=== PATIENT | male | born 1965 | race Caucasian/White ===

== ENCOUNTER 2017-02-21 17:15 | Observation (INO) | payer MEDICARE ==
[~2017-02-21] VITALS: Ht 170.2 cm; Wt 102.2 kg
--- NOTE | ~2017-02-21 | HEMODYNAMI ---
PATIENT:ANDREY OSMAN JR MEDICAL RECORD: [id number] : 67 LOCATION:[address] [facility]# [id number] ADMISSION DATE: 02/21/17 Generatedon:02/22/201713:12 Patient name: ANDREY OSMAN Patient #: [id number] SSN: [id number] : 1965 Date of study: 02/22/2017 Page: Of Hemodynamic Procedure Report Patient Data Patient Demographics Procedure consent was obtained First Name: ANDREY Gender: Male Last Name: DAWSON Suffix: Jr Adhikari Initial: Alpesh : 1965 Patient #: [id number] Age: 51 year(s) Race: SSN: [id number] Additional ID: [id number] Contact details [address]: [address] [place] [address] State: [place] City: [place] Zip code: [address] Past Medical History History of disease Date Diagnosis Comments CAD Allergies Allergen Reaction Date Comments Reported Other allergy 12/30/2015 Plavix (pt gets hives) Other allergy 07/30/2016 plavix Other allergy 08/01/2016 Plavix Admission Admission Data Admission Date: 02/21/2017 Admission Time: 21:59 Room #: 2127 Procedure Procedure Types Cath Procedure Diagnostic Procedure [facility] w/Coronaries PCI Procedure Coronary Stent Initial Miscellaneous Procedures Moderate Sedation up to 15 minutes Procedure Description Procedure Date Procedure Date: 02/22/2017 Procedure Start Time: 12:57 Procedure End Time: 13:12 Procedure Staff Name Function Leobardo Stratton MD Performing Physician Lucas Robles RT Scrub Vi Ellsworth RN Nurse Willian Jones RT Monitor Procedure Data Cath Procedure Fluoroscopy Diagnostic fluoroscopy Total fluoroscopy Time: 2.3 time: 2.3 min min Diagnostic fluoroscopy Total fluoroscopy dose: 418 dose: 418 mGy mGy Contrast Material Contrast Material Type Amount (ml) Isovue 300 98 Entry Location Entry Primary Successful Side Size Upsize Upsize Entry Closure Succes sful Closure Location (Fr) 1 (Fr) 2 (Fr) Remarks Device Remarks Femoral Right 5 Fr 6 Fr Exoseal artery Short Estimated blood loss: 10 ml Diagnostic catheters Device Type Used For End Catheter Placement Cordis 5Fr Pigtail Procedure Catheter (MP) Cordis 5Fr JL 4.0 Procedure Catheter (MP) Cordis 5Fr 3DRC Catheter Procedure (MP) Procedure Complications No complications Procedure Medications Medication Administration Route Dosage Oxygen NC 2 l/min Heparin Flush Bag added to field 2 bags (1000units/500ml NS) Lidocaine 2% added to field 20 Versed I.V. 1 mg Fentanyl I.V. 50 mcg Versed I.V. 1 mg Fentanyl I.V. 50 mcg Heparin Bolus I.V. 4000 units Nitroglycerin IC/IA I.C. 200 mcg Versed I.V. 0.5 mg Fentanyl I.V. 50 mcg Hemodynamics Rest Heart Rate: 62 (bpm) Snapshots Pre Cath Intra NCS Post Cath Vital Signs Time Heart Resp SPO2 etCO2 [id number] NIBP (mmHg) Rhythm Pain Sedatio n Rate (ipm) (%) (mmHg) (mmHg) Status Level (bpm) 12:48:59 62 15 98 0 0 Measuring NSR 0 (11) 10(A) , No pain 12:49:29 62 15 99 0 0 164/96(124) NSR 0 (11) 10(A) , No pain 12:53:46 62 15 98 0 0 142/89(119) NSR 0 (11) 10(A) , No pain 12:57:55 62 18 97 0 0 128/85(104) NSR 0 (11) 10(A) , No pain 13:02:54 74 16 98 0 0 116/90(112) NSR 0 (11) 9(A) , No pain 13:06:56 77 16 95 0 0 121/107(118) NSR 0 (11) 9(A) , No pain 13:10:00 77 16 95 0 0 109/74(104) NSR 0 (11) 9(A) , No pain Medications Time Medication Route Dose Verified Delivered Reason Notes Effectiveness by by 12:48:37 Oxygen NC 2 Leobardo Vi Per physician l/min Viral Ellsworth RN 12:48:50 Heparin Flush added 2 Leobardo Booth used for Bag to bags Viral Stratton MD procedure (1000units/500ml field NS) 12:49:00 Lidocaine 2% added 20ml Leobardo Booth used for to vial Viral Stratton MD procedure field 12:55:32 Versed I.V. 1 mg Leobardo Vi for sedation Viral Ellsworth RN 12:55:39 Fentanyl I.V. 50 Leobardo Vi for sedation mcg Viral Ellsworth RN 12:57:36 Versed I.V. 1 mg Leobardo Vi for sedation Viral Ellsworth RN 12:57:42 Fentanyl I.V. 50 Leobardo Vi for sedation mcg Viral Ellsworth RN 12:59:33 Versed I.V. 0.5 Leobardo Vi for sedation mg Viral Ellsworth RN 12:59:45 Fentanyl I.V. 50 Leobardo Vi for sedation mcg Viral Ellsworth RN 13:02:16 Heparin Bolus I.V. 4000 Leobardo Vi for dose units Viral Ellsworth RN anticoagulation verified wtih dr stratton 13:04:44 Nitroglycerin I.C. 200 Leobardo Booth for IC/IA mcg Viral Stratton MD vasodilation Procedure Log Time Note 12:20:23 Willian Jones RT(R) sent for patient. Start room use. 12:27:19 ACC Patient presents with Unstable Angina CCS Anginal Class 3--Marked limitation of physical activity, angina occurs with ordinary activity.. 12:27:21 Diagnostic Cath status Urgent 12:27:25 Time tracking: Regular hours 12:27:29 Plan of Care:Hemodynamics will remain stable., Cardiac rhythm will remain stable., Comfort level will be maintained., Respiratory function will remain adequate., Patient/ family verbilizes understanding of procedure., Procedure tolerated without complication., Recovers from procedure without complications.. 12:40:58 Patient received from PCU to CCL 1 Alert and oriented. Tansferred to table in Supine position. 12:41:01 Warm blankets applied, and pilo hugger turned on for patient comfort. 12:41:02 Correct patient and procedure confirmed by team. 12:41:05 Signed procedure consent form obtained from patient. 12:41:06 ECG and BP/O2 sat monitors applied to patient. 12:47:10 Vital chart was started 12:48:37 Oxygen 2 l/min NC was administered by Vi Ellsworth RN; Per physician; 12:48:50 Heparin Flush Bag (1000units/500ml NS) 2 bags added to field was administered by Leobardo Stratton MD; used for procedure; 12:49:00 Lidocaine 2% 20ml vial added to field was administered by Leobardo Stratton MD; used for procedure; 12:49:32 Baseline sample Acquired. 12:49:36 Rhythm: sinus rhythm 12:49:38 Full Disclosure recording started 12:49:43 H&P Date Dictated: 02/22/2017 Within 30 days and on chart.. 12:49:43 Pre-procedure instructions explained to patient. 12:49:44 Pre-op teaching completed and patient verbalized understanding. 12:49:46 Family unavailable. 12:49:48 Patient NPO since Midnight. 12:49:49 Is the patient allergic to Iodine/contrast media? No. 12:49:51 Is patient on blood thinner?Yes 12:49:57 ACC The patient was administered the following blood thiners within the last 24 hours: ACCBrilinta 12:49:58 Patient diabetic? No. 12:50:01 Previous problem with sedation/anesthesia? No ? 12:50:02 Snore? Yes 12:50:03 Sleep apnea? Yes 12:50:04 Deviated septum? No 12:50:05 Opens mouth fully? Yes 12:50:06 Sticks out tongue? Yes 12:50:14 Airway obstruction? Yes COPD, Asthma 12:50:18 Dentures? Yes OUT 12:50:22 Pre procedure: right dorsailis pedis pulse 1+ Palpable, but thready & weak; easily obliterated 12:50:24 Patient pain scale 0/10 ?. 12:50:28 IV patent on arrival in right forearm with 0.9% NaCl at KVO. 12:50:29 Lab results completed and on chart. 12:50:32 Right groin area was prepped with chlora-prep and draped in sterile fashion 12:50:34 Alarms reviewed by R. N. 12:50:40 Sharps counted by scrub and verified by R.N. 12:50:47 Use device set Femoral Dx 12:50:48 Tegaderm 4 x 4 opened to sterile field. 12:50:49 Acist Hand Control opened to sterile field. 12:50:50 Acist Manifold opened to sterile field. 12:50:51 Acist Syringe opened to sterile field. 12:50:52 Bag Decanter opened to sterile field. 12:50:52 Medline Cath Pack opened to sterile field. 12:50:53 Terumo 5Fr [place] Sheath opened to sterile field. 12:50:53 St Asif 260cm J .035 wire opened to sterile field. 12:50:54 Diagnostic Infinity 5Fr Multipack catheter opened to sterile field. 12:50:56 Physician paged 12:55:16 --------ALL STOP TIME OUT------ 12:55:16 Final Timeout: patient, procedure, and site verified with staff and physician. All members of the team are in agreement. 12:55:18 Right groin site verified by team. 12:55:21 Physical assessment completed. ASA score P 2 - A patient with mild systemic disease as per Leobardo Stratton MD. 12:55:24 Sedation plan: IV Moderate Sedation Versed, Fentanyl 12:55:32 Versed 1 mg I.V. was administered by Vi Ellsworth RN; for sedation; 12:55:39 Fentanyl 50 mcg I.V. was administered by Vi Ellsworth RN; for sedation; 12:56:50 Procedure started. 12:57:06 Local anesthetic to right femoral artery with Lidocaine 2% by Leobardo Stratton MD.INITIAL ACCESS ONLY 12:57:35 Zero performed for pressure channel P1 12:57:36 Versed 1 mg I.V. was administered by Vi Ellsworth RN; for sedation; 12:57:42 Fentanyl 50 mcg I.V. was administered by Vi Ellsworth RN; for sedation; 12:57:53 A 5 Fr sheath was inserted into the Right Femoral artery 12:57:58 A Cordis 5Fr Pigtail Catheter (MP) was advanced over the wire and used for Procedure. 12:58:49 LV angiography performed. 12:58:50 LV gram done using ALANIS 12:58:56 EF : 55 % 12:58:59 Injector settings: Ml/sec: 10, Volume: 20, 12:59:01 Catheter removed. 12:59:05 A Cordis 5Fr JL 4.0 Catheter (MP) was advanced over the wire and used for Procedure. 12:59:33 Versed 0.5 mg I.V. was administered by Vi Ellsworth RN; for sedation; 12:59:44 LCA angiography performed. 12:59:45 Fentanyl 50 mcg I.V. was administered by Vi Ellsworth RN; for sedation; 12:59:59 Catheter removed. 13:00:07 A CordInSound Medical 5Fr 3DRC Catheter (MP) was advanced over the wire and used for Procedure. 13:00:21 Terumo 6Fr [place] Sheath opened to sterile field. 13:00:21 Berkowitz SemEquipisper J 300cm 0.014 guide wire opened to sterile field. 13:00:21 [email or web address] BasixCompak Inflation Kit opened to sterile field. 13:00:53 RCA angiography performed. 13:00:55 Catheter removed. 13:01:39 Medtronic Launcher 6Fr 3DRC guide catheter opened to sterile field. 13:01:54 ACC PCI Site: mRCA has 80% stenosis. 13:01:56 ACC Pre-intervention CATARINA Flow is 3. 13:02:04 Sheath upsized to a 6 Fr Short. 13:02:10 6 Fr 3DRC guide catheter was inserted over the wire 13:02:16 Heparin Bolus 4000 units I.V. was administered by Vi Ellsworth RN; for anticoagulation; dose verified wt dr stratton 13:02:40 Whisper wire advanced. 13:03:28 Wire advanced across lesion. 13:04:14 Inflation Number: 1 A Medtronic Resolute 3.5 X 12 stent was prepped and advanced across the Mid RCA. The stent was deployed at 17 PAUL for 0:10 (min:sec). 13:04:44 Nitroglycerin IC/IA 200 mcg I.C. was administered by Leobardo Stratton MD; for vasodilation; 13:05:32 ACC Post-intervention CATARINA Flow is 3. 13:05:34 Stent catheter was removed intact over wire. 13:05:34 Wire removed. 13:05:35 Guide catheter removed. 13:06:49 Sheath removed intact; hemostasis achieved with Exoseal to the Right Femoral artery. 13:06:52 Procedure ended.(Physican Out) 13:07:16 Fluoroscopy time 02.30 minutes. 13:07:20 Fluoroscopy dose: 418 mGy 13:07:20 Flurop Dose total: 418 13:08:48 Contrast amount:Isovue 300 98ml. 13:08:50 Sharps counted by scrub and verified by R.N. 13:08:56 Insertion/operative site no bleeding no hematoma. 13:08:59 Post-op/insertion site Right Femoral artery dressed using a 4 x 4 and Tegaderm. 13:09:01 Post Procedure Pulses reassessed and unchanged 13:09:03 Post-procedure physical assessment completed. ASA score P 2 - A patient with mild systemic disease as per Leobardo Stratton MD. 13:09:05 Post procedure rhythm: unchanged. 13:09:09 Estimated blood loss: 10 ml 13:09:11 Post procedure instruction explained to patient.Patient verbalizes understanding. 13:09:11 Patient needs reinforcement of post procedure teaching. 13:09:21 Procedure type changed to Cath procedure, Diagnostic procedure, LHC, LHC w/Coronaries, PCI procedure, Coronary Stent Initial, Miscellaneous Procedures, Moderate Sedation up to 15 minutes 13:09:26 Procedure Complication : No complications 13:09:46 Cordis 6Fr Exoseal opened to sterile field. 13:10:29 Procedure and supply charges have been captured, reviewed, submitted and are correct. 13:11:44 Vital chart was stopped 13:11:45 See physician's report for complete and final results. 13:12:04 Report given to PCU. 13:12:07 Patient transfered to PCU with Bed. 13:12:10 Procedure ended. 13:12:10 Full Disclosure recording stopped 13:12:12 End room use (Document Last) Intervention Summary Intervention Notes Time ActionType Lesion and Equipment Action# Pressure Duration Attributes Used 13:04:14 Place stent Mid RCA Medtronic 1 17 00:10 Resolute 3.5 X 12 stent Device Usage Item Name Manufacture Quantity Catalog Hospital Part Current Minimal Lot# / Number Charge Number Stock Stock Serial# Code Tegaderm 4 3M 1 [id number] [id number] 769289 5 x 4 Acist Hand Acist 1 45729 102173 264762 813726 5 Control Medical Systems Inc Acist Acist 1 54088 341116 800152 108208 5 Manifold Medical Systems Inc Acist Acist 1 34389 388378 559732 374302 20 Syringe Medical Systems Inc Bag Microtek 1 [facility] 160054 87633 133488 5 DecgetFound[employer]ie [employer] Inc. Medline Cardinal 1 [id number] 927481 29789 749858 5 Cath Pack Health Terumo 5Fr Terumo 1 [id number] 979838 981670 341018 [address] [place] [address] Asif 1 [id number] 595635 470493 728025 30 260cm J .035 wire Diagnostic Cardinal 1 [id number] 932353 12894 658455 30 Infinity Health 5Fr Multipack catheter Cordis 5Fr Cardinal 1 886017 5 Pigtail Health Catheter (MP) Cordis 5Fr Cardinal 1 750480 5 JL 4.0 Health Catheter (MP) Cordis 5Fr Cardinal 1 496044 5 3DRC Health Catheter (MP) Terumo 6Fr Terumo 1 [id number] 677889 312642 913318 40 [place] Sheath Berkowitz Berkowitz 1 [id number] 450123 586153 169468 5 Whisper J Vascular 300cm 0.014 guide wire Merit Merit 1 [id number] 157408 045592 588395 15 [facility] Medical Inflation Kit Medtronic Medtronic 1 [id number] 990111 131843 700418 1 Launcher 6Fr 3DRC guide catheter Medtronic Medtronic 1 [id number] 478315 716237 1 [id number] Resolute 3.5 X 12 stent Cordis 6Fr Cardinal 1 [id number] 451217 753889 764485 10 [facility] Novalux Signature Audit [place] Stage Time Signature Unsigned Intra-Procedure 02/22/2017 Willian Jones 1:12:25 PM RT(R) Signatures Monitor : Willian Jones RT Signature : Date : Time : 1910 [address] JAMISON, NANI [id number]
--- NOTE | ~2017-02-21 | HEMODYNAMI ---
PATIENT:ANDREY OSMAN JR MEDICAL RECORD: [id number] : 67 [address] [facility] [id number] ADMISSION DATE: 02/21/17 Generatedon:02/23/20178:28 Patient name: ANDREY OSMAN Patient #: [id number] SSN: [id number] : 1965 Date of study: 02/23/2017 Page: Of Hemodynamic Procedure Report Patient Data Patient Demographics Procedure consent was obtained First Name: ANDREY Gender: Male Last Name: DAWSON Suffix: Jr Adhikari Initial: Alpesh : 1965 Patient #: [id number] Age: 51 year(s) Race: SSN: [id number] Additional ID: [id number] Contact details [address]: [address] [place] [address] State: [place] City: [place] Zip code: [address] Past Medical History History of disease Date Diagnosis Comments CAD Allergies Allergen Reaction Date Comments Reported Other allergy 12/30/2015 Plavix (pt gets hives) Other allergy 07/30/2016 plavix Other allergy 08/01/2016 Plavix Admission Admission Data Admission Date: 02/21/2017 Admission Time: 21:59 Room #: 2127 Procedure Procedure Types Cath Procedure PCI Procedure PTCA Initial Miscellaneous Procedures Moderate Sedation up to 15 minutes Procedure Description Procedure Date Procedure Date: 02/23/2017 Procedure Start Time: 8:15 Procedure End Time: 8:27 Procedure Staff Name Function Leobardo Stratton MD Performing Physician Vi Ellsworth RN Nurse Willian Jones RT Monitor Ashia Pak RT Scrub Procedure Data Cath Procedure Fluoroscopy Diagnostic fluoroscopy Total fluoroscopy Time: 2.8 time: 2.8 min min Diagnostic fluoroscopy Total fluoroscopy dose: 416 dose: 416 mGy mGy Contrast Material Contrast Material Type Amount (ml) Isovue 300 51 Entry Location Entry Primary Successful Side Size Upsize Upsize Entry Closure Succes sful Closure Location (Fr) 1 (Fr) 2 (Fr) Remarks Device Remarks Femoral Left 6 Fr Exoseal artery Short Estimated blood loss: 10 ml Procedure Complications No complications Procedure Medications Medication Administration Route Dosage Oxygen NC 2 l/min Heparin Flush Bag added to field 2 bags (1000units/500ml NS) Lidocaine 2% added to field 20 Brilinta P.O. 90 mg Versed I.V. 1 mg Fentanyl I.V. 50 mcg Versed I.V. 1 mg Fentanyl I.V. 50 mcg Heparin Bolus I.V. 4000 units Versed I.V. 1 mg Fentanyl I.V. 50 mcg Hemodynamics Rest Heart Rate: 74 (bpm) Snapshots Pre Cath Intra NCS Post Cath Vital Signs Time Heart Resp SPO2 etCO2 YG3ovsf NIBP (mmHg) Rhythm Pain Sedation Rate (ipm) (%) (mmHg) (mmHg) Status Level (bpm) 7:55:36 68 21 98 0 0 Measuring NSR 0 (11) 10(A) , No pain 8:00:55 68 16 100 0 0 Time NSR 0 (11) 10(A) Exceeded , No pain 8:03:04 68 16 100 0 0 103/70(81) NSR 0 (11) 10(A) , No pain 8:07:12 73 16 98 0 0 111/58(81) NSR 0 (11) 10(A) , No pain 8:11:22 73 19 97 0 0 109/63(82) NSR 0 (11) 10(A) , No pain 8:15:26 75 17 97 0 0 111/78(108) NSR 0 (11) 9(A) , No pain 8:19:32 76 17 97 0 0 109/73(102) NSR 0 (11) 9(A) , No pain 8:23:35 71 19 98 0 0 119/77(101) NSR 0 (11) 9(A) , No pain 8:25:46 69 18 98 0 0 128/80(104) NSR 0 (11) 9(A) , No pain Medications Time Medication Route Dose Verified Delivered Reason Notes Effectiveness by by 7:51:00 Brilinta P.O. 90 mg Leobardo [place] for Viral Ellsworth RN antiplatelet therapy 7:58:12 Oxygen NC 2 Leobardo [place]onca Per physician l/min Viral Ellsworth RN 7:58:19 Heparin Flush added 2 Leobardo Booth used for Bag to bags Viral Stratton MD procedure (1000units/500ml field NS) 7:58:26 Lidocaine 2% added 20ml Leobardo Booth used for to vial Viral Stratton MD procedure field 8:09:02 Versed I.V. 1 mg Leobardo Vi for sedation Viral Ellsworth RN 8:09:09 Fentanyl I.V. 50 Leobardo Vi for sedation mcg Viral Ellsworth RN 8:11:05 Versed I.V. 1 mg Leobardo Vi for sedation Viral Ellsworth RN 8:11:13 Fentanyl I.V. 50 Leobardo Vi for sedation mcg Viral Ellsworth RN 8:13:07 Versed I.V. 1 mg Leobardo Vi for sedation Viral Ellsworth RN 8:13:18 Fentanyl I.V. 50 Leobardo Vi for sedation mcg Viral Ellsworth RN 8:17:38 Heparin Bolus I.V. 4000 Leobardo Vi for dose units Viral Ellsworth RN anticoagulation verified with dr stratton Procedure Log Time Note 7:30:41 Willian Jones RT(R) sent for patient. Start room use. 7:37:42 Time tracking: Regular hours 7:37:47 Plan of Care:Hemodynamics will remain stable., Cardiac rhythm will remain stable., Comfort level will be maintained., Respiratory function will remain adequate., Patient/ family verbilizes understanding of procedure., Procedure tolerated without complication., Recovers from procedure without complications.. 7:50:59 Patient received from PCU to CCL 1 Alert and oriented. Tansferred to table in Supine position. 7:51:00 Brilinta 90 mg P.O. was administered by Vi Ellsworth RN; for antiplatelet therapy; 7:51:01 Warm blankets applied, and pilo hugger turned on for patient comfort. 7:51:01 Correct patient and procedure confirmed by team. 7:51:03 Signed procedure consent form obtained from patient. 7:51:03 ECG and BP/O2 sat monitors applied to patient. 7:53:46 Vital chart was started 7:58:12 Oxygen 2 l/min NC was administered by Vi Ellsworth RN; Per physician; 7:58:19 Heparin Flush Bag (1000units/500ml NS) 2 bags added to field was administered by Leobardo Stratton MD; used for procedure; 7:58:26 Lidocaine 2% 20ml vial added to field was administered by Leobardo Stratton MD; used for procedure; 8:07:25 Baseline sample Acquired. 8:07:29 Rhythm: sinus rhythm 8:07:31 Full Disclosure recording started 8:07:38 H&P Date Dictated: 02/22/2017 Within 30 days and on chart.. 8:07:39 Pre-procedure instructions explained to patient. 8:07:39 Pre-op teaching completed and patient verbalized understanding. 8:07:41 Family unavailable. 8:07:42 Patient NPO since Midnight. 8:07:49 Is the patient allergic to Iodine/contrast media? No. 8:07:51 Is patient on blood thinner?Yes 8:07:54 ACC The patient was administered the following blood thiners within the last 24 hours: ACCBrilinta 8:07:56 Patient diabetic? No. 8:07:58 Previous problem with sedation/anesthesia? No ? 8:07:59 Snore? Yes 8:08:00 Sleep apnea? Yes 8:08:01 Deviated septum? No 8:08:01 Opens mouth fully? Yes 8:08:02 Sticks out tongue? Yes 8:08:08 Airway obstruction? Yes COPD, Asthma 8:08:13 Dentures? Yes OUT 8:08:29 Pre procedure: left dorsailis pedis pulse 1+ Palpable, but thready & weak; easily obliterated 8:08:31 Patient pain scale 0/10 ?. 8:08:44 IV patent on arrival in right forearm with 0.9% NaCl at KVO. 8:08:55 Lab results completed and on chart. 8:08:56 Left groin area was prepped with chlora-prep and draped in sterile fashion 8:08:57 Alarms reviewed by R. N. 8:08:58 Sharps counted by scrub and verified by R.N. 8:08:59 --------ALL STOP TIME OUT------ 8:09:01 Final Timeout: patient, procedure, and site verified with staff and physician. All members of the team are in agreement. 8:09:02 Versed 1 mg I.V. was administered by Vi Ellsworth RN; for sedation; 8:09:03 Left groin site verified by team. 8:: Physical assessment completed. ASA score P 2 - A patient with mild systemic disease as per Leobardo Stratton MD. 8:: Fentanyl 50 mcg I.V. was administered by Vi Ellsworth RN; for sedation; 8:: Sedation plan: IV Moderate Sedation Versed, Fentanyl 8:09:46 Use device set Femoral PCI 8::48 Tegaderm 4 x 4 opened to sterile field. 8::48 Acist Manifold opened to sterile field. 8::50 Acist Syringe opened to sterile field. 8::50 Acist Hand Control opened to sterile field. 8::51 Bag Decanter opened to sterile field. 8::51 Medline Cath Pack opened to sterile field. 8::52 Terumo 6Fr Judsonia Sheath opened to sterile field. 8::52 St Asif 260cm J .035 wire opened to sterile field. 8::52 Merit BasixCompak Inflation Kit opened to sterile field. 8:10:05 Berkowitz Whisper J 300cm 0.014 guide wire opened to sterile field. 8:11:05 Versed 1 mg I.V. was administered by Vi Ellsworth RN; for sedation; 8:11:13 Fentanyl 50 mcg I.V. was administered by Vi Ellsworth RN; for sedation; 8:13:07 Versed 1 mg I.V. was administered by Vi Ellsworth RN; for sedation; 8:13:08 Cordis 6FR XBLAD 3.5 guide catheter opened to sterile field. 8:13:18 Fentanyl 50 mcg I.V. was administered by Vi Ellsworth RN; for sedation; 8:13:18 ACC PCI Site: dLAD has 80% stenosis. 8:13:20 ACC Pre-intervention CATARINA Flow is 3. 8:15:46 Procedure started. 8:15:51 Local anesthetic to left femerol artery with Lidocaine 2% by Leobardo Stratton MD.INITIAL ACCESS ONLY 8:16:37 Zero performed for pressure channel P1 8:17:13 A 6 Fr Short sheath was inserted into the Left Femoral artery 8:17:38 Heparin Bolus 4000 units I.V. was administered by Vi Ellsworth RN; for anticoagulation; dose verified with dr stratton 8:17:41 6 Fr XBLAD 3.5 guide catheter was inserted over the wire 8:19:03 Whisper wire advanced. 8:19:40 Wire advanced across lesion. 8:20:58 Inflation number: 1 A Mozec Rx 3.0 x 20 balloon was prepped and advanced across the Dist LAD, then inflated to 17 PAUL for 0:10 (min:sec). 8:21:06 Cordis 6Fr Exoseal opened to sterile field. 8:21:41 Inflation number: 2 The Mozec Rx 3.0 x 20 balloon was reinflated across the Dist LAD, to 7 PAUL for 0:10 (min:sec). 8:22:19 Multiple inflations made at 9 Atms. 8:23:33 ACC Post-intervention CATARINA Flow is 3. 8:23:41 Balloon removed over the wire. 8:23:48 Wire removed. 8:23:53 Guide catheter removed. 8:24:05 Sheath removed intact; hemostasis achieved with Exoseal to the Left Femoral artery. 8:24:13 Procedure ended.(Physican Out) 8:25:10 Fluoroscopy time 02.80 minutes. 8:25:15 Flurop Dose total: 416 8:25:15 Fluoroscopy dose: 416 mGy 8:25:22 Contrast amount:Isovue 300 51ml. 8:25:24 Sharps counted by scrub and verified by R.N. 8:25:26 Insertion/operative site no bleeding no hematoma. 8:25:29 Post-op/insertion site Right Femoral artery dressed using a 4 x 4 and Tegaderm. 8:25:31 Post Procedure Pulses reassessed and unchanged 8:25:37 Post-procedure physical assessment completed. ASA score P 2 - A patient with mild systemic disease as per Leobardo Stratton MD. 8:25:48 Post procedure rhythm: unchanged. 8:25:51 Estimated blood loss: 10 ml 8:25:56 Post procedure instruction explained to patient.Patient verbalizes understanding. 8:25:56 Patient needs reinforcement of post procedure teaching. 8:26:03 Procedure type changed to Cath procedure, PCI procedure, PTCA Initial, Miscellaneous Procedures, Moderate Sedation up to 15 minutes 8:26:07 Procedure Complication : No complications 8:26:42 Procedure and supply charges have been captured, reviewed, submitted and are correct. 8:27:35 Vital chart was stopped 8:27:35 See physician's report for complete and final results. 8:27:40 Report given to PCU. 8:27:44 Patient transfered to PCU with Bed. 8:27:46 Procedure ended. 8:27:46 Full Disclosure recording stopped 8:27:48 End room use (Document Last) Intervention Summary Intervention Notes Time ActionType Lesion and Equipment Action# Pressure Duration Attributes Used 8:20:58 Inflate Dist LAD Mozec Rx 1 17 00:10 balloon 3.0 x 20 balloon 8:21:41 Reinflate Dist LAD Mozec Rx 2 7 00:10 balloon 3.0 x 20 balloon Device Usage Item Name Manufacture Quantity Catalog Hospital Part Current Minimal L ot# / Number Charge Number Stock Stock Serial# Code Tegaderm 4 3M 1 [id number] [id number] 5 x 4 Acist Acist 1 79349 055747 728878 221912 5 Manifold Medical Systems Inc Acist Acist 1 63473 882689 328822 624696 20 Syringe Medical Systems Inc Acist Hand Acist 1 79783 985119 241653 266624 5 Control Medical Systems Inc Bag Microtek 1 2002S 610598 44652 273914 5 DecFD9 [employer]. Medline Cardinal 1 [id number] 096138 42030 251059 5 Cath Pack Mission [employer] Terumo 6Fr Terumo 1 [id number] 987191 465140 721320 [address] As[address] St Asif 1 996114 505620 260425 669765 30 260cm J .035 wire Merit Merit 1 TM5880 386845 290470 527804 15 BasixCompak Medical Inflation Kit Berkowitz Berkowitz 1 [id number] 220518 318765 871243 5 Whisper J Vascular 300cm 0.014 guide wire Cordis 6FR Cardinal 1 [id number] 202169 091253 599913 10 XBLAD 3.5 Health guide catheter Mozec Rx Cardinal 1 [id number] 695554 16629 756048 5 U MOA73 3.0 x 20 Health balloon Cordis 6Fr Cardinal 1 EX600 881700 834123 486178 10 [facility] Signature Audit [place] Stage Time Signature Unsigned Intra-Procedure 02/23/2017 Willian Jones 8:28:07 AM RT(R) Signatures Monitor : Willian Jones RT Signature : Date : Time : [address] [place] [address]
--- NOTE | ~2017-02-21 | OP ---
PATIENT NAME: ANDREY OSMAN JR MEDICAL RECORD: [id number] :67 LOCATION:D.M2 D.2127 ADMISSION DATE:02/21/17 SURGEON: BRIANA HOYOS MD OPERATION DATE: 02/22/17 PROCEDURES: 1. Percutaneous transluminal coronary angioplasty stent right coronary artery. 2. Left heart catheterization. 3. Selective coronary angiography. 4. Left ventriculogram. INDICATION: 1. Angina. 2. Coronary artery disease. PROCEDURE IN DETAIL: After informed consent was obtained and after detailed explanation of risks, benefits, as well as alternative therapies, the patient elected to proceed with angiogram and angioplasty. The right femoral area was prepped and draped in a normal sterile fashion. The right femoral artery was cannulated via modified Seldinger technique with placement of 6-Kazakh sheath. All catheters exchanged through this sheath. FINDINGS: Left ventricular chamber size is within normal limits. Left ventricular systolic function is normal. Overall ejection fraction estimated at 60%. SELECTIVE CORONARY ANGIOGRAPHY: 1. Left main is with no significant angiographic disease. 2. Left anterior descending has previously placed stents. There is 80+% in-stent restenosis in the distal stent. 3. Left circumflex has mild to moderate irregularities but no flow-limiting stenosis. 4. The right coronary artery has previously placed stents that are widely patent, however, there is a new 80% stenosis in the mid vessel. PTCA STENT OF THE RIGHT CORONARY ARTERY: The stent used was a 3.5 X 12 millimeter Resolute stent. The result was 0% residual stenosis. OVERALL IMPRESSION: Successful percutaneous transluminal coronary angioplasty stent of the right coronary artery going from 80% initial stenosis to 0% residual stenosis. PLAN: Will plan for percutaneous transluminal coronary angioplasty stent of the left anterior descending in the near future. BRIANA HOYOS MD CC: [id number] DICTATION DATE: 02/22/17 1500 CHIEF ORDER DISPATCHER: GISELA 02/23/17 1411 ADM IN [facility] [address] [place] [address]
--- NOTE | ~2017-02-21 | DS ---
PATIENT:ANDREY AVERY JR :67 MEDICAL RECORD: [id number] DISCHARGE SUMMARY ADMISSION DATE: 02/21/17 DISCHARGE DATE: 02/23/17 PROBLEM LIST: 1. Angina. 2. Coronary artery disease. 3. Percutaneous transluminal coronary angioplasty stent right coronary artery and percutaneous transluminal coronary angioplasty left anterior descending this admission. 4. Hypertension. 5. Hyperlipidemia. HOSPITAL COURSE: Mr. Avery presents with unstable angina. He was found to have disease of the right coronary artery and left anterior descending. He underwent percutaneous transluminal coronary angioplasty of the left anterior descending as this was in-stent restenosis. He underwent percutaneous transluminal coronary angioplasty stent of the right coronary artery. PLAN: He was discharged home to continue his Brilinta and aspirin. He will follow up with [facility] in one month. BRIANA HOYOS MD CC: [id number] DICTATION DATE: 02/23/172302 RCP: RANDALL 02/23/172302 DIS IN 02/23/17 [id number] [place] [address]
--- NOTE | ~2017-02-21 | PRO ---
PATIENT:ANDREY OSMAN JR MEDICAL RECORD: [id number] : 67 LOCATION:D.M2 D.2127 ADMISSION DATE: 02/21/17 PROCEDURE PERFORMED BY: BRIANA HOYOS MD PROCEDURE DATE: 02/23/17 PROCEDURES: 1. Percutaneous transluminal coronary angioplasty left anterior descending. 2. Selective coronary angiography. INDICATION: 1. Angina. PROCEDURE IN DETAIL: After informed consent was obtained and after detailed explanation of risks, benefits, as well as alternative therapies, the patient elected to proceed with angiogram and angioplasty. The right femoral area was prepped and draped in a normal sterile fashion. The right femoral artery was cannulated via modified Seldinger technique with placement of 6-Citizen [place] sheath. All catheters exchanged through this sheath. FINDINGS: PTCA OF THE LEFT ANTERIOR DESCENDING: The left anterior descending has multiple previously placed stents. There is up to 80% in-stent restenosis. This was addressed with a 3.0 balloon taken to 17 atmospheres. The result was 0% residual stenosis. OVERALL IMPRESSION: Successful high pressure percutaneous transluminal coronary angioplasty for in-stent restenosis of the left anterior descending going from 80% initial stenosis to 0% residual stenosis. BRIANA HOYOS MD CC: [id number] DICTATION DATE: 02/23/172301 [employer] BPM ARCHITECT: RANDALL 02/23/172300 DIS IN 02/23/17 [facility] [address] [place] [address]
[~2017-02-21 17:15] MED LIST: BAYER CHEWABLE81 MG PO; BRILINTA90 MG PO; CELEXA20 MG PO; CELEXA40 MG PO; HYDROCODON-ACE1 EAC7 PO; HYDROCODONE-APA1 TAB PO; KLONOPIN0.5 MG PO; LIPITOR80 MG PO; LOPRESSOR25 MG PO; NITROSTAT0.4 MG SL; NORVASC5 MG PO; PLETAL100 MG PO; PRAVACHOL40 MG PO; PRILOSEC20 MG PO; PROAIR HFA8.5 GM INH; RANEXA1000 MG PO; RANEXA500 MG PO; SPIRIVA18 MCG INH; SPIRIVA18 MCG PO; SYMBICORT 16010.2 GM INH; VENTOLIN HFA18 GM INH; ZANTAC150 MG PO; ZETIA10 MG PO
[2017-02-21 18:03] LABS: BASOPHILS 0.1 % (0-2); EOSINOPHILS 1.5 % (0-7); HEMATOCRIT 45.4 % (42.0-54.0); HEMOGLOBIN 16.1 g/dL (13.5-17.5); IMMATURE GRANULOCYTES 0.4 % (0-5); LYMPHOCYTES 32.9 % (15-50); MCH 31.5 pg (26.0-34.0); MCHC 35.5 g/dL (31.0-37.0); MCV 88.8 fL (80.0-100.0); MEAN PLATELET VOLUME 8.7 fL (7.4-10.4); MONOCYTES 13.6 % (2-11); NEUTROPHILS 51.5 % (40-80); PLATELET COUNT 284 10x3/uL (130-400); RBC 5.11 10x6/uL (4.20-6.10); RDW 13.1 % (11.5-14.5); WBC 6.8 10x3/uL (4.8-10.8)
[2017-02-21 18:18] LABS: ALBUMIN 3.5 g/dL (3.4-5.0); ALKALINE PHOSPHATASE 113 U/L (46-116); ALT (SGPT) 26 U/L (10-68); BILIRUBIN - TOTAL 0.49 mg/dL (0.2-1.3); CALC OSMOLALITY 272 mosm/kg (275-300); CALCIUM 8.8 mg/dL (8.5-10.1); CARBON DIOXIDE 25.5 mmol/L (21.0-32.0); CHLORIDE - SERUM 100 mmol/L (98-107); GLUCOSE 102 mg/dL (74-106); POTASSIUM - SERUM 3.6 mmol/L (3.5-5.1); PROTEIN - SERUM 7.5 g/dL (6.4-8.2); SODIUM 137 mmol/L (136-145); UREA NITROGEN 11 mg/dL (7-18); eGFR NON AFRICAN AMERICAN 84 mL/min (90-120)
[2017-02-21 18:20] LABS: INR 0.96 (0.85-1.17); PROTIME 12.6 SECONDS (11.6-15.0)
[2017-02-21 18:44] LABS: CHOL - HDL RATIO 5.2 ratio (2.3-4.9); CHOLESTEROL, TOTAL 235 mg/dL (0-200); CKMB 0.2 U/L (0.0-3.6); CREATINE KINASE 41 UL (21-232); HDL CHOLESTEROL 45 mg/dL (32-96); LDL CHOLESTEROL 144 mg/dL (0-100); LDL-HDL RATIO 3.2 ratio (1.5-3.5); MAGNESIUM - SERUM 2.2 mg/dL (1.8-2.4); PRO BNP 15 pg/mL (0-125); TRIGLYCERIDE 231 mg/dL (30-200); TROPONIN-I < 0.017 ng/mL (0.000-0.060)
[2017-02-21] MEDS ORDERED: ZOFRAN ODT4 MG/UDTAB PO (23:31)
[2017-02-21] MEDS ORDERED: PERCOCET 10/3251 TA1 PO (23:31)
--- NOTE | 2017-02-21 23:50 | NUR ---
PT RECEIVED AWAKE, ALERT, ORIENTED, DENIES ANY ACTIVE CP AT THIS TIME. PT STATES THE PRN NITRO AND MORPHINE HAS PROVIDED SOME RELIEF. PT DENIES ANY NEEDS AT THIS TIME. TELEMETRY PLACED, NS WITH MT OF 60. CONTINUE TO MONITOR CLOSELY.
[2017-02-22] VITALS (7 sets, daily range): BP systolic 99–130; BP diastolic 56–82; Ht 170.2 cm; Wt 102.2 kg
[2017-02-22 00:29] LABS: CKMB 0.1 U/L (0.0-3.6); CREATINE KINASE 39 UL (21-232); TROPONIN-I < 0.017 ng/mL (0.000-0.060)
--- NOTE | 2017-02-22 00:42 | NUR ---
HOLDING PT NPO IN CASE PT DOES GO TO DIRECTOR OF ALUMNI RELATIONS IN THE MORNING. PT IS AGREEABLE.
[2017-02-22 07:22] LABS: CKMB 0.1 U/L (0.0-3.6); CREATINE KINASE 36 UL (21-232); TROPONIN-I < 0.017 ng/mL (0.000-0.060)
[2017-02-22 09:28] LABS: BASOPHILS 0.1 % (0-2); EOSINOPHILS 1.5 % (0-7); HEMATOCRIT 47.4 % (42.0-54.0); HEMOGLOBIN 16.5 g/dL (13.5-17.5); IMMATURE GRANULOCYTES 0.5 % (0-5); LYMPHOCYTES 25.9 % (15-50); MCH 31.4 pg (26.0-34.0); MCHC 34.8 g/dL (31.0-37.0); MCV 90.1 fL (80.0-100.0); MONOCYTES 10.9 % (2-11); NEUTROPHILS 61.1 % (40-80); PLATELET COUNT 258 10x3/uL (130-400); RBC 5.26 10x6/uL (4.20-6.10); RDW 13.2 % (11.5-14.5); WBC 8.4 10x3/uL (4.8-10.8)
[2017-02-22 10:13] LABS: CALC OSMOLALITY 275 mosm/kg (275-300); CARBON DIOXIDE 28.7 mmol/L (21.0-32.0); CHLORIDE - SERUM 100 mmol/L (98-107); CKMB 0.1 U/L (0.0-3.6); CREATINE KINASE 38 UL (21-232); GLUCOSE 104 mg/dL (74-106); SODIUM 138 mmol/L (136-145); TROPONIN-I < 0.017 ng/mL (0.000-0.060); UREA NITROGEN 12 mg/dL (7-18)
[2017-02-22 10:14] LABS: CREATININE - SERUM 1.3 mg/dL (0.6-1.3); POTASSIUM - SERUM 4.2 mmol/L (3.5-5.1); eGFR NON AFRICAN AMERICAN 62 mL/min (90-120)
--- NOTE | 2017-02-22 12:51 | NUR ---
PRE-OP MEDICATIONS GIVEN ORDERED WITH SIP OF WATER. IV FLUIDS HUNG AND TUBING PRIMED. CONSENTS FOR PROCEDURE ARE SIGNED AND IN CHART.
--- NOTE | 2017-02-22 13:21 | NUR ---
RECEIVED REPORT FROM IVAN IN RECYCLE DRIVER. PT IS TO REMAIN LYING FLAT UNTIL 1714 PER IVAN. AWAITING PT ARRIVAL NOW.
--- NOTE | 2017-02-22 13:32 | NUR ---
RECEIVED PT VIA BED FROM AUTOMOBILE BODY REPAIR SUPERVISOR. PT IS ALERT AND AWAKE, SLIGHTLY LETHARGIC. ON 02 AT 2L VIA NC. PT IS LAYING FLAT AND INSTRUCTED TO LIE FLAT FOR 4 HOURS UNTIL 1714 REPORTED BY IVAN IN AUTOMOBILE BODY REPAIR SUPERVISOR. CLEAN, DRY, AND INTACT DRESSING SEEN TO RIGHT GROIN AREA. PT INSTRUCTED TO ALERT STAFF MEMBER IF HAVING ANY SIGNS OF BLEEDING. FREQUENT VITAL SIGNS STARTED PER PROTOCOL. WILL CONTINUE TO MONITOR.
--- NOTE | 2017-02-22 14:57 | NUR ---
PT IS CURRENTLY LAYING FLAT FINISHING A SANDWHICH. FREQUENT VITAL SIGNS ARE BEING TAKEN WITH VITAL SIGNS STABLE. NO BLEEDING SEEN TO RIGHT GROIN AREA WHERE DRESSING IS CLEAN, DRY, AND INTACT FROM PROCEDURE. WILL CONTINUE TO MONITOR.
--- NOTE | 2017-02-22 15:14 | NUR ---
0715- AM ROUNDING- RECEIVED REPORT FROM ASSOCIATE CURATOR NURSE STEFANIE. PT IS CURRENTLY LAYING IN BED ON BACK WITH EYES OPEN RESTING. PT IS REQUESTING MORPHINE THAT PER PT STATES ASKED FOR "A FEW HOURS AGO". INFORMED PT THAT I WOULD SEE WHAT PT HAS AND GIVE HIM MORPHINE ORDERED. ON 02 AT 2L VIA NC. ON MONITOR SHOWING SB, HR 58. IV SEEN TO RIGHT FOREARM THAT IS CURRENTLY SALINE LOCKED. WILL CONTINUE TO MONITOR AND CONTINUE WITH PLAN OF CARE.
--- NOTE | 2017-02-22 18:25 | NUR ---
PT IS CURRENTLY LAYING IN BED ON BACK WITH EYES OPEN RESTING. PT DENIES ANY NEED AT CURRENT TIME. WILL CONTINUE TO MONITOR.
--- NOTE | 2017-02-22 20:00 | NUR ---
PATIENT SHIFT ASSESSMENT COMPLETE. PATIENT DENIES ANY NEEDS AT THIS TIME. PEDAL PULSES PRESENT AND STRONG. CALL LIGHT WITHIN REACH, AND BED IN LOW POSITION. IV INTACT AND PATENT.
--- NOTE | 2017-02-22 22:30 | NUR ---
PATIENT IS SLEEPING WITH SNORING RESPIRATIONS, NO CHANGES IN PATIENT CONDITION. CALL LIGHT WITHIN REACH, BED IN LOW POSITION.
--- NOTE | 2017-02-23 00:15 | NUR ---
PATIENT SLEEPING AROUSES TO VERBAL STIMULI EASILY. CALL LIGHT WITHIN REACH, AND BED IN LOW POSITION. PATIENT DENIES ANY NEEDS AT THIS TIME.
[2017-02-23 00:38] VITALS: BP 99/56
--- NOTE | 2017-02-23 03:59 | NUR ---
PATIENT SLEEPING, NO CHANGES IN PATIENT CONDITION. CALL LIGHT WITHIN REACH, AND BED IN LOW POSITION. CM SINUS RHYTHM AT 68.
[2017-02-23 06:24] VITALS: BP 120/57
--- NOTE | 2017-02-23 06:28 | NUR ---
PATIENT AROUSES EASILY TO VERBAL STIMULI. CALL LIGHT WITHIN REACH, AND BED IN LOW POSITION. PATIENT DENIES ANY NEEDS OTHER THAN STEAK AND EGGS.
--- NOTE | 2017-02-23 07:18 | NUR ---
PRE-OP MEDS GIVEN PER ORDERS. OR CALLED AND SAID THEY WOULD BE TO GET HIM SHORTLY.
--- NOTE | 2017-02-23 07:40 | NUR ---
AM ROUNDING- RECEIVED REPORT FROM JANITORIAL TECH NURSE ROSAMARIA. UPON SHIFT CHANGE AT 0700 SPEECH INSTRUCTOR CALLED TO PRE-OP PT, ROSAMARIA JANITORIAL TECH NURSE GAVE PT PRE-OP MEDICATIONS WITH SIP OF WATER. NITRO-PASTE APPLIED TO RIGHT RADIAL WRIST AREA. BAG OF NS RUNNING AT KVO (15CC) TO RIGHT FOREARM. ON 02 AT 2L VIA NC. ON MONITOR SHOWING SR, HR 72. WILL AWAIT SPEECH INSTRUCTOR TO COME GET PT FOR PROCEDURE. CONSENTS ARE SIGNED AND IN CHART. PT HAS REMAINED NPO ORDERED PER ROSAMARIA. WILL CONTINUE TO MONITOR.
--- NOTE | 2017-02-23 07:59 | NUR ---
PT TO EMR ANALYST VIA BED.
[2017-02-23 08:00] VITALS: BP 100/63
--- NOTE | 2017-02-23 09:54 | NUR ---
0850- RECEIVED REPORT FROM IVAN IN MANAGER TERMINAL. RECEIVED PT VIA BED. ON 02 AT 2L VIA NC. PT IS LAYING FLAT WITH HOB AT 0 DEGREES. DRESSING TO LEFT GROIN CLEAN, DRY, AND INTACT WITH NO BLEEDING SEEN. FREQUENT VITAL SIGNS STARTED PER POLICY. PT AWARE TO LIE FLAT FOR 4 HOURS ORDERED. WILL CONTINUE TO MONITOR.
--- NOTE | 2017-02-23 09:56 | NUR ---
CHECKED ON PT. PT IS LAYING FLAT IN BED WITH EYES CLOSED RESTING. DRESSING TO LEFT GROIN (WHERE PT WENT FOR CARDIAC CATH) IS CLEAN, DRY, AND INTACT WITH NO BLEEDING SEEN. FREQUENT VITALS BEING TAKEN PER POLICY. WILL CONTINUE TO MONITOR.
--- NOTE | 2017-02-23 14:22 | NUR ---
D/C INSTRUCTIONS EXPLAINED TO PT. D/C PAPERWORK SIGNED BY PT AND PLACED IN CHART. IV TO RIGHT FOREARM REMOVED WITH CATH TIP INTACT. TOLERATED WELL. COVERED SITE WITH 2X2 GAUZE PADS AND SECURED WITH TAPE. AWAITING PT TO GET BELONGINGS TOGETHER TO D/C HOME.
--- NOTE | 2017-02-23 15:05 | NUR ---
PT D/C VIA WHEELCHAIR.
== END 2017-02-23 15:06 | disposition home or self-care (01) ==
LOC: D.ER 17:15 → OBSVTIME 21:59 → D.M2 21:59 → D.SDCHOLD 02-22 16:18 → D.M2 02-22 16:20
PROVIDERS: Emergency Medicine; Family Medicine; Nurse Practitioner Family; ADMIT Internal Medicine Interventional Cardiology
DX: I25.119 Atherosclerotic heart disease of native coronary artery with unspecified angina pectoris (principal); Z87.891 Personal history of nicotine dependence; T82.855A Stenosis of coronary artery stent, initial encounter; Y84.0 Cardiac catheterization as the cause of abnormal reaction of the patient, or of later complication, without mention of misadventure at the time of the procedure; I10 Essential (primary) hypertension; E78.5 Hyperlipidemia, unspecified; J44.9 Chronic obstructive pulmonary disease, unspecified; K21.9 Gastro-esophageal reflux disease without esophagitis; F32.9 Major depressive disorder, single episode, unspecified; F41.9 Anxiety disorder, unspecified
CPT/HCPCS: 93458; 92920; C9600

== ENCOUNTER 2017-04-29 17:42 | Observation (INO) | payer MEDICARE ==
[~2017-04-29] VITALS: Ht 170.2 cm; Wt 79.5 kg
--- NOTE | ~2017-04-29 | HP ---
PATIENT: ANDREY OSMAN JR MEDICAL RECORD: [id number] ACCOUNT: [id number] LOCATION:[address] : [birth year] ADMISSION DATE: 04/29/17 HISTORY AND PHYSICAL EXAMINATION HISTORY OF PRESENT ILLNESS: A 51-year-old gentleman with multiple interventions in the past, most recent stent to LAD, has a history of aggressive restenosis in the right and LAD. We are asked to see him concerning his cardiovascular status. Admitted with chest pain typical for this angina. We are asked to see him concerning his cardiovascular status. PAST MEDICAL HISTORY: Includes: 1. History of hypertension. 2. Hyperlipidemia. 3. Chronic angina. 4. Gastroesophageal reflux disease. ALLERGIES: PLAVIX. MEDICATIONS: Typically include Prilosec 20 every day, clonazepam 1 mg p.o. p.r.n., aspirin 81 every day, Ranexa 1 gram b.i.d., Pravastatin 40 every day, Brilinta 90 b.i.d., and albuterol 1 puff q.6 hours p.r.n. SOCIAL HISTORY: He lives here in [place]. He is a former smoker, nondrinker. Occasional marijuana use. REVIEW OF SYSTEMS: The patient reports easy bruising but reports no swollen glands. The patient reports no fever, no night sweats, no significant weight gain, no significant weight loss. No significant exercise tolerance. The patient reports no dry eyes, no irritation, no vision change. Patient reports no difficulty hearing and no ear pain. Patient reports no frequent nose bleeds or nose and sinus problems. Patient reports on arm pain on exertion. No shortness of breath while lying down. No history of heart murmur. Patient reports no cough, no wheezing or coughing up blood. Patient reports no abdominal pain, no vomiting. Normal appetite. No diarrhea and not vomiting blood. No nausea and no constipation. Patient reports no incontinence. No difficulty urinating. No hematuria. No increased frequency. Patient reports no muscle aches. No weakness, no arthralgias, no back pain. No swelling of the extremities. Patient reports no abnormal mole, no jaundice, no rashes. Reports no loss of consciousness. No weakness and no numbness. No seizures, dizziness, or headaches. The patient reports no depression, no sleep disturbance, feeling safe in a relationship and no alcohol abuse. Patient reports on fatigue. Reports no runny nose or sinus pressure. No itching, no hives, and no frequent sneezing. PHYSICAL EXAMINATION: GENERAL: Pleasant gentleman in no acute distress. VITAL SIGNS: 102/64, pulse 59 and regular. HEENT: Normocephalic, atraumatic. NECK: No bruits. HEART: Regular, II/ systolic ejection murmur. LUNGS: Clear. ABDOMEN: Soft, nontender. EXTREMITIES: Pulse 2+ with no edema. NEUROLOGIC: Grossly intact. HISTORY AND PHYSICAL [id number] DAWSON MARTINEZ,ANDREY Betts DIAGNOSTIC DATA: ECG without acute change. IMPRESSION: Recurrent angina, well-within window of restenosis. PLAN: For angiography, intervention based on above. TRANSINT:[id number] Voice Confirmation ID: [id number] DOCUMENT ID: [id number] ANGÉLICA ROBLEDO MD CC: [id number] DICTATION DATE: 04/30/1748 MOTION STUDY ANALYST: 04/30/17939 DIS IN 04/30/17 [id number] [place] [address]
--- NOTE | ~2017-04-29 | HEMODYNAMI ---
PATIENT:ANDREY OSMAN JR MEDICAL RECORD: [id number] : 67 LOCATION[facility] [id number] ADMISSION DATE: 04/29/17 Generatedon:04/30/20179:28 Patient name: ANDREY OSMAN Patient #: [id number] SSN: [id number] : 1965 Date of study: 04/30/2017 Page: Of Hemodynamic Procedure Report Patient Data Patient Demographics Procedure consent was obtained First Name: ANDREY Gender: Male Last Name: DAWSON Suffix: Jr Adhikari Initial: Alpesh : 1965 Patient #: [id number] Age: 51 year(s) Race: SSN: [id number] Additional ID: [id number] Contact details [address]: [address] [place] [address] State: [place] City: [place] Zip code: [address] Past Medical History History of disease Date Diagnosis Comments CAD Allergies Allergen Reaction Date Comments Reported Other allergy 12/30/2015 Plavix (pt gets hives) Other allergy 07/30/2016 plavix Other allergy 08/01/2016 Plavix Other allergy 04/30/2017 plavix Admission Admission Data Admission Date: 04/29/2017 Admission Time: 19:31 Room #: D.2122 Lab Results Lab Result Date: 04/30/2017 Lab Result Time: 0:00 Biochemistry Name Units Result Min Max BUN mg/dl 18 --(---*)-- 7 18 Creatinine mg/dl 1 --(--*-)-- 0.6 1.3 CBC Name Units Result Min Max Hemoglobin g/dl 14.7 --(-*--)-- 13.5 17.5 Procedure Procedure Types Cath Procedure Diagnostic Procedure [facility] w/Coronaries PCI Procedure PTCA Initial Procedure Description Procedure Date Procedure Date: 04/30/2017 Procedure Start Time: 9:10 Procedure End Time: 9:27 Procedure Staff Name Function Devante Antonio MD Performing Physician Shanae Herrera RN Nurse Viviane Varela RT Scrub Ashia Pak RT Monitor Procedure Data Cath Procedure Fluoroscopy Diagnostic fluoroscopy Total fluoroscopy Time: 3.5 time: 3.5 min min Diagnostic fluoroscopy Total fluoroscopy dose: 506 dose: 506 mGy mGy Contrast Material Contrast Material Type Amount (ml) Isovue 300 84 Entry Location Entry Primary Successful Side Size Upsize Upsize Entry Closure Succes sful Closure Location (Fr) 1 (Fr) 2 (Fr) Remarks Device Remarks Femoral Right 5 Fr 6 Fr Exoseal artery Short Estimated blood loss: 10 ml Diagnostic catheters Device Type Used For End Catheter Placement Cordis 5Fr JL 4.0 Procedure Catheter (MP) Cordis 5Fr 3DRC Catheter Procedure (MP) Cordis 5Fr Pigtail Ventriculography Catheter (MP) Procedure Complications No complications Procedure Medications Medication Administration Route Dosage Oxygen NC 2 l/min Lidocaine 2% added to field 20 Heparin Flush Bag added to field 2 bags (1000units/500ml NS) 0.9% NaCl I.V. 100 ml/hr Versed I.V. 1 mg Fentanyl I.V. 50 mcg Heparin Bolus I.V. 4000 units Versed I.V. 1 mg Fentanyl I.V. 50 mcg Solumedrol I.V. 125 mg Hemodynamics Rest HGB: 14.7 (g/dl) Heart Rate: 63 (bpm) Pressure Samples Time Site Value (mmHg) Purpose Heart Use Rate(bpm) 9:15 LV 116/10,25 Snapshot 66 Gradients Valve Time Site Site Mean SEP/DFP Peak To Heart Use 1 2 (mmHg) (sec/min) Peak Rate (mmHg) (bpm) Aortic 9:16 LV AO 64 Snapshots Pre Cath Intra NCS Post Cath Vital Signs Time Heart Resp SPO2 etCO2 GF1eudb NIBP Rhythm Pain Sedation Rate (ipm) (%) (mmHg) (mmHg) (mmHg) Status Level (bpm) 8:58:55 62 16 99 0 0 108/73(86) NSR 0 (11) 10(A) , No pain 9:03:30 62 15 98 0 0 112/69(82) NSR 0 (11) 10(A) , No pain 9:08:04 66 18 98 0 0 105/68(88) NSR 0 (11) 10(A) , No pain 9:12:38 63 14 97 0 0 105/64(85) NSR 0 (11) 9(A) , No pain 9:17:15 63 16 98 0 0 101/55(86) NSR 0 (11) 9(A) , No pain 9:21:51 66 18 98 0 0 113/56(86) NSR 0 (11) 9(A) , No pain 9:26:30 64 17 97 0 0 100/58(82) NSR 0 (11) 10(A) , No pain Medications Time Medication Route Dose Verified Delivered Reason Notes Effectiveness by by 8:56:20 Oxygen NC 2 Devante Buffie used for l/min St. Sammy Herrera RN procedure 8:56:28 Lidocaine 2% added 20ml Devante Devante for local to vial St. Sammy Antonio anesthetic field MD TAVERAS 8:56:36 Heparin Flush added 2 Devante Buffie used for Bag to bags St. Sammy Herrera RN procedure (1000units/500ml field TAVERAS NS) 8:56:45 0.9% NaCl I.V. 100 Devante Toroie Per physician ml/hr St. Sammy Herrera RN, MD 9:04:58 Versed I.V. 1 mg Devante Toroie for sedation St. Sammy Herrera RN, MD 9:05:06 Fentanyl I.V. 50 Devante Toroie for sedation mcg St. Sammy Herrera RN, MD 9:10:28 Versed I.V. 1 mg Devante Toroie for sedation St. Sammy Herrera RN, MD 9:10:31 Fentanyl I.V. 50 Devante Jolly for sedation mcg St. Sammy Herrera RN, MD 9:16:31 Heparin Bolus I.V. 4000 Devante Toroie for verifie d units St. Sammy Herrera RN anticoagulation with dr MD sheppard 9:27:29 Solumedrol I.V. 125 Devante Toroie for chest pain for mg St. Sammy Herrera RN pleuritic chest pain Procedure Log Time Note 8:33:51 Time tracking: Call back 8:33:56 Plan of Care:Hemodynamics will remain stable., Cardiac rhythm will remain stable., Comfort level will be maintained., Respiratory function will remain adequate., Patient/ family verbilizes understanding of procedure., Procedure tolerated without complication., Recovers from procedure without complications.. 8:35:21 Shanae Herrera RN sent for patient. Start room use. 8:50:49 Patient received from PCU to CCL 1 Alert and oriented. Tansferred to table in Supine position. 8:50:50 Warm blankets applied, and pilo hugger turned on for patient comfort. 8:50:51 Correct patient and procedure confirmed by team. 8:50:52 Signed procedure consent form obtained from patient. 8:50:52 ECG and BP/O2 sat monitors applied to patient. 8:50:53 Full Disclosure recording started 8:56:20 Oxygen 2 l/min NC was administered by Shanae Herrera RN; used for procedure; 8:56:28 Lidocaine 2% 20ml vial added to field was administered by Devante Antonio MD; for local anesthetic; 8:56:36 Heparin Flush Bag (1000units/500ml NS) 2 bags added to field was administered by Shanae Herrera RN; used for procedure; 8:56:45 0.9% NaCl 100 ml/hr I.V. was administered by Shanae Herrera RN; Per physician; 8:58:08 Vital chart was started 8:58:14 Baseline sample Acquired. 8:58:19 Rhythm: sinus rhythm 8:58:29 H&P Date Dictated: 04/29/2017 Within 30 days and on chart., H&P Addendum completed by physician on day of procedure. (MUST COMPLETE FOR ALL OUTPATIENTS). 8:58:38 Family unavailable. 8:58:41 Patient NPO since Midnight. 8:58:55 Patient allergic to Other allergyplavix 9:00:39 Is patient on blood thinner?Yes 9:00:44 ACC The patient was administered the following blood thiners within the last 24 hours: ACCBrilinta 9:00:47 Patient diabetic? No. 9:00:53 Snore? Yes 9:00:55 Sleep apnea? No 9:01:01 Airway obstruction? Yes COPD 9:01:05 Dentures? No ? 9:01:12 Patient pain scale 0/10 ?. 9:01:18 IV patent on arrival in left forearm with 0.9% NaCl at [facility]. 9:02:09 Lab Result : BUN 18 mg/dl 9:02:09 Lab Result : Creatinine 1 mg/dl 9:02:09 Lab Result : Hemoglobin 14.7 g/dl 9:02:13 Lab results completed and on chart. 9:02:17 Right groin area was prepped with chlora-prep and draped in sterile fashion 9:02:18 Alarms reviewed by Yolanda Trinidad 9:02:20 Physician paged 9:04:10 Physician arrived 9:04:16 --------ALL STOP TIME OUT------ 9:04:17 Final Timeout: patient, procedure, and site verified with staff and physician. All members of the team are in agreement. 9:04:20 Right groin site verified by team. 9:04:25 Sedation plan: IV Moderate Sedation Versed, Fentanyl 9:04:58 Versed 1 mg I.V. was administered by Shanae Herrera RN; for sedation; 9:05:06 Fentanyl 50 mcg I.V. was administered by Shanae Herrera RN; for sedation; 9:09:50 Use device set Femoral Dx 9:09:52 Acist Syringe opened to sterile field. 9:09:52 Bag Decanter opened to sterile field. 9:09:53 Medline Cath Pack opened to sterile field. 9:09:53 Terumo 5Fr [place] Sheath opened to sterile field. 9:09:54 St Asif 260cm J .035 wire opened to sterile field. 9:09:55 Acist Hand Control opened to sterile field. 9:09:55 Acist Manifold opened to sterile field. 9:09:55 Diagnostic Infinity 5Fr Multipack catheter opened to sterile field. 9:09:56 Tegaderm 4 x 4 opened to sterile field. 9:10:02 Procedure started. 9:10:21 Local anesthetic to right femoral artery with Lidocaine 2% by Devante Antonio MD.INITIAL ACCESS ONLY 9:10:28 Versed 1 mg I.V. was administered by Shanae Herrera RN; for sedation; 9:10:29 Cook 18G 7cm Percutaneous Entry needle opened to sterile field. 9:10:31 Fentanyl 50 mcg I.V. was administered by Shanae Herrera RN; for sedation; 9:11:44 A 5 Fr sheath was inserted into the Right Femoral artery 9:12:12 A Cordis 5Fr JL 4.0 Catheter (MP) was advanced over the wire and used for Procedure. 9:12:14 LCA angiography performed. 9:13:35 Catheter removed. 9:13:43 A Cordis 5Fr 3DRC Catheter (MP) was advanced over the wire and used for Procedure. 9:15:36 Catheter removed. 9:15:44 A Cordis 5Fr Pigtail Catheter (MP) was advanced over the wire and used for Ventriculography. 9:16:31 Heparin Bolus 4000 units I.V. was administered by Shanae Herrera RN; for anticoagulation; verified with dr sheppard 9:16:41 EF : 50 % 9:16:42 Catheter removed. 9:16:45 Proceeding to intervention. 9:17:34 Terumo 6Fr [place] Sheath opened to sterile field. 9:17:35 Chalkable BasixCompak Inflation Kit opened to sterile field. 9:17:35 Berkowitz BMW [place] 2 J-tip 300cm 0.014 guide wir opened to sterile field. 9:17:46 Sheath upsized to a 6 Fr Short. 9:18:18 Mobile Media Partnerstronic Launcher 6Fr JL 4.0 guide catheter opened to sterile field. 9:18:26 6 Fr JL 4 guide catheter was inserted over the wire 9:18:33 BMW wire advanced. 9:19:18 Wire advanced across lesion. 9:21:30 Inflation number: 1 A Mershon Sci Weakley 3.5 X 15 balloon was prepped and advanced across the Mid LAD, then inflated to 10 PAUL for 0:27 (min:sec). 9:22:08 Inflation number: 2 The Mershon Sci Weakley 3.5 X 15 balloon was reinflated across the Mid LAD, to 10 PAUL for 0:27 (min:sec). 9:22:27 Wire advanced across lesion. 9:22:36 Balloon removed over the wire. 9:22:36 Wire removed. 9:22:37 Guide catheter removed. 9:22:46 Cordis 6Fr Exoseal opened to sterile field. 9:23:05 Sheath removed intact; hemostasis achieved with Exoseal to the Right Femoral artery. 9:23:12 Procedure ended.(Physican Out) 9:25:15 Fluoroscopy time 03.50 minutes. 9:25:29 Fluoroscopy dose: 506 mGy 9:25:29 Flurop Dose total: 506 9:25:42 Contrast amount:Isovue 300 84ml. 9:25:53 Sharps counted by scrub and verified by R.N. 9:25:56 Insertion/operative site no bleeding no hematoma. 9:26:02 Post right femoral artery:stable 9:26:10 Post Procedure Pulses reassessed and unchanged 9::18 Post procedure rhythm: unchanged. 9::22 Estimated blood loss: 10 ml 9::25 Post procedure instruction explained to patient.Patient verbalizes understanding. 9:26:58 Procedure type changed to Cath procedure, Diagnostic procedure, LHC, LHC w/Coronaries, PCI procedure, PTCA Initial 9:27:00 Procedure and supply charges have been captured, reviewed, submitted and are correct. 9:27:08 Procedure Complication : No complications 9:27:15 Vital chart was stopped 9::18 See physician's report for complete and final results. 9:27:23 Patient transfered to [facility] with Stretcher. 9::26 Procedure ended. 9:: Full Disclosure recording stopped 9::29 Solumedrol 125 mg I.V. was administered by Shanae Herrera RN; for chest pain; for pleuritic chest pain 9:27:29 End room use (Document Last) Intervention Summary Intervention Notes Time ActionType Lesion and Equipment Action# Pressure Duration Attributes Used 9:21:30 Inflate Mid LAD Mershon 1 10 00:27 balloon Sci Weakley 3.5 X 15 balloon 9:22:08 Reinflate Mid LAD Mershon 2 10 00:27 balloon Sci Weakley 3.5 X 15 balloon Device Usage Item Name Manufacture Quantity Catalog Number Hospital Part Current Min imal Lot# / Charge Number Stock Stock Serial# Code Acist Acist 1 32602 [id number] 593750 254901 20 Syringe Medical Systems Inc Bag Decanter Microtek 1 2002S 960673 33488 268137 5 Medical Inc. Medline Cath Cardinal 1 [id number] 798508 98989 874289 5 Pack Health Terumo 5Fr Terumo 1 [id number] 123375 161218 501212 [address]if [address] Asif 1 116218 084557 609430 613981 30 260cm J .035 wire Acist Hand Acist 1 81319 940648 418840 844598 5 Control Medical Systems Inc Acist Acist 1 70858 563475 954650 088140 5 Manifold Medical Systems Inc Diagnostic Cardinal 1 [id number] 695597 80248 771464 30 Infinity 5Fr Health Multipack catheter Tegaderm 4 x 3M 1 1626W 078527 227473 370804 5 4 Cook 18G 7cm Cook [facility] 1 K53805 920495 49725 189895 5 Percutaneous Entry needle Cordis 5Fr Cardinal 1 646227 5 JL 4.0 Health Catheter (MP) Cordis 5Fr Cardinal 1 729207 5 3DRC Health Catheter (MP) Cordis 5Fr Cardinal 1 019033 5 Pigtail Health Catheter (MP) Terumo 6Fr Terumo 1 JIF009 288691 364342 532444 40 [place] Sheath Merit Merit 1 TE1519 473028 061072 519359 15 BasixCompak Medical Inflation Kit Berkowitz BMW Berkowitz 1 [id number] 396826 843558 049327 5 [place] 2 Vascular J-tip 300cm 0.014 guide wir Medtronic Medtronic 1 [id number] 523068 37097 151493 1 Launcher 6Fr JL 4.0 guide catheter Mershon Sci Mershon 1 [id number] 965718 898536 002550 1 [id number] Weakley 3.5 Scientific X 15 balloon Cordis 6Fr Cardinal 1 EX600 809505 188021 356554 10 [facility] Signature Audit [place] Stage Time Signature Unsigned Intra-Procedure 04/30/2017 Ashia Pak 9:28:14 AM RT(R) Signatures Monitor : Ashia Pak Signature : RT Date : Time : [id number] [place] [address]
--- NOTE | ~2017-04-29 | OP ---
PATIENT NAME: ANDREY OSMAN JR MEDICAL RECORD: [id number] :67 LOCATION:D.M2 [address].2122 ADMISSION DATE:04/29/17 SURGEON: ANGÉLICA ROBLEDO MD DATE OF OPERATION: 04/29/2017 PROCEDURE: Left heart catheterization, selective coronary angiography, right femoral approach. CATHETERS: A 5-Portuguese sheath, 5/4 left and right Cathie, 5/4 pig. The procedure was well tolerated and the patient was returned to akhtar. Sheath removed. ExoSeal device was placed. FINDINGS: Left ventriculography in 30-degree ALANIS view shows mild anterior hypokinesis. Overall, LV function preserved, however, estimated EF 50%. CORONARY ANATOMY: LEFT MAIN: Left main is free of disease. LAD: LAD in its mid portion shows a very discrete area of restenosis 80%. CIRCUMFLEX: Area of previous stenting is widely patent. RIGHT CORONARY ARTERY: Area of stenting is widely patent. IMPRESSION: A focal restenosis in the left anterior descending itself. PLAN: Intervention momentarily. DESCRIPTION OF PROCEDURE: A 5-Portuguese sheath was changed for a 6-Portuguese sheath. A JL4 guiding catheter provided fair guide catheter support followed by a 300 cm Whisper wire was placed across the tightly occluded lesion down to distal portion of vessel. Balloon used was a 3.5 [place] which was inflated up to 10 and 12 atmospheres. Final injection shows excellent resolution of a focal restenosis. No significant residual. CATARINA flow was 3 throughout the procedure. Heparin was used in the case. Sheath closed with ExoSeal device. TRANSINT:[id number] Voice Confirmation ID: [id number] DOCUMENT ID: [id number] ANGÉLICA ROBLEDO MD CC: [id number] DICTATION DATE: 04/30/17932 SORTER UPHOLSTERY PARTS: 04/30/17 1007 ADM IN [facility] [address] [place] [address]
[~2017-04-29 17:42] MED LIST changes: +PERCOCET 10/3251 TA1 PO; +ZOFRAN ODT4 MG/UDTAB PO
[2017-04-29 18:22] LABS: BASOPHILS 0.1 % (0-2); EOSINOPHILS 2.4 % (0-7); HEMATOCRIT 44.1 % (42.0-54.0); HEMOGLOBIN 15.4 g/dL (13.5-17.5); IMMATURE GRANULOCYTES 0.3 % (0-5); LYMPHOCYTES 32.3 % (15-50); MCH 32.2 pg (26.0-34.0); MCHC 34.9 g/dL (31.0-37.0); MCV 92.3 fL (80.0-100.0); MEAN PLATELET VOLUME 9.3 fL (7.4-10.4); MONOCYTES 11.3 % (2-11); NEUTROPHILS 53.6 % (40-80); PLATELET COUNT 271 10x3/uL (130-400); RBC 4.78 10x6/uL (4.20-6.10); WBC 7.1 10x3/uL (4.8-10.8)
[2017-04-29 18:34] LABS: ALBUMIN 3.4 g/dL (3.4-5.0); ALKALINE PHOSPHATASE 102 U/L (46-116); ALT (SGPT) 29 U/L (10-68); BILIRUBIN - TOTAL 0.31 mg/dL (0.2-1.3); CALC OSMOLALITY 272 mosm/kg (275-300); CALCIUM 8.9 mg/dL (8.5-10.1); CARBON DIOXIDE 28.1 mmol/L (21.0-32.0); CHLORIDE - SERUM 102 mmol/L (98-107); GLUCOSE 99 mg/dL (74-106); PROTEIN - SERUM 7.3 g/dL (6.4-8.2); SODIUM 136 mmol/L (136-145); UREA NITROGEN 16 mg/dL (7-18); eGFR NON AFRICAN AMERICAN 84 mL/min (90-120)
[2017-04-29 18:45] LABS: CHOLESTEROL, TOTAL 231 mg/dL (0-200); CREATINE KINASE 54 UL (21-232); HDL CHOLESTEROL 46 mg/dL (32-96); LDL CHOLESTEROL 127 mg/dL (0-100); LDL-HDL RATIO 2.8 ratio (1.5-3.5); TRIGLYCERIDE 291 mg/dL (30-200); TROPONIN-I < 0.017 ng/mL (0.000-0.060)
[2017-04-29 21:09] VITALS: BP 144/83; Ht 170.2 cm; Wt 79.5 kg
[2017-04-29] MEDS ORDERED: KLONOPIN1 MG PO (21:24)
--- NOTE | 2017-04-29 21:27 | NUR ---
ADMISSION ASSESSMENT, HISTORY AND HOE MED LIST COMPLETED. SR PER CM HR 62. VSS. IV TO L HAND SL. O2 2LNC. PT CONTINUES TO HAVE C/O CP 12/14. DR HANSON TO BE PAGED.
--- NOTE | 2017-04-29 23:08 | NUR ---
DR ROBLEDO RETURNS PAGE AT 2140 HRS. INFORMED OF PT'S C/O CP, HOME MEDS AND OVERALL STATUS. NEW ORDERS RECEIVED AND NOTED, MORPHINE 4MG SIVP GIVEN. PM MEDS GIVEN. PT CURRENTLY RESTING WITH EYES CLOSED. RESP EVEN AND REGULAR. SR UP X2, CALL LIGHT WITHIN REACH.
--- NOTE | 2017-04-30 00:54 | NUR ---
VSS. PT DENIES ANY DISCOMFORT. WILL CONTINUE TO MONITOR.
[2017-04-30 01:18] VITALS: BP 107/56
--- NOTE | 2017-04-30 02:20 | NUR ---
PT RESTING WITH EYES CLOSED. RESP EVEN AND REGULAR. SR UP X2, CALL LIGHT WITHIN REACH.
--- NOTE | 2017-04-30 04:23 | NUR ---
PT RESTING WITH EYES CLOSED. RESP EVEN AND REGULAR. SR UP X2, CALL LIGHT WITHIN REACH.
[2017-04-30 05:27] LABS: BASOPHILS 0.3 % (0-2); EOSINOPHILS 1.2 % (0-7); HEMATOCRIT 42.8 % (42.0-54.0); HEMOGLOBIN 14.7 g/dL (13.5-17.5); IMMATURE GRANULOCYTES 0.3 % (0-5); MCH 31.8 pg (26.0-34.0); MCHC 34.3 g/dL (31.0-37.0); MCV 92.6 fL (80.0-100.0); MEAN PLATELET VOLUME 9.3 fL (7.4-10.4); MONOCYTES 8.2 % (2-11); PLATELET COUNT 258 10x3/uL (130-400); RBC 4.62 10x6/uL (4.20-6.10); RDW 13.1 % (11.5-14.5); WBC 7.2 10x3/uL (4.8-10.8)
[2017-04-30 05:35] LABS: CALC OSMOLALITY 272 mosm/kg (275-300); CALCIUM 8.9 mg/dL (8.5-10.1); CARBON DIOXIDE 24.9 mmol/L (21.0-32.0); CHLORIDE - SERUM 103 mmol/L (98-107); GLUCOSE 109 mg/dL (74-106); POTASSIUM - SERUM 4.4 mmol/L (3.5-5.1); SODIUM 135 mmol/L (136-145); UREA NITROGEN 18 mg/dL (7-18); eGFR NON AFRICAN AMERICAN 84 mL/min (90-120)
[2017-04-30 05:55] VITALS: BP 105/57
--- NOTE | 2017-04-30 06:19 | NUR ---
VSS THROUGHOUT NIGHT. SR PER CM. PT STATED IV MORPHNE RELIEVED HIS CP. NEEDS MET; WILL CONTINUE TO MONITOR.
--- NOTE | 2017-04-30 06:34 | NUR ---
PT STATES WILL TAKE SHOWER SHORTLY. TOWELS, SOAP GIVEN TO PT. IV SITE WRAPPED. WILL CONTINUE TO MONITOR.
[2017-04-30 08:05] VITALS: BP 102/64
--- NOTE | 2017-04-30 08:41 | NUR ---
PREOP MEDS ADMINISTERED. SAMARIA FROM ANALYTICAL LABORATORY TECHNICIAN HERE TO RETRIEVE PATIENT. PATIENT DENIES ANY CHEST PAIN AT THIS TIME.
--- NOTE | 2017-04-30 09:35 | NUR ---
RECEIVED REPORT FROM ALBERTO IN [facility] APPRENTICE.
--- NOTE | 2017-04-30 09:45 | NUR ---
RECEIVED BACK FROM SUPERVISOR EPOXY FABRICATION. 121/68. PERIPHERAL PULSES PATENT. NO S/S HEMATOMA TO RIGHT GROIN. DRESSING CLEAN DRY AND INTACT. PATIENT WITH EYES CLOSED, EASILY AROUSED. RESP EVEN AND UNLABORED. NO DISTRESS.
--- NOTE | 2017-04-30 11:42 | NUR ---
RESTING WITH EYES CLOSED. EASILY AROUSED. BP 121/66. NO S/S HEMATOMA FORMATION. PERIPHERAL PULSES PATENT BILATERALLY. NO DISTRESS.
[2017-04-30] MEDS ORDERED: MEDROL DOSE PACK4 MG PO (14:19)
--- NOTE | 2017-04-30 15:17 | NUR ---
1500 20 GAUGE TO LEFT HAND D/C'D PT IS BEING DISCHARGED TO HOME. CATHETER TIP INTACT. 2X2 DRESSING APPLIED AND SECURED WITH TAPE. TELEMETRY REMOVED 1515 DISCHARGE INSTRUCTIONS PROVIDED. PATIENT VERBALIZED UNDERSTANDING OF ALL INSTRUCTIONS PROVIDED. SCRIPT GIVEN FOR MEDROL DOSE PACK. SCRUB TOP PROVIDED DUE TO PATIENT HAD NO SHIRT WHEN HE CAME TO THE HOSPITAL. AT THIS TIME, PATIENT IS GETTING DRESSED.
--- NOTE | 2017-04-30 15:45 | NUR ---
PATIENT SITTING IN BED CONTINUING TO WAIT FOR SOMEONE TO PICK HIM UP.
--- NOTE | 2017-04-30 16:45 | NUR ---
PATIENT GONE FROM ROOM. ALL PERSONAL BELONGINGS GONE. PATIENT LEFT UNIT AND DID NOT TELL STAFF THAT HE WAS LEAVING UNIT. PATIENT AMBULATED OFF UNIT AND WAS DISCHARGED TO HOME.
== END 2017-04-30 17:37 | disposition home or self-care (01) ==
LOC: D.ER 17:42 → D.M2 19:31 → OBSVTIME 19:31 → D.M2 04-30 17:37
PROVIDERS: Emergency Medicine; ADMIT Internal Medicine Interventional Cardiology
DX: T82.855A Stenosis of coronary artery stent, initial encounter (principal); Y83.8 Other surgical procedures as the cause of abnormal reaction of the patient, or of later complication, without mention of misadventure at the time of the procedure; I25.118 Atherosclerotic heart disease of native coronary artery with other forms of angina pectoris; I10 Essential (primary) hypertension; K21.9 Gastro-esophageal reflux disease without esophagitis; E78.5 Hyperlipidemia, unspecified

== ENCOUNTER 2017-07-28 21:00 | Observation (INO) | payer MEDICARE ==
[~2017-07-28] VITALS: Ht 170.2 cm; Wt 80.3 kg
--- NOTE | ~2017-07-28 | HEMODYNAMI ---
PATIENT:ANDREY OSMAN JR MEDICAL RECORD: [id number] : 67 LOCATION:[facility] [address] [facility]# [id number] ADMISSION DATE: 07/28/17 Generatedon:07/29/201711:37 Patient name: ANDREY OSMAN Patient #: [id number] SSN: [id number] : 1965 Date of study: 07/29/2017 Page: Of Hemodynamic Procedure Report Patient Data Patient Demographics Procedure consent was obtained First Name: ANDREY Gender: Male Last Name: DAWSON Suffix: Jr Adhikari Initial: Alpesh : 1965 Patient #: [id number] Age: 52 year(s) Race: SSN: [id number] Additional ID: [id number] Contact details [address]: [address] [place] [address] State: [place] City: [place] Zip code: [address] Past Medical History History of disease Date Diagnosis Comments CAD Allergies Allergen Reaction Date Comments Reported Other allergy 12/30/2015 Plavix (pt gets hives) Other allergy 07/30/2016 plavix Other allergy 08/01/2016 Plavix Other allergy 04/30/2017 plavix Other allergy 07/29/2017 Plavix Admission Admission Data Admission Date: 07/28/2017 Admission Time: 23:00 Admit Source: Other Room #: D.2115 Lab Results Lab Result Date: 07/29/2017 Lab Result Time: 7:10 Biochemistry Name Units Result Min Max BUN mg/dl 19 --(----)*- 7 18 Creatinine mg/dl 1.2 --(---*)-- 0.6 1.3 CBC Name Units Result Min Max Hematocrit % 42.5 --(*---)-- 42 54 Hemoglobin g/dl 14.9 --(-*--)-- 13.5 17.5 Procedure Procedure Types Cath Procedure Diagnostic Procedure [facility] w/Coronaries PCI Procedure Coronary Stent Coronary Stent Initial Miscellaneous Procedures Moderate Sedation up to 45 minutes Procedure Description Procedure Date Procedure Date: 07/29/2017 Procedure Start Time: 10:53 Procedure End Time: 11:32 Procedure Staff Name Function Rigoberto Beaulieu MD Performing Physician Tesfaye Garza RT Monitor Jenna Menon RT Scrub Yrn Hutchison RN Nurse Procedure Data Cath Procedure Fluoroscopy Diagnostic fluoroscopy Total fluoroscopy Time: 7.7 time: 7.7 min min Diagnostic fluoroscopy Total fluoroscopy dose: 626 dose: 626 mGy mGy Contrast Material Contrast Material Type Amount (ml) Isovue 300 125 Entry Location Entry Primary Successful Side Size Upsize Upsize Entry Closure Succes sful Closure Location (Fr) 1 (Fr) 2 (Fr) Remarks Device Remarks Femoral Right 5 Fr Exoseal vein Femoral Right 5 Fr 6 Fr Exoseal artery Short Estimated blood loss: 10 ml Diagnostic catheters Device Type Used For End Catheter Placement MULTIPACK JL 4.0 5Fr Procedure catheter MULTIPACK 3DRC 5Fr Procedure catheter MULTIPACK Pigtail 5 Fr Procedure catheter Procedure Complications No complications Procedure Medications Medication Administration Route Dosage Oxygen NC 2 l/min Heparin Flush Bag added to field 2 bags (1000units/500ml NS) 0.9% NaCl I.V. 100 ml/hr Fentanyl I.V. 50 mcg Versed I.V. 1 mg Fentanyl I.V. 50 mcg Versed I.V. 1 mg Fentanyl I.V. 50 mcg Fentanyl I.V. 50 mcg Heparin Bolus I.V. 8000 units Nitroglycerin IC/IA I.C. 50 mcg Nitroglycerin IC/IA I.C. 50 mcg Hemodynamics Rest HGB: 14.9 (g/dl) Heart Rate: 54 (bpm) Pressure Samples Time Site Value (mmHg) Purpose Heart Use Rate(bpm) 11:11 LV 128/9,25 Snapshot 64 11:12 AO 123/76(96) Pullback 66 11:12 LV 146/4,39 Pullback 66 11:15 AO 141/84(106) Snapshot 66 Gradients Valve Time Site 1 Site 2 Mean SEP/DFP Peak To Heart Use (mmHg) (sec/min) Peak Rate (mmHg) (bpm) Aortic 11:12 LV AO 15 19 23 66 146/4,39 123/76(96) Calculations Valve P-P Mean Valve Index Valve Source Name Gradient Area Flow (cm2) Aortic 23 15 23 15 Snapshots Pre Cath Intra NCS Post Cath Vital Signs Time Heart Resp SPO2 etCO2 NIBP (mmHg) Rhythm Pain Sedation Rate (ipm) (%) (mmHg) Status Level (bpm) 10:46:07 58 17 100 0 144/79(98) NSR 0 (11) 10(A) , No pain 10:50:53 60 19 100 0 135/68(87) NSR 0 (11) 10(A) , No pain 10:55:38 59 17 100 0 135/74(93) NSR 0 (11) 10(A) , No pain 11:00:23 64 17 99 0 125/67(80) NSR 0 (11) 9(A) , No pain 11:05:01 66 17 98 0 126/78(108) NSR 0 (11) 9(A) , No pain 11:09:40 66 17 98 0 136/82(111) NSR 0 (11) 9(A) , No pain 11:14:19 65 16 98 0 131/80(108) NSR 0 (11) 9(A) , No pain 11:18:55 70 16 99 0 104/80(94) NSR 0 (11) 9(A) , No pain 11:24:04 70 16 99 0 119/69(90) NSR 0 (11) 9(A) , No pain 11:28:41 66 16 98 0 127/71(116) NSR 0 (11) 9(A) , No pain 11:36:07 67 17 100 0 133/72(98) NSR 0 (11) 9(A) , No pain Medications Time Medication Route Dose Verified Delivered Reason Notes Effectiveness by by 10:46:07 Oxygen NC 2 Rigoberto Yrn Per physician l/min Christofer Hutchison RN 10:47:39 Heparin Flush added 2 Rigoberto Yrn used for Bag to bags Christofer Hutchison RN procedure (1000units/500ml field NS) 10:48:01 0.9% NaCl I.V. 100 Rigoberto Yrn Per physician ml/hr Christofer Hutchison RN 10:48:10 Fentanyl I.V. 50 Rigoberto Yrn for sedation mcg Christofer Hutchison RN 10:48:17 Versed I.V. 1 mg Rigoberto Yrn for sedation Christofer Hutchison RN 10:54:39 Fentanyl I.V. 50 Rigoberto Yrn for sedation mcg Christofer MD Hutchison RN 10:54:43 Versed I.V. 1 mg Rigoberto Yrn for sedation Christofer Hutchison RN 10:57:04 Fentanyl I.V. 50 Rigoberto Yrn for sedation mcg Christofer Hutchison RN 11:00:09 Fentanyl I.V. 50 Rigoberto Yrn for sedation rashad Hutchison RN 11:15:54 Heparin Bolus I.V. 8000 Rigoberto Yrn for units Christofer Hutchison RN anticoagulation 11:18:16 Nitroglycerin I.C. 50 Rigoberto Rigoberto for IC/IA mcg Christofer Beaulieu MD vasodilation 11:27:13 Nitroglycerin I.C. 50 Rigoberto Rigoberto for IC/IA mcg Christofer Beaulieu MD vasodilation Procedure Log Time Note 10:02:37 Informed consent obtained and on chart 10:02:39 Admit Source: Other 10:03:11 Time tracking: Call back 10:03:15 Plan of Care:Hemodynamics will remain stable., Cardiac rhythm will remain stable., Comfort level will be maintained., Respiratory function will remain adequate., Patient/ family verbilizes understanding of procedure., Procedure tolerated without complication., Recovers from procedure without complications.. 10:23:46 Yrn Hutchison RN sent for patient. Start room use. 10:24:10 H&P Date Dictated: 07/28/2017 Within 30 days and on chart.. 10:34:39 Patient received from Med II to CCL 1 Alert and oriented. Tansferred to table in Supine position. 10:34:40 Warm blankets applied, and pilo hugger turned on for patient comfort. 10:34:41 Correct patient and procedure confirmed by team. 10:34:41 ECG and BP/O2 sat monitors applied to patient. 10:44:34 Vital chart was started 10:44:37 Baseline sample Acquired. 10:44:39 Rhythm: sinus rhythm 10:44:41 Pre-procedure instructions explained to patient. 10:44:41 Pre-op teaching completed and patient verbalized understanding. 10:44:42 Family in patients room. 10:44:44 Patient NPO since Midnight. 10:44:52 Patient allergic to Other allergyPlavix 10:44:54 Is the patient allergic to Iodine/contrast media? No. 10:44:57 Is patient on blood thinner?Yes 10:45:02 ACC The patient was administered the following blood thiners within the last 24 hours: ACCBrilinta 10:45:03 Patient diabetic? No. 10:45:05 Previous problem with sedation/anesthesia? No ? 10:45:06 Snore? Yes 10:45:07 Sleep apnea? No 10:45:08 Deviated septum? No 10:45:09 Opens mouth fully? Yes 10:45:09 Sticks out tongue? Yes 10:45:11 Airway obstruction? No ? 10:45:12 Dentures? No ? 10:45:15 Pre procedure: right dorsailis pedis pulse 2+ Normal; easily identifiable; not easily obliterated 10:45:17 Patient pain scale 0/10 ?. 10:45:31 IV patent on arrival in left forearm with 0.9% NaCl at [facility]. 10:46:00 Lab Result : BUN 19 mg/dl 10:46:00 Lab Result : Hemoglobin 14.9 g/dl 10:46:00 Lab Result : Creatinine 1.2 mg/dl 10:46:00 Lab Result : Hematocrit 42.5 % 10:46:03 Lab results completed and on chart. 10:46:07 Oxygen 2 l/min NC was administered by Yrn Hutchison RN; Per physician; 10:46:07 Right groin area was prepped with chlora-prep and draped in sterile fashion 10:46:08 Alarms reviewed by R. N. 10:46:08 Sharps counted by scrub and verified by R.N. 10:46:10 Use device set Femoral Dx 10:46:12 ACIST Syringe (82303) opened to sterile field. 10:46:16 ACIST Hand Control (36046) opened to sterile field. 10:46:16 ACIST Manifold (93088) opened to sterile field. 10:46:21 Tegaderm 4 x 4 (1626W) opened to sterile field. 10:46:24 PERCUTANEOUS ENTRY 19GA needle opened to sterile field. 10:46:25 Medline Cath Pack ([id number]) opened to sterile field. 10:46:26 Bag Decanter (2002S) opened to sterile field. 10:46:26 SHEATH 5FR [place] (MJT053) opened to sterile field. 10:46:27 DIAGNOSTIC WIRE .035 260cm J wire (398836) opened to sterile field. 10:46:27 DIAGNOSTIC Multipack 5Fr catheter set (GZ2582) opened to sterile field. 10::34 Physician arrived ::34 --------ALL STOP TIME OUT------ ::34 Final Timeout: patient, procedure, and site verified with staff and physician. All members of the team are in agreement. 10:46:36 Right groin site verified by team. 10:46:38 Physical assessment completed. ASA score P 2 - A patient with mild systemic disease as per Rigoberto Beaulieu MD. 10:46:40 Sedation plan: IV Moderate Sedation Medication:Versed, Fentanyl 10:46:55 IV Extension Set opened to sterile field. 10:47:39 Heparin Flush Bag (1000units/500ml NS) 2 bags added to field was administered by Yrn Hutchison RN; used for procedure; 10:48:01 0.9% NaCl 100 ml/hr I.V. was administered by Yrn Hutchison RN; Per physician; 10:48:10 Fentanyl 50 mcg I.V. was administered by Yrn Hutchison RN; for sedation; 10:48:17 Versed 1 mg I.V. was administered by Yrn Hutchison RN; for sedation; 10:53:19 Zero performed for pressure channel P1 10:53:22 Zero performed for pressure channel P1 10:53:33 Procedure started. 10:53:33 Full Disclosure recording started 10:53:36 Local anesthetic to right femoral artery with Lidocaine 2% by Rigoberto Beaulieu MD.INITIAL ACCESS ONLY 10:54:26 A 5 Fr sheath was inserted into the Right Femoral vein 10:54:39 Fentanyl 50 mcg I.V. was administered by Yrn Hutchison RN; for sedation; 10:54:43 Versed 1 mg I.V. was administered by Yrn Hutchison RN; for sedation; 10:57:04 Fentanyl 50 mcg I.V. was administered by Yrn Hutchison RN; for sedation; 10:57:39 SHEATH 5FR [place] (YCL174) opened to sterile field. 11:00:09 Fentanyl 50 mcg I.V. was administered by Yrn Hutchison RN; for sedation; 11:03:49 A 5 Fr sheath was inserted into the Right Femoral artery 11:04:56 A MULTIPACK JL 4.0 5Fr catheter was advanced over the wire and used for Procedure. 11:06:25 LCA angiography performed. 11:08:02 Catheter exchanged over wire. 11:08:08 A MULTIPACK 3DRC 5Fr catheter was advanced over the wire and used for Procedure. 11:08:39 RCA angiography performed. 11:10:08 Catheter exchanged over wire. 11:10:13 A MULTIPACK Pigtail 5 Fr catheter was advanced over the wire and used for Procedure. 11:10:39 BMW 300cm [place] 2 J wire ([id number]) opened to sterile field. 11:10:39 TUBING High Pressure Extension Tubing (Christofer) (II0331D) opened to sterile field. 11:10:40 INFLATOR Merit BasixCompak (ZW5754) opened to sterile field. 11:10:41 GUIDE 6FR JR 4.0 catheter ([id number]) opened to sterile field. 11:10:42 SHEATH 6FR [place] (NZC727) opened to sterile field. 11:10:46 EXOSEAL 6Fr (EX600) opened to sterile field. 11:11:11 LV hemodynamics recorded. 11:11:35 LV gram done using ALANIS 11:11:41 Injector settings: Ml/sec: 10, Volume: 20, 11:11:47 EF : 55 % 11:12:53 Catheter removed. 11:12:59 Sheath upsized to a 6 Fr Short. 11:13:09 6 Fr JR 4 guide catheter was inserted over the wire 11:15:54 Heparin Bolus 8000 units I.V. was administered by Yrn Hutchison RN; for anticoagulation; 11:18:16 Nitroglycerin IC/IA 50 mcg I.C. was administered by Rigoberto Beaulieu MD; for vasodilation; 11:19:37 Guide Catheter removed. pressure damping. 11:19:50 GUIDE 6FR AR 1.0 SH catheter ([id number]) opened to sterile field. 11:20:03 6 Fr ar 1 sh guide catheter was inserted over the wire 11:21:38 BMW wire advanced. 11:23:42 Wire advanced across lesion. 11:26:47 Inflation Number: 1 A CHARLI OTW 3.0 x 15 stent ([id number]) was prepped and advanced across the Mid RCA. The stent was deployed at 14 PAUL for 0:10 (min:sec). 11::13 Nitroglycerin IC/IA 50 mcg I.C. was administered by Rigoberto Beaulieu MD; for vasodilation; 11::30 Stent catheter was removed intact over wire. 11::31 Wire removed. 11::31 Guide catheter removed. 11::41 Sheath removed intact; hemostasis achieved with Exoseal to the Right Femoral artery. 11:29:28 EXOSEAL 5Fr (EX500) opened to sterile field. 11::38 Sheath removed intact; hemostasis achieved with Exoseal to the Right Femoral vein. 11:30:07 Procedure ended.(Physican Out) 11:30:10 Fluoroscopy time 07.70 minutes. 11:30:13 Fluoroscopy dose: 626 mGy 11:30:13 Flurop Dose total: 626 11:30:16 Contrast amount:Isovue 300 125ml. 11:30:17 Sharps counted by scrub and verified by R.N. 11:30:18 Insertion/operative site no bleeding no hematoma. 11:30:22 Post-op/insertion site Right Femoral artery dressed using a 4 x 4 and Tegaderm. 11:30:25 Post-op/insertion site Right Femoral vein dressed using a 4 x 4 and Tegaderm. 11:30:28 Post right femoral artery:stable, soft, clean and dry 11:30:36 Post right femoral vein:stable, soft, clean and dry 11:30:38 Post Procedure Pulses reassessed and unchanged 11:30:40 Post-procedure physical assessment completed. ASA score P 2 - A patient with mild systemic disease as per Rigoberto Beaulieu MD. 11:30:42 Post procedure rhythm: unchanged. 11:30:44 Estimated blood loss: 10 ml 11:30:46 Post procedure instruction explained to patient.Patient verbalizes understanding. 11:30:46 Patient needs reinforcement of post procedure teaching. 11:30:53 Procedure type changed to Cath procedure, Diagnostic procedure, LHC, LHC w/Coronaries, PCI procedure, Coronary Stent, Coronary Stent Initial, Miscellaneous Procedures, Moderate Sedation up to 45 minutes 11:32:22 Procedure and supply charges have been captured, reviewed, submitted and are correct. 11:32:24 Procedure Complication : No complications 11:32:26 Vital chart was stopped 11:32:27 See physician's report for complete and final results. 11:32:29 Report given to PCU. 11:32:32 Patient transfered to PCU with Stretcher. 11:32:34 Procedure ended. 11:32:34 Full Disclosure recording stopped 11:32:50 End room use (Document Last) Intervention Summary Intervention Notes Time ActionType Lesion and Equipment Action# Pressure Duration Attributes Used 11:26:47 Place stent Mid RCA CHARLI OTW 3.0 1 14 00:10 x 15 stent ([id number]) Device Usage Item Name Manufacture Quantity Catalog Hospital Part Current Minim al Lot# / Number Charge Number Stock Stock Serial# Code ACIST Syringe Acist 1 77037 831640 807299 679508 20 (00591) Medical Systems Inc ACIST Hand Acist 1 80599 619737 407793 426420 5 Control Medical (74133) Systems Inc ACIST Acist 1 46360 338932 093306 620274 5 Manifold Medical (92435) Systems Inc Tegaderm 4 x 3M 1 1626W 259810 215134 292450 5 4 (1626W) PERCUTANEOUS [employer] 1 N55081 904992 120234 5 ENTRY 19GA needle Medline Cath Cardinal 1 [id number] 050189 25346 473297 5 [employer] Health ([id number]) Bag Decanter Microtek 1 2001S 317716 96693 895680 5 (2001S) Medical Inc. SHEATH 5FR Terumo 2 TLT949 187624 780576 318198 40 [place] (AOM480) DIAGNOSTIC St Asif 1 207323 106561 429537 581568 30 WIRE .035 260cm J wire (336089) DIAGNOSTIC Cardinal 1 XE6507 844526 24546 890228 30 Multipack 5Fr Health catheter set (OI8710) IV Extension Hospira 1 08126-42 408953 52780 646295 5 Set MULTIPACK JL Cardinal 1 413964 5 4.0 5Fr Health catheter MULTIPACK Cardinal 1 161527 5 3DRC 5Fr Health catheter MULTIPACK Cardinal 1 080665 5 Pigtail 5 Fr Health catheter BMW 300cm [place] 1 [id number] 854262 152412 045147 5 [place] 2 J Vascular wire ([id number]) TUBING High Merit 1 [id number] 515957 64540 978153 10 Pressure Medical Extension Tubing (Beaulieu) (BE1379J) INFLATOR Merit 1 OP2980 307120 831570 855640 15 [facility] Medical BasixCompak (MZ3319) GUIDE 6FR JR Medtronic 1 HD9PF72 107347 85037 434334 1 4.0 catheter (CA2XT07) SHEATH 6FR Terumo 1 FHU956 463005 056892 169861 40 [place] (KXL155) EXOSEAL 6Fr Cardinal 1 EX600 476441 372215 596108 10 (EX600) Health GUIDE 6FR AR Medtronic 1 [id number] 069224 80214 169255 1 1.0 SH catheter ([id number]) CHARLI OTW 3.0 Medtronic 1 [id number] 434810 842201 238235 5 [id number] x 15 stent ([id number]) EXOSEAL 5Fr Cardinal 1 EX500 170621 723997 012359 10 (EX500) Health Signature Audit Vichy Stage Time Signature Unsigned Intra-Procedure 07/29/2017 Tesfaye Garza 11:37:12 AM RT(R) Signatures Monitor : Tesfaye Garza RT Signature : Date : Time : [facility] [address] [place] [address]
[~2017-07-28 21:00] MED LIST changes: +KLONOPIN1 MG PO; +MEDROL DOSE PACK4 MG PO
[2017-07-28 21:33] LABS: BASOPHILS 0.3 % (0-2); EOSINOPHILS 1.8 % (0-7); HEMATOCRIT 41.4 % (42.0-54.0); HEMOGLOBIN 14.6 g/dL (13.5-17.5); IMMATURE GRANULOCYTES 0.3 % (0-5); LYMPHOCYTES 33.5 % (15-50); MCH 31.5 pg (26.0-34.0); MCHC 35.3 g/dL (31.0-37.0); MCV 89.4 fL (80.0-100.0); MEAN PLATELET VOLUME 9.4 fL (7.4-10.4); MONOCYTES 10.9 % (2-11); NEUTROPHILS 53.2 % (40-80); PLATELET COUNT 269 10x3/uL (130-400); RBC 4.63 10x6/uL (4.20-6.10); RDW 12.7 % (11.5-14.5); WBC 6.6 10x3/uL (4.8-10.8)
[2017-07-28 21:47] LABS: ALBUMIN 3.2 g/dL (3.4-5.0); ALKALINE PHOSPHATASE 87 U/L (46-116); ALT (SGPT) 26 U/L (10-68); BILIRUBIN - TOTAL 0.35 mg/dL (0.2-1.3); CALC OSMOLALITY 278 mosm/kg (275-300); CALCIUM 8.9 mg/dL (8.5-10.1); CARBON DIOXIDE 27.7 mmol/L (21.0-32.0); CHLORIDE - SERUM 102 mmol/L (98-107); CREATININE - SERUM 1.2 mg/dL (0.6-1.3); GLUCOSE 112 mg/dL (74-106); POTASSIUM - SERUM 3.8 mmol/L (3.5-5.1); PROTEIN - SERUM 6.7 g/dL (6.4-8.2); SODIUM 138 mmol/L (136-145); UREA NITROGEN 18 mg/dL (7-18); eGFR NON AFRICAN AMERICAN 68 mL/min (90-120)
[2017-07-28 21:58] LABS: CHOL - HDL RATIO 4.2 ratio (2.3-4.9); CHOLESTEROL, TOTAL 192 mg/dL (0-200); CKMB 0.6 U/L (0.0-3.6); CREATINE KINASE 43 UL (21-232); HDL CHOLESTEROL 46 mg/dL (32-96); LDL CHOLESTEROL 102 mg/dL (0-100); LDL-HDL RATIO 2.2 ratio (1.5-3.5); TRIGLYCERIDE 223 mg/dL (30-200); TROPONIN-I < 0.017 ng/mL (0.000-0.060)
[2017-07-28] MEDS ORDERED: ZETIA10 MG PO (23:45)
[2017-07-29 00:22] VITALS: BP 142/76; Ht 170.2 cm; Wt 80.3 kg
[2017-07-29 05:31] VITALS: BP 109/55; BP 99/50
[2017-07-29 08:09] VITALS: BP 109/71
[2017-07-29 09:32] LABS: BASOPHILS 0.3 % (0-2); EOSINOPHILS 2.7 % (0-7); HEMATOCRIT 42.5 % (42.0-54.0); HEMOGLOBIN 14.9 g/dL (13.5-17.5); IMMATURE GRANULOCYTES 0.8 % (0-5); LYMPHOCYTES 41.7 % (15-50); MCHC 35.1 g/dL (31.0-37.0); MCV 91.2 fL (80.0-100.0); MEAN PLATELET VOLUME 9.7 fL (7.4-10.4); MONOCYTES 9.8 % (2-11); NEUTROPHILS 44.7 % (40-80); PLATELET COUNT 280 10x3/uL (130-400); RBC 4.66 10x6/uL (4.20-6.10); RDW 12.9 % (11.5-14.5); WBC 6.7 10x3/uL (4.8-10.8)
[2017-07-29 09:38] LABS: ANION GAP 12.7 mmol/L (8-16); CALCIUM 9.3 mg/dL (8.5-10.1); CARBON DIOXIDE 25.6 mmol/L (21.0-32.0); CREATININE - SERUM 1.2 mg/dL (0.6-1.3); POTASSIUM - SERUM 4.3 mmol/L (3.5-5.1)
[2017-07-29 12:02] VITALS: BP 122/77
== END 2017-07-29 16:22 | disposition home or self-care (01) ==
LOC: D.ER 21:00 → OBSVTIME 23:00 → D.M2 23:00
PROVIDERS: Family Medicine; Internal Medicine Cardiovascular Disease
DX: I25.110 Atherosclerotic heart disease of native coronary artery with unstable angina pectoris (principal); Z95.5 Presence of coronary angioplasty implant and graft; I10 Essential (primary) hypertension; E78.5 Hyperlipidemia, unspecified; J44.9 Chronic obstructive pulmonary disease, unspecified; F41.8 Other specified anxiety disorders; K21.9 Gastro-esophageal reflux disease without esophagitis; Z87.891 Personal history of nicotine dependence
CPT/HCPCS: 93458; C9600

== ENCOUNTER 2017-08-16 07:28 | Outpatient (CLI) | payer MEDICARE ==
[~2017-08-16] VITALS: Ht 170.2 cm; Wt 79.5 kg
--- NOTE | ~2017-08-16 | HP ---
PATIENT: ANDREY AVERY JR MEDICAL RECORD: [id number] ACCOUNT: [id number] LOCATION:[facility] : 67 ADMISSION DATE: 08/16/17 HISTORY AND PHYSICAL EXAMINATION ADMITTING DIAGNOSES: 1. Angina. 2. Coronary artery disease. 3. Recent percutaneous transluminal coronary angioplasty stent of the right coronary artery with concomitant disease of left anterior descending that is in-stent restenosis. 4. Hypertension. 5. Hyperlipidemia. HISTORY OF PRESENT ILLNESS: Mr. Avery presents with unstable anginal symptomatology, found to have significant disease of the RCA, underwent successful PTCA stent of the RCA, he had long diffuse in-stent restenosis of the LAD. He is now brought back for a laser atherectomy of the LAD. REVIEW OF SYSTEMS: The patient reports easy bruising but reports no swollen glands. The patient reports no fever, no night sweats, no significant weight gain, no significant weight loss. No significant exercise tolerance. The patient reports no dry eyes, no irritation, no vision change. Patient reports no difficulty hearing and no ear pain. Patient reports no frequent nose bleeds or nose and sinus problems. Patient reports on arm pain on exertion. No shortness of breath while lying down. No history of heart murmur. Patient reports no cough, no wheezing or coughing up blood. Patient reports no abdominal pain, no vomiting. Normal appetite. No diarrhea and not vomiting blood. No nausea and no constipation. Patient reports no incontinence. No difficulty urinating. No hematuria. No increased frequency. Patient reports no muscle aches. No weakness, no arthralgias, no back pain. No swelling of the extremities. Patient reports no abnormal mole, no jaundice, no rashes. Reports no loss of consciousness. No weakness and no numbness. No seizures, dizziness, or headaches. The patient reports no depression, no sleep disturbance, feeling safe in a relationship and no alcohol abuse. Patient reports on fatigue. Reports no runny nose or sinus pressure. No itching, no hives, and no frequent sneezing. PHYSICAL EXAMINATION: GENERAL APPEARANCE: Well-nourished, well-developed, appears stated age. Level of distress, comfortable. PSYCHIATRIC: Mental status, alert, normal affect. Orientation, oriented to time, place and person. EYES: Lids and conjunctiva, noninjected. No discharge, no pallor. ENT: Lips, teeth, gums, normal dentition. Oropharynx, no cyanosis, no pallor. NECK: Carotid arteries, bilateral normal upstroke, no bruits, no thrills. JUGULAR VEINS: No jugular venous pressure or distention. CERVICAL LYMPH NODES: Nontender, nonenlarged. THYROID: Not enlarged. Nontender. No nodules. LUNGS: Respiratory effort, unlabored. CHEST: Normal curvature. No thoracic deformity. No chest wall tenderness. Percussion, resonant. Auscultation, clear. No wheezes, no rales, no rhonchi. CARDIOVASCULAR: Precordial exam, nondisplaced. No heaves or pericardial thrills. Rate and rhythm, regular. Heart sounds, normal S1, normal S2. No S3, no gallop, no rub. Systolic murmur, not heard. Diastolic murmur, not heard. HISTORY AND PHYSICAL [id number] ANDREY AVERY JR EXTREMITIES: No cyanosis, no edema. Peripheral pulses, full and equal in all extremities, except as noted. No bruits appreciated. ABDOMEN: Soft, nondistended. Normal aorta. No bruit. Nontender. No masses. Liver, nontender, no hepatomegaly. Spleen, nontender, no splenomegaly. MUSCULOSKELETAL: No joint tenderness. No joint swelling. No erythema. NEUROLOGICAL: Normal gait, normal strength, normal tone. SKIN: Warm and dry. OVERALL IMPRESSION: Significant in-stent restenosis of the left anterior descending. We will proceed with laser atherectomy of the LAD. TRANSINT:[id number] Voice Confirmation ID: [id number] DOCUMENT ID: [id number] BRIANA HOYOS MD at 1323 CC: [id number] DICTATION DATE: 08/16/17 0846 CORRUGATED FASTENER DRIVER: 08/16/17 0932 DEP CLI 08/16/17 [facility] [address] [place] [address]
--- NOTE | ~2017-08-16 | HEMODYNAMI ---
PATIENT:ANDREY OSMAN JR MEDICAL RECORD: [id number] : 67 LOCATION:[facility] ADMISSION DATE: 08/16/17 Generatedon:08/16/201710:12 Patient name: ANDREY OSMAN Patient #: [id number] SSN: [id number] : 1965 Date of study: 08/16/2017 Page: Of Hemodynamic Procedure Report Patient Data Patient Demographics Procedure consent was obtained First Name: ANDREY Gender: Male Last Name: DAWSON Suffix: [facility] Initial: E : 1965 Patient #: [id number] Age: 52 year(s) Race: SSN: [id number] Additional ID: [id number] Contact details Address: [address] [place] [address] State: [place] City: [place] Zip code: [address] Past Medical History History of disease Date Diagnosis Comments CAD Allergies Allergen Reaction Date Comments Reported Other allergy 12/30/2015 Plavix (pt gets hives) Other allergy 07/30/2016 plavix Other allergy 08/01/2016 Plavix Other allergy 04/30/2017 plavix Other allergy 07/29/2017 Plavix Other allergy 08/16/2017 plavix Admission Admission Data Admission Date: 08/16/2017 Admission Time: 7:28 Lab Results Lab Result Date: 08/16/2017 Lab Result Time: 0:00 Biochemistry Name Units Result Min Max BUN mg/dl 16 --(---*)-- 7 18 Creatinine mg/dl 1.1 --(--*-)-- 0.6 1.3 CBC Name Units Result Min Max Hemoglobin g/dl 14.7 --(-*--)-- 13.5 17.5 Procedure Procedure Types Cath Procedure PCI Procedure Coronary Atherectomy Atherectomy w/PTCA Coronary Initial Miscellaneous Procedures Moderate Sedation up to 30 minutes Procedure Description Procedure Date Procedure Date: 08/16/2017 Procedure Start Time: 9:50 Procedure End Time: 10:10 Procedure Staff Name Function Leobardo Stratton MD Performing Physician Jenna Menon RT Monitor Ashia Pak RT Scrub Ngozi Cardoso RN Nurse Procedure Data Cath Procedure Fluoroscopy Diagnostic fluoroscopy Total fluoroscopy Time: 0 time: 0 min min Diagnostic fluoroscopy Total fluoroscopy dose: 632 dose: 632 mGy mGy Contrast Material Contrast Material Type Amount (ml) Isovue 300 110 Entry Location Entry Primary Successful Side Size Upsize Upsize Entry Closure Succes sful Closure Location (Fr) 1 (Fr) 2 (Fr) Remarks Device Remarks Femoral Right 6 Fr Exoseal artery Short Estimated blood loss: 5 ml Procedure Complications No complications Procedure Medications Medication Administration Route Dosage 0.9% NaCl I.V. 100 ml/hr Oxygen NC 2 l/min Lidocaine 2% added to field 20 Heparin Flush Bag added to field 2 bags (1000units/500ml NS) Brilinta P.O. 90 mg Fentanyl I.V. 50 mcg Versed I.V. 1 mg Versed I.V. 1 mg Heparin Bolus I.V. 4000 units Fentanyl I.V. 50 mcg Fentanyl I.V. 50 mcg Nitroglycerin IC/IA I.C. 200 mcg Hemodynamics Rest HGB: 14.7 (g/dl) Heart Rate: 55 (bpm) Snapshots Pre Cath Intra NCS Post Cath Vital Signs Time Heart Resp SPO2 etCO2 NIBP (mmHg) Rhythm Pain Sedation Rate (ipm) (%) (mmHg) Status Level (bpm) 9:30:06 54 16 98 0 133/78(103) NSR 0 (11) 10(A) , No pain 9:34:20 55 16 100 34.4 147/82(136) NSR 0 (11) 10(A) , No pain 9:38:34 59 18 100 38.1 137/75(103) NSR 0 (11) 10(A) , No pain 9:42:52 62 23 99 41.1 117/70(82) NSR 0 (11) 10(A) , No pain 9:47:02 60 14 99 44.8 113/70(83) NSR 0 (11) 10(A) , No pain 9:52:01 57 16 100 39.6 Measuring NSR 0 (11) 10(A) , No pain 9:52:20 58 16 100 39.6 114/65(84) NSR 0 (11) 10(A) , No pain 9:56:32 63 16 97 44.1 101/64(75) NSR 0 (11) 9(A) , No pain 10:00:35 68 19 98 48.6 107/75(98) NSR 0 (11) 9(A) , No pain 10:04:37 64 18 98 35.1 124/82(101) NSR 0 (11) 9(A) , No pain 10:09:36 61 18 98 0 157/99(125) NSR 0 (11) 10(A) , No pain Medications Time Medication Route Dose Verified Delivered Reason Note s Effectiveness by by 9:29:45 0.9% NaCl I.V. 100ml/hr Leobardo Melvin used for Viral Cardoso RN procedure 9:30:06 Oxygen NC 2 l/min Leobardo Melvin Per physician Viral Cardoso RN 9:30:16 Lidocaine 2% added 20ml Leobardo Leobardo for local to vial Viral Stratton MD anesthetic field 9:30:25 Heparin Flush added 2 bags Leobardo Booth used for Bag to Viral Stratton MD procedure (1000units/500ml field NS) 9:32:22 Brilinta P.O. 90 mg Leobardo Melvin for Viral Cardoso RN antiplatelet therapy 9:46:52 Fentanyl I.V. 50 mcg Leobardo Melvin for sedation Viral Cardoso RN 9:47:00 Versed I.V. 1 mg Leobardo Melvin for sedation Viral Cardoso RN 9:52:01 Versed I.V. 1 mg Leobardo Melvin for sedation Viral Cardoso RN 9:52:15 Heparin Bolus I.V. 4000 Leobardo Melvin for veri fied units Viral Cardoso RN anticoagulation by 9:52:20 Fentanyl I.V. 50 mcg Leobardo Melvin for sedation Viral Cardoso RN 9:53:51 Fentanyl I.V. 50 mcg Leobardo Melvin for sedation Viral Cardoso RN 9:59:54 Nitroglycerin I.C. 200 mcg Leobardo Booth for IC/IA Viral Stratton MD vasodilation Procedure Log Time Note 9:15:28 Jenna GALLARDO(R) sent for patient. Start room use. 9:24:10 Informed consent obtained and on chart 9:24:29 Time tracking: Regular hours 9:24:33 Plan of Care:Hemodynamics will remain stable., Cardiac rhythm will remain stable., Comfort level will be maintained., Respiratory function will remain adequate., Patient/ family verbilizes understanding of procedure., Procedure tolerated without complication., Recovers from procedure without complications.. 9:24:50 Patient received from Pre/Post Procedure Room to CCL 2 Alert and oriented. Tansferred to table in Supine position. 9:24:52 Warm blankets applied, and pilo hugger turned on for patient comfort. 9:24:52 Correct patient and procedure confirmed by team. 9:24:53 ECG and BP/O2 sat monitors applied to patient. 9:28:56 Vital chart was started 9:29:45 0.9% NaCl 100ml/hr I.V. was administered by Ngozi Cardoso RN; used for procedure; 9:30:06 Oxygen 2 l/min NC was administered by Ngozi Cardoso RN; Per physician; 9:30:16 Lidocaine 2% 20ml vial added to field was administered by Leobardo Stratton MD; for local anesthetic; 9:30:25 Heparin Flush Bag (1000units/500ml NS) 2 bags added to field was administered by Leobardo Stratton MD; used for procedure; 9:31:48 Baseline sample Acquired. 9::53 Rhythm: sinus rhythm 9:31:54 Full Disclosure recording started 9:31:59 H&P Date Dictated: 08/16/2017 H&P Addendum completed by physician on day of procedure. (MUST COMPLETE FOR ALL OUTPATIENTS), New H&P dictated by physician.. 9:32:00 Pre-procedure instructions explained to patient. 9:32:01 Pre-op teaching completed and patient verbalized understanding. 9:32:02 Family in waiting room. 9:32:03 Patient NPO since Midnight. 9:32:20 Patient allergic to Other allergyplavix 9:32:22 Brilinta 90 mg P.O. was administered by Ngozi Cardoso RN; for antiplatelet therapy; 9:32:22 Is the patient allergic to Iodine/contrast media? No. 9:32:23 Was the patient premedicated? No 9:32:25 Is patient on blood thinner?Yes 9:32:28 ACC The patient was administered the following blood thiners within the last 24 hours: ACCBrilinta 9:32:36 Patient diabetic? No. 9:32:40 Previous problem with sedation/anesthesia? No ? 9:32:42 Snore? Yes 9:32:43 Sleep apnea? Yes 9:32:45 Deviated septum? No 9:32:47 Opens mouth fully? Yes 9:32:48 Sticks out tongue? Yes 9:33:00 Airway obstruction? No ? 9:33:04 Dentures? No ? 9:33:08 Pre procedure: right dorsailis pedis pulse 2+ Normal; easily identifiable; not easily obliterated 9:33:11 Pre procedure: left dorsailis pedis pulse 2+ Normal; easily identifiable; not easily obliterated 9:33:14 Patient pain scale 0/10 ?. 9:33:20 IV patent on arrival in left forearm with 0.9% NaCl at O. 9:35:21 Lab Result : BUN 16 mg/dl 9:35:21 Lab Result : Hemoglobin 14.7 g/dl 9:35:21 Lab Result : Creatinine 1.1 mg/dl 9:35:24 Lab results completed and on chart. 9:37:08 Right groin area was prepped with chlora-prep and draped in sterile fashion 9:37:09 Alarms reviewed by R. N. 9:37:09 Sharps counted by scrub and verified by R.N. 9:38:04 Use device set TAUTH PCI 9:38:06 INFLATOR Merit BasixCompak ([id number]) opened to sterile field. 9:38:07 SHEATH 6FR [place] (MID012) opened to sterile field. 9:38:18 Use device set Acist 9:38:20 ACIST Syringe (75540) opened to sterile field. 9:38:20 ACIST Hand Control (65161) opened to sterile field. 9:38:21 ACIST Manifold (69481) opened to sterile field. 9:44:27 Zero performed for pressure channel P1 9:44:44 Physician arrived 9:44:45 --------ALL STOP TIME OUT------ 9:44:45 Final Timeout: patient, procedure, and site verified with staff and physician. All members of the team are in agreement. 9:44:48 Right groin site verified by team. 9:44:51 Physical assessment completed. ASA score P 2 - A patient with mild systemic disease as per Leobardo Stratton MD. 9:44:54 Sedation plan: IV Moderate Sedation Medication:Versed, Fentanyl 9:46:52 Fentanyl 50 mcg I.V. was administered by Ngozi Cardoso RN; for sedation; 9:47:00 Versed 1 mg I.V. was administered by Ngozi Cardoso RN; for sedation; 9:48:31 Procedure started. 9:50:41 Local anesthetic to right femoral artery with Lidocaine 2% by Leobardo Stratton MD.INITIAL ACCESS ONLY 9:50:48 A 6 Fr Short sheath was inserted into the Right Femoral artery 9:51:44 GUIDE 6FR XBLAD 3.5 SH catheter ([id number]) opened to sterile field. 9:52:01 Versed 1 mg I.V. was administered by Ngozi Cardoso RN; for sedation; 9:52:05 6 Fr xblad 3.5 guide catheter was inserted over the wire 9:52:15 Heparin Bolus 4000 units I.V. was administered by Ngozi Cardoso RN; for anticoagulation; verified by 9:52:20 Fentanyl 50 mcg I.V. was administered by Ngozi Cardoso RN; for sedation; 9:53:06 WHISPER 190cm wire ([id number]) opened to sterile field. 9:53:51 Fentanyl 50 mcg I.V. was administered by Ngozi Cardoso RN; for sedation; 9:54:50 whisper wire advanced. 9:55:33 A LASER ELCA 0.9 Rx atherectomy catheter (439033) was prepped and advanced across the Mid LAD lesion. Pass Number: 1 9:55:47 A LASER ELCA 0.9 Rx atherectomy catheter ([id number]) was prepped and advanced across the Mid LAD lesion. Pass Number: 2 9:56:24 A LASER ELCA 0.9 Rx atherectomy catheter (378324) was prepped and advanced across the Mid LAD lesion. Pass Number: 3 9:57:26 A LASER ELCA 0.9 Rx atherectomy catheter (640029) was prepped and advanced across the Mid LAD lesion. Pass Number: 4 9:58:38 A LASER ELCA 0.9 Rx atherectomy catheter ([id number]) was prepped and advanced across the Mid LAD lesion. Pass Number: 5 9:59:54 Nitroglycerin IC/IA 200 mcg I.C. was administered by Leobardo Stratton MD; for vasodilation; 10:01:16 Laser pass to mLAD with Fluence of 80 and Rate of 40. 10:01:43 A LASER ELCA 0.9 Rx atherectomy catheter (380401) was prepped and advanced across the Mid LAD lesion. Pass Number: 6 10:01:59 Laser pass to mLAD with Fluence of 40 and Rate of 40. 10:02:46 Laser pass to mLAD with Fluence of 80 and Rate of 80. 10:03:24 Laser total treatment time: 1 minutes 19 seconds 10:03:31 Laser total pulses delivered: 4394 10:03:39 Laser catheter removed. 10:05:00 Inflation number: 1 A EUPHORA 3.0 x 30 Balloon ([id number]) was prepped and advanced across the Mid LAD, then inflated to 15 PAUL for 0:10 (min:sec). 10:05:26 Inflation number: 2 The EUPHORA 3.0 x 30 Balloon ([id number]) was reinflated across the Mid LAD, to 15 PAUL for 0:10 (min:sec). 10:06:22 Inflation number: 3 The EUPHORA 3.0 x 30 Balloon ([id number]) was reinflated across the Mid LAD, to 19 PAUL for 0:10 (min:sec). 10:06:42 Inflation number: 4 The EUPHORA 3.0 x 30 Balloon ([id number]) was reinflated across the Mid LAD, to 19 PAUL for 0:10 (min:sec). 10:08:29 Balloon removed over the wire. 10:08:33 Wire removed. 10:08:42 Guide catheter removed. 10:08:47 EXOSEAL 6Fr (EX600) opened to sterile field. 10:08:58 Sheath removed intact; hemostasis achieved with Exoseal to the Right Femoral artery. 10:09:00 Procedure ended.(Physican Out) 10:09:09 Fluoroscopy time 00.00 minutes. 10:09:13 Flurop Dose total: 632 10:09:13 Fluoroscopy dose: 632 mGy 10:09:17 Contrast amount:Isovue 300 110ml. 10:09:18 Sharps counted by scrub and verified by R.N. 10:09:21 Insertion/operative site no bleeding no hematoma. 10:09:23 Post-op/insertion site Right Femoral artery dressed using a 4 x 4 and Tegaderm. 10:09:26 Post right femoral artery:stable 10:09:28 Post Procedure Pulses reassessed and unchanged 10:09:31 Post procedure rhythm: unchanged. 10:09:34 Estimated blood loss: 5 ml 10:09:35 Post procedure instruction explained to patient.Patient verbalizes understanding. 10:09:36 Patient needs reinforcement of post procedure teaching. 10:09:54 Procedure type changed to Cath procedure, PCI procedure, Coronary Atherectomy, Atherectomy w/PTCA Coronary Initial, Miscellaneous Procedures, Moderate Sedation up to 30 minutes 10:09:56 Procedure and supply charges have been captured, reviewed, submitted and are correct. 10:10:00 Procedure Complication : No complications 10:10:02 Vital chart was stopped 10:10:02 See physician's report for complete and final results. 10:10:05 Report given to Pre/Post Procedure Room. 10:10:07 Patient transfered to Pre/Post Procedure Room with Stretcher. 10:10:09 Procedure ended. 10:10:09 Full Disclosure recording stopped 10::18 ACC-PCI Only Patient was given prescriptions, or instructed by Leobardo Stratton MD to start/continue the following medications upon discharge: Brilinta 10:10:19 End room use (Document Last) Intervention Summary Intervention Notes Time ActionType Lesion and Equipment Action# Pressure Duration Attributes Used 9:55:33 Atherectomy Mid LAD LASER ELCA 00:09 0.9 Rx atherectomy catheter (143508) 9:55:47 Atherectomy Mid LAD LASER ELCA 00:06 0.9 Rx atherectomy catheter (711119) 9:56:24 Atherectomy Mid LAD LASER ELCA 00:06 0.9 Rx atherectomy catheter (414869) 9:57:26 Atherectomy Mid LAD LASER ELCA 00:10 0.9 Rx atherectomy catheter (819386) 9:58:38 Atherectomy Mid LAD LASER ELCA 00:06 0.9 Rx atherectomy catheter (653545) 10:01:43 Atherectomy Mid LAD LASER ELCA 00:07 0.9 Rx atherectomy catheter (081543) 10:05:00 Inflate Mid LAD EUPHORA 3.0 1 15 00:10 balloon x 30 Balloon ([id number]) 10:05:26 Reinflate Mid LAD EUPHORA 3.0 2 15 00:10 balloon x 30 Balloon ([id number]) 10:06:22 Reinflate Mid LAD EUPHORA 3.0 3 19 00:10 balloon x 30 Balloon ([id number]) 10:06:42 Reinflate Mid LAD EUPHORA 3.0 4 19 00:10 balloon x 30 Balloon ([id number]) Device Usage Item Name Manufacture Quantity Catalog Hospital Part Current Minimal L ot# / Number Charge Number Stock Stock Serial# Code INFLATOR ApoVax 1 [id number] 918676 [id number] 15 ApoVax Medical BasixCompak (WQ7991) SHEATH 6FR Terumo 1 [id number] 460229 116676 034203 40 [place] (CEM551) ACIST Acist 1 93539 186060 554268 931570 20 Syringe Medical (82846) Systems Inc ACIST Hand Acist 1 58506 106062 854985 977826 5 Control Medical (50372) Systems Inc ACIST Acist 1 00976 006700 058385 826920 5 Manifold Medical (52532) Systems Inc GUIDE 6FR Cardinal 1 [id number] 780104 022041 720451 3 XBLAD 3.5 Health catheter (99341456) WHISPER Berkowitz 1 [id number] 429991 485929 447028 5 190cm wire Vascular (4693228PR) LASER ELCA Marcello 1 110-004 253311 821198 597023 5 F [id number] 0.9 Rx Healthcare atherectomy (539216) catheter (331276) EUPHORA 3.0 Medtronic 1 [id number] 160891 719174 804656 5 2 [id number] x 30 Balloon ([id number]) EXOSEAL 6Fr Cardinal 1 EX600 893214 324836 446100 10 (EX600) Health Signature Audit [place] Stage Time Signature Unsigned Intra-Procedure 08/16/2017 Jenna Menon 10:12:39 AM RT(R) Signatures Monitor : Jenna Menon RT Signature : Date : Time : [address] [place] [address]
--- NOTE | ~2017-08-16 | OP ---
PATIENT NAME: ANDREY OSMAN JR MEDICAL RECORD: [id number] :67 LOCATION:[facility] ADMISSION DATE: SURGEON: BRIANA HOYOS MD DATE OF OPERATION: 08/16/2017 PROCEDURES: 1. Laser arthrectomy LAD. 2. PTCA LAD. 3. Selective coronary angiography. PROCEDURE IN DETAIL: After informed consent was obtained and after a detailed explanation of the risks, benefits as well as alternative therapies, the patient elected to proceed with angiogram and angioplasty. The right femoral area was prepped and draped in normal sterile fashion. The right femoral artery was cannulated via modified Seldinger technique with placement of 6-[place] sheath. All catheters exchanged through this sheath. FINDINGS: The left anterior descending has 80% to 90% in-stent restenosis in the mid vessel. This was addressed with a 0.9 laser catheter, multiple passes were made at 40 and 40 and 80 and 80. Ballooning was undertaken with a 3.0 balloon. Result was 0% residual stenosis. OVERALL IMPRESSION: Successful laser atherectomy, PTCA of the left anterior descending going from 90% initial stenosis to 0% residual. TRANSINT:[id number] Voice Confirmation ID: [id number] DOCUMENT ID: [id number] BRIANA HOYOS MD at 1323 CC: [id number] DICTATION DATE: 08/16/17 1012 MEDICAL DEVICE ENGINEER: 08/16/17 1134 DEP CLI 08/16/17 [place] [id number]
[2017-08-16 08:28] VITALS: BP 114/80; Ht 170.2 cm; Wt 79.5 kg
[2017-08-16 08:33] LABS: BASOPHILS 0.3 % (0-2); EOSINOPHILS 3.1 % (0-7); HEMATOCRIT 42.6 % (42.0-54.0); HEMOGLOBIN 14.7 g/dL (13.5-17.5); IMMATURE GRANULOCYTES 0.6 % (0-5); LYMPHOCYTES 30.5 % (15-50); MCHC 34.5 g/dL (31.0-37.0); MCV 92.6 fL (80.0-100.0); MEAN PLATELET VOLUME 9.2 fL (7.4-10.4); MONOCYTES 9.1 % (2-11); NEUTROPHILS 56.4 % (40-80); PLATELET COUNT 275 10x3/uL (130-400); RDW 13.1 % (11.5-14.5); WBC 6.4 10x3/uL (4.8-10.8)
[2017-08-16 08:45] LABS: CALC OSMOLALITY 277 mosm/kg (275-300); CALCIUM 8.8 mg/dL (8.5-10.1); CARBON DIOXIDE 26.1 mmol/L (21.0-32.0); CHLORIDE - SERUM 103 mmol/L (98-107); CREATININE - SERUM 1.1 mg/dL (0.6-1.3); GLUCOSE 120 mg/dL (74-106); SODIUM 138 mmol/L (136-145); UREA NITROGEN 16 mg/dL (7-18); eGFR NON AFRICAN AMERICAN 75 mL/min (90-120)
== END 2017-08-16 14:30 | disposition home or self-care (01) ==
LOC: D.CATH 07:28
PROVIDERS: Internal Medicine Interventional Cardiology
DX: I25.119 Atherosclerotic heart disease of native coronary artery with unspecified angina pectoris (principal); Z95.5 Presence of coronary angioplasty implant and graft; I10 Essential (primary) hypertension; E78.5 Hyperlipidemia, unspecified; Z01.812 Encounter for preprocedural laboratory examination

== ENCOUNTER 2017-12-15 19:18 | Inpatient (IN) | payer MEDICARE ==
[~2017-12-15] VITALS: Ht 170.2 cm; Wt 79.8 kg
--- NOTE | ~2017-12-15 | OP ---
PATIENT NAME: ANDREY OSMAN JR MEDICAL RECORD: [id number] :67 LOCATION:D.M2 D.2116 ADMISSION DATE:12/18/17 SURGEON: BRIANA HOYOS MD DATE OF OPERATION: 12/18/2017 PROCEDURES: 1. Laser atherectomy LAD. 2. PTCA stent LAD. 3. Left heart catheterization. 4. Selective coronary angiography. 5. Left ventriculogram. INDICATION: Angina and coronary artery disease. PROCEDURE IN DETAIL: After informed consent was obtained and after detailed explanation of risks, benefits as well as alternative therapies, the patient elected to proceed with angiogram and angioplasty. The right femoral area was prepped and draped in normal sterile fashion. The right femoral artery was cannulated via modified Seldinger technique with placement of 6-[place] sheath. All catheters exchanged through the sheath. FINDINGS: The left ventriculogram was performed in standard 30-degree ALANIS view reveals preserved cardiac wall motion, ejection fraction 50%. SELECTIVE CORONARY ANGIOGRAPHY: 1. Left main showed no significant angiographic disease. 2. Left anterior descending has previously placed stents. There is up to 90% in-stent restenosis. 3. The left circumflex has previously placed stents. There is 80-90% in-stent restenosis. 4. The right coronary artery has previously placed stents. These are widely patent with no significant restenosis. No disease elsewise throughout the RCA or its branches. Laser atherectomy and PTCA stent of the LAD: The laser atherectomy was 0.9 mm laser catheter, multiple passes were made at 40-80. We then stented this with a 2.5 x 38 mm [place] stent. Result was 0% residual stenosis. OVERALL IMPRESSION: Successful percutaneous transluminal coronary angioplasty stent and laser atherectomy of the left anterior descending going from 90% initial stenosis to 0% residual stenosis. TRANSINT:[id number] Voice Confirmation ID: [id number] DOCUMENT ID: [id number] BRIANA HOYOS MD at 1849 CC: [id number] DICTATION DATE: 12/18/17 1109 JAVA FRONT END WEB DEVELOPER: 12/18/17 1228 DIS IN 12/19/17 [facility] [address] [place] [address]
--- NOTE | ~2017-12-15 | DS ---
PATIENT:ANDREY AVERY JR :67 MEDICAL RECORD: [id number] DISCHARGE SUMMARY ADMISSION DATE: 12/18/17 DISCHARGE DATE: 12/19/17 DIAGNOSES: 1. Unstable angina. 2. Coronary artery disease. 3. PTCA stent LAD and left circumflex this admission. HOSPITAL COURSE: Mr. Avery presents with unstable angina, found to have 3-vessel coronary artery disease, underwent successful PTCA stent of both the LAD and circumflex. He was discharged home. Follow up with [facility] in 1 month. TRANSINT:[id number] Voice Confirmation ID: [id number] DOCUMENT ID: [id number] BRIANA HOYOS MD at 1849 CC: [id number] DICTATION DATE: 12/19/17 1001 BISQUE CLEANER: 12/19/17 1456 DIS IN 12/19/17 [place] [id number] [place] [address]
--- NOTE | ~2017-12-15 | HEMODYNAMI ---
PATIENT:ANDREY OSMAN JR MEDICAL RECORD: [id number] : 67 LOCATION:[facility] D.[address] [facility]# [id number] ADMISSION DATE: 12/18/17 Generatedon:12/19/201710:03 Patient name: ANDREY OSMAN Patient #: [id number] SSN: [id number] : 1965 Date of study: 12/19/2017 Page: Of Hemodynamic Procedure Report Patient Data Patient Demographics Procedure consent was obtained First Name: ANDREY Gender: Male Last Name: DAWSON Suffix: Jr Adhikari Initial: Alpesh : 1965 Patient #: [id number] Age: 52 year(s) Race: SSN: [id number] Additional ID: [id number] Contact details Address: [address] [place] [address] State: [place] City: [place] Zip code: [address] Past Medical History History of disease Date Diagnosis Comments CAD Allergies Allergen Reaction Date Comments Reported Other allergy 12/30/2015 Plavix (pt gets hives) Other allergy 07/30/2016 plavix Other allergy 08/01/2016 Plavix Other allergy 04/30/2017 plavix Other allergy 07/29/2017 Plavix Other allergy 08/16/2017 plavix Admission Admission Data Admission Date: 12/18/2017 Admission Time: 13:08 Arrival Date: 12/19/2017 Arrival Time: 13:08 Admit Source: Other Insurance Payor: Medicare Room #: D.2116 Height (in.): 66.93 BSA: 1.91 (m2) Height (cm.): 170 BMI: 27.34 (kg/m2) Weight (lbs.): 174.17 Weight (kg.): 79 Lab Results Lab Result Date: 12/19/2017 Lab Result Time: 0:00 Biochemistry Name Units Result Min Max BUN mg/dl 15 --(--*-)-- 7 18 Creatinine mg/dl 1.1 --(--*-)-- 0.6 1.3 CBC Name Units Result Min Max Hemoglobin g/dl 14.2 --(*---)-- 13.5 17.5 Procedure Procedure Types Cath Procedure PCI Procedure Coronary Stent Coronary Stent Initial Procedure Description Procedure Date Procedure Date: 12/19/2017 Procedure Start Time: 9:52 Procedure End Time: 10:01 Procedure Staff Name Function Leobardo Stratton MD Performing Physician Jenna Menon RT Monitor Ashia Pak RT Scrub Yrn Hutchison RN Nurse Shanae Herrera RN Nurse Procedure Data Cath Procedure Fluoroscopy Diagnostic fluoroscopy Total fluoroscopy Time: 1.2 time: 1.2 min min Diagnostic fluoroscopy Total fluoroscopy dose: 115 dose: 115 mGy mGy Contrast Material Contrast Material Type Amount (ml) Isovue 300 23 Entry Location Entry Primary Successful Side Size Upsize Upsize Entry Closure Succes sful Closure Location (Fr) 1 (Fr) 2 (Fr) Remarks Device Remarks Femoral Left 6 Fr Exoseal artery Short Estimated blood loss: 10 ml Procedure Complications No complications Procedure Medications Medication Administration Route Dosage Oxygen etCO2 Nasal cannula 2 l/min Heparin Flush Bag added to field 2 bags (1000units/500ml NS) 0.9% NaCl I.V. 100 ml/hr Fentanyl I.V. 50 mcg Versed I.V. 1 mg Heparin Bolus I.V. 4000 units Versed I.V. 1 mg Fentanyl I.V. 50 mcg Hemodynamics Rest BSA: 1.91 (m2) HGB: 14.2 (g/dl) O2 Consumption: Estimated: 221.28 (ml/min) O2 Co nsumption indexed: Estimated:115.85 (ml/min/m) Heart Rate: 61 (bpm) Snapshots Pre Cath Intra NCS Post Cath Vital Signs Time Heart Resp SPO2 etCO2 NIBP (mmHg) Rhythm Pain Sedation Rate (ipm) (%) (mmHg) Status Level (bpm) 9:22:52 60 16 98 32.9 132/73(117) NSR 0 (11) 10(A) , No pain 9:27:04 61 17 100 29.9 128/76(114) NSR 0 (11) 10(A) , No pain 9:31:18 63 16 98 32.1 124/77(96) NSR 0 (11) 10(A) , No pain 9:35:32 64 17 99 35.1 137/72(89) NSR 0 (11) 10(A) , No pain 9:39:46 63 17 98 35.9 121/81(94) NSR 0 (11) 10(A) , No pain 9:43:56 64 18 96 32.2 106/80(89) NSR 0 (11) 10(A) , No pain 9:48:00 64 17 96 13.4 105/81(87) NSR 0 (11) 10(A) , No pain 9:53:13 56 13 100 32.9 114/66(87) NSR 0 (11) 9(A) , No pain 9:58:28 55 18 100 36.6 115/77(89) NSR 0 (11) 10(A) , No pain 10:02:14 57 18 100 8.2 125/79(106) NSR 0 (11) 10(A) , No pain Medications Time Medication Route Dose Verified Delivered Reason Notes Effectiveness by by 9:34:23 Oxygen etCO2 2 Leobardo Pool Per physician Nasal l/min Viral Hutchison RN cannula 9:34:33 Heparin Flush added 2 Leobardo Pool used for Bag to bags Viral Hutchison RN procedure (1000units/500ml field NS) 9:34:41 0.9% NaCl I.V. 100 Leobardo Pool Per physician ml/hr Viral Hutchison RN 9:49:23 Fentanyl I.V. 50 Leobardo Hoguey for sedation mcg Viral Hutchison RN 9:49:37 Versed I.V. 1 mg Leobardo Hoguey for sedation Viral Hutchison RN 9:52:12 Versed I.V. 1 mg Leobardo Hoguey for sedation Viral Hutchison RN 9:52:15 Fentanyl I.V. 50 Leobardo Hoguey for sedation mcg Viral Hutchison RN 9:55:15 Heparin Bolus I.V. 4000 Leobardo Pool for verifi ed units Viral Hutchison RN anticoagulation with dr stratton Procedure Log Time Note 8:53:39 Diagnostic Cath Status : Elective 8:53:58 Jenna Menon RT(R) sent for patient. Start room use. 8:53:59 Time tracking: Regular hours (M-F 7:00 - 5:00) 8:54:04 Plan of Care:Hemodynamics will remain stable., Cardiac rhythm will remain stable., Comfort level will be maintained., Respiratory function will remain adequate., Patient/ family verbilizes understanding of procedure., Procedure tolerated without complication., Recovers from procedure without complications.. 8:54:37 Admit Source: Other 8:54:39 Arrival Date: 12/19/2017 1:08:00 PM 8:54:48 Insurance Payor : Medicare 8:54:58 Patient Weight : 174.17 lbs 8:55:03 Patient Height : 66.93 inches 8:55:27 Lab Result : Hemoglobin 14.2 g/dl 8:55:27 Lab Result : Creatinine 1.1 mg/dl 8:55:27 Lab Result : BUN 15 mg/dl 9:18:56 Patient received from Med II to [facility] 2 Alert and oriented. Tansferred to table in Supine position. 9:18:57 Warm blankets applied, and pilo hugger turned on for patient comfort. 9:18:57 Correct patient and procedure confirmed by team. 9:18:59 Signed procedure consent form obtained from patient. 9:19:00 ECG and BP/O2 sat monitors applied to patient. 9:19:39 Vital chart was started 9:19:47 Vital chart was stopped 9:21:48 Baseline sample Acquired. 9:21:49 Vital chart was started 9:21:53 Rhythm: sinus rhythm 9:21:54 Full Disclosure recording started 9:22:00 H&P Date Dictated: 12/19/2017 Within 30 days and on chart.. 9:22:01 Pre-procedure instructions explained to patient. 9:22:02 Pre-op teaching completed and patient verbalized understanding. 9:22:03 Family in waiting room. 9:22:05 Patient NPO since Midnight. 9:22:07 Is the patient allergic to Iodine/contrast media? No. 9:22:08 Was the patient premedicated? No 9:22:09 Is patient on blood thinner?Yes 9:22:12 ACC The patient was administered the following blood thiners within the last 24 hours: ACCBrilinta 9:22:14 Patient diabetic? No. 9:22:16 Previous problem with sedation/anesthesia? No ? 9:22:20 Snore? Yes 9:22:21 Sleep apnea? No 9:22:22 Deviated septum? No 9:22:22 Opens mouth fully? Yes 9:22:23 Sticks out tongue? Yes 9:22:27 Airway obstruction? Yes copd 9:22:30 Dentures? Yes out 9:22:34 Pre procedure: right dorsailis pedis pulse 2+ Normal; easily identifiable; not easily obliterated 9:22:36 Pre procedure: left dorsailis pedis pulse 2+ Normal; easily identifiable; not easily obliterated 9:22:37 Patient pain scale 0/10 ?. 9:22:43 IV patent on arrival in left forearm with 0.9% NaCl at [facility]. 9:22:45 Lab results completed and on chart. 9:22:50 Left groin area was prepped with chlora-prep and draped in sterile fashion 9:22:51 Alarms reviewed by R. N. 9:22:51 Sharps counted by scrub and verified by R.N. 9:23:51 Use device set Femoral Dx 9:23:52 ACIST Syringe (94553) opened to sterile field. 9:23:52 Bag Decanter (2002S) opened to sterile field. 9:23:54 Medline Cath Pack ([id number]) opened to sterile field. 9:23:54 DIAGNOSTIC WIRE .035 260cm J wire (369149) opened to sterile field. 9:23:56 ACIST Hand Control (37782) opened to sterile field. 9:23:56 ACIST Manifold (55766) opened to sterile field. 9:23:58 Tegaderm 4 x 4 (1626W) opened to sterile field. 9:23:59 PERCUTANEOUS ENTRY 19GA needle opened to sterile field. 9:24:34 CHOICE PT Extra Support 182cm wire ([id number]) opened to sterile field. 9:24:35 INFLATOR Merit BasixCompak ([id number]) opened to sterile field. 9:24:37 SHEATH 6Fr Prelude ([id number]) opened to sterile field. 9:34:23 Oxygen 2 l/min etCO2 Nasal cannula was administered by Yrn Hutchison RN; Per physician; 9:34:33 Heparin Flush Bag (1000units/500ml NS) 2 bags added to field was administered by Yrn Hutchison RN; used for procedure; 9:34:41 0.9% NaCl 100 ml/hr I.V. was administered by Yrn Hutchison RN; Per physician; 9:48:57 Physician paged 9:48:59 Physician arrived 9:48:59 --------ALL STOP TIME OUT------ 9:49:00 Final Timeout: patient, procedure, and site verified with staff and physician. All members of the team are in agreement. 9:49:01 Left groin site verified by team. 9:49:07 Sedation plan: IV Moderate Sedation Medication:Versed, Fentanyl 9:49:23 Fentanyl 50 mcg I.V. was administered by Yrn Hutchison RN; for sedation; 9:49:37 Versed 1 mg I.V. was administered by Yrn Hutchison RN; for sedation; 9:51:25 Zero performed for pressure channel P1 9:51:31 Zero performed for pressure channel P1 9:51:52 Procedure started. 9:52:02 Local anesthetic to left femerol artery with Lidocaine 2% by Leobardo Stratton MD.INITIAL ACCESS ONLY 9:52:12 Versed 1 mg I.V. was administered by Yrn Hutchison RN; for sedation; 9:52:14 A 6 Fr Short sheath was inserted into the Left Femoral artery 9:52:15 Fentanyl 50 mcg I.V. was administered by Yrn Hutchison RN; for sedation; 9:54:39 6 Fr XBLAD 3.5 guide catheter was inserted over the wire 9:54:51 choice ex support wire advanced. 9:55:15 Heparin Bolus 4000 units I.V. was administered by Yrn Hutchison RN; for anticoagulation; verified with dr stratton 9:55:18 Wire advanced across lesion. 9:56:52 Place stent Inflation Number: 1 A CHARLI RX 3.5 x 12 stent ([id number]) was prepped and advanced across the Mid CX. The stent was deployed at 17 PAUL for 0:05 (min:sec). 9:59:22 Sheath removed intact; hemostasis achieved with Exoseal to the Left Femoral artery. 9:59:31 EXOSEAL 6Fr (EX600) opened to sterile field. 9:59:36 Procedure ended.(Physican Out) 9:59:46 Fluoroscopy time 01.20 minutes. 9:59:50 Fluoroscopy dose: 115 mGy 9:59:50 Flurop Dose total: 115 9:59:56 Contrast amount:Isovue 300 23ml. 9:59:58 Sharps counted by scrub and verified by R.N. 10:00:00 Insertion/operative site no bleeding no hematoma. 10:00:05 Post-op/insertion site Left Femoral artery dressed using a 4 x 4 and Tegaderm. 10:00:07 Post Procedure Pulses reassessed and unchanged 10:00:10 Post-procedure physical assessment completed. ASA score P 2 - A patient with mild systemic disease as per Leobardo Stratton MD. 10:00:12 Post procedure rhythm: unchanged. 10:00:15 Estimated blood loss: 10 ml 10:00:17 Post procedure instruction explained to patient.Patient verbalizes understanding. 10:00:29 Procedure type changed to Cath procedure, PCI procedure, Coronary Stent, Coronary Stent Initial 10:00:30 Procedure and supply charges have been captured, reviewed, submitted and are correct. 10:01:22 Procedure Complication : No complications 10:01:32 Patient transfered to [facility] with Bed. 10:01:38 Procedure ended. 10:01:38 Full Disclosure recording stopped 10:01:42 End room use (Document Last) 10:03:31 Vital chart was stopped Intervention Summary Intervention Notes Time ActionType Lesion and Equipment Used Action# Pressure Duration Attributes 9:56:52 Place stent Mid CX CHARLI RX 3.5 x 1 17 00:05 12 stent ([id number]) Device Usage Item Name Manufacture Quantity Catalog Number Hospital Part Current M inimal Lot# / Charge Number Stock Stock Serial# Code ACIST Syringe Acist 1 72112 468084 846994 107596 2 0 (46104) Medical Systems Inc Bag Decanter Microtek 1 2001S 849701 25877 696700 5 () Medical Inc. Medline Cath Cardinal 1 [id number] 810269 [address] [facility] ([id number]) DIAGNOSTIC St Asif 1 967245 184435 634131 842768 3 0 WIRE .035 260cm J wire (825265) ACIST Hand Acist 1 88089 265667 359729 450363 5 Control Medical (73244) Systems Inc ACIST Manifold Acist 1 19657 640620 449385 032054 5 (00750) Medical Systems Inc Tegaderm 4 x 4 3M 1 1626W 508219 694869 153904 5 (1626W) PERCUTANEOUS Cook Medical 1 [id number] 126253 048353 5 ENTRY 19GA needle CHOICE PT [place] 1 [id number] 467096 388881 813790 5 Extra Support Scientific 182cm wire ([id number]) INFLATOR Merit Merit 1 AA9901 195040 318398 995518 1 5 BasixComCache IQ Medical (LI3554) SHEATH 6Fr Merit 1 [id number] 104968 919542 960577 5 Prelude Medical ([id number]) CHARLI RX 3.5 x Medtronic 1 [id number] 804064 8182090 351089 5 12 stent ([id number]) EXOSEAL 6Fr Cardinal 1 EX600 493403 061241 456951 1 0 (EX600) Health Signature Audit [place] Stage Time Signature Unsigned Intra-Procedure 12/19/2017 Ashia Pak 10:03:19 AM RT(R) Signatures Monitor : Jenna Menon RT Signature : Date : Time : [place] [id number] [place] [address]
--- NOTE | ~2017-12-15 | HEMODYNAMI ---
PATIENT:ANDREY OSMAN JR MEDICAL RECORD: [id number] : 67 LOCATION:[facility] D.[address] [facility]# [id number] ADMISSION DATE: 12/18/17 Generatedon:12/19/201710:51 Patient name: ANDREY OSMAN Patient #: [id number] SSN: [id number] : 1965 Date of study: 12/18/2017 Page: Of Hemodynamic Procedure Report Patient Data Patient Demographics Procedure consent was obtained First Name: ANDREY Gender: Male Last Name: DAWSON Suffix: Jr Adhikari Initial: Alpesh : 1965 Patient #: [id number] Age: 52 year(s) Race: SSN: [id number] Additional ID: [id number] Contact details [address]: [address] [place] [address] State: [place] City: [place] Zip code: [address] Past Medical History History of disease Date Diagnosis Comments CAD Allergies Allergen Reaction Date Comments Reported Other allergy 12/30/2015 Plavix (pt gets hives) Other allergy 07/30/2016 plavix Other allergy 08/01/2016 Plavix Other allergy 04/30/2017 plavix Other allergy 07/29/2017 Plavix Other allergy 08/16/2017 plavix Admission Admission Data Admission Date: 12/18/2017 Admission Time: 13:08 Arrival Date: 12/19/2017 Arrival Time: 13:08 Admit Source: Other Insurance Payor: Medicare Room #: D.2116 Height (in.): 66.93 BSA: 1.91 (m2) Height (cm.): 170 BMI: 27.34 (kg/m2) Weight (lbs.): 174.17 Weight (kg.): 79 Lab Results Lab Result Date: 12/19/2017 Lab Result Time: 0:00 Biochemistry Name Units Result Min Max BUN mg/dl 15 --(--*-)-- 7 18 Creatinine mg/dl 1.1 --(--*-)-- 0.6 1.3 CBC Name Units Result Min Max Hemoglobin g/dl 14.2 --(*---)-- 13.5 17.5 Procedure Procedure Types Cath Procedure Diagnostic Procedure [facility] w/Coronaries Sedation Charges Moderate Sedation up to 30 minutes PCI Procedure Coronary Atherectomy Atherectomy w/Stent Coronary Initial Procedure Description Procedure Date Procedure Date: 12/18/2017 Procedure Start Time: 10:34 Procedure End Time: 11:07 Procedure Staff Name Function Jenna Menon RT Monitor Shanae Herrera RN Nurse Leobardo Stratton MD Performing Physician Ashia Pak RT Scrub Viviane Varela RT Monitor Procedure Data Cath Procedure Fluoroscopy Diagnostic fluoroscopy Total fluoroscopy Time: 0 time: 0 min min Diagnostic fluoroscopy Total fluoroscopy dose: 948 dose: 948 mGy mGy Contrast Material Contrast Material Type Amount (ml) Isovue 300 86 Entry Location Entry Primary Successful Side Size Upsize Upsize Entry Closure Succes sful Closure Location (Fr) 1 (Fr) 2 (Fr) Remarks Device Remarks Femoral Right 6 Fr Exoseal artery Short Estimated blood loss: 5 ml Diagnostic catheters Device Type Used For End Catheter Placement MULTIPACK Pigtail 5 Fr LV Angiography catheter MULTIPACK JL 4.0 5Fr Left Coronary catheter Angiography MULTIPACK 3DRC 5Fr Right Coronary catheter Angiography Procedure Complications No complications Procedure Medications Medication Administration Route Dosage Oxygen NC 2 l/min Lidocaine 2% added to field 20 Heparin Flush Bag added to field 2 bags (1000units/500ml NS) 0.9% NaCl I.V. 100 ml/hr Versed I.V. 1 mg Fentanyl I.V. 50 mcg Versed I.V. 1 mg Fentanyl I.V. 50 mcg Fentanyl I.V. 100 mcg Heparin Bolus I.V. 5000 units Hemodynamics Rest BSA: 1.91 (m2) O2 Consumption: Estimated: 219 (ml/min) O2 Consumption indexed: E stimated:114.66 (ml/min/m) Heart Rate: 58 (bpm) Snapshots Pre Cath Intra NCS Post Cath Vital Signs Time Heart Resp SPO2 etCO2 NIBP (mmHg) Rhythm Pain Sedation Rate (ipm) (%) (mmHg) Status Level (bpm) 10:18:27 61 16 99 0 159/77(104) NSR 0 (11) 10(A) , No pain 10:22:43 59 15 99 32.9 139/70(119) NSR 0 (11) 10(A) , No pain 10:27:01 65 16 97 35.2 113/74(87) NSR 0 (11) 10(A) , No pain 10:32:17 64 19 98 0 124/63(96) NSR 0 (11) 10(A) , No pain 10:36:29 59 16 97 32.2 106/80(89) NSR 0 (11) 9(A) , No pain 10:40:30 62 16 95 33.7 110/84(102) NSR 0 (11) 9(A) , No pain 10:44:28 64 13 93 0.7 117/98(112) NSR 0 (11) 9(A) , No pain 10:48:30 60 24 96 0 133/107(130) NSR 0 (11) 9(A) , No pain 10:52:41 63 16 97 0 150/85(121) NSR 0 (11) 9(A) , No pain 10:56:52 68 16 97 0 132/87(97) NSR 0 (11) 9(A) , No pain 11:01:05 65 17 97 14.2 127/75(100) NSR 0 (11) 9(A) , No pain 11:05:11 64 18 98 0 147/92(122) NSR 0 (11) 10(A) , No pain Medications Time Medication Route Dose Verified Delivered Reason Notes Effectiveness by by 10:20:02 Oxygen NC 2 Leobardo Buffie used for l/min Viral Herrera RN procedure 10:20:08 Lidocaine 2% added 20ml Leobardojason Booth for local to vial Viral Stratton MD anesthetic field 10:20:16 Heparin Flush added 2 Leobardo Leobardo used for Bag to bags Viral Stratton MD procedure (1000units/500ml field NS) 10:20:24 0.9% NaCl I.V. 100 Leobardo Buffie Per physician ml/hr Viral Herrera RN 10:24:04 Versed I.V. 1 mg Leobardo Buffie for sedation Viral Herrera RN 10:24:09 Fentanyl I.V. 50 Leobardo Buffie for sedation mcg Viral Herrera RN 10:29:33 Versed I.V. 1 mg Leobardo Buffie for sedation Viral Herrera RN 10:29:36 Fentanyl I.V. 50 Leobardo Jolly for sedation mcg Viral Herrera RN 10:37:15 Fentanyl I.V. 100 Leobardo Jolly for sedation mcg Viral Herrera RN 10:48:34 Heparin Bolus I.V. 5000 Leobardo Jolly for verifi ed units Viral Herrera RN anticoagulation with dr stratton Procedure Log Time Note 10:00:55 Diagnostic Cath Status : Elective 10:01:17 Jenna Sinan RT(R) sent for patient. Start room use. 10:01:18 Time tracking: Regular hours (M-F 7:00 - 5:00) 10:01:22 Plan of Care:Hemodynamics will remain stable., Cardiac rhythm will remain stable., Comfort level will be maintained., Respiratory function will remain adequate., Patient/ family verbilizes understanding of procedure., Procedure tolerated without complication., Recovers from procedure without complications.. 10:16:04 Patient received from Med II to [facility] 2 Alert and oriented. Tansferred to table in Supine position. 10:16:05 Warm blankets applied, and pilo hugger turned on for patient comfort. 10:16:06 Correct patient and procedure confirmed by team. 10:16:07 Signed procedure consent form obtained from patient. 10:16:08 Vital chart was started 10:16:08 ECG and BP/O2 sat monitors applied to patient. 10:16:09 Baseline sample Acquired. 10:16:14 Rhythm: sinus rhythm 10:16:16 Full Disclosure recording started 10:16:21 H&P Date Dictated: 12/18/2017 New H&P dictated by physician.. 10:16:22 Pre-op teaching completed and patient verbalized understanding. 10:16:22 Pre-procedure instructions explained to patient. 10:16:23 Family in waiting room. 10:16:24 Patient NPO since Midnight. 10:16:26 Is the patient allergic to Iodine/contrast media? No. 10:16:28 Was the patient premedicated? No 10:16:29 Is patient on blood thinner?Yes 10:16:32 ACC The patient was administered the following blood thiners within the last 24 hours: ACCBrilinta 10:16:34 Patient diabetic? No. 10:16:37 Previous problem with sedation/anesthesia? No ? 10:16:38 Snore? Yes 10:16:39 Sleep apnea? Yes 10:16:40 Deviated septum? No 10:16:41 Opens mouth fully? Yes 10:16:42 Sticks out tongue? Yes 10:16:52 Airway obstruction? Yes copd 10:16:56 Dentures? Yes out 10:16:59 Pre procedure: right dorsailis pedis pulse 2+ Normal; easily identifiable; not easily obliterated 10:17:01 Pre procedure: left dorsailis pedis pulse 2+ Normal; easily identifiable; not easily obliterated 10:17:03 Patient pain scale 0/10 ?. 10:19:42 IV patent on arrival in left forearm with 0.9% NaCl at [facility]. 10:19:46 Lab results completed and on chart. 10:19:50 Right groin area was prepped with chlora-prep and draped in sterile fashion 10:19:51 Sharps counted by scrub and verified by R.N. 10:19:51 Alarms reviewed by R. N. 10:20:02 Oxygen 2 l/min NC was administered by Shanae Herrera RN; used for procedure; 10:20:08 Lidocaine 2% 20ml vial added to field was administered by Leobardo Stratton MD; for local anesthetic; 10:20:16 Heparin Flush Bag (1000units/500ml NS) 2 bags added to field was administered by Leobardo Stratton MD; used for procedure; 10:20:24 0.9% NaCl 100 ml/hr I.V. was administered by Shanae Herrera RN; Per physician; 10:23:02 Final Timeout: patient, procedure, and site verified with staff and physician. All members of the team are in agreement. 10:23:02 --------ALL STOP TIME OUT------ 10:23:02 Physician arrived 10:23:06 Right groin site verified by team. 10:23:08 Physical assessment completed. ASA score P 2 - A patient with mild systemic disease as per Leobardo Stratton MD. 10:23:12 Sedation plan: IV Moderate Sedation Medication:Versed, Fentanyl 10:23:17 Use device set Femoral Dx 10:23:18 Bag Decanter (2001S) opened to sterile field. 10:23:18 ACIST Syringe (42540) opened to sterile field. 10:23:19 DIAGNOSTIC WIRE .035 260cm J wire (409613) opened to sterile field. 10:23:19 Medline Cath Pack ([id number]) opened to sterile field. 10:23:20 ACIST Hand Control (74061) opened to sterile field. 10:23:21 DIAGNOSTIC Multipack 5Fr catheter set ([id number]) opened to sterile field. 10:23:21 ACIST Manifold (45094) opened to sterile field. 10:23:22 Tegaderm 4 x 4 (1626W) opened to sterile field. 10:24:04 Versed 1 mg I.V. was administered by Shanae Herrera RN; for sedation; 10:24:09 Fentanyl 50 mcg I.V. was administered by Shanae Herrera RN; for sedation; 10:29:33 Versed 1 mg I.V. was administered by Shanae Herrera RN; for sedation; 10:29:36 Fentanyl 50 mcg I.V. was administered by Shanae Herrera RN; for sedation; 10:34:45 Procedure started. 10:34:48 Local anesthetic to right femoral artery with Lidocaine 2% by Leobardo Stratton MD.INITIAL ACCESS ONLY 10:37:15 Fentanyl 100 mcg I.V. was administered by Shanae Herrera RN; for sedation; 10:46:11 A 6 Fr Short sheath was inserted into the Right Femoral artery 10:46:29 SHEATH 6Fr Prelude ([id number]) opened to sterile field. 10:46:56 A MULTIPACK Pigtail 5 Fr catheter was advanced over the wire and used for LV Angiography. 10:47:00 LV hemodynamics recorded. 10:47:02 LV gram done using ALANIS 10:47:12 EF : 50 % 10:47:21 Catheter removed. 10:47:33 A MULTIPACK JL 4.0 5Fr catheter was advanced over the wire and used for Left Coronary Angiography. 10:48:29 LCA angiography performed. 10:48:32 Injector settings: Ml/sec: 3, Volume: 6, 10:48:34 Catheter removed. 10:48:34 Heparin Bolus 5000 units I.V. was administered by Shanae Herrera RN; for anticoagulation; verified with dr stratton 10:48:40 A MULTIPACK 3DRC 5Fr catheter was advanced over the wire and used for Right Coronary Angiography. 10:48:59 RCA angiography performed. 10:49:02 Injector settings: Ml/sec: 3, Volume: 6, 10:49:09 Catheter removed. 10:49:11 Proceeding to intervention. 10:49:30 6 Fr xblad 3.5 guide catheter was inserted over the wire 10:49:31 choice p-t wire advanced. 10:53:07 Laser pass to mLAD with Fluence of 40 and Rate of 40. 10:53:30 Pass Number: 1 A LASER ELCA 0.9 Rx atherectomy catheter (100730) was advanced to the Mid LAD. Laser Begun. Frequency: 0 Power: 0 10:54:11 GUIDE 6FR XBLAD 3.5 catheter ([id number]) opened to sterile field. 10:54:12 INFLATOR Merit BasixCompak (ZG5171) opened to sterile field. 10:54:13 CHOICE PT Extra Support 182cm wire ([id number]) opened to sterile field. 10:55:18 Laser pass to mLAD with Fluence of 80 and Rate of 40. 10:59:27 Laser catheter removed. 11:00:39 Place stent Inflation Number: 1 A CHARLI RX 2.5 x 38 stent ([id number]) was prepped and advanced across the Mid LAD. The stent was deployed at 21 PAUL for 0:10 (min:sec). 11:01:09 Inflation number: 2 The stent balloon was then re-inflated across the Mid LAD to 15 PAUL for 0:10 (min:sec). 11:01:43 Inflation number: 3 The stent balloon was then re-inflated across the Mid LAD to 15 PAUL for 0:10 (min:sec). 11:01:53 Inflation number: 4 The stent balloon was then re-inflated across the Mid LAD to 15 PAUL for 0:10 (min:sec). 11:03:18 Stent catheter was removed intact over wire. 11:03:39 Laser total treatment time: 0 minutes 56 seconds 11:04:21 Guide catheter removed. 11:04:21 Wire removed. 11:05:07 EXOSEAL 6Fr (EX600) opened to sterile field. 11:05:32 Sheath removed intact; hemostasis achieved with Exoseal to the Right Femoral artery. 11:05:34 Procedure ended.(Physican Out) 11:06:01 Fluoroscopy time 00.00 minutes. 11:06:06 Fluoroscopy dose: 948 mGy 11:06:06 Flurop Dose total: 948 11:06:10 Contrast amount:Isovue 300 86ml. 11:06:12 Sharps counted by scrub and verified by R.N. 11:06:13 Insertion/operative site no bleeding no hematoma. 11:06:16 Post-op/insertion site Right Femoral artery dressed using a 4 x 4 and Tegaderm. 11:06:20 Post right femoral artery:stable 11:06:22 Post Procedure Pulses reassessed and unchanged 11:06:24 Post procedure rhythm: unchanged. 11:06:26 Estimated blood loss: 5 ml 11:06:27 Post procedure instruction explained to patient.Patient verbalizes understanding. 11:06:28 Patient needs reinforcement of post procedure teaching. 11:06:46 Procedure type changed to Cath procedure, Diagnostic procedure, LHC, LHC w/Coronaries, Sedation Charges, Moderate Sedation up to 30 minutes, PCI procedure, Coronary Atherectomy, Atherectomy w/Stent Coronary Initial 11:07:05 Procedure and supply charges have been captured, reviewed, submitted and are correct. 11:07:10 Procedure Complication : No complications 11:07:13 See physician's report for complete and final results. 11:07:13 Vital chart was stopped 11:07:16 Report given to [facility]. 11:07:20 Patient transfered to [facility] with Stretcher. 11:07:22 Full Disclosure recording stopped 11:07:22 Procedure ended. 11:07:32 ACC-PCI Only Patient was given prescriptions, or instructed by Leobardo Stratton MD to start/continue the following medications upon discharge: Brilinta 11:07:33 End room use (Document Last) 10:47:54 Patient Weight : 174.17 lbs 10:47:54 Patient Height : 66.93 inches Intervention Summary Intervention Notes Time ActionType Lesion and Equipment Used Action# Pressure Duration Attributes 10:53:30 Laser pass Mid LAD LASER ELCA 0.9 Rx atherectomy catheter ([id number]) 11:00:39 Place stent Mid LAD CHARLI RX 2.5 x 1 21 00:10 38 stent ([id number]) 11:01:09 Reinflate Mid LAD CHARLI RX 2.5 x 2 15 00:10 stent 38 stent balloon ([id number]) 11:01:43 Reinflate Mid LAD CHARLI RX 2.5 x 3 15 00:10 stent 38 stent balloon ([id number]) 11:01:53 Reinflate Mid LAD CHARLI RX 2.5 x 4 15 00:10 stent 38 stent balloon ([id number]) Device Usage Item Name Manufacture Quantity Catalog Number Hospital Part Current M inimal Lot# / Charge Number Stock Stock Serial# Code ACIST Syringe Acist 1 69565 859828 641292 940098 2 0 (59740) Medical Systems Inc Bag Decanter Microtek 1 163947 73336 514007 5 () Medical Inc. Medline Cath Cardinal 1 [id number] 754260 52180 825250 5 Pack Health ([id number]) DIAGNOSTIC St Asif 1 368300 332103 181385 065277 3 0 WIRE .035 260cm J wire (738499) ACIST Hand Acist 1 14656 826066 469760 255895 5 Control Medical (27096) Systems Inc ACIST Manifold Acist 1 70955 031233 510643 102391 5 (81867) Medical Systems Inc DIAGNOSTIC Cardinal 1 DL1117 766896 77849 664165 3 0 Multipack 5Fr Health catheter set (FU6364) Tegaderm 4 x 4 3M 1 1626W 187642 767514 019458 5 (1626W) SHEATH 6Fr Merit 1 [id number] 508252 792434 490694 5 Prelude Medical ([id number]) MULTIPACK Cardinal 1 357574 5 Pigtail 5 Fr Health catheter MULTIPACK JL Cardinal 1 477009 5 4.0 5Fr Health catheter MULTIPACK 3DRC Cardinal 1 233771 5 5Fr catheter Health GUIDE 6FR Cardinal 1 [id number] 692110 106138 457168 1 0 XBLAD 3.5 Health catheter ([id number]) INFLATOR Merit Merit 1 JU5150 976769 050570 233085 1 5 [employer] Systems (TY0619) CHOICE PT Isabella 1 [id number] 800230 687570 467572 5 Extra Support Scientific 182cm wire ([id number]) CHARLI RX 2.5 x Medtronic 1 [id number] 126675 3582763 550626 5 [id number] 38 stent ([id number]) EXOSEAL 6Fr Cardinal 1 EX600 122716 153426 574535 1 0 (EX600) Health LASER ELCA 0.9 Marcello 1 110-133 701279 450219 643922 5 Rx atherectomy Healthcare catheter (172417) (743737) Signature Audit [place] Stage Time Signature Unsigned Intra-Procedure 12/18/2017 Jenna Pan Counts 11:10:34 AM RT(R) RT(R) 12/19/2017 10:47:31 AM Intra-Procedure 12/19/2017 Viviane 10:51:11 AM Counts RT(R) Signatures Monitor : Jenna Menon RT Signature : Date : Time : Monitor : Viviane Signature : Counts RT Date : Time : [id number] [place] [address]
--- NOTE | ~2017-12-15 | OP ---
PATIENT NAME: ANDREY OSMAN JR MEDICAL RECORD: [id number] :67 LOCATION:D.M2 D.2116 ADMISSION DATE:12/18/17 SURGEON: BRIANA HOYOS MD DATE OF OPERATION: 12/19/2017 PROCEDURES: 1. PTCA stent left circumflex. 2. Selective coronary angiography. INDICATION: Angina and coronary artery disease. PROCEDURE IN DETAIL: After informed consent was obtained and after a detailed description of risks, benefits as well as alternative therapies, the patient elected to proceed with angiogram and angioplasty. The right femoral area was prepped and draped in normal sterile fashion. The right femoral artery was cannulated via modified Seldinger technique with placement of 6-Ecuadorean sheath. All catheters exchanged through this sheath. FINDINGS: The left circumflex has 70% to 80% in-stent restenosis in the mid vessel. This was addressed with a 3.5 x 12 mm Jonas. Result was 0% residual stenosis. OVERALL IMPRESSION: Successful percutaneous transluminal coronary angioplasty stent of the left circumflex going from 70% to 80% initial stenosis to 0% residual. TRANSINT:[id number] Voice Confirmation ID: [id number] DOCUMENT ID: [id number] BRIANA HOYOS MD at 1849 CC: [id number] DICTATION DATE: 12/19/17 1002 SECURITY ASSURANCE SPECIALIST: 12/19/17 1304 DIS IN 12/19/17 [facility] [address] [place] [address]
[2017-12-15 19:42] LABS: BASOPHILS 0.4 % (0-2); HEMOGLOBIN 14.7 g/dL (13.5-17.5); IMMATURE GRANULOCYTES 0.4 % (0-5); LYMPHOCYTES 34.4 % (15-50); MCH 31.5 pg (26.0-34.0); MCV 90.1 fL (80.0-100.0); MEAN PLATELET VOLUME 9.1 fL (7.4-10.4); MONOCYTES 12.1 % (2-11); NEUTROPHILS 49.7 % (40-80); PLATELET COUNT 276 10x3/uL (130-400); RBC 4.66 10x6/uL (4.20-6.10); WBC 8.2 10x3/uL (4.8-10.8)
[2017-12-15 19:47] LABS: APTT 25.1 SECONDS (22.8-39.4); INR 0.94 (0.85-1.17); PROTIME 12.2 SECONDS (11.6-15.0)
[2017-12-15 19:54] LABS: ALBUMIN 3.1 g/dL (3.4-5.0); ALKALINE PHOSPHATASE 85 U/L (46-116); ALT (SGPT) 23 U/L (10-68); BILIRUBIN - TOTAL 0.22 mg/dL (0.2-1.3); CALC OSMOLALITY 279 mosm/kg (275-300); CALCIUM 9.7 mg/dL (8.5-10.1); CARBON DIOXIDE 27.6 mmol/L (21.0-32.0); CHLORIDE - SERUM 103 mmol/L (98-107); GLUCOSE 121 mg/dL (74-106); POTASSIUM - SERUM 3.8 mmol/L (3.5-5.1); PROTEIN - SERUM 6.9 g/dL (6.4-8.2); SODIUM 139 mmol/L (136-145); UREA NITROGEN 14 mg/dL (7-18); eGFR NON AFRICAN AMERICAN 84 mL/min (90-120)
[2017-12-15 20:05] LABS: CHOL - HDL RATIO 5.1 ratio (2.3-4.9); CHOLESTEROL, TOTAL 236 mg/dL (0-200); CKMB 0.1 U/L (0.0-3.6); CREATINE KINASE 59 UL (21-232); HDL CHOLESTEROL 46 mg/dL (32-96); LDL CHOLESTEROL 149 mg/dL (0-100); LDL-HDL RATIO 3.2 ratio (1.5-3.5); TRIGLYCERIDE 205 mg/dL (30-200)
[2017-12-15 20:06] LABS: TROPONIN-I < 0.017 ng/mL (0.000-0.060)
[2017-12-15 22:58] VITALS: BMI 28.2
[2017-12-15 23:17] LABS: CKMB 0.6 U/L (0.0-3.6); CREATINE KINASE 63 UL (21-232); TROPONIN-I < 0.017 ng/mL (0.000-0.060)
[2017-12-16 01:26] VITALS: BP 123/69
[2017-12-16 04:55] LABS: CKMB 0.1 U/L (0.0-3.6); CREATINE KINASE 43 UL (21-232)
[2017-12-16 04:57] LABS: TROPONIN-I < 0.017 ng/mL (0.000-0.060)
[2017-12-16 05:37] VITALS: BP 142/76
[2017-12-16 08:43] VITALS: BP 104/61
[2017-12-16 10:55] LABS: CKMB 0.1 U/L (0.0-3.6); CREATINE KINASE 47 UL (21-232)
[2017-12-16 10:56] LABS: TROPONIN-I < 0.017 ng/mL (0.000-0.060)
[2017-12-16 11:58] VITALS: BP 116/69
[2017-12-16 16:44] VITALS: BP 119/65
[2017-12-16 21:57] VITALS: BP 123/63
[2017-12-17 01:43] VITALS: BP 100/51
[2017-12-17 06:17] VITALS: BP 110/63
[2017-12-17 09:16] VITALS: BP 107/69
[2017-12-17 09:16] LABS: BASOPHILS 0.3 % (0-2); EOSINOPHILS 3.1 % (0-7); HEMATOCRIT 42.9 % (42.0-54.0); HEMOGLOBIN 14.9 g/dL (13.5-17.5); IMMATURE GRANULOCYTES 0.4 % (0-5); LYMPHOCYTES 21.5 % (15-50); MCH 31.4 pg (26.0-34.0); MCHC 34.7 g/dL (31.0-37.0); MCV 90.5 fL (80.0-100.0); MEAN PLATELET VOLUME 8.9 fL (7.4-10.4); NEUTROPHILS 66.7 % (40-80); PLATELET COUNT 281 10x3/uL (130-400); RBC 4.74 10x6/uL (4.20-6.10); RDW 12.8 % (11.5-14.5)
[2017-12-17 09:33] LABS: CALC OSMOLALITY 275 mosm/kg (275-300); CALCIUM 9.4 mg/dL (8.5-10.1); CARBON DIOXIDE 28.2 mmol/L (21.0-32.0); CHLORIDE - SERUM 103 mmol/L (98-107); CREATININE - SERUM 1.1 mg/dL (0.6-1.3); GLUCOSE 113 mg/dL (74-106); POTASSIUM - SERUM 4.3 mmol/L (3.5-5.1); SODIUM 137 mmol/L (136-145); UREA NITROGEN 15 mg/dL (7-18); eGFR NON AFRICAN AMERICAN 75 mL/min (90-120)
[2017-12-17 12:02] VITALS: BP 103/62
[2017-12-17 15:39] VITALS: BP 105/56
[2017-12-17 20:00] VITALS: BP 121/67
[2017-12-18 04:00] VITALS: BP 143/71
[2017-12-18 05:27] LABS: BASOPHILS 0.4 % (0-2); EOSINOPHILS 4.7 % (0-7); HEMATOCRIT 40.5 % (42.0-54.0); HEMOGLOBIN 14.3 g/dL (13.5-17.5); IMMATURE GRANULOCYTES 0.7 % (0-5); MCH 31.4 pg (26.0-34.0); MCHC 35.3 g/dL (31.0-37.0); MEAN PLATELET VOLUME 8.8 fL (7.4-10.4); MONOCYTES 11.1 % (2-11); NEUTROPHILS 53.1 % (40-80); PLATELET COUNT 252 10x3/uL (130-400); RBC 4.55 10x6/uL (4.20-6.10); RDW 12.7 % (11.5-14.5)
[2017-12-18 05:45] LABS: CALC OSMOLALITY 277 mosm/kg (275-300); CALCIUM 8.6 mg/dL (8.5-10.1); CHLORIDE - SERUM 102 mmol/L (98-107); CREATININE - SERUM 1.1 mg/dL (0.6-1.3); GLUCOSE 100 mg/dL (74-106); POTASSIUM - SERUM 3.9 mmol/L (3.5-5.1); SODIUM 138 mmol/L (136-145); UREA NITROGEN 17 mg/dL (7-18); eGFR NON AFRICAN AMERICAN 75 mL/min (90-120)
[2017-12-18 07:57] VITALS: BP 123/68
[2017-12-18 10:13] VITALS: Ht 170.2 cm; Wt 79.8 kg
[2017-12-18 15:17] VITALS: BP 117/63
[2017-12-18 20:00] VITALS: BP 107/62
[2017-12-19 04:00] VITALS: BP 100/57
[2017-12-19 06:19] LABS: BASOPHILS 0.4 % (0-2); EOSINOPHILS 4.1 % (0-7); HEMATOCRIT 40.7 % (42.0-54.0); HEMOGLOBIN 14.2 g/dL (13.5-17.5); IMMATURE GRANULOCYTES 0.8 % (0-5); LYMPHOCYTES 25.6 % (15-50); MCH 31.1 pg (26.0-34.0); MCHC 34.9 g/dL (31.0-37.0); MCV 89.1 fL (80.0-100.0); MONOCYTES 9.3 % (2-11); NEUTROPHILS 59.8 % (40-80); PLATELET COUNT 263 10x3/uL (130-400); RBC 4.57 10x6/uL (4.20-6.10); RDW 12.8 % (11.5-14.5); WBC 7.5 10x3/uL (4.8-10.8)
[2017-12-19 06:44] LABS: ANION GAP 10.9 mmol/L (8-16); CARBON DIOXIDE 27.6 mmol/L (21.0-32.0); CREATININE - SERUM 1.3 mg/dL (0.6-1.3)
[2017-12-19 06:51] LABS: POTASSIUM - SERUM 4.5 mmol/L (3.5-5.1)
[2017-12-19 08:09] VITALS: BP 118/67
[2017-12-19 15:32] VITALS: BP 136/75
== END 2017-12-19 17:40 | disposition home or self-care (01) | DRG 247 ==
LOC: D.ER 19:18 → D.M2 22:15 → OBSVTIME 22:15 → D.M2 12-18 13:08
PROVIDERS: Emergency Medicine; Family Medicine; Internal Medicine Cardiovascular Disease; Internal Medicine Interventional Cardiology; Internal Medicine Nephrology
PROC: 4A023N7 Measurement of Cardiac Sampling and Pressure, Left Heart, Percutaneous Approach (ICD-10-PCS; 2017-12-18)
PROC: B2111ZZ Fluoroscopy of Multiple Coronary Arteries using Low Osmolar Contrast (ICD-10-PCS; 2017-12-18)
PROC: B2151ZZ Fluoroscopy of Left Heart using Low Osmolar Contrast (ICD-10-PCS; 2017-12-18)
PROC: 027034Z Dilation of Coronary Artery, One Artery with Drug-eluting Intraluminal Device, Percutaneous Approach (ICD-10-PCS; principal; 2017-12-18 09:30)
PROC: 02C03ZZ Extirpation of Matter from Coronary Artery, One Artery, Percutaneous Approach (ICD-10-PCS; 2017-12-18 09:30)
PROC: 027034Z Dilation of Coronary Artery, One Artery with Drug-eluting Intraluminal Device, Percutaneous Approach (ICD-10-PCS; 2017-12-19)
DX: T82.855A Stenosis of coronary artery stent, initial encounter (principal); I25.110 Atherosclerotic heart disease of native coronary artery with unstable angina pectoris; Y83.8 Other surgical procedures as the cause of abnormal reaction of the patient, or of later complication, without mention of misadventure at the time of the procedure; G47.33 Obstructive sleep apnea (adult) (pediatric); E78.5 Hyperlipidemia, unspecified; I10 Essential (primary) hypertension; J44.9 Chronic obstructive pulmonary disease, unspecified; F41.9 Anxiety disorder, unspecified; F32.9 Major depressive disorder, single episode, unspecified; Z87.891 Personal history of nicotine dependence

== ENCOUNTER 2018-01-02 19:01 | Emergency (ER) | payer MEDICARE ==
[2017-12-18 10:13] VITALS: BMI 26.7
--- NOTE | ~2018-01-02 | CN ---
PATIENT NAME:ANDREY OSMAN JR MEDICAL RECORD: [id number] : 67 LOCATION:.ER ADMIT DATE: ACCOUNT: [id number] CONSULTING PHYSICIAN: BRIANA HOYOS MD REFERRING PHYSICIAN: ANDREY HERNANDEZ MD DATE OF CONSULTATION: 01/02/2018 Cardiology Consult ADMITTING DIAGNOSES. 1. Chest pain. 2. Anxiety disorder. 3. Hyperlipidemia. 4. Chronic obstructive pulmonary disease. 5. Smoking history. HISTORY OF PRESENT ILLNESS: This is a gentleman known to us with a past history of coronary artery disease, two-vessel PTCA stent 12/19/2017, presents with chest pain. His EKG is normal. Troponin is normal. He was taking his Brilinta. He has been out of that since yesterday due to cost. He has got a Plavix allergy. He has not had Effient in the past. Otherwise, he is on his Ranexa and Pravachol. PHYSICAL EXAMINATION: GENERAL APPEARANCE: Well-nourished, well-developed, appears stated age. Level of distress, comfortable. PSYCHIATRIC: Mental status, alert, normal affect. Orientation, oriented to time, place and person. EYES: Lids and conjunctiva, noninjected. No discharge, no pallor. ENT: Lips, teeth, gums, normal dentition. Oropharynx, no cyanosis, no pallor. NECK: Carotid arteries, bilateral normal upstroke, no bruits, no thrills. JUGULAR VEINS: No jugular venous pressure or distention. CERVICAL LYMPH NODES: Nontender, nonenlarged. THYROID: Not enlarged. Nontender. No nodules. LUNGS: Respiratory effort, unlabored. CHEST: Normal curvature. No thoracic deformity. No chest wall tenderness. Percussion, resonant. Auscultation, clear. No wheezes, no rales, no rhonchi. CARDIOVASCULAR: Precordial exam, nondisplaced. No heaves or pericardial thrills. Rate and rhythm, regular. Heart sounds, normal S1, normal S2. No S3, no gallop, no rub. Systolic murmur, not heard. Diastolic murmur, not heard. EXTREMITIES: No cyanosis, no edema. Peripheral pulses, full and equal in all extremities, except as noted. No bruits appreciated. ABDOMEN: Soft, nondistended. Normal aorta. No bruit. Nontender. No masses. Liver, nontender, no hepatomegaly. Spleen, nontender, no splenomegaly. MUSCULOSKELETAL: No joint tenderness. No joint swelling. No erythema. NEUROLOGICAL: Normal gait, normal strength, normal tone. SKIN: Warm and dry. REVIEW OF SYSTEMS: The patient reports easy bruising but reports no swollen glands. The patient reports no fever, no night sweats, no significant weight gain, no significant weight loss. No significant exercise tolerance. The patient reports no dry eyes, no irritation, no vision change. Patient reports no difficulty hearing and no ear pain. Patient reports no frequent nose bleeds or nose and sinus problems. Patient reports on arm pain on exertion. No shortness of breath while lying down. No history of heart murmur. Patient CONSULT REPORT [id number] ANDREY OSMAN JR reports no cough, no wheezing or coughing up blood. Patient reports no abdominal pain, no vomiting. Normal appetite. No diarrhea and not vomiting blood. No nausea and no constipation. Patient reports no incontinence. No difficulty urinating. No hematuria. No increased frequency. Patient reports no muscle aches. No weakness, no arthralgias, no back pain. No swelling of the extremities. Patient reports no abnormal mole, no jaundice, no rashes. Reports no loss of consciousness. No weakness and no numbness. No seizures, dizziness, or headaches. The patient reports no depression, no sleep disturbance, feeling safe in a relationship and no alcohol abuse. Patient reports on fatigue. Reports no runny nose or sinus pressure. No itching, no hives, and no frequent sneezing. OVERALL IMPRESSION: Chest pain, no EKG changes, normal troponin, not sure of the etiology of his chest pain, but there were no other blockages that were in need of transcatheter revascularization at the time of the intervention 2 weeks ago. Due to the fact that he is out of his Brilinta, I do not think he has an acute thrombosis because his EKG is normal. We will start him on Effient, so he can continue his dual antiplatelet therapy and this will be affordable as it is generic. Otherwise, follow up with [facility] as previously scheduled. TRANSINT:[id number] Voice Confirmation ID: [id number] DOCUMENT ID: [id number] BRIANA HOYOS MD at 4251 CC: [id number] DICTATION DATE: 01/02/182100 POTATO PEELING MACHINE OPERATOR: 01/02/182158 DEP ER 01/02/18 [place] [id number] [place] [id number]
[2018-01-02 19:36] LABS: BASOPHILS 0.4 % (0-2); EOSINOPHILS 2.4 % (0-7); HEMATOCRIT 42.3 % (42.0-54.0); HEMOGLOBIN 14.9 g/dL (13.5-17.5); IMMATURE GRANULOCYTES 0.5 % (0-5); LYMPHOCYTES 26.7 % (15-50); MCH 31.8 pg (26.0-34.0); MCHC 35.2 g/dL (31.0-37.0); MCV 90.2 fL (80.0-100.0); MONOCYTES 12.3 % (2-11); NEUTROPHILS 57.7 % (40-80); PLATELET COUNT 315 10x3/uL (130-400); RBC 4.69 10x6/uL (4.20-6.10); RDW 13.2 % (11.5-14.5); WBC 8.2 10x3/uL (4.8-10.8)
[2018-01-02 19:49] LABS: ALBUMIN 3.5 g/dL (3.4-5.0); ALKALINE PHOSPHATASE 101 U/L (46-116); ALT (SGPT) 22 U/L (10-68); BILIRUBIN - TOTAL 0.23 mg/dL (0.2-1.3); CALC OSMOLALITY 282 mosm/kg (275-300); CALCIUM 9.4 mg/dL (8.5-10.1); CARBON DIOXIDE 28.4 mmol/L (21.0-32.0); CHLORIDE - SERUM 104 mmol/L (98-107); CREATININE - SERUM 1.1 mg/dL (0.6-1.3); GLUCOSE 118 mg/dL (74-106); PROTEIN - SERUM 7.6 g/dL (6.4-8.2); SODIUM 141 mmol/L (136-145); UREA NITROGEN 16 mg/dL (7-18); eGFR NON AFRICAN AMERICAN 75 mL/min (90-120)
[2018-01-02 20:00] LABS: CHOL - HDL RATIO 6.2 ratio (2.3-4.9); CHOLESTEROL, TOTAL 240 mg/dL (0-200); CREATINE KINASE 39 UL (21-232); HDL CHOLESTEROL 39 mg/dL (32-96); LDL CHOLESTEROL 143 mg/dL (0-100); LDL-HDL RATIO 3.7 ratio (1.5-3.5); TRIGLYCERIDE 292 mg/dL (30-200)
[2018-01-02 20:02] LABS: TROPONIN-I < 0.017 ng/mL (0.000-0.060)
== END 2018-01-02 21:23 | disposition home or self-care (01) ==
LOC: D.ER 19:01
PROVIDERS: Family Medicine
DX: I20.0 Unstable angina (principal); R07.9 Chest pain, unspecified

== ENCOUNTER 2018-03-26 15:52 | Observation (INO) | payer MEDICARE ==
[~2018-03-26] VITALS: Ht 170.2 cm; Wt 79.5 kg
--- NOTE | ~2018-03-26 | HEMODYNAMI ---
PATIENT:ANDREY OSMAN JR MEDICAL RECORD: [id number] : 67 LOCATION:[facility] D.[address] [facility]# [id number] ADMISSION DATE: 03/26/18 Generatedon:03/27/201816:41 Patient name: ANDREY OSMAN Patient #: [id number] SSN: [id number] : 1965 Date of study: 03/27/2018 Page: Of Hemodynamic Procedure Report Patient Data Patient Demographics Procedure consent was obtained First Name: ANDREY Gender: Male Last Name: DAWSON Suffix: Jr Adhikari Initial: Alpesh : 1965 Patient #: [id number] Age: 52 year(s) Race: SSN: [id number] Additional ID: [id number] Contact details [address]: [address] [place] [address] State: [place] City: [place] Zip code: [address] Past Medical History History of disease Date Diagnosis Comments CAD Allergies Allergen Reaction Date Comments Reported Other allergy 12/30/2015 Plavix (pt gets hives) Other allergy 07/30/2016 plavix Other allergy 08/01/2016 Plavix Other allergy 04/30/2017 plavix Other allergy 07/29/2017 Plavix Other allergy 08/16/2017 plavix Admission Admission Data Admission Date: 03/26/2018 Admission Time: 18:16 Room #: D.2119 Lab Results Lab Result Date: 03/27/2018 Lab Result Time: 0:00 Biochemistry Name Units Result Min Max BUN mg/dl 13 --(--*-)-- 7 18 Creatinine mg/dl 1.1 --(--*-)-- 0.6 1.3 CBC Name Units Result Min Max Hemoglobin g/dl 14.3 --(*---)-- 13.5 17.5 Procedure Procedure Types Cath Procedure Diagnostic Procedure LHC LHC w/Coronaries PCI Procedure PTCA PTCA Initial Procedure Description Procedure Date Procedure Date: 03/27/2018 Procedure Start Time: 16:22 Procedure End Time: 16:36 Procedure Staff Name Function Leobardo Stratton MD Performing Physician Ashia Pak RT Monitor Shanae Herrera RN Nurse Jenna Menon RT Scrub Procedure Data Cath Procedure Fluoroscopy Diagnostic fluoroscopy Total fluoroscopy Time: 2.7 time: 2.7 min min Diagnostic fluoroscopy Total fluoroscopy dose: 443 dose: 443 mGy mGy Contrast Material Contrast Material Type Amount (ml) Isovue 300 71 Entry Location Entry Primary Successful Side Size Upsize Upsize Entry Closure Succes sful Closure Location (Fr) 1 (Fr) 2 (Fr) Remarks Device Remarks Femoral Right 5 Fr 6 Fr Exoseal artery Short Estimated blood loss: 10 ml Diagnostic catheters Device Type Used For End Catheter Placement MULTIPACK Pigtail 5 Fr Procedure catheter MULTIPACK JL 4.0 5Fr Procedure catheter MULTIPACK 3DRC 5Fr Procedure catheter Procedure Complications No complications Procedure Medications Medication Administration Route Dosage Oxygen etCO2 Nasal cannula 2 l/min Lidocaine 2% added to field 20 Heparin Flush Bag added to field 2 bags (1000units/500ml NS) 0.9% NaCl I.V. 100 ml/hr Heparin Bolus I.V. 4000 units Integrilin (Bolus I.V. 7.3 ml 2mg/ml) Versed I.V. 2 mg Fentanyl I.V. 100 mcg Versed I.V. 2 mg Fentanyl I.V. 100 mcg Effient P.O. 60 mg Hemodynamics Rest HGB: 14.3 (g/dl) Heart Rate: 63 (bpm) Snapshots Pre Cath Intra NCS Post Cath Vital Signs Time Heart Resp SPO2 etCO2 NIBP (mmHg) Rhythm Pain Sedation Rate (ipm) (%) (mmHg) Status Level (bpm) 16:04:16 61 24 96 0 135/82(105) NSR 3 (11) , 10(A) Tolerable 16:08:30 60 24 100 39.8 138/71(105) NSR 3 (11) , 10(A) Tolerable 16:12:44 64 24 99 39.7 137/71(99) NSR 3 (11) , 10(A) Tolerable 16:16:58 61 26 99 39.7 131/75(97) NSR 3 (11) , 10(A) Tolerable 16:21:10 61 13 99 40.5 129/73(100) NSR 3 (11) , 10(A) Tolerable 16:25:24 64 12 98 12 121/58(97) NSR 3 (11) , 9(A) Tolerable 16:29:30 72 13 94 20.2 129/82(93) NSR 3 (11) , 9(A) Tolerable 16:33:33 64 15 95 45.7 140/94(133) NSR 3 (11) , 9(A) Tolerable 16:40:23 72 16 98 44.3 132/73(103) NSR 3 (11) , 10(A) Tolerable Medications Time Medication Route Dose Verified Delivered Reason Notes Effectiveness by by 16:06:33 Oxygen etCO2 2 Leobardo Jolly used for Nasal l/min Viral Herrera RN procedure cannula 16:06:55 Lidocaine 2% added 20ml Leobardo Leobardo for local to vial Viral Stratton MD anesthetic field 16:07:02 Heparin Flush added 2 Leobardo Leobardo used for Bag to bags Viral Stratton MD procedure (1000units/500ml field NS) 16:07:10 0.9% NaCl I.V. 100 Leobardo Jolly Per physician ml/hr Viral Herrera RN 16:22:37 Versed I.V. 2 mg Leobardo Jolly for sedation Viral Herrera RN 16:22:43 Fentanyl I.V. 100 Leobardo Jolly for sedation mcg Viral Herrera RN 16:28:46 Versed I.V. 2 mg Leobardo Jolly for sedation Viral Herrera RN 16:28:49 Fentanyl I.V. 100 Leobardo Jolly for sedation mcg Viral Herrera RN 16:30:46 Heparin Bolus I.V. 4000 Leobardo Jolly for verif ied units Viral Herrera RN anticoagulation with dr stratton 16:31:39 Integrilin I.V. 7.3 Leobardo Jolly for Waste d (Bolus 2mg/ml) ml Viral Herrera RN antiplatelet 2.7 ml therapy of vial 16:39:17 Effient P.O. 60 mg Leobardo Jolly for Viral Herrera RN antiplatelet therapy Procedure Log Time Note 16:00:27 Diagnostic Cath status Elective 16:00:30 Shanae Herrera RN sent for patient. Start room use. 16:00:31 Time tracking: Regular hours (M-F 7:00 - 5:00) 16:00:36 Plan of Care:Hemodynamics will remain stable., Cardiac rhythm will remain stable., Comfort level will be maintained., Respiratory function will remain adequate., Patient/ family verbilizes understanding of procedure., Procedure tolerated without complication., Recovers from procedure without complications.. 16:00:42 Patient received from Med II to CCL 2 Alert and oriented. Tansferred to table in Supine position. 16:00:43 Warm blankets applied, and pilo hugger turned on for patient comfort. 16:00:44 Correct patient and procedure confirmed by team. 16:00:45 Signed procedure consent form obtained from patient. 16:00:46 ECG and BP/O2 sat monitors applied to patient. 16:03:07 Vital chart was started 16:03:09 Baseline sample Acquired. 16:03:15 Rhythm: sinus rhythm , w/ ST elevation 16:03:16 Full Disclosure recording started 16:03:20 H&P Date Dictated: 03/27/2018 New H&P dictated by physician.. 16:04:03 Pre-procedure instructions explained to patient. 16:04:03 Pre-op teaching completed and patient verbalized understanding. 16:04:05 Family in waiting room. 16:04:15 Is the patient allergic to Iodine/contrast media? No. 16:04:16 Was the patient premedicated? No 16:04:18 Is patient on blood thinner?No 16:04:28 Previous problem with sedation/anesthesia? No ? 16:04:35 Snore? Yes 16:04:36 Sleep apnea? No 16:04:38 Deviated septum? No 16:04:39 Opens mouth fully? Yes 16:04:39 Sticks out tongue? Yes 16:04:43 Airway obstruction? Yes COPD 16:04:48 Dentures? Yes OUT 16:04:52 Pre procedure: right dorsailis pedis pulse 1+ Palpable, but thready & weak; easily obliterated 16:04:54 Pre procedure: left dorsailis pedis pulse 1+ Palpable, but thready & weak; easily obliterated 16:04:56 Patient pain scale 0/10 ?. 16:05:01 IV patent on arrival in left forearm with 0.9% NaCl at KVO. 16:05:04 Lab results completed and on chart. 16:05:09 Right groin area was prepped with chlora-prep and draped in sterile fashion 16:05:22 Alarms reviewed by R. N. :: Sharps counted by scrub and verified by R.N. :: Lab Result : Hemoglobin 14.3 g/dl : Lab Result : Creatinine 1.1 mg/dl : Lab Result : BUN 13 mg/dl 16:: Oxygen 2 l/min etCO2 Nasal cannula was administered by Shanae Herrera RN; used for procedure; 16: Lidocaine 2% 20ml vial added to field was administered by Leobardo Stratton MD; for local anesthetic; 16:07: Heparin Flush Bag (1000units/500ml NS) 2 bags added to field was administered by Leobardo Stratton MD; used for procedure; 16:07: 0.9% NaCl 100 ml/hr I.V. was administered by Shanae Herrera RN; Per physician; 16:15:11 Physician paged 16:15:57 Use device set Femoral Dx 16:15:59 ACIST Syringe (20257) opened to sterile field. 16:15:59 Bag Decanter (2002S) opened to sterile field. 16:16:00 Medline Cath Pack ([id number]) opened to sterile field. 16:16:00 DIAGNOSTIC WIRE .035 260cm J wire ([id number]) opened to sterile field. 16:16:02 ACIST Hand Control (73115) opened to sterile field. 16:16:02 ACIST Manifold (38099) opened to sterile field. 16:16:03 DIAGNOSTIC Multipack 5Fr catheter set ([id number]) opened to sterile field. 16:16:05 PERCUTANEOUS ENTRY 19GA needle opened to sterile field. 16:16:07 SHEATH Prelude 5Fr 0.035 (VZE-0O-63-035) opened to sterile field. 16:21:26 Physician arrived 16:21:26 --------ALL STOP TIME OUT------ 16:21:27 Final Timeout: patient, procedure, and site verified with staff and physician. All members of the team are in agreement. 16:21:30 Right groin site verified by team. 16:21:33 Physical assessment completed. ASA score P 2 - A patient with mild systemic disease as per Leobardo Stratton MD. 16:21:38 Sedation plan: IV Moderate Sedation Medication:Versed, Fentanyl 16:22:13 Procedure started. 16::31 Local anesthetic to right femoral artery with Lidocaine 2% by Leobardo Stratton MD.INITIAL ACCESS ONLY 16:22:37 Versed 2 mg I.V. was administered by Shanae Herrera RN; for sedation; 16::43 Fentanyl 100 mcg I.V. was administered by Shanae Herrera RN; for sedation; 16:23:09 A 5 Fr sheath was inserted into the Right Femoral artery 16::35 A MULTIPACK Pigtail 5 Fr catheter was advanced over the wire and used for Procedure. 16:24:06 LV angiography performed. 16:27:04 EF : 60 % 16::06 LV hemodynamics recorded. 16:27:10 Catheter removed. 16::28 A MULTIPACK JL 4.0 5Fr catheter was advanced over the wire and used for Procedure. 16::58 LCA angiography performed. 16:28:18 Catheter removed. 16::25 A MULTIPACK 3DRC 5Fr catheter was advanced over the wire and used for Procedure. 16::46 Versed 2 mg I.V. was administered by Shanae Herrera RN; for sedation; 16::49 Fentanyl 100 mcg I.V. was administered by Shanae Herrera RN; for sedation; 16:29:06 GUIDE 6FR XBLAD 3.5 catheter ([id number]) opened to sterile field. 16:29:07 CHOICE PT Extra Support 182cm wire ([id number]) opened to sterile field. 16:29:08 INFLATOR Merit BasixCompak (TB2374) opened to sterile field. 16:29:09 SHEATH 6Fr Prelude ([id number]) opened to sterile field. 16:29:13 Catheter removed. 16:29:18 Proceeding to intervention. 16:29:33 Sheath upsized to a 6 Fr Short. 16:29:48 6 Fr xblad 3.5 guide catheter was inserted over the wire 16:29:55 CHOICE PT EX wire advanced. 16::58 Wire advanced across lesion. 16:30:46 Heparin Bolus 4000 units I.V. was administered by Shanae Herrera RN; for anticoagulation; verified with dr stratton 16:31:39 Integrilin (Bolus 2mg/ml) 7.3 ml I.V. was administered by Shanae Herrera RN; for antiplatelet therapy; Wasted 2.7 ml of vial 16:32:54 Inflate balloon Inflation number: 1 A EUPHORA 2.0 x 20 Balloon ([id number]) was prepped and advanced across the Dist LAD, then inflated to 15 PAUL for 0:11 (min:sec). 16:33:02 Inflation number: 2 The EUPHORA 2.0 x 20 Balloon ([id number]) was reinflated across the Dist LAD, to 11 PAUL for 0:05 (min:sec). 16:33:25 Inflation number: 3 The EUPHORA 2.0 x 20 Balloon ([id number]) was reinflated across the Dist LAD, to 17 PAUL for 0:11 (min:sec). 16:33:33 Inflation number: 4 The EUPHORA 2.0 x 20 Balloon ([id number]) was reinflated across the Dist LAD, to 11 PAUL for 0:04 (min:sec). 16:34:00 EXOSEAL 6Fr (EX600) opened to sterile field. 16:34:07 Balloon removed over the wire. 16:34:09 Wire removed. 16:34:10 Guide catheter removed. 16:34:40 Sheath removed intact; hemostasis achieved with Exoseal to the Right Femoral artery. 16:34:44 Procedure ended.(Physican Out) 16:34:55 Fluoroscopy time 02.70 minutes. 16:34:59 Fluoroscopy dose: 443 mGy 16:34:59 Flurop Dose total: 443 16:35:03 Contrast amount:Isovue 300 71ml. 16:35:04 Sharps counted by scrub and verified by R.N. 16:35:07 Insertion/operative site no bleeding no hematoma. 16:35:10 Post Procedure Pulses reassessed and unchanged 16:35:15 Post-procedure physical assessment completed. ASA score P 2 - A patient with mild systemic disease as per Leobardo Stratton MD. 16:35:18 Post procedure rhythm: unchanged. 16:35:21 Estimated blood loss: 10 ml 16:35:23 Post procedure instruction explained to patient.Patient verbalizes understanding. 16:35:47 Procedure type changed to Cath procedure, Diagnostic procedure, LHC, LHC w/Coronaries, PCI procedure, PTCA, PTCA Initial 16:35:48 Procedure and supply charges have been captured, reviewed, submitted and are correct. 16:36:18 Procedure Complication : No complications 16:36:20 Vital chart was stopped 16:36:21 See physician's report for complete and final results. 16:36:23 Report given to Pre/Post Procedure Room. 16:36:26 Patient transfered to Pre/Post Procedure Room with Stretcher. 16:36:28 Procedure ended. 16:36:28 Full Disclosure recording stopped 16:36:31 End room use (Document Last) 16:36:45 ACC-PCI Only Patient was given prescriptions, or instructed by Leobardo Stratton MD to start/continue the following medications upon discharge: Effient 16:39:17 Effient 60 mg P.O. was administered by Shanae Herrera RN; for antiplatelet therapy; Intervention Summary Intervention Notes Time ActionType Lesion and Equipment Action# Pressure Duration Attributes Used 16:32:54 Inflate Dist LAD EUPHORA 1 15 00:11 balloon 2.0 x 20 Balloon ([id number]) 16:33:02 Reinflate Dist LAD EUPHORA 2 11 00:05 balloon 2.0 x 20 Balloon ([id number]) 16:33:25 Reinflate Dist LAD EUPHORA 3 17 00:11 balloon 2.0 x 20 Balloon ([id number]) 16:33:33 Reinflate Dist LAD EUPHORA 4 11 00:04 balloon 2.0 x 20 Balloon ([id number]) Device Usage Item Name Manufacture Quantity Catalog Number Hospital Part Current M inimal Lot# / Charge Number Stock Stock Serial# Code ACIST Syringe Acist 1 12182 [id number] 922414 359517 2 0 (45600) [employer] Inc Bag Decanter Microtek 1 823723 74216 400152 5 () Medical Inc. Medline Cath Cardinal 1 [id number] 602792 13100 298621 5 Pack Health ([id number]) DIAGNOSTIC WIRE St Asif 1 818361 398694 327613 876845 3 0 .035 260cm J wire (752073) ACIST Hand Acist 1 53024 014674 348446 224447 5 Control (26688) Medical [employer] Inc ACIST Manifold Acist 1 47427 245702 643220 727703 5 (85667) [employer] Inc DIAGNOSTIC Cardinal 1 JS8671 564447 50418 564581 3 0 Multipack 5Fr Health catheter set ([id number]) PERCUTANEOUS Cook Medical 1 G53140 517570 146634 5 ENTRY 19GA needle SHEATH Prelude Merit 1 [id number]-9S-[id number] 938369 385669 180352 5 5Fr 0.035 Medical (OOS-9Z-40-035) MULTIPACK Cardinal 1 977777 5 Pigtail 5 Fr Health catheter MULTIPACK JL Cardinal 1 709727 5 4.0 5Fr Health catheter MULTIPACK 3DRC Cardinal 1 929682 5 5Fr catheter Health GUIDE 6FR XBLAD Cardinal 1 [id number] 621463 925803 201672 1 0 3.5 catheter Health ([id number]) CHOICE PT Extra Wells 1 [id number] 920972 169072 298051 5 Support 182cm Scientific wire ([id number]) INFLATOR Merit Merit 1 PC1996 216601 041826 662351 1 5 BasixComTi Knight Medical (EA5349) SHEATH 6Fr Merit 1 [id number] 567876 180639 184926 5 Prelude Medical ([id number]) EUPHORA 2.0 x Medtronic 1 [id number] 382210 628434 189380 5 [id number] 20 Balloon ([id number]) EXOSEAL 6Fr Cardinal 1 EX600 610002 815599 686500 1 0 (EX600) Health Signature Audit [place] Stage Time Signature Unsigned Intra-Procedure 03/27/2018 Ashia Pak 4:41:09 PM RT(R) Signatures Monitor : Ashia Pak Signature : RT Date : Time : [facility] [address] [place] [address]
--- NOTE | ~2018-03-26 | DS ---
PATIENT:ANDREY AVERY JR :67 MEDICAL RECORD: [id number] DISCHARGE SUMMARY ADMISSION DATE: 03/26/18 DISCHARGE DATE: 03/28/18 DIAGNOSES: 1. Angina. 2. Coronary disease. 3. Hypertension. 4. Hyperlipidemia. 5. PTCA and stent, LAD. HOSPITAL COURSE: Mr. Avery presents with anginal symptomatology, found to have significant disease of the LAD, underwent successful PTCA and stent of the LAD. Discharged home with addition of aspirin and Plavix to his medical regimen. Follow up with cardiology associates in one month. TRANSINT:[id number] Voice Confirmation ID: [id number] DOCUMENT ID: [id number] BRIANA HOYOS MD at 1729 CC: [id number] DICTATION DATE: 04/23/18 1558 MANAGER ENERGY: 04/23/18 1844 DIS IN 03/28/18 [facility] [address] [place] [address]
--- NOTE | ~2018-03-26 | OP ---
PATIENT NAME: ANDREY OSMAN JR MEDICAL RECORD: [id number] :67 LOCATION:D.M2 D.2119 ADMISSION DATE:03/26/18 SURGEON: BRIANA HOYOS MD DATE OF OPERATION: 03/27/2018 PROCEDURES: 1. PTCA, LAD. 2. Left heart catheterization. 3. Selective coronary angiography. 4. Left ventriculogram. INDICATION: Angina and coronary disease. PROCEDURE IN DETAIL: After informed consent was obtained and after detailed description of risks and benefits as well as alternative therapies, the patient elected to proceed with angiogram and angioplasty. The right femoral area was prepped and draped in normal sterile fashion. Right femoral artery was cannulated via modified Seldinger technique with placement of 6-Icelandic sheath. All catheters were exchanged through this sheath. FINDINGS: Left ventriculogram was performed in the standard 30-degree ALANIS view reveals good cardiac wall motion throughout all segments. Overall ejection fraction estimated at 60%. SELECTIVE CORONARY ANGIOGRAPHY: 1. Left main shows no significant angiographic disease. 2. Left anterior descending has previously placed stent. In the very distal aspect of this, there is 70% in-stent restenosis. 4. Left circumflex has previously placed stents. These are widely patent with no significant restenosis. No disease else snyder. 5. Right coronary has previously placed stents. These are widely patent with no significant restenosis. No disease else snyder. PTCA OF THE LAD: High-pressure PTCA was performed for the in-stent restenosis of the LAD with a 2.5 x 20-mm balloon. Result was 0% residual stenosis. OVERALL IMPRESSION: Successful high-pressure PTCA of the LAD for in-stent restenosis, going from 70% initial stenosis to 0% residual. TRANSINT:[id number] Voice Confirmation ID: [id number] DOCUMENT ID: [id number] BRIANA HOYOS MD at 1642 CC: [id number] DICTATION DATE: 03/27/18 1639 OFFICE MANAGER: 03/27/18 1839 DIS IN 03/28/18 [facility] [address] [place] [address]
[2018-03-26 16:00] VITALS: BP 127/77
[2018-03-26 16:30] VITALS: BP 119/81
[2018-03-26 16:31] LABS: BASOPHILS 0.5 % (0-2); EOSINOPHILS 3.1 % (0-7); HEMATOCRIT 40.5 % (42.0-54.0); HEMOGLOBIN 14.3 g/dL (13.5-17.5); IMMATURE GRANULOCYTES 0.3 % (0-5); LYMPHOCYTES 40.1 % (15-50); MCH 31.3 pg (26.0-34.0); MCHC 35.3 g/dL (31.0-37.0); MCV 88.6 fL (80.0-100.0); MEAN PLATELET VOLUME 8.8 fL (7.4-10.4); MONOCYTES 9.2 % (2-11); NEUTROPHILS 46.8 % (40-80); PLATELET COUNT 280 10x3/uL (130-400); RBC 4.57 10x6/uL (4.20-6.10); RDW 13.3 % (11.5-14.5); WBC 5.8 10x3/uL (4.8-10.8)
[2018-03-26 16:46] LABS: ALBUMIN 3.2 g/dL (3.4-5.0); ALKALINE PHOSPHATASE 94 U/L (46-116); ALT (SGPT) 28 U/L (10-68); BILIRUBIN - TOTAL 0.23 mg/dL (0.2-1.3); CALC OSMOLALITY 278 mosm/kg (275-300); CALCIUM 8.5 mg/dL (8.5-10.1); CARBON DIOXIDE 30.1 mmol/L (21.0-32.0); CHLORIDE - SERUM 105 mmol/L (98-107); CREATININE - SERUM 1.2 mg/dL (0.6-1.3); GLUCOSE 94 mg/dL (74-106); PROTEIN - SERUM 6.5 g/dL (6.4-8.2); SODIUM 140 mmol/L (136-145); UREA NITROGEN 13 mg/dL (7-18); eGFR NON AFRICAN AMERICAN 68 mL/min (90-120)
[2018-03-26 17:00] VITALS: BP 134/77
[2018-03-26 17:01] LABS: CKMB 0.5 U/L (0.0-3.6); CREATINE KINASE 59 UL (21-232); PRO BNP 46 pg/mL (0-125); TROPONIN-I < 0.017 ng/mL (0.000-0.060)
[2018-03-26 17:30] VITALS: BP 134/77
[2018-03-26 20:00] VITALS: BP 154/78
[2018-03-26] MEDS ORDERED: EFFIENT10 MG PO (21:29)
[2018-03-27 00:38] VITALS: Ht 170.2 cm; Wt 79.5 kg
[2018-03-27 04:17] VITALS: BP 118/79
[2018-03-27 07:47] VITALS: BP 152/79
[2018-03-27 07:55] LABS: CALC OSMOLALITY 275 mosm/kg (275-300); CALCIUM 8.3 mg/dL (8.5-10.1); CARBON DIOXIDE 26.9 mmol/L (21.0-32.0); CHLORIDE - SERUM 105 mmol/L (98-107); CREATININE - SERUM 1.1 mg/dL (0.6-1.3); GLUCOSE 90 mg/dL (74-106); SODIUM 138 mmol/L (136-145); UREA NITROGEN 13 mg/dL (7-18); eGFR NON AFRICAN AMERICAN 75 mL/min (90-120)
[2018-03-27 08:05] LABS: BASOPHILS 0.3 % (0-2); EOSINOPHILS 2.7 % (0-7); HEMATOCRIT 42.3 % (42.0-54.0); IMMATURE GRANULOCYTES 0.2 % (0-5); MCH 31.4 pg (26.0-34.0); MCHC 35.5 g/dL (31.0-37.0); MCV 88.7 fL (80.0-100.0); MEAN PLATELET VOLUME 8.9 fL (7.4-10.4); MONOCYTES 8.7 % (2-11); NEUTROPHILS 53.1 % (40-80); PLATELET COUNT 265 10x3/uL (130-400); RBC 4.77 10x6/uL (4.20-6.10); RDW 13.3 % (11.5-14.5)
[2018-03-27 11:00] VITALS: BP 148/76
[2018-03-27 20:00] VITALS: BP 124/74
[2018-03-28 00:20] VITALS: BP 101/66
[2018-03-28 04:00] VITALS: BP 114/63
[2018-03-28 07:41] VITALS: BP 104/63
== END 2018-03-28 11:13 | disposition home or self-care (01) ==
LOC: D.ER 15:52 → D.EDHOLD 18:16 → OBSVTIME 18:16 → D.M2 18:16 → D.SDCHOLD 03-28 06:25 → D.M2 03-28 11:13
PROVIDERS: Emergency Medicine; Internal Medicine Cardiovascular Disease
DX: I25.110 Atherosclerotic heart disease of native coronary artery with unstable angina pectoris (principal); I10 Essential (primary) hypertension; E78.5 Hyperlipidemia, unspecified; J44.9 Chronic obstructive pulmonary disease, unspecified; R00.1 Bradycardia, unspecified

== ENCOUNTER 2018-03-30 02:00 | Observation (INO) | payer MEDICARE ==
[~2018-03-30] VITALS: Ht 170.2 cm; Wt 83.2 kg
[2018-03-30] VITALS (7 sets, daily range): BP systolic 102–138; BP diastolic 55–84; Ht 170.2 cm; Wt 83.2 kg
--- NOTE | ~2018-03-30 | HEMODYNAMI ---
PATIENT:ANDREY OSMAN JR MEDICAL RECORD: [id number] : 67 LOCATION:[facility]# [id number] ADMISSION DATE: 03/30/18 Generatedon:03/30/201814:21 Patient name: ANDREY OSMAN Patient #: [id number] SSN: [id number] : 1965 Date of study: 03/30/2018 Page: Of Hemodynamic Procedure Report Patient Data Patient Demographics Procedure consent was obtained First Name: ANDREY Gender: Male Last Name: DAWSON Suffix: Jr Adhikari Initial: Alpesh : 1965 Patient #: [id number] Age: 52 year(s) Race: SSN: [id number] Additional ID: [id number] Contact details Address: [address] [place] [address] State: [place] City: [place] Zip code: [address] Past Medical History History of disease Date Diagnosis Comments CAD Allergies Allergen Reaction Date Comments Reported Other allergy 12/30/2015 Plavix (pt gets hives) Other allergy 07/30/2016 plavix Other allergy 08/01/2016 Plavix Other allergy 04/30/2017 plavix Other allergy 07/29/2017 Plavix Other allergy 08/16/2017 plavix Admission Admission Data Admission Date: 03/30/2018 Admission Time: 3:24 Admit Source: Emergency department Room #: D.E12 Lab Results Lab Result Date: 03/27/2018 Lab Result Time: 0:00 Biochemistry Name Units Result Min Max BUN mg/dl 13 --(--*-)-- 7 18 Creatinine mg/dl 1.1 --(--*-)-- 0.6 1.3 CBC Name Units Result Min Max Hemoglobin g/dl 14.3 --(*---)-- 13.5 17.5 Procedure Procedure Types Cath Procedure Diagnostic Procedure LHC LHC w/Coronaries Sedation Charges Moderate Sedation up to 15 minutes Procedure Description Procedure Date Procedure Date: 03/30/2018 Procedure Start Time: 13:53 Procedure End Time: 14:04 Procedure Staff Name Function Willian Jones RT Monitor Shanae Herrera RN Nurse Devante Fitzgerald MD Performing Physician Ashia Pak RT Scrub Titus Robles RT Cashier Tube Room Procedure Data Cath Procedure Fluoroscopy Diagnostic fluoroscopy Total fluoroscopy Time: 1 time: 1 min min Diagnostic fluoroscopy Total fluoroscopy dose: 153 dose: 153 mGy mGy Contrast Material Contrast Material Type Amount (ml) Isovue 300 40 Entry Location Entry Primary Successful Side Size Upsize Upsize Entry Closure Succes sful Closure Location (Fr) 1 (Fr) 2 (Fr) Remarks Device Remarks Femoral Left 5 Fr Exoseal artery Estimated blood loss: 10 ml Diagnostic catheters Device Type Used For End Catheter Placement MULTIPACK JL 4.0 5Fr Procedure catheter MULTIPACK 3DRC 5Fr Procedure catheter MULTIPACK Pigtail 5 Fr Procedure catheter Procedure Complications No complications Procedure Medications Medication Administration Route Dosage Oxygen etCO2 Nasal cannula 2 l/min Lidocaine 2% added to field 20 Heparin Flush Bag added to field 2 bags (1000units/500ml NS) 0.9% NaCl I.V. 100 ml/hr Versed I.V. 2 mg Fentanyl I.V. 100 mcg Versed I.V. 2 mg Fentanyl I.V. 100 mcg Effient P.O. 10 mg Hemodynamics Rest HGB: 14.3 (g/dl) Heart Rate: 67 (bpm) Pressure Samples Time Site Value (mmHg) Purpose Heart Use Rate(bpm) 13:57 LV 104/15,20 Snapshot 69 13:58 AO 118/50(74) Pullback 71 Gradients Valve Time Site Site 2 Mean SEP/DFP Peak To Heart Use 1 (mmHg) (sec/min) Peak Rate (mmHg) (bpm) Aortic 13:58 LV AO 71 118/50(74) Snapshots Pre Cath Intra NCS Post Cath Vital Signs Time Heart Resp SPO2 etCO2 NIBP (mmHg) Rhythm Pain Sedation Rate (ipm) (%) (mmHg) Status Level (bpm) 13:46:16 63 13 96 42.6 130/69(82) NSR 0 (11) 10(A) , No pain 13:50:26 68 19 96 11.9 123/76(109) NSR 0 (11) 10(A) , No pain 13:54:32 67 21 96 12.7 128/84(119) NSR 0 (11) 10(A) , No pain 13:58:42 69 16 97 43.3 113/76(106) NSR 0 (11) 10(A) , No pain 14:03:29 71 6 97 8.2 107/87(102) NSR 0 (11) 10(A) , No pain Medications Time Medication Route Dose Verified Delivered Reason Notes E ffectiveness by by 13:44:29 Oxygen etCO2 2 Devante Buffie used for Nasal l/min St Sammy Herrera RN procedure cannula 13:47:14 Lidocaine 2% added 20ml Devante Devante used for to vial [facility] procedure field MD TAVERAS 13:47:23 Heparin Flush added 2 Devante Devante used for Bag to bags [facility] procedure (1000units/500ml field MD TAVERAS NS) 13:47:41 0.9% NaCl I.V. 100 Devante Buffie Per ml/hr St Sammy Herrera RN physician 13:51:41 Versed I.V. 2 mg Devante Buffie for sedation [facility] Sammy Herrera RN, MD 13:51:48 Fentanyl I.V. 100 Devante Buffie for sedation mcg [facility] Sammy Herrera RN, MD 13:55:44 Versed I.V. 2 mg Devante Buffie for sedation St Sammy Herrera RN, MD 13:56:44 Fentanyl I.V. 100 Devante Buffie for sedation rashad Marino RN, MD 13:59:25 Effient P.O. 10 mg Devante Buffie for [facility] Sammy Herrera RN antiplatelet therapy Procedure Log Time Note 13:23:18 Admit Source: Emergency department 13:23:21 Diagnostic Cath status Elective 13:23:23 Titus Robles RT(R) sent for patient. Start room use. 13:23:24 Time tracking: Regular hours (M-F 7:00 - 5:00) 13:33:44 Plan of Care:Hemodynamics will remain stable., Cardiac rhythm will remain stable., Comfort level will be maintained., Respiratory function will remain adequate., Patient/ family verbilizes understanding of procedure., Procedure tolerated without complication., Recovers from procedure without complications.. 13:39:08 Patient received from ED to CCL 2 Alert and oriented. Tansferred to table in Supine position. 13:39:10 Correct patient and procedure confirmed by team. 13:39:10 Warm blankets applied, and pilo hugger turned on for patient comfort. 13:39:12 ECG and BP/O2 sat monitors applied to patient. 13:39:12 Signed procedure consent form obtained from patient. 13:44:29 Oxygen 2 l/min etCO2 Nasal cannula was administered by Shanae Herrera RN; used for procedure; 13:45:17 Vital chart was started 13:47:14 Lidocaine 2% 20ml vial added to field was administered by Devante Fitzgerald MD; used for procedure; 13:47:23 Heparin Flush Bag (1000units/500ml NS) 2 bags added to field was administered by Devante Fitzgerald MD; used for procedure; 13:47:41 0.9% NaCl 100 ml/hr I.V. was administered by Shanae Herrera RN; Per physician; 13:49:53 Baseline sample Acquired. 13:49:58 Rhythm: sinus rhythm 13:49:59 Full Disclosure recording started 13:50:02 H&P Date Dictated: 03/30/2018 Emergent; H&P N/A. 13:50:03 Pre-procedure instructions explained to patient. 13:50:04 Pre-op teaching completed and patient verbalized understanding. 13:50:06 Family unavailable. 13:50:07 Patient NPO since Midnight. 13:50:09 Is the patient allergic to Iodine/contrast media? No. 13:50:11 Is patient on blood thinner?Yes 13:50:13 ACC The patient was administered the following blood thiners within the last 24 hours: ACCEffient 13:50:15 Patient diabetic? No. 13:50:25 Previous problem with sedation/anesthesia? No ? 13:50:26 Snore? Yes 13:50:27 Sleep apnea? Yes 13:50:28 Deviated septum? No 13:50:30 Opens mouth fully? Yes 13:50:31 Sticks out tongue? Yes 13:50:35 Airway obstruction? No ? 13:50:38 Dentures? Yes OUT 13:50:41 Pre procedure: left dorsailis pedis pulse 1+ Palpable, but thready & weak; easily obliterated 13:50:48 Patient pain scale 0/10 ?. 13:50:52 IV patent on arrival in left forearm with 0.9% NaCl at [facility]. 13:50:54 Lab results completed and on chart. 13:50:57 Left groin area was prepped with chlora-prep and draped in sterile fashion 13:50:59 Sharps counted by scrub and verified by R.N. 13:50:59 Alarms reviewed by R. N. 13:51:01 Final Timeout: patient, procedure, and site verified with staff and physician. All members of the team are in agreement. 13:51:01 --------ALL STOP TIME OUT------ 13:51:05 Left groin site verified by team. 13:51:11 Physical assessment completed. ASA score P 2 - A patient with mild systemic disease as per Devante Fitzgerald MD. 13:51:13 Sedation plan: IV Moderate Sedation Medication:Versed, Fentanyl 13:51:41 Versed 2 mg I.V. was administered by Shanae Herrera RN; for sedation; 13:51:48 Fentanyl 100 mcg I.V. was administered by Shanae Herrera RN; for sedation; 13:53:12 Use device set Femoral Dx 13:53:14 PERCUTANEOUS ENTRY 19GA needle opened to sterile field. 13:53:15 Tegaderm 4 x 4 (1626W) opened to sterile field. 13:53:17 ACIST Manifold (09198) opened to sterile field. 13:53:17 ACIST Hand Control (84543) opened to sterile field. 13:53:19 Bag Decanter (2002S) opened to sterile field. 13:53:19 ACIST Syringe (44859) opened to sterile field. 13:53:20 DIAGNOSTIC WIRE .035 260cm J wire (259925) opened to sterile field. 13:53:20 Medline Cath Pack ([id number]) opened to sterile field. 13:53:22 DIAGNOSTIC Multipack 5Fr catheter set (VA7108) opened to sterile field. 13:53:23 SHEATH Prelude 5Fr 0.035 (RES-8U-03-035) opened to sterile field. 13:53:28 Procedure started. 13:53:36 Local anesthetic to left femerol artery with Lidocaine 2% by Devante Fitzgerald MD.INITIAL ACCESS ONLY 13:54:04 A 5 Fr sheath was inserted into the Left Femoral artery 13:54:26 A MULTIPACK JL 4.0 5Fr catheter was advanced over the wire and used for Procedure. 13:55:44 Versed 2 mg I.V. was administered by Shanae Herrera RN; for sedation; 13:55:51 LCA angiography performed. 13:56:18 Catheter removed. 13:56:23 A MULTIPACK 3DRC 5Fr catheter was advanced over the wire and used for Procedure. 13:56:43 RCA angiography performed. 13:56:44 Fentanyl 100 mcg I.V. was administered by Shanae Herrera RN; for sedation; 13:56:47 Catheter removed. 13:56:55 A MULTIPACK Pigtail 5 Fr catheter was advanced over the wire and used for Procedure. 13:58:24 LV angiography performed. 13:58:26 LV gram done using ALANIS 13:58:32 EF : 55 % 13:58:33 LV hemodynamics recorded. 13:58:36 Injector settings: Ml/sec: 10, Volume: 20, 13:58:37 Catheter removed. 13:58:39 EXOSEAL 5Fr (EX500) opened to sterile field. 13:58:50 Sheath removed intact; hemostasis achieved with Exoseal to the Left Femoral artery. 13:58:52 Procedure ended.(Physican Out) 13:59:25 Effient 10 mg P.O. was administered by Shanae Herrera RN; for antiplatelet therapy; 13:59:25 Fluoroscopy time 01.00 minutes. 13:59:28 Fluoroscopy dose: 153 mGy 13:59:28 Flurop Dose total: 153 13:59:32 Contrast amount:Isovue 300 40ml. 13:59:34 Sharps counted by scrub and verified by R.N. 13:59:35 Insertion/operative site no bleeding no hematoma. 13:59:38 Post-op/insertion site Left Femoral artery dressed using a 4 x 4 and Tegaderm. 13:59:40 Post Procedure Pulses reassessed and unchanged 13:59:42 Post-procedure physical assessment completed. ASA score P 2 - A patient with mild systemic disease as per Devante Fitzgerald MD. 13:59:45 Post procedure rhythm: unchanged. 13:59:47 Estimated blood loss: 10 ml 13:59:49 Post procedure instruction explained to patient.Patient verbalizes understanding. 13:59:50 Patient needs reinforcement of post procedure teaching. 13:59:58 Procedure type changed to Cath procedure, Diagnostic procedure, LHC, LHC w/Coronaries, Sedation Charges, Moderate Sedation up to 15 minutes 14:00:03 Procedure Complication : No complications 14:00:26 Procedure and supply charges have been captured, reviewed, submitted and are correct. 14:04:05 See physician's report for complete and final results. 14:04:05 Vital chart was stopped 14:04:07 Report given to Pre/Post Procedure Room. 14:04:10 Patient transfered to Pre/Post Procedure Room with Stretcher. 14:04:12 Full Disclosure recording stopped 14:04:12 Procedure ended. 14:04:24 End room use (Document Last) Device Usage Item Name Manufacture Quantity Catalog Number Hospital Part Current M inimal Lot# / Charge Number Stock Stock Serial# Code PERCUTANEOUS Cook Medical 1 [id number] 5 ENTRY 19GA needle Tegaderm 4 x 4 3M 1 1626W 187871 [id number] [id number] 5 (1626W) ACIST Hand Acist 1 28321 493331 197550 461460 5 Control (64693) Medical Systems [employer] ACIST Manifold Acist 1 84481 535920 303774 977976 5 (13821) Medical Systems Inc ACIST Syringe Acist 1 93802 663128 273959 972037 2 0 (37134) Medical Systems Inc Bag Decanter Microtek 1 2002S 088755 56536 918930 5 (2002S) Medical Inc. Medline Cath Cardinal 1 [id number] 983998 87633 944497 5 Pack Health ([id number]) DIAGNOSTIC WIRE St Asif 1 231783 506091 367558 387945 3 0 .035 260cm J wire (163866) DIAGNOSTIC Cardinal 1 VV6266 516485 55386 566555 3 0 Multipack 5Fr Health catheter set (SD5865) SHEATH Prelude Merit 1 YLX-8B-13-035 935252 405392 506306 5 5Fr 0.035 Medical (RAP-6U-44-035) MULTIPACK JL Cardinal 1 [id number] 5 4.0 5Fr Health catheter MULTIPACK 3DRC Cardinal 1 868844 5 5Fr catheter Health MULTIPACK Cardinal 1 949558 5 Pigtail 5 Fr Health catheter EXOSEAL 5Fr Cardinal 1 EX500 656667 937683 890886 1 0 (EX500) Health Signature Audit [place] Stage Time Signature Unsigned Intra-Procedure 03/30/2018 Willian Jones RT(R) 2:05:19 PM RT(R) 03/30/2018 2:20:04 PM Intra-Procedure 03/30/2018 Shanae Herrera RN 2:21:28 PM Signatures Monitor : Willian Jones RT Signature : Date : Time : [place] [address] [place] [address]
--- NOTE | ~2018-03-30 | OP ---
PATIENT NAME: ANDREY OSMAN JR MEDICAL RECORD: [id number] :67 LOCATION:[facility]- ADMISSION DATE:03/30/18 SURGEON: ANGÉLICA ROBLEDO MD DATE OF OPERATION: 03/30/2018 PROCEDURE: Left heart catheterization, selective coronary angiography, left femoral artery approach. CATHETERS: A 5-Amharic sheath, 5/4 left and right Cathie, 5/4 pig. The procedure was well tolerated. The patient returned to the recovery room. Sheath removed and ExoSeal device placed. FINDINGS: Left ventriculography in 30-degree ALANIS view: Normal wall motion, normal systolic function. CORONARY ANATOMY: LEFT MAIN: Left main is free of disease. LAD: Area of previous stenting and angioplasty is widely patent. CIRCUMFLEX: Area of previous stenting and angioplasty widely patent. RIGHT CORONARY ARTERY: Widely patent. IMPRESSION: Noncardiac chest pain. TRANSINT:[id number] Voice Confirmation ID: [id number] DOCUMENT ID: [id number] ANGÉLICA ROBLEDO MD at 1449 CC: [id number] DICTATION DATE: 03/30/18 1411 GLASS DEPOSITION TENDER: 03/30/18 1423 DIS IN 03/30/18 [facility] [address] [place] [address]
[~2018-03-30 02:00] MED LIST changes: +EFFIENT10 MG PO
[2018-03-30 02:50] LABS: BASOPHILS 0.5 % (0-2); EOSINOPHILS 2.8 % (0-7); HEMOGLOBIN 15.7 g/dL (13.5-17.5); IMMATURE GRANULOCYTES 0.5 % (0-5); LYMPHOCYTES 42.5 % (15-50); MCH 31.3 pg (26.0-34.0); MCHC 35.7 g/dL (31.0-37.0); MCV 87.6 fL (80.0-100.0); MEAN PLATELET VOLUME 8.8 fL (7.4-10.4); NEUTROPHILS 43.7 % (40-80); PLATELET COUNT 296 10x3/uL (130-400); RBC 5.02 10x6/uL (4.20-6.10); RDW 13.2 % (11.5-14.5); WBC 7.8 10x3/uL (4.8-10.8)
[2018-03-30 03:00] LABS: ALBUMIN 3.4 g/dL (3.4-5.0); ALKALINE PHOSPHATASE 104 U/L (46-116); ALT (SGPT) 23 U/L (10-68); BILIRUBIN - TOTAL 0.35 mg/dL (0.2-1.3); CALC OSMOLALITY 269 mosm/kg (275-300); CALCIUM 8.5 mg/dL (8.5-10.1); CARBON DIOXIDE 25.5 mmol/L (21.0-32.0); CHLORIDE - SERUM 102 mmol/L (98-107); CREATININE - SERUM 1.2 mg/dL (0.6-1.3); GLUCOSE 106 mg/dL (74-106); POTASSIUM - SERUM 4.2 mmol/L (3.5-5.1); PROTEIN - SERUM 7.3 g/dL (6.4-8.2); SODIUM 135 mmol/L (136-145); UREA NITROGEN 13 mg/dL (7-18); eGFR NON AFRICAN AMERICAN 68 mL/min (90-120)
[2018-03-30 03:03] LABS: TROPONIN-I < 0.017 ng/mL (0.000-0.060)
[2018-03-30 08:59] LABS: ANION GAP 14.2 mmol/L (8-16); CALCIUM 8.6 mg/dL (8.5-10.1); CARBON DIOXIDE 23.1 mmol/L (21.0-32.0); CREATININE - SERUM 1.3 mg/dL (0.6-1.3); POTASSIUM - SERUM 4.3 mmol/L (3.5-5.1)
[2018-03-30 09:00] LABS: BASOPHILS 0.4 % (0-2); EOSINOPHILS 2.9 % (0-7); HEMATOCRIT 44.5 % (42.0-54.0); HEMOGLOBIN 15.7 g/dL (13.5-17.5); IMMATURE GRANULOCYTES 0.5 % (0-5); LYMPHOCYTES 35.6 % (15-50); MCH 31.2 pg (26.0-34.0); MCHC 35.3 g/dL (31.0-37.0); MCV 88.5 fL (80.0-100.0); MEAN PLATELET VOLUME 9.1 fL (7.4-10.4); MONOCYTES 11.3 % (2-11); NEUTROPHILS 49.3 % (40-80); PLATELET COUNT 312 10x3/uL (130-400); RBC 5.03 10x6/uL (4.20-6.10); RDW 13.4 % (11.5-14.5); WBC 7.3 10x3/uL (4.8-10.8)
== END 2018-03-30 16:50 | disposition home or self-care (01) ==
LOC: D.ER 02:00 → D.EDHOLD 03:24 → OBSVTIME 03:24 → D.EDHOLD 03:24
PROVIDERS: Family Medicine; Internal Medicine Interventional Cardiology
DX: R07.89 Other chest pain (principal); I25.10 Atherosclerotic heart disease of native coronary artery without angina pectoris; Z95.5 Presence of coronary angioplasty implant and graft; E78.5 Hyperlipidemia, unspecified; J44.9 Chronic obstructive pulmonary disease, unspecified; I10 Essential (primary) hypertension

== ENCOUNTER 2018-07-28 14:35 | Observation (INO) | payer MEDICARE ==
[~2018-07-28] VITALS: Ht 170.2 cm; Wt 81.6 kg
--- NOTE | ~2018-07-28 | HEMODYNAMI ---
PATIENT:ANDREY OSMAN JR MEDICAL RECORD: [id number] : 67 LOCATION:[facility] D.2120 [facility]# [id number] ADMISSION DATE: 07/28/18 Generatedon:07/29/201813:25 Patient name: ANDREY OSMAN Patient #: [id number] SSN: [id number] : 1965 Date of study: 07/29/2018 Page: Of Hemodynamic Procedure Report Patient Data Patient Demographics Procedure consent was obtained First Name: ANDREY Gender: Male Last Name: DAWSON Suffix: Jr Adhikari Initial: Alpesh : 1965 Patient #: [id number] Age: 53 year(s) Race: SSN: [id number] Additional ID: [id number] Contact details [address]: [address] [place] [address] State: [place] City: [place] Zip code: [address] Past Medical History History of disease Date Diagnosis Comments CAD Allergies Allergen Reaction Date Comments Reported Other allergy 12/30/2015 Plavix (pt gets hives) Other allergy 07/30/2016 plavix Other allergy 08/01/2016 Plavix Other allergy 04/30/2017 plavix Other allergy 07/29/2017 Plavix Other allergy 08/16/2017 plavix Admission Admission Data Admission Date: 07/28/2018 Admission Time: 16:09 Room #: D.2120 Weight (lbs.): 180.78 Weight (kg.): 82 Lab Results Lab Result Date: 07/29/2018 Lab Result Time: 0:00 Biochemistry Name Units Result Min Max BUN mg/dl 14 --(--*-)-- 7 18 Creatinine mg/dl 1.1 --(--*-)-- 0.6 1.3 CBC Name Units Result Min Max Hemoglobin g/dl 15.5 --(-*--)-- 13.5 17.5 Platelets 10^3/l 256 --(-*--)-- 130 400 Procedure Procedure Types Cath Procedure Diagnostic Procedure [facility] w/Coronaries PCI Procedure Coronary Stent Coronary Stent Initial PTCA PTCA Initial Procedure Description Procedure Date Procedure Date: 07/29/2018 Procedure Start Time: 13:08 Procedure End Time: 13:21 Procedure Staff Name Function Leobardo Stratton MD Performing Physician Willian Jones RT Monitor Yrn Hutchison RN Nurse Viviane Varela RT Scrub Procedure Data Cath Procedure Fluoroscopy Diagnostic fluoroscopy Total fluoroscopy Time: 2.9 time: 2.9 min min Diagnostic fluoroscopy Total fluoroscopy dose: 411 dose: 411 mGy mGy Contrast Material Contrast Material Type Amount (ml) Isovue 300 80 Entry Location Entry Primary Successful Side Size Upsize Upsize Entry Closure Succes sful Closure Location (Fr) 1 (Fr) 2 (Fr) Remarks Device Remarks Femoral Right 5 Fr 6 Fr Exoseal artery Short Estimated blood loss: 10 ml Diagnostic catheters Device Type Used For End Catheter Placement MULTIPACK Pigtail 5 Fr Procedure catheter MULTIPACK JL 4.0 5Fr Procedure catheter MULTIPACK 3DRC 5Fr Procedure catheter Procedure Complications No complications Procedure Medications Medication Administration Route Dosage Oxygen etCO2 Nasal cannula 2 l/min Heparin Flush Bag added to field 2 bags (1000units/500ml NS) 0.9% NaCl I.V. 100 ml/hr Lidocaine 2% added to field 20 Fentanyl I.V. 100 mcg Versed I.V. 2 mg Fentanyl I.V. 50 mcg Fentanyl I.V. 50 mcg Heparin Bolus I.V. 4000 units Effient P.O. 10 mg Hemodynamics Rest HGB: 15.5 (g/dl) Heart Rate: 59 (bpm) Pressure Samples Time Site Value (mmHg) Purpose Heart Use Rate(bpm) 13:11 AO 114/69(86) Snapshot 68 Snapshots Pre Cath Intra NCS Post Cath Vital Signs Time Heart Resp SPO2 etCO2 NIBP (mmHg) Rhythm Pain Sedation Rate (ipm) (%) (mmHg) Status Level (bpm) 12:51:35 63 16 100 0 154/82(116) NSR 0 (11) 10(A) , No pain 12:56:34 64 17 35.5 Measuring NSR 0 (11) 10(A) , No pain 12:56:56 65 17 34 149/77(114) NSR 0 (11) 10(A) , No pain 13:01:10 66 16 100 0 127/84(102) NSR 0 (11) 10(A) , No pain 13:05:28 68 16 99 0 133/76(99) NSR 0 (11) 10(A) , No pain 13:09:40 68 16 98 0 126/76(93) NSR 0 (11) 9(A) , No pain 13:13:56 72 16 96 0 132/74(93) NSR 0 (11) 9(A) , No pain 13:18:10 72 17 96 0 124/77(103) NSR 0 (11) 9(A) , No pain 13:21:43 72 17 97 0 123/72(105) NSR 0 (11) 9(A) , No pain Medications Time Medication Route Dose Verified Delivered Reason Notes Effectiveness by by 12:52:54 Oxygen etCO2 2 Leobardo Yrn Per physician Nasal l/min Viral Hutchison RN cannula 12:53:03 Heparin Flush added 2 Leobardo Yrn used for Bag to bags Viral Hutchison RN procedure (1000units/500ml field NS) 12:53:11 0.9% NaCl I.V. 100 Leobardo Yrn Per physician ml/hr Viral Hutchison RN 12:53:20 Lidocaine 2% added 20ml Leobardo Hoguey used for to vial Viral Hutchison RN procedure field 13:07:33 Fentanyl I.V. 100 Leobardo Yrn for sedation mcg Viral Hutchison RN 13:07:40 Versed I.V. 2 mg Leobardo Hoguey for sedation Viral Hutchison RN 13:10:35 Fentanyl I.V. 50 Leobardo Hoguey for sedation mcg Viral Hutchison RN 13:14:12 Fentanyl I.V. 50 Leobardo Yrn for sedation mcg Viral Hutchison RN 13:16:01 Heparin Bolus I.V. 4000 Leobardo Pool for units Viral Hutchison RN anticoagulation 13:20:48 Effient P.O. 10 mg Leobardo Pool for Viral Hutchison RN antiplatelet therapy Procedure Log Time Note 12:29:40 Time tracking: Call back (After hours or weekends) 12:29:44 Plan of Care:Hemodynamics will remain stable., Cardiac rhythm will remain stable., Comfort level will be maintained., Respiratory function will remain adequate., Patient/ family verbilizes understanding of procedure., Procedure tolerated without complication., Recovers from procedure without complications.. 12:30:51 Yrn Hutchison RN sent for patient. Start room use. 12:46:19 Patient received from PCU to CCL 1 Alert and oriented. Tansferred to table in Supine position. 12:46:21 Warm blankets applied, and pilo hugger turned on for patient comfort. 12:46:22 Correct patient and procedure confirmed by team. 12:46:24 Signed procedure consent form obtained from patient. 12:46:25 ECG and BP/O2 sat monitors applied to patient. 12:46:26 Full Disclosure recording started 12:50:19 Vital chart was started 12:52:54 Oxygen 2 l/min etCO2 Nasal cannula was administered by Yrn Hutchison RN; Per physician; 12:53:03 Heparin Flush Bag (1000units/500ml NS) 2 bags added to field was administered by Yrn Hutchison RN; used for procedure; 12:53:11 0.9% NaCl 100 ml/hr I.V. was administered by Yrn Hutchison RN; Per physician; 12:53:20 Lidocaine 2% 20ml vial added to field was administered by Yrn Hutchison RN; used for procedure; 12:55:46 Baseline sample Acquired. 12:55:51 Rhythm: sinus bradycardia 12:55:55 H&P Date Dictated: 07/29/2018 Within 30 days and on chart.. 12:55:56 Pre-procedure instructions explained to patient. 12:55:56 Pre-op teaching completed and patient verbalized understanding. 12:56:01 Family unavailable. 12:56:02 Patient NPO since Midnight. 12:56:05 Is the patient allergic to Iodine/contrast media? No. 12:56:07 Is patient on blood thinner?Yes 12:56:10 ACC The patient was administered the following blood thiners within the last 24 hours: ACCEffient, ACCBrilinta 12:56:13 Patient diabetic? No. 12:56:16 Previous problem with sedation/anesthesia? No ? 12:56:16 Snore? Yes 12:56:17 Sleep apnea? No 12:56:18 Deviated septum? No 12:56:19 Opens mouth fully? Yes 12:56:20 Sticks out tongue? Yes 12:56:23 Airway obstruction? Yes COPD 12:56:30 Dentures? Yes OUT 12:56:33 Pre procedure: right dorsailis pedis pulse 1+ Palpable, but thready & weak; easily obliterated 12:56:35 Patient pain scale 0/10 ?. 12:56:38 IV patent on arrival in right antecubital with 0.9% NaCl at [facility]. 12:56:40 Lab results completed and on chart. 12:56:42 Right groin area was prepped with chlora-prep and draped in sterile fashion 12:56:43 Alarms reviewed by R. N. 12:56:44 Sharps counted by scrub and verified by R.N. 12:56:47 Use device set Femoral Dx 12:56:48 Tegaderm 4 x 4 (1626W) opened to sterile field. 12:56:49 ACIST Manifold (69827) opened to sterile field. 12:56:49 ACIST Hand Control (34619) opened to sterile field. 12:56:50 ACIST Syringe (26320) opened to sterile field. 12:56:51 Bag Decanter (2002S) opened to sterile field. 12:56:51 Medline Cath Pack ([id number]) opened to sterile field. 12:56:52 DIAGNOSTIC WIRE .035 260cm J wire (129038) opened to sterile field. 12:56:53 DIAGNOSTIC Multipack 5Fr catheter set (RP8204) opened to sterile field. 12:56:54 SHEATH 5FR [place] (GJI802) opened to sterile field. 12:57:30 Patient Weight : 180.78 lbs 12:58:43 Physician paged 13:00:00 Lab Result : Creatinine 1.1 mg/dl 13:00:00 Lab Result : BUN 14 mg/dl 13:00:00 Lab Result : Platelets 256 10^3/l 13:00:00 Lab Result : Hemoglobin 15.5 g/dl 13:03:22 Zero performed for pressure channel P1 13:06:34 --------ALL STOP TIME OUT------ 13:06:34 Final Timeout: patient, procedure, and site verified with staff and physician. All members of the team are in agreement. 13:06:36 Right groin site verified by team. 13:06:38 Physical assessment completed. ASA score P 2 - A patient with mild systemic disease as per Leobardo Stratton MD. 13:06:41 Sedation plan: IV Moderate Sedation Medication:Versed, Fentanyl 13:07:33 Fentanyl 100 mcg I.V. was administered by Yrn Hutchison RN; for sedation; 13:07:40 Versed 2 mg I.V. was administered by Yrn Hutchison RN; for sedation; 13:08:38 Procedure started. 13:08:50 Local anesthetic to right femoral artery with Lidocaine 2% by Leobardo Stratton MD.INITIAL ACCESS ONLY 13:09:51 A 5 Fr sheath was inserted into the Right Femoral artery 13:09:57 A MULTIPACK Pigtail 5 Fr catheter was advanced over the wire and used for Procedure. 13:10:19 LV angiography performed. 13:10:20 LV gram done using ALANIS 13:10:24 EF : 55 % 13:10:29 Injector settings: Ml/sec: 10, Volume: 20, 13:10:31 Catheter removed. 13:10:35 Fentanyl 50 mcg I.V. was administered by Yrn Hutchison RN; for sedation; 13:10:36 A MULTIPACK JL 4.0 5Fr catheter was advanced over the wire and used for Procedure. 13:11:18 LCA angiography performed. 13:12:15 Catheter removed. 13:12:19 A MULTIPACK 3DRC 5Fr catheter was advanced over the wire and used for Procedure. 13:12:25 Use device set [facility] PCI 13:12:27 SHEATH 6FR [place] (MOW587) opened to sterile field. 13:12:30 CHOICE PT Extra Support 182cm wire ([id number]) opened to sterile field. 13:12:34 INFLATOR Merit BasixCompak (XO1324) opened to sterile field. 13:13:00 RCA angiography performed. 13:13:01 Catheter removed. 13:14:09 GUIDE 6FR XBLAD 3.5 SH catheter ([id number]) opened to sterile field. 13:14:12 Fentanyl 50 mcg I.V. was administered by Yrn Hutchison RN; for sedation; 13:14:21 Sheath upsized to a 6 Fr Short. 13:14:34 6 Fr XBLAD 3.5 SH guide catheter was inserted over the wire 13:15:09 CPTXS wire advanced. 13:15:46 Wire advanced across lesion. 13:16:01 Heparin Bolus 4000 units I.V. was administered by Yrn Hutchison RN; for anticoagulation; 13:16:27 Place stent Inflation Number: 1 A CHARLI RX 3.0 x 15 stent ([id number]) was prepped and advanced across the LMCA. The stent was deployed at 13 PAUL for 0:10 (min:sec). 13:17:48 Inflation number: 1 The stent balloon was then re-inflated across the Mid LAD to 21 PAUL for 0:10 (min:sec). 13:18:03 Stent catheter was removed intact over wire. 13:18:04 Wire removed. 13:18:04 Guide catheter removed. 13:18:09 EXOSEAL 6Fr (EX600) opened to sterile field. 13:18:19 Sheath removed intact; hemostasis achieved with Exoseal to the Right Femoral artery. 13:18:28 Procedure ended.(Physican Out) 13:20:18 Fluoroscopy time 02.90 minutes. 13:20:21 Fluoroscopy dose: 411 mGy 13:20:21 Flurop Dose total: 411 13:20:26 Contrast amount:Isovue 300 80ml. 13:20:28 Sharps counted by scrub and verified by R.N. 13:20:29 Insertion/operative site no bleeding no hematoma. 13:20:32 Post-op/insertion site Right Femoral artery dressed using a 4 x 4 and Tegaderm. 13:20:33 Post Procedure Pulses reassessed and unchanged 13:20:35 Post-procedure physical assessment completed. ASA score P 2 - A patient with mild systemic disease as per Leobardo Stratton MD. 13:20:38 Post procedure rhythm: unchanged. 13:20:40 Estimated blood loss: 10 ml 13:20:42 Post procedure instruction explained to patient.Patient verbalizes understanding. 13:20:43 Patient needs reinforcement of post procedure teaching. 13:20:48 Effient 10 mg P.O. was administered by Yrn Hutchison RN; for antiplatelet therapy; 13:20:54 Procedure type changed to Cath procedure, Diagnostic procedure, LHC, LHC w/Coronaries, PCI procedure, Coronary Stent, Coronary Stent Initial, PTCA, PTCA Initial 13:20:58 Procedure Complication : No complications 13:21:19 Procedure and supply charges have been captured, reviewed, submitted and are correct. 13:21:20 Vital chart was stopped 13:21:20 See physician's report for complete and final results. 13:21:22 Report given to [facility]. 13:21:25 Patient transfered to [facility] with Bed. 13:21:27 Procedure ended. 13:21:27 Full Disclosure recording stopped 13:24:46 End room use (Document Last) Intervention Summary Intervention Notes Time ActionType Lesion and Equipment Used Action# Pressure Duration Attributes 13:16:27 Place stent LMCA CHARLI RX 3.0 x 1 13 00:10 15 stent ([id number]) 13:17:48 Reinflate Mid LAD CHARLI RX 3.0 x 1 21 00:10 stent 15 stent balloon ([id number]) Device Usage Item Name Manufacture Quantity Catalog Number Hospital Part Current M inimal Lot# / Charge Number Stock Stock Serial# Code Tegaderm 4 x 4 3M 1 1626W 255151 111920 557199 5 (1626W) ACIST Manifold Acist 1 14492 498164 230704 981221 5 (40339) Medical Systems Inc ACIST Hand Acist 1 16482 922931 092822 588448 5 Control Medical (60729) Systems Inc ACIST Syringe Acist 1 07275 563441 547986 048030 2 0 (38188) Medical Systems Inc Bag Decanter Microtek 1 2001S 836696 03115 671729 5 (2001S) Medical Inc. Medline Cath Medline 1 [id number] 597838 40213 820695 5 Pack ([id number]) DIAGNOSTIC St Asif 1 299994 484746 153472 437716 3 0 WIRE .035 260cm J wire (464905) DIAGNOSTIC Cardinal 1 LQ5115 679710 82117 900224 3 0 Multipack 5Fr Health catheter set (GD1837) SHEATH 5FR Terumo 1 UBF687 448123 999653 948796 5 [place] (MXL920) MULTIPACK Cardinal 1 230032 5 Pigtail 5 Fr Health catheter MULTIPACK JL Cardinal 1 443163 5 4.0 5Fr Health catheter MULTIPACK 3DRC Cardinal 1 316515 5 5Fr catheter Health SHEATH 6FR Terumo 1 MGQ566 281685 090634 761081 4 0 [place] (MJE546) CHOICE PT [place] 1 [id number] 153691 147384 747458 5 Extra Support Scientific 182cm wire ([id number]) INFLATOR Merit Merit 1 UK6664 374431 487597 164758 1 5 Enlightened LifestylemoSlicebooks Medical (DF0823) GUIDE 6FR Cardinal 1 [id number] 635273 758259 124273 3 XBLAD 3.5 Health catheter ([id number]) CHARLI RX 3.0 x Medtronic 1 [id number] 306038 2890864 640456 5 [id number] 15 stent ([id number]) EXOSEAL 6Fr Cardinal 1 EX600 896810 970814 713775 1 0 (EX600) Health Signature Audit [place] Stage Time Signature Unsigned Intra-Procedure 07/29/2018 Willian Jones 1:25:12 PM RT(R) Signatures Monitor : Willian Jones RT Signature : Date : Time : [address] [place] [address]
--- NOTE | ~2018-07-28 | MORECARE ---
CASE MANAGEMENT DISCHARGE SUMMARY PATIENT: ANDREY OSMAN JR UNIT: [id number] ADM DATE: 07/28/18 AGE: 53 : 67 SEX: M ROOM/BED: D.1491 AUTHOR: RITCHIE ROBIN PHYSICIAN: REFERRING PHYSICIAN: KATHRYN LIU MD DATE OF SERVICE: 07/29/18 Discharge Plan Patient Name: ANDREY OSMAN Facility: [facility]:[place] : 1965 Planned Disposition: Home Anticipated Discharge Date: 07/29/18 Discharge Date: Expected LOS: 1 Initial Reviewer: [email or web address] Initial Review Date: 07/28/2018 Generated: 07/29/18 8:42 pm Comments DCP- Discharge Planning Updated by [email or web address]: Codi Morley on 07/29/18 6:[address] PATIENT REMAINS SLEEPY. HIS NEIGHBOR CAME TO TAKE HIM HOME. PATIENT LIVES ALONE. DIFFICULTY TO WAKE UP. TOO SLEEPY TO BE DISCHARGE HOME ALONE. [place] [address] [place] WILL HOLD OVERNIGHT FOR SAFE DISCHARGE TO HOME. DCP- Discharge Planning Updated by [email or web address]: Codi Morley on 07/29/18 2:[address] CM RECEIVED CONSULT. PATIENT HAD CARDIAC CATH TODAY. RETURNED TO HIS ROOM AT 1345. CM TO BEDSIDE AT 1530. HE IS SLEEPING SOUNDLY. WILL REVISIT. Last DP export: 07/29/18 2:49 Patient Name: ANDREY OSMAN Page [id number] at 1942 All edits/amendments must be made on the electronic document DICTATION DATE: 07/29/181941 STEP DOWN NURSE: GISELA 07/29/181941 RPT#: [id number] DC DATE: STATUS: ADM IN [facility] [address] [place] [address] END OF REPORT
--- NOTE | ~2018-07-28 | HP ---
PATIENT: ANDREY OSMAN JR MEDICAL RECORD: [id number] ACCOUNT: [id number] LOCATION:[address] : 67 ADMISSION DATE: 07/28/18 PCP: ELIZABETH GASPAR HISTORY AND PHYSICAL EXAMINATION DIAGNOSES: 1. Unstable angina. 2. Coronary artery disease. 3. Previous multivessel percutaneous transluminal coronary angioplasty stent. 4. Chronic obstructive pulmonary disease. 5. Smoking history. 6. Hyperlipidemia. HISTORY OF PRESENT ILLNESS: This is a gentleman with a past history of anginal symptomatology multivessel PTCA stent, the last being March, for the last 10 days has had increasing episodes of chest pain compatible with angina despite taking Ranexa. PHYSICAL EXAMINATION: GENERAL APPEARANCE: Well-nourished, well-developed, appears stated age. Level of distress, comfortable. PSYCHIATRIC: Mental status, alert, normal affect. Orientation, oriented to time, place and person. EYES: Lids and conjunctiva, noninjected. No discharge, no pallor. ENT: Lips, teeth, gums, normal dentition. Oropharynx, no cyanosis, no pallor. NECK: Carotid arteries, bilateral normal upstroke, no bruits, no thrills. JUGULAR VEINS: No jugular venous pressure or distention. CERVICAL LYMPH NODES: Nontender, nonenlarged. THYROID: Not enlarged. Nontender. No nodules. LUNGS: Respiratory effort, unlabored. CHEST: Normal curvature. No thoracic deformity. No chest wall tenderness. Percussion, resonant. Auscultation, clear. No wheezes, no rales, no rhonchi. CARDIOVASCULAR: Precordial exam, nondisplaced. No heaves or pericardial thrills. Rate and rhythm, regular. Heart sounds, normal S1, normal S2. No S3, no gallop, no rub. Systolic murmur, not heard. Diastolic murmur, not heard. EXTREMITIES: No cyanosis, no edema. Peripheral pulses, full and equal in all extremities, except as noted. No bruits appreciated. ABDOMEN: Soft, nondistended. Normal aorta. No bruit. Nontender. No masses. Liver, nontender, no hepatomegaly. Spleen, nontender, no splenomegaly. MUSCULOSKELETAL: No joint tenderness. No joint swelling. No erythema. NEUROLOGICAL: Normal gait, normal strength, normal tone. SKIN: Warm and dry. OVERALL IMPRESSION: Unstable angina just like that of his previous angina in a rapidly escalating fashion. We will proceed with coronary angiography. Further care depends upon findings of the angiography. TRANSINT:[id number] Voice Confirmation ID: [id number] DOCUMENT ID: [id number] HISTORY AND PHYSICAL [id number] ANDREY OSMAN JR, JEFFREY MD at 1457 CC: [id number] DICTATION DATE: 07/29/18 0953 LEAD ANDROID DEVELOPER: 07/29/18 1032 DIS IN 07/30/18 [facility] [address] [place] [address]
--- NOTE | ~2018-07-28 | MORECARE ---
CASE MANAGEMENT DISCHARGE SUMMARY PATIENT: ANDREY OSMAN JR UNIT: [id number] ADM DATE: 07/28/18 AGE: 53 : 67 SEX: M ROOM/BED: D.2165 AUTHOR: RITCHIE ROBIN PHYSICIAN: REFERRING PHYSICIAN: KATHRYN LIU MD DATE OF SERVICE: 07/30/18 Discharge Plan Patient Name: ANDREY OSMAN Facility: [facility]:[place] : 1965 Planned Disposition: Home Anticipated Discharge Date: 07/30/18 Discharge Date: Expected LOS: 2 Initial Reviewer: [email or web address] Initial Review Date: 07/28/2018 Generated: 07/30/18 11:49 am Comments DCP- Discharge Planning Updated by [email or web address]: Codi Morley on 07/29/18 6:[address] PATIENT REMAINS SLEEPY. HIS NEIGHBOR CAME TO TAKE HIM HOME. PATIENT LIVES ALONE. DIFFICULTY TO WAKE UP. TOO SLEEPY TO BE DISCHARGE HOME ALONE. [place] [address] [place]. WILL HOLD OVERNIGHT FOR SAFE DISCHARGE TO HOME. DCP- Discharge Planning Updated by [email or web address]: Codi Morley on 07/29/18 2:[address] CM RECEIVED CONSULT. PATIENT HAD CARDIAC CATH TODAY. RETURNED TO HIS ROOM AT 1345. CM TO BEDSIDE AT 1530. HE IS SLEEPING SOUNDLY. WILL REVISIT. Last DP export: 07/29/18 6:42 Patient Name: ANDREY OSMAN Page [id number] at 1049 All edits/amendments must be made on the electronic document DICTATION DATE: 07/30/18 1048 MEDICAL ECONOMICS CONSULTANT: GISELA 07/30/18 1048 RPT#: [id number] DC DATE: STATUS: ADM IN [facility] [address] [place] [address] END OF REPORT
--- NOTE | ~2018-07-28 | OP ---
PATIENT NAME: ANDREY OSMAN JR MEDICAL RECORD: [id number] :67 LOCATION:D.M2 D.2120 ADMISSION DATE:07/28/18 SURGEON: BRIANA HOYOS MD DATE OF OPERATION: 07/29/2018 PROCEDURES: 1. PTCA stent, left main. 2. PTCA, LAD. 3. Left heart catheterization. 4. Selective coronary angiography. 5. Left ventriculogram. INDICATION: Unstable angina and coronary artery disease. PROCEDURE IN DETAIL: After informed consent was obtained and after a detailed description of the risks, benefits as well as alternative therapies, the patient elected to proceed with angiogram and angioplasty. The right femoral area was prepped and draped in normal sterile fashion. Right femoral artery was cannulated via modified Seldinger technique with placement of 6-Swedish sheath. All catheters exchanged through this sheath. FINDINGS: Left ventriculogram was performed in standard 30-degree ALANIS view, reveals good cardiac wall motion throughout all segments. Overall ejection fraction estimated 60%. SELECTIVE CORONARY ANGIOGRAPHY: 1. Left main is with 80% stenosis. 2. The left anterior descending has multiple previously placed stents. There was 70% in-stent restenosis in the proximal mid vessel. 3. Left circumflex has previously placed stents, these are widely patent with no significant restenosis. No disease elsewise throughout the circumflex or its branches. 4. The right coronary has previously placed stents, these are widely patent with no significant restenosis. No disease elsewise throughout the RCA or its branches. PTCA STENT OF THE LEFT MAIN: Stent used was a 3.0 x 15 mm Jonas stent. The stent balloon was then advanced into the LAD. High pressure PTCA was made to the LAD in-stent restenosis there at 21 atmospheres. Result was 0% residual throughout. OVERALL IMPRESSION: Successful percutaneous transluminal coronary angioplasty stent of the left main and successful percutaneous transluminal coronary angioplasty of the LAD, both going from 70% to 80% initial stenosis to 0% residual. TRANSINT:[id number] Voice Confirmation ID: [id number] DOCUMENT ID: [id number] OPERATIVE REPORT [id number] ANDREY OSMAN JR, JEFFREY MD at 145 CC: [id number] DICTATION DATE: 07/29/18 1323 SEPARATOR OPERATOR: 07/29/18 1603 DIS IN 07/30/18 [facility] [address] [facility] [address]
--- NOTE | ~2018-07-28 | MORECARE ---
CASE MANAGEMENT DISCHARGE SUMMARY PATIENT: ANDREY OSMAN JR UNIT: [id number] ADM DATE: 07/28/18 AGE: 53 : 67 SEX: M ROOM/BED: D.2120 AUTHOR: RITCHIE ROBIN PHYSICIAN: REFERRING PHYSICIAN: KATHRYN LIU MD DATE OF SERVICE: 07/29/18 Discharge Plan Patient Name: ANDREY OSMAN Facility: [facility]:[place] : 1965 Planned Disposition: Home Anticipated Discharge Date: 07/29/18 Discharge Date: Expected LOS: 1 Initial Reviewer: [email or web address] Initial Review Date: 07/28/2018 Generated: 07/29/18 4:49 pm Comments DCP- Discharge Planning Updated by [email or web address]: Codi Morley on 07/29/18 2:[address] CM RECEIVED CONSULT. PATIENT HAD CARDIAC CATH TODAY. RETURNED TO HIS ROOM AT 1345. CM TO BEDSIDE AT 1530. HE IS SLEEPING SOUNDLY. WILL REVISIT. Patient Name: ANDREY OSMAN Page [phone] at 1549 All edits/amendments must be made on the electronic document DICTATION DATE: 07/29/181548 SALESPERSON BURIAL PLOTS: GISELA 07/29/181548 RPT#: [id number] DC DATE: STATUS: ADM IN [facility] [address] [place] [address] END OF REPORT
[2018-07-28 15:01] LABS: BASOPHILS 0.4 % (0-2); EOSINOPHILS 1.6 % (0-7); HEMATOCRIT 43.7 % (42.0-54.0); HEMOGLOBIN 15.5 g/dL (13.5-17.5); IMMATURE GRANULOCYTES 0.1 % (0-5); LYMPHOCYTES 27.3 % (15-50); MCH 31.8 pg (26.0-34.0); MCHC 35.5 g/dL (31.0-37.0); MCV 89.7 fL (80.0-100.0); MEAN PLATELET VOLUME 8.9 fL (7.4-10.4); MONOCYTES 13.1 % (2-11); NEUTROPHILS 57.5 % (40-80); PLATELET COUNT 290 10x3/uL (130-400); RBC 4.87 10x6/uL (4.20-6.10); RDW 12.7 % (11.5-14.5)
[2018-07-28 15:07] LABS: APTT 28.4 SECONDS (22.8-39.4); PROTIME 12.7 SECONDS (11.6-15.0)
[2018-07-28 15:09] LABS: D-DIMER-QUANTITATIVE 0.32 ug/mLFEU (0.20-0.54)
[2018-07-28 15:31] LABS: ALBUMIN 3.8 g/dL (3.4-5.0); ALKALINE PHOSPHATASE 88 U/L (46-116); ALT (SGPT) 25 U/L (10-68); BILIRUBIN - TOTAL 0.56 mg/dL (0.2-1.3); CALC OSMOLALITY 283 mosm/kg (275-300); CALCIUM 9.2 mg/dL (8.5-10.1); CARBON DIOXIDE 25.5 mmol/L (21.0-32.0); CHLORIDE - SERUM 104 mmol/L (98-107); CREATININE - SERUM 1.3 mg/dL (0.6-1.3); GLUCOSE 102 mg/dL (74-106); PROTEIN - SERUM 7.9 g/dL (6.4-8.2); SODIUM 142 mmol/L (136-145); UREA NITROGEN 16 mg/dL (7-18); eGFR NON AFRICAN AMERICAN 61 mL/min (90-120)
[2018-07-28 15:54] LABS: CKMB 1.4 U/L (0.0-3.6); CREATINE KINASE 78 UL (21-232); TROPONIN-I < 0.017 ng/mL (0.000-0.060)
[2018-07-28 16:08] VITALS: BP 127/68
[2018-07-28] MEDS ORDERED: OMEPRAZOLE20 M1 PO (16:36)
[2018-07-28] MEDS ORDERED: BREO ELLIPTA 11 EACH INH (16:38)
[2018-07-28 16:43] VITALS: BP 126/76; BMI 28.2
[2018-07-28 20:30] VITALS: BP 137/76
[2018-07-28 21:11] LABS: CKMB 0.7 U/L (0.0-3.6); CREATINE KINASE 66 UL (21-232); TROPONIN-I < 0.017 ng/mL (0.000-0.060)
[2018-07-29 00:30] VITALS: BP 138/76
[2018-07-29 04:30] VITALS: BP 123/61
[2018-07-29 05:42] LABS: BASOPHILS 0.4 % (0-2); EOSINOPHILS 2.2 % (0-7); HEMATOCRIT 43.9 % (42.0-54.0); HEMOGLOBIN 15.5 g/dL (13.5-17.5); IMMATURE GRANULOCYTES 0.4 % (0-5); LYMPHOCYTES 36.7 % (15-50); MCH 31.9 pg (26.0-34.0); MCHC 35.3 g/dL (31.0-37.0); MCV 90.3 fL (80.0-100.0); MONOCYTES 10.7 % (2-11); NEUTROPHILS 49.6 % (40-80); PLATELET COUNT 256 10x3/uL (130-400); RBC 4.86 10x6/uL (4.20-6.10); RDW 12.5 % (11.5-14.5); WBC 7.7 10x3/uL (4.8-10.8)
[2018-07-29 06:16] LABS: ALBUMIN 3.5 g/dL (3.4-5.0); ALKALINE PHOSPHATASE 82 U/L (46-116); ALT (SGPT) 30 U/L (10-68); BILIRUBIN - TOTAL 0.66 mg/dL (0.2-1.3); CALC OSMOLALITY 278 mosm/kg (275-300); CARBON DIOXIDE 25.5 mmol/L (21.0-32.0); CHLORIDE - SERUM 103 mmol/L (98-107); CKMB 0.9 U/L (0.0-3.6); CREATINE KINASE 55 UL (21-232); CREATININE - SERUM 1.1 mg/dL (0.6-1.3); GLUCOSE 93 mg/dL (74-106); POTASSIUM - SERUM 4.1 mmol/L (3.5-5.1); PROTEIN - SERUM 7.4 g/dL (6.4-8.2); SODIUM 139 mmol/L (136-145); TROPONIN-I < 0.017 ng/mL (0.000-0.060); UREA NITROGEN 14 mg/dL (7-18); eGFR NON AFRICAN AMERICAN 75 mL/min (90-120)
[2018-07-29 08:16] VITALS: BP 121/76
[2018-07-29 11:21] VITALS: BP 128/72
[2018-07-29 14:20] VITALS: Ht 170.2 cm; Wt 81.6 kg
[2018-07-29 15:55] VITALS: BP 117/66
[2018-07-29 20:30] VITALS: BP 114/65
[2018-07-30 00:30] VITALS: BP 103/56
[2018-07-30 04:30] VITALS: BP 111/68
[2018-07-30 05:48] LABS: BASOPHILS 0.3 % (0-2); EOSINOPHILS 2.1 % (0-7); HEMATOCRIT 42.6 % (42.0-54.0); HEMOGLOBIN 14.7 g/dL (13.5-17.5); IMMATURE GRANULOCYTES 0.3 % (0-5); MCH 31.3 pg (26.0-34.0); MCHC 34.5 g/dL (31.0-37.0); MCV 90.8 fL (80.0-100.0); MEAN PLATELET VOLUME 9.3 fL (7.4-10.4); MONOCYTES 10.2 % (2-11); NEUTROPHILS 56.1 % (40-80); PLATELET COUNT 272 10x3/uL (130-400); RBC 4.69 10x6/uL (4.20-6.10); RDW 12.6 % (11.5-14.5)
[2018-07-30 06:23] LABS: CALC OSMOLALITY 277 mosm/kg (275-300); CALCIUM 8.6 mg/dL (8.5-10.1); CARBON DIOXIDE 27.1 mmol/L (21.0-32.0); CHLORIDE - SERUM 102 mmol/L (98-107); GLUCOSE 95 mg/dL (74-106); POTASSIUM - SERUM 3.6 mmol/L (3.5-5.1); SODIUM 138 mmol/L (136-145); UREA NITROGEN 17 mg/dL (7-18); eGFR NON AFRICAN AMERICAN 83 mL/min (90-120)
[2018-07-30 07:47] VITALS: BP 127/44
== END 2018-07-30 11:15 | disposition home or self-care (01) ==
LOC: D.ER 14:35 → D.EDHOLD 16:09 → D.M2 16:09 → OBSVTIME 16:09 → D.M2 16:09
PROVIDERS: Family Medicine; Internal Medicine Nephrology
DX: I25.110 Atherosclerotic heart disease of native coronary artery with unstable angina pectoris (principal); Z95.5 Presence of coronary angioplasty implant and graft; T82.855A Stenosis of coronary artery stent, initial encounter; Y83.8 Other surgical procedures as the cause of abnormal reaction of the patient, or of later complication, without mention of misadventure at the time of the procedure; J44.9 Chronic obstructive pulmonary disease, unspecified; E78.5 Hyperlipidemia, unspecified; I10 Essential (primary) hypertension; Z87.891 Personal history of nicotine dependence
CPT/HCPCS: 92920; 93458; C9600

== ENCOUNTER 2018-10-09 14:35 | Observation (INO) | payer MEDICARE ==
[2018-10-09] VITALS: BP 121/68
[~2018-10-09] VITALS: Ht 170.2 cm; Wt 44.8 kg
--- NOTE | ~2018-10-09 | HEMODYNAMI ---
PATIENT:ANDREY OSMAN JR MEDICAL RECORD: [id number] : 67 [id number] ADMISSION DATE: 10/09/18 Generatedon:10/11/20188:16 Patient name: ANDREY OSMAN Patient #: [id number] SSN: [id number] : 1965 Date of study: 10/10/2018 Page: Of Hemodynamic Procedure Report Patient Data Patient Demographics Procedure consent was obtained First Name: ANDREY Gender: Male Last Name: DAWSON Suffix: Jr Adhikari Initial: Alpesh : 1965 Patient #: [id number] Age: 53 year(s) Race: SSN: [id number] Additional ID: [id number] Contact details Address: [address] [place] [address] State: [place] City: [place] Zip code: [address] Past Medical History History of disease Date Diagnosis Comments CAD Allergies Allergen Reaction Date Comments Reported Other allergy 12/30/2015 Plavix (pt gets hives) Other allergy 07/30/2016 plavix Other allergy 08/01/2016 Plavix Other allergy 04/30/2017 plavix Other allergy 07/29/2017 Plavix Other allergy 08/16/2017 plavix Admission Admission Data Admission Date: 10/09/2018 Admission Time: 16:19 Room #: D.2122 Weight (lbs.): 98.81 Weight (kg.): 44.82 Procedure Procedure Types Cath Procedure Diagnostic Procedure [facility] w/Coronaries PCI Procedure Coronary Stent Coronary Stent Initial PTCA PTCA Initial Procedure Description Procedure Date Procedure Date: 10/10/2018 Procedure Start Time: 12:33 Procedure End Time: 12:46 Procedure Staff Name Function Viviane Varela RT Monitor Leobardo Stratton MD Performing Physician Yoav Cagle RN Nurse Kylie Taylor RT Scrub Titus Robles RT Director Of Brand Marketing Procedure Data Cath Procedure Fluoroscopy Diagnostic fluoroscopy Total fluoroscopy Time: 3.4 time: 3.4 min min Diagnostic fluoroscopy Total fluoroscopy dose: 608 dose: 608 mGy mGy Contrast Material Contrast Material Type Amount (ml) Isovue 300 49 Entry Location Entry Primary Successful Side Size Upsize Upsize Entry Closure Succes sful Closure Location (Fr) 1 (Fr) 2 (Fr) Remarks Device Remarks Femoral Right 5 Fr 6 Fr Exoseal artery Short Estimated blood loss: 10 ml Diagnostic catheters Device Type Used For End Catheter Placement MULTIPACK Pigtail 5 Fr catheter MULTIPACK JL 4.0 5Fr Left Coronary catheter Angiography MULTIPACK 3DRC 5Fr Right Coronary catheter Angiography Procedure Complications No complications Procedure Medications Medication Administration Route Dosage 0.9% NaCl I.V. 100 ml/hr Effient P.O. 10 mg Oxygen etCO2 Nasal cannula 2 l/min Versed I.V. 2 mg Fentanyl I.V. 100 mcg Heparin Flush Bag added to field 2 bags (1000units/500ml NS) Lidocaine 2% added to field 20 Heparin Bolus I.V. 4000 units Hemodynamics Rest Heart Rate: 59 (bpm) Snapshots Pre Cath Intra NCS Post Cath Vital Signs Time Heart Resp SPO2 etCO2 NIBP (mmHg) Rhythm Pain Sedation Rate (ipm) (%) (mmHg) Status Level (bpm) 12:24:30 61 15 98 0 141/74(117) NSR 0 (11) 10(A) , No pain 12:28:42 58 14 94 0 114/76(89) NSR 0 (11) 10(A) , No pain 12:33:49 57 11 98 41.8 129/58(100) NSR 0 (11) 10(A) , No pain 12:38:01 55 18 97 41.8 121/64(76) NSR 0 (11) 10(A) , No pain 12:43:06 56 18 98 0 133/84(106) NSR 0 (11) 10(A) , No pain Medications Time Medication Route Dose Verified Delivered Reason Notes Effectiveness by by 12:30:44 0.9% NaCl I.V. 100 Yoav Yoav Per physician ml/hr Tsering Cagle RN RN 12:30:55 Effient P.O. 10 mg Yoav Yoav for Tsering Cagle antiplatelet RN RN therapy 12:31:05 Oxygen etCO2 2 Yoav Yoav for low 02 sats Nasal l/min Tsering Cagle cannula RN RN 12:31:12 Versed I.V. 2 mg Yoav Yoav for sedation Tsering Cagle RN RN 12:31:20 Fentanyl I.V. 100 Yoav Yoav for sedation mcg Tsering Cagle RN RN 12:31:33 Heparin Flush added 2 Yoav Yoav used for Bag to bags Simioral Tsering procedure (1000units/500ml field RN RN NS) 12:31:44 Lidocaine 2% added 20ml Yoav Yoav for local to vial Tsering Tsering anesthetic [facility] RN RN 12:39:46 Heparin Bolus I.V. 4000 Yoav Yoav for units Tsering Tsering anticoagulation RN state game warden Log Time Note 11:59:27 Patient Weight : 98.81 lbs 12:01:45 Time tracking: Regular hours (M-F 7:00 - 5:00) 12:01:49 Plan of Care:Hemodynamics will remain stable., Cardiac rhythm will remain stable., Comfort level will be maintained., Respiratory function will remain adequate., Patient/ family verbilizes understanding of procedure., Procedure tolerated without complication., Recovers from procedure without complications.. 12:07:39 Titus Robles RT(R) sent for patient. Start room use. 12:18:21 Patient received from Med II to CCL 2 Alert and oriented. Tansferred to table in Supine position. 12:18:23 Warm blankets applied, and pilo hugger turned on for patient comfort. 12:18:24 Correct patient and procedure confirmed by team. 12:18:25 Signed procedure consent form obtained from patient. 12:18:28 ECG and BP/O2 sat monitors applied to patient. 12:23:17 Vital chart was started 12:23:26 Full Disclosure recording started 12:23:29 Rhythm: sinus rhythm 12:26:03 H&P Date Dictated: 10/10/2018 Within 30 days and on chart.. 12:26:04 Pre-procedure instructions explained to patient. 12:26:05 Pre-op teaching completed and patient verbalized understanding. 12:26:07 Family in patients room. 12:26:08 Patient NPO since Midnight. 12:26:41 Is the patient allergic to Iodine/contrast media? No. 12:26:49 Is patient on blood thinner?Yes 12:27:04 EFFIENT LAST DOSE 10/08/18 12:27:06 Patient diabetic? No. 12:27:08 Previous problem with sedation/anesthesia? No ? 12:27:14 Snore? Yes 12:27:15 Sleep apnea? Yes 12:27:16 Deviated septum? No 12:27:17 Opens mouth fully? Yes 12:27:18 Sticks out tongue? Yes 12:27:21 Airway obstruction? Yes COPD 12:27:26 Dentures? Yes OUT 12:27:30 Pre procedure: right dorsailis pedis pulse 2+ Normal; easily identifiable; not easily obliterated 12:27:33 Patient pain scale 0/10 ?. 12:27:41 IV patent on arrival in left forearm with 0.9% NaCl at [facility]. 12:27:43 Lab results completed and on chart. 12:27:46 Right groin area was prepped with chlora-prep and draped in sterile fashion 12:27:47 Sharps counted by scrub and verified by R.N. 12:27:47 Alarms reviewed by R. N. 12:27:49 Final Timeout: patient, procedure, and site verified with staff and physician. All members of the team are in agreement. 12:27:51 Right groin site verified by team. 12:27:55 Maximum allowable contrast dose 45.6ml. Physician notified. 12:27:59 Fire Safety Assessment: A--An alcohol-based skin anteseptic being used preoperatively., C--Open oxygen or nitrous oxide is being used., D--An ESU, laser, or fiber-optic light is being used. 12:28:02 Physical assessment completed. ASA score P 2 - A patient with mild systemic disease as per Leobardo Stratton MD. 12:28:07 Sedation plan: IV Moderate Sedation Medication:Versed, Fentanyl 12:28:10 ACIST Syringe (12803) opened to sterile field. 12:28:10 Use device set Femoral Dx 12:28:11 DIAGNOSTIC WIRE .035 260cm J wire (657929) opened to sterile field. 12:28:11 Medline Cath Pack ([id number]) opened to sterile field. 12:28:11 Bag Decanter () opened to sterile field. 12:28:12 ACIST Hand Control (23895) opened to sterile field. 12:28:13 DIAGNOSTIC Multipack 5Fr catheter set ([id number]) opened to sterile field. 12:28:13 ACIST Manifold (46768) opened to sterile field. 12:28:14 Tegaderm 4 x 4 (1626W) opened to sterile field. 12::15 SHEATH 5FR Atco (ETN565) opened to sterile field. 12:30:44 0.9% NaCl 100 ml/hr I.V. was administered by Yoav Cagle RN; Per physician; 12::55 Baseline sample Acquired. 12::55 Effient 10 mg P.O. was administered by Yoav Cagle RN; for antiplatelet therapy; 12::57 Zero performed for pressure channel P1 12:31:05 Oxygen 2 l/min etCO2 Nasal cannula was administered by Yoav Cagle RN; for low 02 sats; :: Versed 2 mg I.V. was administered by Yoav Cagle RN; for sedation; ::20 Fentanyl 100 mcg I.V. was administered by Yoav Cagle RN; for sedation; ::33 Heparin Flush Bag (1000units/500ml NS) 2 bags added to field was administered by Yoav Cagle RN; used for procedure; 12::44 Lidocaine 2% 20ml vial added to field was administered by Yoav Cagle RN; for local anesthetic; 12:33:13 Procedure started. 12:33:16 Local anesthetic to right femoral artery with Lidocaine 2% by Leobardo Stratton MD.INITIAL ACCESS ONLY 12:33:26 A 5 Fr sheath was inserted into the Right Femoral artery 12:34:36 A MULTIPACK Pigtail 5 Fr catheter was advanced over the wire and used for . 12:35:01 LV gram done using ALANIS 12:35:04 Injector settings: Ml/sec: 10, Volume: 20, 12:35:09 EF : 60 % 12:35:40 Catheter removed. 12:35:45 A MULTIPACK JL 4.0 5Fr catheter was advanced over the wire and used for Left Coronary Angiography. 12:36:44 Catheter removed. 12:36:49 A MULTIPACK 3DRC 5Fr catheter was advanced over the wire and used for Right Coronary Angiography. 12:37:14 Catheter removed. 12:37:28 Use device set [facility] PCI 12:37:30 SHEATH 6FR Atco (BOS960) opened to sterile field. 12:37:34 INFLATOR Merit Darrell (LE4234) opened to sterile field. 12:37:39 CHOICE PT Extra Support 182cm wire ([id number]) opened to sterile field. 12:37:48 Sheath upsized to a 6 Fr Short. 12:38:20 6 Fr XBLAD 3.5 guide catheter was inserted over the wire 12:38:54 COICE PT ES wire advanced. 12:39:46 Heparin Bolus 4000 units I.V. was administered by Yoav Cagle RN; for anticoagulation; 12:40:08 Place stent Inflation Number: 1 A CHARLI RX 3.5 x 15 stent ([id number]) was prepped and advanced across the Mid CX. The stent was deployed at 21 PAUL for 0:08 (min:sec). 12:40:41 Inflation number: 2 The stent balloon was then re-inflated across the Mid CX to 23 PAUL for 0:11 (min:sec). 12:40:47 Inflation number: 3 The stent balloon was then re-inflated across the Mid CX to 23 PAUL for 0:04 (min:sec). 12:41:05 Wire redirected to LAD. 12:41:28 Inflation number: 1 The stent balloon was then re-inflated across the Mid LAD to 11 PAUL for 0:03 (min:sec). 12:41:38 Inflation number: 2 The stent balloon was then re-inflated across the Mid LAD to 15 PAUL for 0:07 (min:sec). 12:41:52 Inflation number: 3 The stent balloon was then re-inflated across the Mid LAD to 11 PAUL for 0:07 (min:sec). 12:42:27 Wire removed. 12:42:27 Stent catheter was removed intact over wire. 12:42:28 Guide catheter removed. 12:42:41 Sheath removed intact; hemostasis achieved with Exoseal to the Right Femoral artery. 12:42:43 EXOSEAL 6Fr (EX600) opened to sterile field. 12:42:46 Procedure ended.(Physican Out) 12:43:06 Fluoroscopy time 03.40 minutes. 12:43:30 Fluoroscopy dose: 608 mGy 12:43:30 Flurop Dose total: 608 12:43:34 Contrast amount:Isovue 300 49ml. 12:43:36 Sharps counted by scrub and verified by R.N. 12:43:37 Insertion/operative site no bleeding no hematoma. 12:43:42 Post-op/insertion site Right Femoral artery dressed using a 4 x 4 and Tegaderm. 12:43:46 Post right femoral artery:stable, clean and dry 12:43:47 Post Procedure Pulses reassessed and unchanged 12:43:51 Post-procedure physical assessment completed. ASA score P 2 - A patient with mild systemic disease as per Leobardo Stratton MD. 12:43:54 Post procedure rhythm: unchanged. 12:43:57 Estimated blood loss: 10 ml 12:44:06 Patient needs reinforcement of post procedure teaching. 12:44:06 Post procedure instruction explained to patient.Patient verbalizes understanding. 12:44:29 Procedure type changed to Cath procedure, Diagnostic procedure, LHC, LHC w/Coronaries, PCI procedure, Coronary Stent, Coronary Stent Initial, PTCA, PTCA Initial 12:45:03 Procedure Complication : No complications 12:45:05 See physician's report for complete and final results. 12:45:35 GUIDE 6FR XBLAD 3.5 catheter ([id number]) opened to sterile field. 12:46:11 Procedure and supply charges have been captured, reviewed, submitted and are correct. 12:46:25 Vital chart was stopped 12:46:27 Report given to PCU. 12:46:36 Patient transfered to PCU with Bed. 12:46:37 Full Disclosure recording stopped 12:46:37 Procedure ended. 12:46:42 End room use (Document Last) Intervention Summary Intervention Notes Time ActionType Lesion and Equipment Used Action# Pressure Duration Attributes 12:40:08 Place stent Mid CX CHARLI RX 3.5 x 1 21 00:08 15 stent ([id number]) 12:40:41 Reinflate Mid CX CHARLI RX 3.5 x 2 23 00:11 stent 15 stent balloon ([id number]) 12:40:47 Reinflate Mid CX CHARLI RX 3.5 x 3 23 00:04 stent 15 stent balloon ([id number]) 12:41:28 Reinflate Mid LAD CHARLI RX 3.5 x 1 11 00:03 stent 15 stent balloon ([id number]) 12:41:38 Reinflate Mid LAD CHARLI RX 3.5 x 2 15 00:07 stent 15 stent balloon ([id number]) 12:41:52 Reinflate Mid LAD CHARLI RX 3.5 x 3 11 00:07 stent 15 stent balloon ([id number]) Device Usage Item Name Manufacture Quantity Catalog Number Hospital Part Current M inimal Lot# / Charge Number Stock Stock Serial# Code ACIST Syringe Acist 1 92988 117437 928449 614115 2 0 (73505) Medical Systems Inc Bag Decanter Microtek 1 222836 86078 918310 5 () Medical Inc. Medline Cath Medline 1 [id number] 307780 72456 388736 5 Pack ([id number]) DIAGNOSTIC St Asif 1 009746 800625 026220 375999 3 0 WIRE .035 260cm J wire (803447) ACIST Hand Acist 1 06106 178974 617988 906651 5 Control Medical (61794) Systems Inc ACIST Manifold Acist 1 42893 650657 951754 987380 5 (88921) Medical Systems Inc DIAGNOSTIC Cardinal 1 DC9802 720381 33183 985637 3 0 Multipack 5Fr Health catheter set (XY3114) Tegaderm 4 x 4 3M 1 1626W 932121 020217 389687 5 (1626W) SHEATH 5FR Terumo 1 HEB981 791841 985059 828508 5 Atco (QKB878) MULTIPACK Cardinal 1 070085 5 Pigtail 5 Fr Health catheter MULTIPACK JL Cardinal 1 454086 5 4.0 5Fr Health catheter MULTIPACK 3DRC Cardinal 1 994368 5 5Fr catheter Health SHEATH 6FR Terumo 1 SRF126 256060 925835 479676 4 0 Atco (OFA795) INFLATOR Merit Merit 1 DV1110 150643 314353 759617 1 5 Zando (MS6275) CHOICE PT [place] 1 [id number] 145771 613202 876003 5 Extra Support Scientific 182cm wire ([id number]) CHARLI RX 3.5 x Medtronic 1 [id number] 286426 9320620 836218 5 [id number] 15 stent ([id number]) EXOSEAL 6Fr Cardinal 1 EX600 860141 255659 427773 1 0 (EX600) Health GUIDE 6FR Cardinal 1 [id number] 429479 565252 354404 1 0 XBLAD 3.5 Health catheter ([id number]) Signature Audit Barnard Stage Time Signature Unsigned Intra-Procedure 10/10/2018 Viviane Pan Counts 12:47:15 PM Counts RT(R) RT(R) 10/11/2018 8:14:17 AM Intra-Procedure 10/11/2018 Viviane 8:15:45 AM Counts RT(R) Signatures Monitor : Viviane Signature : Counts RT Date : Time : [address] [address]
[~2018-10-09 14:35] MED LIST changes: +BREO ELLIPTA 11 EACH INH; +OMEPRAZOLE20 M1 PO
[2018-10-09 14:54] VITALS: BP 122/63
[2018-10-09 15:09] LABS: BASOPHILS 0.4 % (0-2); EOSINOPHILS 0.9 % (0-7); HEMATOCRIT 41.7 % (42.0-54.0); HEMOGLOBIN 14.9 g/dL (13.5-17.5); IMMATURE GRANULOCYTES 0.1 % (0-5); LYMPHOCYTES 33.4 % (15-50); MCH 31.5 pg (26.0-34.0); MCHC 35.7 g/dL (31.0-37.0); MCV 88.2 fL (80.0-100.0); MONOCYTES 9.6 % (2-11); NEUTROPHILS 55.6 % (40-80); RBC 4.73 10x6/uL (4.20-6.10); RDW 13.1 % (11.5-14.5); WBC 6.8 10x3/uL (4.8-10.8)
[2018-10-09 15:10] LABS: PLATELET COUNT 332 10x3/uL (130-400)
[2018-10-09 15:19] LABS: APTT 26.4 SECONDS (22.8-39.4); PROTIME 12.7 SECONDS (11.6-15.0)
[2018-10-09 15:23] LABS: ALBUMIN 3.8 g/dL (3.4-5.0); ALKALINE PHOSPHATASE 90 U/L (46-116); ALT (SGPT) 28 U/L (10-68); BILIRUBIN - TOTAL 0.35 mg/dL (0.2-1.3); CALC OSMOLALITY 277 mosm/kg (275-300); CALCIUM 9.1 mg/dL (8.5-10.1); CHLORIDE - SERUM 102 mmol/L (98-107); CREATININE - SERUM 1.1 mg/dL (0.6-1.3); GLUCOSE 77 mg/dL (74-106); POTASSIUM - SERUM 3.6 mmol/L (3.5-5.1); PROTEIN - SERUM 7.9 g/dL (6.4-8.2); SODIUM 141 mmol/L (136-145); UREA NITROGEN 8 mg/dL (7-18); eGFR NON AFRICAN AMERICAN 75 mL/min (90-120)
[2018-10-09 15:33] LABS: CKMB 0.7 U/L (0.0-3.6); CREATINE KINASE 71 UL (21-232); MAGNESIUM - SERUM 2.1 mg/dL (1.8-2.4)
[2018-10-09 15:34] LABS: TROPONIN-I < 0.017 ng/mL (0.000-0.060)
[2018-10-09 16:03] VITALS: BP 161/89
[2018-10-09 16:52] LABS: CKMB 0.4 U/L (0.0-3.6); CREATINE KINASE 59 UL (21-232)
[2018-10-09 16:56] LABS: TROPONIN-I < 0.017 ng/mL (0.000-0.060)
[2018-10-09 17:20] VITALS: BP 127/76; Ht 170.2 cm; Wt 44.8 kg
[2018-10-09 20:00] VITALS: BP 126/72
[2018-10-09 22:46] LABS: CKMB 0.4 U/L (0.0-3.6); CREATINE KINASE 51 UL (21-232); TROPONIN-I 0.023 ng/mL (0.000-0.060)
[2018-10-10] VITALS (9 sets, daily range): BP systolic 101–153; BP diastolic 56–94
[2018-10-10 05:01] LABS: BASOPHILS 0.3 % (0-2); EOSINOPHILS 1.9 % (0-7); HEMATOCRIT 37.9 % (42.0-54.0); IMMATURE GRANULOCYTES 0.5 % (0-5); LYMPHOCYTES 39.6 % (15-50); MCH 30.7 pg (26.0-34.0); MCHC 34.3 g/dL (31.0-37.0); MCV 89.6 fL (80.0-100.0); MEAN PLATELET VOLUME 8.8 fL (7.4-10.4); MONOCYTES 10.8 % (2-11); NEUTROPHILS 46.9 % (40-80); RBC 4.23 10x6/uL (4.20-6.10); RDW 13.2 % (11.5-14.5); WBC 6.4 10x3/uL (4.8-10.8)
[2018-10-10 05:10] LABS: PLATELET COUNT 262 10x3/uL (130-400)
[2018-10-10 05:45] LABS: ALKALINE PHOSPHATASE 68 U/L (46-116); ALT (SGPT) 28 U/L (10-68); BILIRUBIN - TOTAL 0.43 mg/dL (0.2-1.3); CALC OSMOLALITY 278 mosm/kg (275-300); CARBON DIOXIDE 27.8 mmol/L (21.0-32.0); CHLORIDE - SERUM 105 mmol/L (98-107); CKMB 0.7 U/L (0.0-3.6); CREATINE KINASE 44 UL (21-232); CREATININE - SERUM 1.2 mg/dL (0.6-1.3); GLUCOSE 80 mg/dL (74-106); POTASSIUM - SERUM 3.5 mmol/L (3.5-5.1); PROTEIN - SERUM 6.2 g/dL (6.4-8.2); SODIUM 141 mmol/L (136-145); TROPONIN-I 0.022 ng/mL (0.000-0.060); eGFR NON AFRICAN AMERICAN 67 mL/min (90-120)
[2018-10-10 05:47] LABS: UREA NITROGEN 11 mg/dL (7-18)
--- NOTE | 2018-10-10 15:05 | MORECARE ---
CASE MANAGEMENT DISCHARGE SUMMARY PATIENT: ANDREY OSMAN JR UNIT: [id number] ADM DATE: 10/09/18 AGE: 53 : 67 SEX: M ROOM/BED: D.2122 AUTHOR: RITCHIE ROBIN PHYSICIAN: REFERRING PHYSICIAN: RUTH GOODE MD DATE OF SERVICE: 10/10/18 Discharge Plan Patient Name: ANDREY OSMAN Facility: [facility]:[place] : 1965 Planned Disposition: Anticipated Discharge Date: Discharge Date: Expected LOS: Initial Reviewer: [email or web address] Initial Review Date: 10/09/2018 Generated: 10/10/18 4:05 pm Coverage Notice Reviewer: [email or web address] Catherine High Notice Issued Date-Time: 10/10/2018 14:45 Notice Type: Medicare Outpatient Observation Notice Notice Delivered To: Patient Relationship to Patient: Self Paradichlorobenzene Machine Operator Name: Delivery Method: HAND - Hand Delivered Liz Days: Prior Verbal Notification: Recipient Understood Notice: Recipient Signature: Med Rec Note Co-signed by Attending: Coverage Notice Comment: 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 UNSURE IF UNDERSTANDS NOTICE. NOTICE LEFT AT BEDSIDE WITH NAME AND NUMBER IF THERE WERE TO BE ANY QUESTIONS WHEN MORE AWAKE.. Patient Name: ANDREY OSMAN Page [phone] at 1505 All edits/amendments must be made on the electronic document DICTATION DATE: 10/10/18 1505 CHIEF NURSE EXECUTIVE: GISELA 10/10/18 1505 RPT#: [id number] DC DATE: STATUS: ADM IN [facility] [address] [place] [address] END OF REPORT
--- NOTE | 2018-10-11 09:16 | MORECARE ---
CASE MANAGEMENT DISCHARGE SUMMARY PATIENT: ANDREY OSMAN JR UNIT: [id number] ADM DATE: 10/09/18 AGE: 53 : 67 SEX: M ROOM/BED: D.1062 AUTHOR: RITCHIE ROBIN PHYSICIAN: REFERRING PHYSICIAN: RUTH GOODE MD DATE OF SERVICE: 10/11/18 Discharge Plan Patient Name: ANDREY OSMAN Facility: [facility]:[place] : 1965 Planned Disposition: Home Anticipated Discharge Date: 10/10/18 Discharge Date: 10/10/2018 Expected LOS: 1 Initial Reviewer: [email or web address] Initial Review Date: 10/09/2018 Generated: 10/11/18 10:15 am Coverage Notice Reviewer: [email or web address] Catherine High Notice Issued Date-Time: 10/10/2018 14:45 Notice Type: Medicare Outpatient Observation Notice Notice Delivered To: Patient Relationship to Patient: Self Eeler Name: Delivery Method: HAND - Hand Delivered Liz Days: Prior Verbal Notification: Recipient Understood Notice: Recipient Signature: Med Rec Note Co-signed by Attending: Coverage Notice Comment: 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 UNSURE IF UNDERSTANDS NOTICE. NOTICE LEFT AT BEDSIDE WITH NAME AND NUMBER IF THERE WERE TO BE ANY QUESTIONS WHEN MORE AWAKE.. Last DP export: 10/10/18 2:05 pm Patient Name: ANDREY OSMAN Page [phone] at 0916 All edits/amendments must be made on the electronic document DICTATION DATE: 10/11/18914 FOOD TASTER: DM 10/11/18914 RPT#: [id number] DC DATE:10/10/18 STATUS: DIS IN [facility] [address] [place] [address] END OF REPORT
--- NOTE | 2018-10-11 11:54 | EC ---
PATIENT:ANDREY OSMAN JR DATE OF SERVICE: 10/09/18 SEX: M MEDICAL RECORD: [id number] DATE OF : 67 LOCATION:D.M2 D.212 AGE OF PATIENT: 53 ADMISSION DATE: 10/09/18 REFERRING PHYSICIAN: INTERPRETING PHYSICIAN: BRIANA HOYOS MD ECHOCARDIOGRAM REPORT ECHO CHARGES Date: CLINICAL DIAGNOSIS: ECHOCARDIOGRAPHIC MEASUREMENTS (adult normal given) AC root (d.<3.7cm) cm LV Septum d (<1.2 cm> cm Valve Excursion cm LV Septum (systole) cm Left Atria (s.<4.0cm> cm LVPW d(<1.2cm) cm RV (d.<2.3cm) cm LVPW (sytole) cm LV diastole(<5.6CM) cm MV E-F(>70mm/sec) cm LV systole cm LVOT Diameter cm MV exc.(>10mm) cm Est.ejection fraction (50-75%) % DOPPLER: LVIT cm/sec A cm/sec E cm/sec LA cm/sec RVSP mmHg LVOT cm/sec AOP1/2T m/s Asc. Ao cm/sec RVOT cm/sec RA cm/sec PA cm/sec AV Gradient Peak mmHg AV Mean mmHg AV Area cm MV Gradient Peak mmHg MV Mean mmHg MV Area cm COMMENTS: Supervisor Drying And Winding: Technical Sales Director: ALE# Pericardial Effusion DATE OF SERVICE: 10/09/2018 PROCEDURE: Echocardiogram. FINDINGS: 1. Left ventricular chamber size is within normal limits. Left ventricular systolic function is normal. Overall ejection fraction estimated at 60%. 2. Left atrium is within normal limits at 3.7. Right atrium and right ventricular chamber sizes are within normal limits. 3. Valvular structures have normal structure and motion. ECHOCARDIOGRAM REPORT [id number] ANDREY OSMAN JR 4. Doppler interrogation reveals mild mitral regurgitation, mild tricuspid regurgitation, no other valvular insufficiency or stenosis. Pulmonary systolic pressure is estimated at 34 mmHg. 5. No evidence of pericardial effusion or left ventricular thrombus. TRANSINT:[id number] Voice Confirmation ID: [id number] DOCUMENT ID: [id number] BRIANA HOYOS MD at 1154 CC: [id number] DICTATION DATE: 10/10/18 1133 CHILD DEVELOPMENT DIRECTOR: 10/10/18 1147 DIS IN 10/10/18 [facility] [address] [place] [address]
--- NOTE | 2018-10-11 11:54 | CN ---
PATIENT NAME:ANDREY OSMAN JR MEDICAL RECORD: [id number] : 67 LOCATION:D. D.2122 ADMIT DATE: 10/09/18 ACCOUNT: [id number] CONSULTING PHYSICIAN: BRIANA HOYOS MD REFERRING PHYSICIAN: RUTH GOODE MD DATE OF CONSULTATION: 10/10/2018 DIAGNOSES: 1. Unstable angina. 2. Coronary artery disease. 3. Previous multivessel PTCA stent. 4. Hypertension. 5. Hyperlipidemia. 6. COPD. 7. Smoking history. HISTORY OF PRESENT ILLNESS: This is a gentleman known to us with a past history of coronary artery disease, multivessel PTCA stent. For the past 2 days, he has had increasing episodes of chest pain. Does continue to have episodes of chest pain while being here. This is just like that of his previous angina. His troponin is within normal limits. PHYSICAL EXAMINATION: GENERAL APPEARANCE: Well-nourished, well-developed, appears stated age. Level of distress, comfortable. PSYCHIATRIC: Mental status, alert, normal affect. Orientation, oriented to time, place and person. EYES: Lids and conjunctiva, noninjected. No discharge, no pallor. ENT: Lips, teeth, gums, normal dentition. Oropharynx, no cyanosis, no pallor. NECK: Carotid arteries, bilateral normal upstroke, no bruits, no thrills. JUGULAR VEINS: No jugular venous pressure or distention. CERVICAL LYMPH NODES: Nontender, nonenlarged. THYROID: Not enlarged. Nontender. No nodules. LUNGS: Respiratory effort, unlabored. CHEST: Normal curvature. No thoracic deformity. No chest wall tenderness. Percussion, resonant. Auscultation, clear. No wheezes, no rales, no rhonchi. CARDIOVASCULAR: Precordial exam, nondisplaced. No heaves or pericardial thrills. Rate and rhythm, regular. Heart sounds, normal S1, normal S2. No S3, no gallop, no rub. Systolic murmur, not heard. Diastolic murmur, not heard. EXTREMITIES: No cyanosis, no edema. Peripheral pulses, full and equal in all extremities, except as noted. No bruits appreciated. ABDOMEN: Soft, nondistended. Normal aorta. No bruit. Nontender. No masses. Liver, nontender, no hepatomegaly. Spleen, nontender, no splenomegaly. MUSCULOSKELETAL: No joint tenderness. No joint swelling. No erythema. NEUROLOGICAL: Normal gait, normal strength, normal tone. SKIN: Warm and dry. OVERALL IMPRESSION: Unstable angina with continued chest pain. We will proceed with coronary angiography. Further care depends upon findings of the angiography. TRANSINT:[id number] Voice Confirmation ID: [id number] DOCUMENT ID: [id number] CONSULT REPORT [id number] ANDREY OSMAN JR, BRIANA TAVERAS at 1154 CC: [id number] DICTATION DATE: 10/10/18 1119 WIRE SAWYER: 10/10/18 1127 DIS IN 10/10/18 [place] [id number] [place] [address]
--- NOTE | 2018-10-11 11:54 | OP ---
PATIENT NAME: ANDREY OSMAN JR MEDICAL RECORD: [id number] :67 LOCATION:D.M2 D.2122 ADMISSION DATE:10/09/18 SURGEON: BRIANA HOYOS MD DATE OF OPERATION: 10/10/2018 PROCEDURES: 1. PTCA stent left circumflex. 2. PTCA, LAD. 3. Left heart catheterization. 4. Selective coronary angiography. 5. Left ventriculogram. INDICATION: Unstable angina and coronary artery disease. PROCEDURE IN DETAIL: After informed consent was obtained and after detailed description of risks, benefits as well as alternative therapies, the patient elected to proceed with angiogram and angioplasty. The right femoral area was prepped and draped in normal sterile fashion. Right femoral artery was cannulated via modified Seldinger technique with placement of 6-Italian sheath. All catheters exchanged through this sheath. FINDINGS: Left ventriculogram was performed in standard 30-degree ALANIS view, reveals good cardiac wall motion throughout all segments. Overall ejection fraction estimated 60%. SELECTIVE CORONARY ANGIOGRAPHY: 1. Left main has no significant angiographic disease. 2. Left anterior descending has multiple previously placed stents. There is up to 70% in-stent restenosis in the mid vessel. 3. Left circumflex has multiple previously placed stents with greater than 80% in-stent restenosis in the mid vessel. 4. The right coronary has previously placed stents, these are widely patent with no significant restenosis. No disease elsewise throughout the RCA or its branches. PTCA STENT OF THE LEFT CIRCUMFLEX: The stent used was a 3.5 x 15 mm [place]. Result was 0% residual stenosis. PTCA OF THE LAD: High pressure PTCA was made with a 3.5 stent balloon throughout the LAD. Result was 0% residual stenosis. OVERALL IMPRESSION: Successful PTCA stent at high pressure PTCA of the LAD, both going from 70% to 80% initial stenosis to 0% residual. TRANSINT:[id number] Voice Confirmation ID: [id number] DOCUMENT ID: [id number] BRIANA HOYOS MD at 1154 CC: [id number] DICTATION DATE: 10/10/18 1247 CAN CRIMPER: 10/10/18 1354 DIS IN 10/10/18 [place] [address]
== END 2018-10-10 18:08 | disposition home or self-care (01) ==
LOC: D.ER 14:35 → D.M2 16:19 → OBSVTIME 16:19 → D.M2 16:19
PROVIDERS: Family Medicine; ADMIT Family Medicine; ATTEND Family Medicine
DX: I25.110 Atherosclerotic heart disease of native coronary artery with unstable angina pectoris (principal); T82.855A Stenosis of coronary artery stent, initial encounter; Y83.8 Other surgical procedures as the cause of abnormal reaction of the patient, or of later complication, without mention of misadventure at the time of the procedure; I10 Essential (primary) hypertension; E78.5 Hyperlipidemia, unspecified

== ENCOUNTER 2019-02-01 18:45 | Observation (INO) | payer MEDICARE ==
[2019-02-01 19:17] LABS: BASOPHILS 0.3 % (0-2); EOSINOPHILS 2.2 % (0-7); HEMATOCRIT 41.4 % (42.0-54.0); HEMOGLOBIN 14.5 g/dL (13.5-17.5); IMMATURE GRANULOCYTES 0.4 % (0-5); LYMPHOCYTES 34.8 % (15-50); MCH 31.3 pg (26.0-34.0); MCV 89.2 fL (80.0-100.0); MEAN PLATELET VOLUME 9.1 fL (7.4-10.4); MONOCYTES 10.3 % (2-11); PLATELET COUNT 255 10x3/uL (130-400); RBC 4.64 10x6/uL (4.20-6.10); RDW 13.6 % (11.5-14.5); WBC 6.8 10x3/uL (4.8-10.8)
[2019-02-01 19:31] LABS: APTT 34.9 SECONDS (22.8-39.4); INR 1.01 (0.85-1.17); PROTIME 12.8 SECONDS (11.6-15.0)
--- NOTE | 2019-02-01 19:36 | NUR ---
PATIENT TRANSFERRED FROM OSH WITH CHEST PAIN, ASA 325 MG AND NITRO X 3 GIVEN WITH NO RELIEF. PATIENT STATES HIS CHEST PAIN IS 9/10, PROVIDER NOTIFIED.
[2019-02-01 19:41] VITALS: BP 133/76
[2019-02-01 19:45] LABS: ALBUMIN 3.6 g/dL (3.4-5.0); ALKALINE PHOSPHATASE 84 U/L (46-116); ALT (SGPT) 43 U/L (10-68); CALC OSMOLALITY 278 mosm/kg (275-300); CALCIUM 9.3 mg/dL (8.5-10.1); CARBON DIOXIDE 27.1 mmol/L (21.0-32.0); CHLORIDE - SERUM 103 mmol/L (98-107); CKMB 0.6 U/L (0.0-3.6); CREATINE KINASE 145 UL (21-232); CREATININE - SERUM 1.2 mg/dL (0.6-1.3); GLUCOSE 94 mg/dL (74-106); POTASSIUM - SERUM 3.9 mmol/L (3.5-5.1); PROTEIN - SERUM 7.2 g/dL (6.4-8.2); SODIUM 139 mmol/L (136-145); TROPONIN-I < 0.017 ng/mL (0.000-0.060); UREA NITROGEN 16 mg/dL (7-18); eGFR NON AFRICAN AMERICAN 67 mL/min (90-120)
--- NOTE | 2019-02-01 21:10 | NUR ---
RECEIVED FROM ER, PT IS A&O,IV-LAC-SL, VITALS ARE STABLE, MEDS AND HISTORY COMPLETE, TELEMTRY IS ON, BED IS LOW, SRX2, CALL LIGHT IN REACH, FAMILY AT BEDSIDE, WILL CONTINUE PLAN OF CARE
[2019-02-01] MEDS ORDERED: ISOSORBIDE MONO60 M1 PO (21:48)
--- NOTE | 2019-02-01 21:55 | NUR ---
PT IS IN SHOWER
[2019-02-02] VITALS: BP 134/76
[2019-02-02 02:16] LABS: CKMB 0.3 U/L (0.0-3.6); CREATINE KINASE 119 UL (21-232); TROPONIN-I < 0.017 ng/mL (0.000-0.060)
[2019-02-02 02:42] LABS: BASOPHILS 0.5 % (0-2); EOSINOPHILS 2.3 % (0-7); HEMATOCRIT 39.6 % (42.0-54.0); HEMOGLOBIN 13.9 g/dL (13.5-17.5); IMMATURE GRANULOCYTES 0.5 % (0-5); MCH 31.4 pg (26.0-34.0); MCHC 35.1 g/dL (31.0-37.0); MCV 89.4 fL (80.0-100.0); MEAN PLATELET VOLUME 9.1 fL (7.4-10.4); MONOCYTES 12.4 % (2-11); NEUTROPHILS 40.3 % (40-80); PLATELET COUNT 241 10x3/uL (130-400); RBC 4.43 10x6/uL (4.20-6.10); RDW 13.5 % (11.5-14.5); WBC 6.5 10x3/uL (4.8-10.8)
[2019-02-02 02:53] LABS: ALBUMIN 3.3 g/dL (3.4-5.0); ANION GAP 11.9 mmol/L (8-16); BILIRUBIN - TOTAL 0.34 mg/dL (0.2-1.3); CALCIUM 8.8 mg/dL (8.5-10.1); CARBON DIOXIDE 28.1 mmol/L (21.0-32.0); CREATININE - SERUM 1.1 mg/dL (0.6-1.3); PROTEIN - SERUM 6.7 g/dL (6.4-8.2)
--- NOTE | 2019-02-02 03:24 | NUR ---
ADMISSION ASSESSMENT COMPLETED. PT RESTING IN BED WITH NO DISTRESS. PLAN OF CARE HAS BEEN INITIATED. 63/SR PER TELEMETRY. AMADO CURRENTLY SLEEPING WITH HIM IN THE BED.
[2019-02-02 04:00] VITALS: BP 120/60
[2019-02-02 04:11] VITALS: BP 134/76; BMI 31.8
--- NOTE | 2019-02-02 07:43 | NUR ---
ALERT AND ORIENTED.TELEMERTY SHOWS SR 64. LEFT AC SL. C/0 PAIN TO HIS CHEST AT 7. MORPHINE 4MG IVP GIVEN FOR RELIEF. FAMILY AT BEDSIDE. SR UP WITH CALL LIGHT IN REACH
[2019-02-02 08:21] VITALS: BP 116/54
[2019-02-02 08:47] LABS: CKMB 2.8 U/L (0.0-3.6); CREATINE KINASE 162 UL (21-232); TROPONIN-I 0.023 ng/mL (0.000-0.060)
[2019-02-02] MEDS ORDERED: ISOSORBIDE MONO60 M1 PO (09:25)
--- NOTE | 2019-02-02 10:28 | NUR ---
PT DISCHARGED. IV DCD WITH TIP INTACT. INSTRUCTIONS GIVEN TO PT. TO PRIVATE CAR PER WHEELCHAIR
--- NOTE | 2019-02-04 08:44 | MORECARE ---
CASE MANAGEMENT DISCHARGE SUMMARY PATIENT: ANDREY OSMAN JR UNIT: [id number] ADM DATE: 02/01/19 AGE: 53 : 67 SEX: M ROOM/BED: D.2119 AUTHOR: RITCHIE ROBIN PHYSICIAN: REFERRING PHYSICIAN: BRIANA HOYOS MD DATE OF SERVICE: 02/04/19 Discharge Plan Patient Name: ANDREY OSMAN Facility: [facility]:[place] : 1965 Planned Disposition: Home Anticipated Discharge Date: 02/02/19 Discharge Date: 02/02/2019 Expected LOS: 1 Initial Reviewer: [email or web address] Initial Review Date: 02/04/2019 Generated: 02/04/19 9:44 am Patient Name: ANDREY OSMAN Page [id number] at 0844 All edits/amendments must be made on the electronic document DICTATION DATE: 02/04/1944 CLIENT REPRESENTATIVE: DM 02/04/19 0844 RPT#: [id number] DC DATE:02/02/19 STATUS: DIS IN [facility] [address] [place] [address] END OF REPORT
--- NOTE | 2019-02-04 09:50 | DS ---
PATIENT:ANDREY AVERY JR :67 MEDICAL RECORD: [id number] DISCHARGE SUMMARY ADMISSION DATE: 02/01/19 DISCHARGE DATE: 02/02/19 DIAGNOSES: 1. Angina. 2. Coronary artery disease. 3. Previous multivessel percutaneous transluminal coronary angioplasty stent. 4. Hypertension. 5. Hyperlipidemia. 6. Smoking history. 7. Chronic obstructive pulmonary disease. HISTORY OF PRESENT ILLNESS: Mr. Avery presents with anginal symptomatology; however, troponin is normal. EKG is normal. His Imdur was increased to 60 mg b.i.d. He will follow up with [facility] as previously scheduled. TRANSINT:[id number] Voice Confirmation ID: [id number] DOCUMENT ID: [id number] BRIANA HOYOS MD at 0950 CC: [id number] DICTATION DATE: 02/02/19 1114 CHILD CARE GROUP LEADER: 02/02/19 2324 DIS IN 02/02/19 [facility] [address] [place] [address]
--- NOTE | 2019-02-04 09:50 | HP ---
PATIENT: ANDREY AVERY JR MEDICAL RECORD: [id number] ACCOUNT: [id number] LOCATION:[facility].2119 : 67 ADMISSION DATE: 02/01/19 PCP: ELIZABETH GASPAR HISTORY AND PHYSICAL EXAMINATION ADMITTING DIAGNOSES: 1. Angina. 2. Coronary artery disease. 3. Multivessel percutaneous transluminal coronary angioplasty stent. 4. Hypertension. 5. Hyperlipidemia. 6. Smoking history. 7. Chronic obstructive pulmonary disease. HISTORY OF PRESENT ILLNESS: Mr. Avery presents with anginal symptomatology. It has been going on for approximately 2 days. His last cardiac intervention; however, was in October. He is currently on Ranexa and Imdur. He has been intolerant to calcium channel blockers in the past due to hypotension. He has been intolerant to beta blockers as he has resting bradycardia and this is worse in the bradycardia as well as the fact that he has COPD and a smoking history. His Imdur was only at once a day. His EKG is with no changes. Troponin is normal. PHYSICAL EXAMINATION: GENERAL APPEARANCE: Well-nourished, well-developed, appears stated age. Level of distress, comfortable. PSYCHIATRIC: Mental status, alert, normal affect. Orientation, oriented to time, place and person. EYES: Lids and conjunctiva, noninjected. No discharge, no pallor. ENT: Lips, teeth, gums, normal dentition. Oropharynx, no cyanosis, no pallor. NECK: Carotid arteries, bilateral normal upstroke, no bruits, no thrills. JUGULAR VEINS: No jugular venous pressure or distention. CERVICAL LYMPH NODES: Nontender, nonenlarged. THYROID: Not enlarged. Nontender. No nodules. LUNGS: Respiratory effort, unlabored. CHEST: Normal curvature. No thoracic deformity. No chest wall tenderness. Percussion, resonant. Auscultation, clear. No wheezes, no rales, no rhonchi. CARDIOVASCULAR: Precordial exam, nondisplaced. No heaves or pericardial thrills. Rate and rhythm, regular. Heart sounds, normal S1, normal S2. No S3, no gallop, no rub. Systolic murmur, not heard. Diastolic murmur, not heard. EXTREMITIES: No cyanosis, no edema. Peripheral pulses, full and equal in all extremities, except as noted. No bruits appreciated. ABDOMEN: Soft, nondistended. Normal aorta. No bruit. Nontender. No masses. Liver, nontender, no hepatomegaly. Spleen, nontender, no splenomegaly. MUSCULOSKELETAL: No joint tenderness. No joint swelling. No erythema. NEUROLOGICAL: Normal gait, normal strength, normal tone. SKIN: Warm and dry. OVERALL IMPRESSION: Anginal symptomatology. At this time, we will increase the Imdur to 60 mg b.i.d., continuing the Ranexa. Will follow up in 2 weeks as previously scheduled. He will call if he has increasing anginal symptomatology. TRANSINT:[id number] Voice Confirmation ID: [id number] DOCUMENT ID: [id number] HISTORY AND PHYSICAL [id number] ANDREY AVERY JR, BRIANA TAVERAS at 0950 CC: [id number] DICTATION DATE: 02/02/19 1114 WOOL HAT HYDRAULICKER: 02/02/19 1138 DIS IN 02/02/19 [id number] [place] [address]
== END 2019-02-02 10:39 | disposition home or self-care (01) ==
LOC: D.ER 18:45 → OBSVTIME 18:55 → D.M2 18:55
PROVIDERS: Family Medicine; ADMIT Internal Medicine Interventional Cardiology; ATTEND Internal Medicine Interventional Cardiology
DX: I25.119 Atherosclerotic heart disease of native coronary artery with unspecified angina pectoris (principal); I10 Essential (primary) hypertension; E78.5 Hyperlipidemia, unspecified; J44.9 Chronic obstructive pulmonary disease, unspecified; Z87.891 Personal history of nicotine dependence

== ENCOUNTER 2019-04-26 03:35 | Inpatient (IN) | payer MEDICARE ==
[~2019-04-26] VITALS: Ht 170.2 cm; Wt 95.2 kg
--- NOTE | ~2019-04-26 | HEMODYNAMI ---
PATIENT:ANDREY OSMAN JR MEDICAL RECORD: [id number] : 67 LOCATION:[facility] D.[address] [facility]# [id number] ADMISSION DATE: 04/26/19 Generatedon:04/26/201913:35 Patient name: ANDREY OSMAN Patient #: [id number] SSN: [id number] : 1965 Date of study: 04/26/2019 Page: Of Hemodynamic Procedure Report Patient Data Patient Demographics Procedure consent was obtained First Name: ANDREY Gender: Male Last Name: DAWSON Suffix: Jr Adhikari Initial: Alpesh : 1965 Patient #: [id number] Age: 53 year(s) Race: SSN: [id number] Additional ID: [id number] Contact details [address]: [address] [place] [address] State: [place] City: [place] Zip code: [address] Past Medical History History of disease Date Diagnosis Comments CAD Allergies Allergen Reaction Date Comments Reported Other allergy 12/30/2015 Plavix (pt gets hives) Other allergy 07/30/2016 plavix Other allergy 08/01/2016 Plavix Other allergy 04/30/2017 plavix Other allergy 07/29/2017 Plavix Other allergy 08/16/2017 plavix Other allergy 04/26/2019 PLAVIX Admission Admission Data Admission Date: 04/26/2019 Admission Time: 8:18 Room #: D.2114 Lab Results Lab Result Date: 04/26/2019 Lab Result Time: 0:00 Biochemistry Name Units Result Min Max BUN mg/dl 12 --(-*--)-- 7 18 Creatinine mg/dl 1.2 --(---*)-- 0.6 1.3 eGFR ml/min 67.58669 *-(----)-- 90 120 NONAFRICAN CBC Name Units Result Min Max Hematocrit % 39 *-(----)-- 42 54 Hemoglobin g/dl 13.7 --(*---)-- 13.5 17.5 Procedure Procedure Types Cath Procedure Diagnostic Procedure [facility] w/Coronaries Sedation Charges Moderate Sedation up to 15 minutes Procedure Description Procedure Date Procedure Date: 04/26/2019 Procedure Start Time: 13:12 Procedure End Time: 13:30 Procedure Staff Name Function Elis Garcia RT Scrub Coco Nielsen RN Nurse Rigoberto Beaulieu MD Performing Physician Jenna Menon RT Monitor Procedure Data Cath Procedure Fluoroscopy Diagnostic fluoroscopy Total fluoroscopy Time: 2.8 time: 2.8 min min Diagnostic fluoroscopy Total fluoroscopy dose: 439 dose: 439 mGy mGy Contrast Material Contrast Material Type Amount (ml) Isovue 300 69 Entry Location Entry Primary Successful Side Size Upsize Upsize Entry Closure Buenrostro ccessful Closure Location (Fr) 1 (Fr) 2 (Fr) Remarks Device Remarks Femoral Right 5 Fr Manual vein Compression Femoral Right 5 Fr Exoseal artery Estimated blood loss: 5 ml Diagnostic catheters Device Type Used For End Catheter Placement MULTIPACK JL 4.0 5Fr Left Coronary catheter Angiography MULTIPACK 3DRC 5Fr Right Coronary catheter Angiography MULTIPACK Pigtail 5 Fr LV Angiography catheter Procedure Complications No complications Procedure Medications Medication Administration Route Dosage 0.9% NaCl I.V. 100 ml/hr Oxygen etCO2 Nasal cannula 2 l/min Lidocaine 2% added to field 20 Heparin Flush Bag added to field 2 bags (1000units/500ml NS) Effient P.O. 10 mg Versed I.V. 2 mg Fentanyl I.V. 50 mcg Versed I.V. 1 mg Fentanyl I.V. 50 mcg Hemodynamics Rest HGB: 13.7 (g/dl) Heart Rate: 67 (bpm) Pressure Samples Time Site Value (mmHg) Purpose Heart Use Rate(bpm) 13:24 LV 129/12,24 Snapshot 63 13:26 AO 128/75(98) Pullback 63 13:26 LV 143/18,29 Pullback 63 Gradients Valve Time Site 1 Site 2 Mean SEP/DFP Peak To Heart Use (mmHg) (sec/min) Peak Rate (mmHg) (bpm) Aortic 13:26 LV AO 10 18 15 63 143/18,29 128/75(98) Calculations Valve P-P Mean Valve Index Valve Source Name Gradient Area Flow (cm2) Aortic 15 10 15 10 Snapshots Pre Cath Intra NCS Post Cath Vital Signs Time Heart Resp SPO2 etCO2 NIBP (mmHg) Rhythm Pain Sedation Rate (ipm) (%) (mmHg) Status Level (bpm) 13:04:45 57 16 99 35.3 138/71(116) SB 0 (11) 10(A) , No pain 13:09:07 59 12 97 35.3 125/75(94) SB 0 (11) 10(A) , No pain 13:13:31 57 15 100 37.6 118/62(93) SB 0 (11) 10(A) , No pain 13:18:32 58 17 99 20.3 116/81(107) SB 0 (11) 9(A) , No pain 13:22:44 60 16 99 35.3 123/91(118) NSR 0 (11) 9(A) , No pain 13:26:58 62 15 99 30.6 136/85(118) NSR 0 (11) 10(A) , No pain 13:31:14 60 6 96 0 138/79(110) NSR 0 (11) 10(A) , No pain Medications Time Medication Route Dose Verified Delivered Reason Notes E ffectiveness by by 13:03:05 Effient P.O. 10 mg Rigoberto Coco for Christofer lino RN therapy 13:03:34 0.9% NaCl I.V. 100 Devante Coco used for ml/hr [facility] procedure MD CANALES 13:03:41 Oxygen etCO2 2 Devante Coco used for Nasal l/min [facility] procedure cannula MD CANALES 13:03:54 Lidocaine 2% added 20ml Devante Rosenthalory for local to vial [facility] anesthetic field MD TAVERAS 13:03:59 Heparin Flush added 2 Devante Devante used for Bag to bags [facility] procedure (1000units/500ml field MD TAVERAS NS) 13:10:25 Versed I.V. 2 mg Rigoberto Coco for sedation Christofer Nielsen RN 13:10:33 Fentanyl I.V. 50 Rigoberto Coco for sedation mcg Christofer Nielsen RN 13:14:56 Versed I.V. 1 mg Rigoberto Coco for sedation Christofer Nielsen RN 13:15:10 Fentanyl I.V. 50 Rigoberto Coco for sedation mcg Christofer Nielsen RN Procedure Log Time Note 12:43:29 Coco Nielsen RN sent for patient. Start room use. 12:43:31 Procedure Status Urgent Heart Cath (IP). 12:43:32 Time tracking: Regular hours (M-F 7:00 - 5:00) 12:43:36 Plan of Care:Hemodynamics will remain stable., Cardiac rhythm will remain stable., Comfort level will be maintained., Respiratory function will remain adequate., Patient/ family verbilizes understanding of procedure., Procedure tolerated without complication., Recovers from procedure without complications.. 12:51:51 Patient allergic to Other allergyPLAVIX 12::25 Lab Result : BUN 12 mg/dl 12:: Lab Result : Creatinine 1.2 mg/dl 12:: Lab Result : eGFR NONAFRICAN 67.10924 ml/min :: Lab Result : Hemoglobin 13.7 g/dl 12:: Lab Result : Hematocrit 39 % 12:54:26 Patient received from Med II to CCL 1 Alert and oriented. Tansferred to table in Supine position. 12:54:28 Signed procedure consent form obtained from patient. 12:54:29 Warm blankets applied, and pilo hugger turned on for patient comfort. 12:54:29 Correct patient and procedure confirmed by team. 12:54:30 ECG and BP/O2 sat monitors applied to patient. 13:03:05 Effient 10 mg P.O. was administered by Ccoo Nielsen RN; for antiplatelet therapy; 13:03:25 Vital chart was started 13:03:34 0.9% NaCl 100 ml/hr I.V. was administered by Coco Nielsen RN; used for procedure; 13:03:41 Oxygen 2 l/min etCO2 Nasal cannula was administered by Coco Nielsen RN; used for procedure; 13:03:54 Lidocaine 2% 20ml vial added to field was administered by Devante Fitzgerald MD; for local anesthetic; 13:03:59 Heparin Flush Bag (1000units/500ml NS) 2 bags added to field was administered by Devante Fitzgerald MD; used for procedure; 13:04:29 Baseline sample Acquired. 13:06:23 Full Disclosure recording started 13:06:24 Pre-procedure instructions explained to patient. 13:06:24 Pre-op teaching completed and patient verbalized understanding. 13:06:26 Family unavailable. 13:06:32 Patient NPO since Midnight. 13:06:34 Is patient on blood thinner?Yes 13:06:37 ACC The patient was administered the following blood thiners within the last 24 hours: ACCEffient 13:06:43 EFFIENT TAKEN YESTERDAY 13:06:45 Patient diabetic? No. 13:06:51 Previous problem with sedation/anesthesia? No ? 13:06:52 Snore? Yes 13:06:53 Sleep apnea? Yes 13:06:54 Deviated septum? No 13:06:55 Opens mouth fully? Yes 13:06:56 Sticks out tongue? Yes 13:06:59 Airway obstruction? Yes COPD 13:07:02 Dentures? Yes OUT 13:07:13 Pre procedure: right dorsailis pedis pulse 2+ Normal; easily identifiable; not easily obliterated 13:07:17 IV patent on arrival in left hand with 0.9% NaCl at [facility]. 13:07:19 Lab results completed and on chart. 13:08:11 Right groin area was prepped with chlora-prep and draped in sterile fashion 13:08:12 Alarms reviewed by R. N. 13:08:12 Sharps counted by scrub and verified by R.N. 13:09:11 --------ALL STOP TIME OUT------ 13:09:12 Final Timeout: patient, procedure, and site verified with staff and physician. All members of the team are in agreement. 13:09:15 Right groin site verified by team. 13:09:18 Fire Safety Assessment: A--An alcohol-based skin anteseptic being used preoperatively., C--Open oxygen or nitrous oxide is being used., D--An ESU, laser, or fiber-optic light is being used. 13:09:20 Physical assessment completed. ASA score P 3 - A patient with severe systemic disease as per Rigoberto Beaulieu MD. 13:09:23 2) 60-89 Mildly reduced kidney function, and other findings (as for stage 1) point to kidney disease. 13:09:25 Maximum allowable contrast dose (3.7 X eGFR X 0.75)186 ml. 13:09:29 Sedation plan: IV Moderate Sedation Medication:Versed, Fentanyl 13:09:55 Use device set Femoral Dx 13:09:55 ACIST Syringe (89016) opened to sterile field. 13:09:56 Bag Decanter (2001S) opened to sterile field. 13:09:56 ACIST Hand Control (78455) opened to sterile field. 13:09:57 ACIST Manifold (19665) opened to sterile field. 13:09:58 Tegaderm 4 x 4 (1626W) opened to sterile field. 13:09:59 Medline Cath Pack (UVGL53703) opened to sterile field. 13:10:01 DIAGNOSTIC Multipack 5Fr catheter set (KX2687) opened to sterile field. 13:10:02 SHEATH 5FR Peosta (UEU455) opened to sterile field. 13:10:02 EMERALD Guide Wire (293-805) opened to sterile field. 13:10:25 Versed 2 mg I.V. was administered by Coco Nielsen RN; for sedation; 13:10:33 Fentanyl 50 mcg I.V. was administered by Coco Nielsen RN; for sedation; 13:12:38 Zero performed for pressure channel P1 13:12:43 Procedure started. 13:12:55 Local anesthetic to right femoral artery with Lidocaine 2% by Rigoberto Beaulieu MD.INITIAL ACCESS ONLY 13:14:56 Versed 1 mg I.V. was administered by Coco Nielsen RN; for sedation; 13:15:10 Fentanyl 50 mcg I.V. was administered by Coco Nielsen RN; for sedation; 13:16:20 A 5 Fr sheath was inserted into the Right Femoral vein 13:16:53 A 5 Fr sheath was inserted into the Right Femoral artery 13:18:31 A MULTIPACK JL 4.0 5Fr catheter was advanced over the wire and used for Left Coronary Angiography. 13:19:54 LCA angiography performed. 13:19:57 Injector settings: Ml/sec: 3, Volume: 6, 13:21:44 Catheter removed. 13:21:50 A MULTIPACK 3DRC 5Fr catheter was advanced over the wire and used for Right Coronary Angiography. 13:22:42 RCA angiography performed. 13:22:45 Injector settings: Ml/sec: 3, Volume: 6, 13:23:17 Catheter removed. 13:24:17 A MULTIPACK Pigtail 5 Fr catheter was advanced over the wire and used for LV Angiography. 13:24:57 LV hemodynamics recorded. 13:24:58 LV gram done using ALANIS 13:25:01 Injector settings: Ml/sec: 5, Volume: 15, 13:25:43 EF : 50 % 13:26:01 EXOSEAL 5Fr (EX500) opened to sterile field. 13:26:42 Sheath removed intact; hemostasis achieved with Exoseal to the Right Femoral artery. 13:26:50 Sheath removed intact; hemostasis achieved with Manual Compression to the Right Femoral vein. 13:27:11 Procedure ended.(Physican Out) 13:28:08 Fluoroscopy time 02.80 minutes. 13:28:12 Fluoroscopy dose: 439 mGy 13:28:12 Flurop Dose total: 439 13:28:17 Dose Area Product 85320 mGy/cm. 13:28:37 Contrast amount:Isovue 300 69ml. 13:28:38 Sharps counted by scrub and verified by R.N. 13:28:41 Insertion/operative site no bleeding no hematoma. 13:29:06 Post right femoral artery:stable 13:29:07 Post Procedure Pulses reassessed and unchanged 13:29:10 Post procedure rhythm: unchanged. 13:29:35 Estimated blood loss: 5 ml 13:29:37 Post procedure instruction explained to patient.Patient verbalizes understanding. 13:29:37 Patient needs reinforcement of post procedure teaching. 13:29:58 Procedure type changed to Cath procedure, Diagnostic procedure, LHC, LHC w/Coronaries, Sedation Charges, Moderate Sedation up to 15 minutes 13:29:59 Procedure and supply charges have been captured, reviewed, submitted and are correct. 13:30:06 Procedure Complication : No complications 13:30:20 Vital chart was stopped 13:30:21 See physician's report for complete and final results. 13:30:30 Report given to [facility]. 13:30:33 Patient transfered to [facility] with Stretcher. 13:30:36 Procedure ended. 13:30:36 Full Disclosure recording stopped 13:30:42 End room use (Document Last) Device Usage Item Name Manufacture Quantity Catalog Hospital Part Current Minimal L ot# / Number Charge Number Stock Stock Serial# Code ACIST Acist 1 99351 003810 105406 013032 20 Syringe Since1910.com (01662) [employer] Bag Microtek 1 247814 90393 766413 5 Decanter Medical Inc. () ACIST Hand Acist 1 84719 554109 208178 342176 5 Control Medical (33971) Systems Inc ACIST Acist 1 12883 705235 409082 644503 5 Manifold Medical (15101) Systems Inc Tegaderm 4 3M 1 1626W 627146 603484 338357 5 x 4 (1626W) Medline Medline 1 [id number] 073451 31873 737978 5 Cath Pack ([id number]) DIAGNOSTIC Cardinal 1 DQ5322 667416 53150 999261 30 MultipBityota 5Fr catheter set (YI1312) SHEATH 5FR Terumo 1 DLZ025 312941 057738 096741 5 Peosta (AUY875) EMERALD Cardinal 1 787-934 389552 103417 869946 5 Guide Wire Sabesim (294-576) MULTIPACK Cardinal 1 018360 5 JL 4.0 5Fr Sabesim catheter MULTIPACK Cardinal 1 952744 5 3DRC 5Fr Sabesim catheter MULTIPACK Cardinal 1 991358 5 Pigtail 5 Health Fr catheter EXOSEAL 5Fr Cardinal 1 EX500 938833 270913 819736 10 (EX500) Health Signature Audit Chandler Stage Time Signature Unsigned Intra-Procedure 04/26/2019 Jenna Menon 1:32:30 PM RT(R) Intra-Procedure 04/26/2019 Coco Nielsen 1:33:16 PM RN Intra-Procedure 04/26/2019 Rigoberto Beaulieu MD 1:35:27 PM [facility] [address] [place] [address]
--- NOTE | ~2019-04-26 | HEMODYNAMI ---
PATIENT:ANDREY OSMAN JR MEDICAL RECORD: [id number] : 67 LOCATION:[facility] D.[address] [facility]# [id number] ADMISSION DATE: 04/26/19 Generatedon:04/29/201913:18 Patient name: ANDREY OSMAN Patient #: [id number] SSN: [id number] : 1965 Date of study: 04/29/2019 Page: Of Hemodynamic Procedure Report Patient Data Patient Demographics Procedure consent was obtained First Name: ANDREY Gender: Male Last Name: DAWSON Suffix: Jr Adhikari Initial: Alpesh : 1965 Patient #: [id number] Age: 53 year(s) Race: SSN: [id number] Additional ID: [id number] Contact details [address]: [address] [place] [address] State: [place] City: [place] Zip code: [address] Past Medical History History of disease Date Diagnosis Comments CAD Allergies Allergen Reaction Date Comments Reported Other allergy 12/30/2015 Plavix (pt gets hives) Other allergy 07/30/2016 plavix Other allergy 08/01/2016 Plavix Other allergy 04/30/2017 plavix Other allergy 07/29/2017 Plavix Other allergy 08/16/2017 plavix Other allergy 04/26/2019 PLAVIX Other allergy 04/29/2019 plavix Admission Admission Data Admission Date: 04/26/2019 Admission Time: 8:18 Arrival Date: 04/29/2019 Arrival Time: 0:00 Admit Source: Emergency Insurance Payor: Medicare department [facility] #: [id number] Room #: D.2114 Height (in.): 66.93 BSA: 2 (m2) Height (cm.): 170 BMI: 30.8 (kg/m2) Weight (lbs.): 196.21 Weight (kg.): 89 Lab Results Lab Result Date: 04/29/2019 Lab Result Time: 5:09 Biochemistry Name Units Result Min Max BUN mg/dl 12 --(-*--)-- 7 18 Creatinine mg/dl 1.1 --(--*-)-- 0.6 1.3 CBC Name Units Result Min Max Hematocrit % 39.3 -*(----)-- 42 54 Hemoglobin g/dl 13.7 --(*---)-- 13.5 17.5 Procedure Procedure Types Cath Procedure Diagnostic Procedure Sedation Charges Moderate Sedation up to 30 minutes PCI Procedure Coronary Atherectomy Atherectomy w/PTCA Coronary Initial Procedure Description Procedure Date Procedure Date: 04/29/2019 Procedure Start Time: 12:46 Procedure End Time: 13:11 Procedure Staff Name Function Jenna Menon RT Scrub Leobardo Stratton MD Performing Physician Tesfaye Garza RT Monitor Morena Crawley RN Nurse Indication Angina Procedure Data Cath Procedure Fluoroscopy Diagnostic fluoroscopy Total fluoroscopy Time: 8.3 time: 8.3 min min Diagnostic fluoroscopy Total fluoroscopy dose: 970 dose: 970 mGy mGy Contrast Material Contrast Material Type Amount (ml) Isovue 300 82 Entry Location Entry Primary Successful Side Size Upsize Upsize Entry Closure Succes sful Closure Location (Fr) 1 (Fr) 2 (Fr) Remarks Device Remarks Femoral Left 6 Fr Exoseal artery Short Estimated blood loss: 10 ml Procedure Complications No complications Procedure Medications Medication Administration Route Dosage Oxygen NC 2 l/min Lidocaine 2% added to field 20 0.9% NaCl I.V. 100 ml/hr Heparin Flush Bag added to field 2 bags (1000units/500ml NS) Versed I.V. 1 mg Fentanyl I.V. 50 mcg Heparin Bolus I.V. 5000 units Nitroglycerin IC/IA I.C. 200 mcg Nitroglycerin IC/IA I.C. 200 mcg Versed I.V. 1 mg Fentanyl I.V. 50 mcg Hemodynamics Rest BSA: 2 (m2) HGB: 13.7 (g/dl) O2 Consumption: Estimated: 226.7 (ml/min) O2 Consum ption indexed: Estimated:113.35 (ml/min/m) Heart Rate: 55 (bpm) Snapshots Pre Cath Intra NCS Post Cath Vital Signs Time Heart Resp SPO2 etCO2 NIBP (mmHg) Rhythm Pain Sedation Rate (ipm) (%) (mmHg) Status Level (bpm) 12:27:55 55 13 96 0 147/78(116) NSR 0 (11) 10(A) , No pain 12:32:54 53 12 95 37.6 Measuring NSR 0 (11) 10(A) , No pain 12:33:13 54 14 96 33.1 125/66(83) NSR 0 (11) 10(A) , No pain 12:37:29 55 12 97 0 123/61(79) NSR 0 (11) 10(A) , No pain 12:41:37 59 18 98 36.8 112/80(89) NSR 0 (11) 10(A) , No pain 12:45:47 56 15 97 29.3 124/64(90) NSR 0 (11) 10(A) , No pain 12:49:54 55 18 92 0 110/82(94) NSR 0 (11) 9(A) , No pain 12:54:54 57 17 93 25.5 Measuring NSR 0 (11) 9(A) , No pain 12:54:55 56 17 93 25.5 115/73(92) NSR 0 (11) 9(A) , No pain 12:59:55 54 14 94 0 Measuring NSR 0 (11) 9(A) , No pain 13:00:01 53 14 95 0 150/82(101) NSR 0 (11) 9(A) , No pain 13:04:15 55 21 97 0 155/92(136) NSR 0 (11) 9(A) , No pain 13:08:33 53 13 94 0 141/87(111) NSR 0 (11) 10(A) , No pain Medications Time Medication Route Dose Verified Delivered Reason Notes E ffectiveness by by 12:40:57 Oxygen NC 2 Morena Morena used for l/min Misbah Misbah wellness program manager RN 12:41:07 Lidocaine 2% added 20ml Morena Morena for local to vial Misbah Misbah anesthetic field RN RN 12:41:20 0.9% NaCl I.V. 100 Morena Morena used for ml/hr Misbah Misbah wellness program manager RN 12:41:31 Heparin Flush added 2 Morena Morena used for Bag to bags Misbah Misbah procedure (1000units/500ml field RN RN NS) 12:41:47 Versed I.V. 1 mg Leobardo Stratton MD Misbah sedation RN 12:41:58 Fentanyl I.V. 50 Leobardo Berg for mcg Viral Mariaor sedation RN 12:46:53 Versed I.V. 1 mg Leobardo Berg for Viral Crawley sedation RN 12:47:01 Fentanyl I.V. 50 Leobardo Berg for mcg Viral Mariaor sedation RN 12:49:16 Heparin Bolus I.V. 5000 Leobardo Berg verfiied units Viral Crawley with dr. PARKER stratton 13:04:51 Nitroglycerin I.C. 200 Leobardo Booth used for IC/IA mcg Viral Stratton MD procedure 13:05:34 Nitroglycerin I.C. 200 Leobardo Booth used for IC/IA mcg Viral Stratton MD procedure Procedure Log Time Note 12:05:16 Informed consent obtained and on chart 12:06:12 Lab Result : Hemoglobin 13.7 g/dl 12:06:12 Lab Result : Hematocrit 39.3 % 12:06:12 Lab Result : BUN 12 mg/dl 12:06:12 Lab Result : Creatinine 1.1 mg/dl 12:08:19 PCI Cath Status : Elective 12:08:30 Indication : Angina 12:10:34 Insurance Payor : Medicare 12:10:49 Arrival Date: 04/29/2019 12:00:00 AM 12:10:51 Admit Source: Emergency department 12:10:59 Patient Weight : 196.21 lbs 12:11:01 Patient Height : 66.93 inches 12:11:39 ACC Patient presents with Unstable Angina CCS Anginal Class 4--Inability to carry out any physical activity w/o angina. Angina may occur at rest. 12:14:12 ACCPatient has been prescribed/administered the following anti-anginal medication within the last 2 weeks: Long-Acting Nitrates 12:15:23 Procedure Status PCI. 12:15:25 Jenna GALLARDO(R) sent for patient. Start room use. 12:15:26 Time tracking: Regular hours (M-F 7:00 - 5:00) 12:15:29 Plan of Care:Hemodynamics will remain stable., Cardiac rhythm will remain stable., Comfort level will be maintained., Respiratory function will remain adequate., Patient/ family verbilizes understanding of procedure., Procedure tolerated without complication., Recovers from procedure without complications.. 12:17:37 Patient received from Med II to CCL 2 Alert and oriented. Tansferred to table in Supine position. 12:17:38 Warm blankets applied, and pilo hugger turned on for patient comfort. 12:17:39 Correct patient and procedure confirmed by team. 12:17:40 ECG and BP/O2 sat monitors applied to patient. 12:18:04 H&P Date Dictated: 04/26/2019 Within 30 days and on chart.. 12:26:51 Vital chart was started 12:34:56 Baseline sample Acquired. 12:34:58 Rhythm: sinus rhythm 12:35:38 Full Disclosure recording started 12:35:39 Pre-op teaching completed and patient verbalized understanding. 12:35:39 Pre-procedure instructions explained to patient. 12:35:41 Family unavailable. 12:35:42 Patient NPO since Midnight. 12:35:52 Patient allergic to Other allergyplavix 12:35:53 Is the patient allergic to Iodine/contrast media? No. 12:35:54 Is patient on blood thinner?Yes 12:35:57 ACC The patient was administered the following blood thiners within the last 24 hours: ACCAspirin, ACCEffient 12:36:05 Patient diabetic? No. 12:36:08 Snore? Yes 12:36:08 Previous problem with sedation/anesthesia? No ? 12:36:09 Sleep apnea? Yes 12:36:10 Opens mouth fully? Yes 12:36:10 Deviated septum? No 12:36:11 Sticks out tongue? Yes 12:36:15 Airway obstruction? Yes COPD 12:36:18 Dentures? Yes OUT 12:36:21 Pre procedure: left dorsailis pedis pulse 2+ Normal; easily identifiable; not easily obliterated 12:36:22 Patient pain scale 0/10 ?. 12:36:31 IV started by Morena Crawley RN inleft hand with a 22 gauge IV catheter with 0.9% NaCl at KVO. 12:36:36 Lab results completed and on chart. 12:36:39 Left groin area was prepped with chlora-prep and draped in sterile fashion 12:36:40 Sharps counted by scrub and verified by R.N. 12:36:40 Alarms reviewed by Yolanda Billy. 12:36:51 IV Extension Set opened to sterile field. 12:36:52 IV CATHETER 22g opened to sterile field. 12:37:00 ACIST Syringe (92515) opened to sterile field. 12:37:01 Medline Cath Pack ([id number]) opened to sterile field. 12:37:01 Bag Decanter (2002S) opened to sterile field. 12:37:03 ACIST Manifold (87835) opened to sterile field. 12:37:03 ACIST Hand Control (04348) opened to sterile field. 12:37:04 Tegaderm 4 x 4 (1626W) opened to sterile field. 12:37:06 EMERALD Guide Wire (502-116) opened to sterile field. 12:37:15 SHEATH 6FR Barrington (EPP233) opened to sterile field. 12:37:24 CHOICE PT Extra Support 182cm wire ([id number]) opened to sterile field. 12:37:24 INFLATOR Merit BasixCompak (CD4156) opened to sterile field. 12:37:31 LASER ELCA 0.9 Rx atherectomy catheter (178950) opened to sterile field. 12:40:57 Oxygen 2 l/min NC was administered by Morena Crawley RN; used for procedure; 12:41:07 Lidocaine 2% 20ml vial added to field was administered by Morena Crawley RN; for local anesthetic; 12:41:12 Physician arrived 12:41:13 Final Timeout: patient, procedure, and site verified with staff and physician. All members of the team are in agreement. 12:41:13 --------ALL STOP TIME OUT------ 12:41:14 Left groin site verified by team. 12:41:17 Fire Safety Assessment: A--An alcohol-based skin anteseptic being used preoperatively., C--Open oxygen or nitrous oxide is being used., D--An ESU, laser, or fiber-optic light is being used. 12:41:20 0.9% NaCl 100 ml/hr I.V. was administered by Morena Crawley RN; used for procedure; 12:41:31 Heparin Flush Bag (1000units/500ml NS) 2 bags added to field was administered by Morena Crawley RN; used for procedure; 12::43 Physical assessment completed. ASA score P 2 - A patient with mild systemic disease as per Leobardo Stratton MD. 12::47 Versed 1 mg I.V. was administered by Morena Crawley RN; for sedation; 12:41:49 2) 60-89 Mildly reduced kidney function, and other findings (as for stage 1) point to kidney disease. 12:41:51 Maximum allowable contrast dose (3.7 X eGFR X 0.75)208 ml. 12:41:54 Sedation plan: IV Moderate Sedation Medication:Versed, Fentanyl 12:41:58 Fentanyl 50 mcg I.V. was administered by Morena Crawley RN; for sedation; 12:46:25 Post procedure rhythm: unchanged. 12:46:37 Procedure started. 12:46:43 Local anesthetic to left femerol artery with Lidocaine 2% by Leobardo Stratton MD.INITIAL ACCESS ONLY 12:46:53 Versed 1 mg I.V. was administered by Morena Crawley RN; for sedation; 12:46:53 A 6 Fr Short sheath was inserted into the Left Femoral artery 12:46:59 Zero performed for pressure channel P1 12:47:01 Fentanyl 50 mcg I.V. was administered by Morena Crawley RN; for sedation; 12:47:52 GUIDE 6FR XBLAD 3.5 catheter ([id number]) opened to sterile field. 12:47:59 6 Fr XBLAD 3.5 guide catheter was inserted over the wire 12:49:16 Heparin Bolus 5000 units I.V. was administered by Morena Crawley RN; ; verfiied with dr. stratton 12:50:02 CHOICE PT ES wire advanced. 12:50:03 Wire advanced across lesion. 12:51:46 Laser pass to pCirc with Fluence of 80 and Rate of 40. 12:54:13 Laser catheter removed. 12:54:51 Inflate balloon Inflation number: 1 A Mozec Rx 3.0 x 20 balloon was prepped and advanced across the Prox CX , then inflated to 21 PAUL for 0:10 (min:sec) . 12:55:03 Inflation number: 2 The Mozec Rx 3.0 x 20 balloon was reinflated across the Prox CX , to 21 PAUL for 0:10 (min:sec) . 12:55:08 ACC Pre-intervention CATARINA Flow is 3. 12:55:16 Pre PCI Site: [place] pCirc has 80% stenosis. 12:55:50 Wire redirected to LAD. 12:56:03 Wire advanced across lesion. 12:56:25 Pre PCI Site: [place] mLAD has 90% stenosis. 12:56:28 ACC Pre-intervention CATARINA Flow is 3. 12:56:34 Balloon removed over the wire. 12:58:13 Laser pass to mLAD with Fluence of 40 and Rate of 80. 13:01:15 Laser catheter removed. 13:02:32 Inflation number: 1 The Mozec Rx 3.0 x 20 balloon was reinflated across the Mid LAD , to 9 PAUL for 0:10 (min:sec) . 13:02:39 Inflation number: 2 The Mozec Rx 3.0 x 20 balloon was reinflated across the Mid LAD , to 15 PAUL for 0:10 (min:sec) . 13:04:51 Nitroglycerin IC/IA 200 mcg I.C. was administered by Leobardo Stratton MD; used for procedure; 13:05:34 Nitroglycerin IC/IA 200 mcg I.C. was administered by Leobardo Stratton MD; used for procedure; 13:09:23 Wire removed. 13:09:23 Balloon removed over the wire. 13:09:24 Guide catheter removed. 13:09:30 EXOSEAL 6Fr (EX600) opened to sterile field. 13:09:37 Sheath removed intact; hemostasis achieved with Exoseal to the Left Femoral artery. 13:09:39 Procedure ended.(Physican Out) 13:09:49 Fluoroscopy time 08.30 minutes. 13:09:52 Fluoroscopy dose: 970 mGy 13:09:52 Flurop Dose total: 970 13:10:02 Dose Area Product 41221 mGy/cm. 13:10:05 Contrast amount:Isovue 300 82ml. 13:10:06 Maximum allowable dose exceeded? No. 13:10:07 Sharps counted by scrub and verified by R.N. 13:10:08 Insertion/operative site no bleeding no hematoma. 13:10:10 Post-op/insertion site Left Femoral artery dressed using a 4 x 4 and Tegaderm. 13:10:20 Post left femerol artery:stable, soft, clean and dry 13:10:21 Post Procedure Pulses reassessed and unchanged 13:10:23 Post-procedure physical assessment completed. ASA score P 2 - A patient with mild systemic disease as per Leobardo Stratton MD. 13:10:27 Estimated blood loss: 10 ml 13:10:28 Post procedure instruction explained to patient.Patient verbalizes understanding. 13:10:55 Procedure type changed to Cath procedure, Diagnostic procedure, Sedation Charges, Moderate Sedation up to 30 minutes, PCI procedure, Coronary Atherectomy, Atherectomy w/PTCA Coronary Initial 13:11:16 Procedure and supply charges have been captured, reviewed, submitted and are correct. 13:11:18 Procedure Complication : No complications 13:11:20 See physician's report for complete and final results. 13:11:20 Vital chart was stopped 13:11:24 Report given to PCU. 13:11:27 Patient transfered to PCU with Stretcher. 13:11:33 Full Disclosure recording stopped 13:11:33 Procedure ended. 13:11:49 ACC Post-intervention CATARINA Flow is 3. 13:11:59 End room use (Document Last) 13:11:59 ACC-PCI Only Patient was given prescriptions, or instructed by Leobardo Stratton MD to start/continue the following medications upon discharge: Aspirin, Effient 13:12:13 Laser total treatment time: 2 minutes 48 seconds 13:12:18 Laser total pulses delivered: 6738 Intervention Summary Intervention Notes Time ActionType Lesion and Equipment Action# Pressure Duration Attributes Used 12:54:51 Inflate Prox CX Mozec Rx 1 21 00:10 balloon 3.0 x 20 balloon 12:55:03 Reinflate Prox CX Mozec Rx 2 21 00:10 balloon 3.0 x 20 balloon 13:02:32 Reinflate Mid LAD Mozec Rx 1 9 00:10 balloon 3.0 x 20 balloon 13:02:39 Reinflate Mid LAD Mozec Rx 2 15 00:10 balloon 3.0 x 20 balloon Device Usage Item Name Manufacture Quantity Catalog Number Hospital Part Current [facility] al Lot# / Charge Number Stock Stock Serial# Code IV Hospira 1 89836-11 754499 49858 674902 5 Extension Set IV CATHETER B. Cade 1 [id number] 478865 688961 911341 5 22g ACIST Acist 1 81645 266260 946398 657583 20 Syringe Medical (46024) Systems Inc Bag Microtek 1 2001S 441194 34130 537437 5 Decanter Medical Inc. (2001S) Medline Medline 1 [id number] 566158 83967 620497 5 Cath Pack ([id number]) ACIST Hand Acist 1 92887 621014 402604 792249 5 Control Medical (54118) Systems Inc ACIST Acist 1 75726 529500 316638 618822 5 Manifold Medical (16804) Systems Inc Tegaderm 4 3M 1 1626W 668858 580858 437230 5 x 4 (1626W) EMERALD Cardinal 1 502-455 088404 013431 693226 5 Guide Wire Sens[employer] (502-455) SHEATH 6FR Terumo 1 PFI681 072871 138386 184953 40 Barrington (WDU943) INFLATOR Merit 1 UT3305 140523 494787 482942 15 [facility] [place] Medical BasixCompak (PA5410) CHOICE PT Newton 1 [id number] 721790 217584 021365 5 Extra Scientific Support 182cm wire (8787548K4) LASER ELCA Marcello 1 110-004 315974 706967 220914 5 0.9 Rx Healthcare atherectomy (108765) catheter (226875) GUIDE 6FR Cardinal 1 [id number] 281905 916974 223728 10 XBLAD 3.5 Health catheter (84100691) Mozec Rx Cardinal 1 [id number] 861289 11837 930164 5 UMOD69 3.0 x 20 Health balloon EXOSEAL 6Fr Cardinal 1 EX600 467360 844653 990034 10 (EX600) Health Signature Audit [place] Stage Time Signature Unsigned Intra-Procedure 04/29/2019 Leobardo Stratton 1:12:42 PM Intra-Procedure 04/29/2019 Morena 1:15:07 PM Misbah CANALES Intra-Procedure 04/29/2019 Tesfaye Garza 1:18:13 PM RT(R) [facility] [address] [place] [address]
[~2019-04-26 03:35] MED LIST changes: +ISOSORBIDE MONO60 M1 PO
[2019-04-26 03:51] LABS: BASOPHILS 0.5 % (0-2); EOSINOPHILS 2.2 % (0-7); HEMOGLOBIN 13.7 g/dL (13.5-17.5); IMMATURE GRANULOCYTES 0.7 % (0-5); LYMPHOCYTES 49.8 % (15-50); MCH 31.3 pg (26.0-34.0); MCHC 35.1 g/dL (31.0-37.0); MEAN PLATELET VOLUME 8.9 fL (7.4-10.4); NEUTROPHILS 36.8 % (40-80); PLATELET COUNT 268 10x3/uL (130-400); RBC 4.38 10x6/uL (4.20-6.10); RDW 13.1 % (11.5-14.5)
[2019-04-26 04:03] LABS: INR 0.99 (0.85-1.17); PROTIME 12.6 SECONDS (11.6-15.0)
[2019-04-26 04:06] LABS: ALBUMIN 3.3 g/dL (3.4-5.0); ALKALINE PHOSPHATASE 90 U/L (46-116); ALT (SGPT) 38 U/L (10-68); BILIRUBIN - TOTAL 0.42 mg/dL (0.2-1.3); CALC OSMOLALITY 279 mosm/kg (275-300); CALCIUM 8.4 mg/dL (8.5-10.1); CARBON DIOXIDE 29.6 mmol/L (21.0-32.0); CHLORIDE - SERUM 104 mmol/L (98-107); CREATININE - SERUM 1.2 mg/dL (0.6-1.3); GLUCOSE 120 mg/dL (74-106); POTASSIUM - SERUM 3.8 mmol/L (3.5-5.1); PROTEIN - SERUM 6.7 g/dL (6.4-8.2); SODIUM 140 mmol/L (136-145); UREA NITROGEN 12 mg/dL (7-18); eGFR NON AFRICAN AMERICAN 67 mL/min (90-120)
[2019-04-26 04:17] LABS: CKMB 0.5 U/L (0.0-3.6); CREATINE KINASE 61 UL (21-232); PRO BNP 26 pg/mL (0-125)
[2019-04-26 04:18] LABS: TROPONIN-I < 0.017 ng/mL (0.000-0.060)
--- NOTE | 2019-04-26 04:46 | NUR ---
PT GIVEN BLANKETS, DENIES ANY FURTHER NEEDS AT THIS TIME. CALL LIGHT WITHIN REACH. WILL CONTINUE TO MONITOR.
--- NOTE | 2019-04-26 09:37 | NUR ---
RECEIVED PT FROM ER. PT IS AAO AND UP AD IGNACIO. RR EVEN AND UNLABORED ON RA. TELEMTRY PLACED ON PT AND PT IS RUNNING SINUS BRADYCARDIA @52. NS INFUSING @75ML/HR VIA L.HAND PIV. NO S/S OF DISTRESS NOTED. PT DENIES ANY CP AT THIS TIME. WILL CTM.
[2019-04-26 09:54] VITALS: BP 118/57; BMI 32.3
[2019-04-26 11:11] VITALS: Ht 170.2 cm; Wt 95.2 kg
[2019-04-26 11:26] LABS: ANION GAP 13.3 mmol/L (8-16); CALCIUM 8.8 mg/dL (8.5-10.1); CARBON DIOXIDE 26.1 mmol/L (21.0-32.0); CREATININE - SERUM 1.2 mg/dL (0.6-1.3); POTASSIUM - SERUM 4.4 mmol/L (3.5-5.1)
[2019-04-26 11:35] LABS: HEMATOCRIT 40.2 % (42.0-54.0); HEMOGLOBIN 13.8 g/dL (13.5-17.5); LYMPHOCYTES 40.1 % (15-50); MCH 30.9 pg (26.0-34.0); MCHC 34.3 g/dL (31.0-37.0); MCV 90.1 fL (80.0-100.0); MEAN PLATELET VOLUME 8.5 fL (7.4-10.4); NEUTROPHILS 57.7 % (40-80); PLATELET COUNT 290 10x3/uL (130-400); RBC 4.46 10x6/uL (4.20-6.10); RDW 12.7 % (11.5-14.5); WBC 5.6 10x3/uL (4.8-10.8)
--- NOTE | 2019-04-26 11:49 | NUR ---
CONSENTS SIGNED AND PT PREPPED AND CLIPPED. WILL CTM.
[2019-04-26 12:21] VITALS: BP 117/61
[2019-04-26 12:41] LABS: D-DIMER-QUANTITATIVE 0.39 ug/mLFEU (0.20-0.54)
--- NOTE | 2019-04-26 13:55 | NUR ---
RECEIVED PT FROM TRIPE SCRAPER. PT IS CURRENTLY RESTING. RR EVEN AND UNLABORED ON RA. NS INFUSING @100ML/HR VIA L.HAND PIV. VSS AND WNL. PT WILL LIE FLAT FOR TWO HOURS. WILL CTM.
[2019-04-26 16:50] VITALS: BP 104/64
[2019-04-26 20:00] VITALS: BP 112/63
--- NOTE | 2019-04-26 20:00 | NUR ---
INITIAL ROUNDS AND ASSESSMENT COMPLETED. PT RESTING IN BED WITH NO DISTRESS. IVF NS @ 75ML/HR INFUSING TO LEFT HAND. SR/63 PER TELEMETRY. NONLABORED RESPIRATIONS ON ROOM AIR. RIGHT GROIN SITE C/D/I. NO NEEDS. CALL LIGHT IN REACH. CPOC.
[2019-04-27 00:08] VITALS: BP 117/58
[2019-04-27 04:00] VITALS: BP 108/55
[2019-04-27 05:53] LABS: BASOPHILS 0.3 % (0-2); EOSINOPHILS 1.7 % (0-7); HEMATOCRIT 36.3 % (42.0-54.0); HEMOGLOBIN 12.7 g/dL (13.5-17.5); IMMATURE GRANULOCYTES 0.7 % (0-5); LYMPHOCYTES 33.6 % (15-50); MCH 31.3 pg (26.0-34.0); MCV 89.4 fL (80.0-100.0); MEAN PLATELET VOLUME 8.8 fL (7.4-10.4); MONOCYTES 9.9 % (2-11); NEUTROPHILS 53.8 % (40-80); PLATELET COUNT 269 10x3/uL (130-400); RBC 4.06 10x6/uL (4.20-6.10); WBC 6.1 10x3/uL (4.8-10.8)
[2019-04-27 06:38] LABS: ANION GAP 10.7 mmol/L (8-16); CALCIUM 8.2 mg/dL (8.5-10.1); CARBON DIOXIDE 28.3 mmol/L (21.0-32.0); CREATININE - SERUM 1.2 mg/dL (0.6-1.3); PHOSPHOROUS 3.3 mg/dL (2.5-4.9)
[2019-04-27 09:36] VITALS: BP 114/46; BP 127/53
--- NOTE | 2019-04-27 10:34 | NUR ---
RECEIVED PT IN BED AAOX4 RESP UNALBORED DENIES ANY NEEDS OR DISCOMFORT NAD NOTED
[2019-04-27 13:42] VITALS: BP 113/55
[2019-04-27 18:25] VITALS: BP 123/59
--- NOTE | 2019-04-27 19:47 | NUR ---
INITIAL ROUNDS AND ASSESSMENT COMPLETED. PT AWAKE/ALERT/ORIENTED. RESTING IN BED. NONLABORED RESPIRATIONS ON ROOM AIR. IV TO LEFT HAND [place] LOCKED, PT HAS JUST TAKEN A SHOWER AND IS DRINKING PLENTY OF FLUIDS. SB/53 PER TELEMETRY. DRESSING TO RIGHT GROIN C/D/I. CPOC. CALL LIGHT IN REACH.
[2019-04-27 20:00] VITALS: BP 114/57
[2019-04-28] VITALS: BP 115/53
[2019-04-28 04:00] VITALS: BP 117/63
[2019-04-28 04:51] LABS: BASOPHILS 0.3 % (0-2); EOSINOPHILS 2.2 % (0-7); HEMATOCRIT 36.4 % (42.0-54.0); HEMOGLOBIN 12.7 g/dL (13.5-17.5); IMMATURE GRANULOCYTES 0.5 % (0-5); LYMPHOCYTES 33.7 % (15-50); MCHC 34.9 g/dL (31.0-37.0); MCV 88.8 fL (80.0-100.0); MEAN PLATELET VOLUME 8.7 fL (7.4-10.4); MONOCYTES 10.3 % (2-11); PLATELET COUNT 240 10x3/uL (130-400); RDW 12.9 % (11.5-14.5); WBC 7.4 10x3/uL (4.8-10.8)
[2019-04-28 05:09] LABS: ANION GAP 9.8 mmol/L (8-16); CALCIUM 9.1 mg/dL (8.5-10.1); CARBON DIOXIDE 30.6 mmol/L (21.0-32.0); CREATININE - SERUM 1.3 mg/dL (0.6-1.3); MAGNESIUM - SERUM 1.8 mg/dL (1.8-2.4); POTASSIUM - SERUM 4.4 mmol/L (3.5-5.1)
--- NOTE | 2019-04-28 07:18 | NUR ---
RECEIVED PT IN BED EYES CLOSED RESP UNLABORED NAD NOTED
[2019-04-28 08:00] VITALS: BP 110/65
[2019-04-28 13:47] VITALS: BP 112/73
[2019-04-28 17:13] VITALS: BP 123/59
[2019-04-28 20:00] VITALS: BP 118/58
--- NOTE | 2019-04-28 20:21 | NUR ---
INITIAL ROUNDS AND ASSESSMENT COMPLETED. PT RESTING IN BED. ALERT/ORIENTED. SR/62 PER TELEMETRY. [place] LOCK TO LEFT HAND. INSTRUCTED ON NPO AFTER MIDNIGHT FOR AM HEART CATH. PT C/O BEING NAUSEATED SINCE TAKING THE LAST DOSE OF MORPHINE. WILL ADMINISTER ZOFRAN. CPOC.
[2019-04-29] VITALS (7 sets, daily range): BP systolic 104–120; BP diastolic 52–66
--- NOTE | 2019-04-29 02:31 | NUR ---
RESTING IN BED WITH NO DISTRESS. CPOC.
[2019-04-29 05:23] LABS: BASOPHILS 0.4 % (0-2); EOSINOPHILS 3.4 % (0-7); HEMATOCRIT 39.3 % (42.0-54.0); HEMOGLOBIN 13.7 g/dL (13.5-17.5); LYMPHOCYTES 32.5 % (15-50); MCH 30.9 pg (26.0-34.0); MCHC 34.9 g/dL (31.0-37.0); MCV 88.5 fL (80.0-100.0); MEAN PLATELET VOLUME 8.6 fL (7.4-10.4); MONOCYTES 9.8 % (2-11); NEUTROPHILS 52.9 % (40-80); PLATELET COUNT 257 10x3/uL (130-400); RBC 4.44 10x6/uL (4.20-6.10); RDW 12.9 % (11.5-14.5)
--- NOTE | 2019-04-29 05:37 | NUR ---
NO CHANGE FROM INITIAL SHIFT ASSESSMENT. NPO SINCE MIDNIGHT. AM PREP FOR HEART CATH PERFORMED. CPOC.
[2019-04-29 05:44] LABS: CALCIUM 9.1 mg/dL (8.5-10.1); CARBON DIOXIDE 28.2 mmol/L (21.0-32.0); CREATININE - SERUM 1.1 mg/dL (0.6-1.3); MAGNESIUM - SERUM 1.8 mg/dL (1.8-2.4); POTASSIUM - SERUM 4.2 mmol/L (3.5-5.1)
--- NOTE | 2019-04-29 10:54 | NUR ---
IV INFILTRATED TO LEFT WRIST. IV DCD. ATTEMPTED TWICE TO RESTART IV AND WA NOT SUCCESSFUL. UI ARCHITECT NOTIFIED.
--- NOTE | 2019-04-29 12:14 | NUR ---
LEAVING FOR HAND STEMMER BY BED. WILL CONT. PLAN OF CARE.
--- NOTE | 2019-04-29 13:41 | NUR ---
BACK FROM MANAGER TRANSPORT. VS WNL. LEFT GROIN STABLE WITHOUT BLEEDING OR HEMATOMA NOTED. MORPHINE 4MG GIVEN IVP FOR C/P. WILL CONT TO MONITOR.
--- NOTE | 2019-04-29 14:03 | NUR ---
DC CANCELLED DUE TO C/P. WILL MONITOR.
--- NOTE | 2019-04-29 16:59 | NUR ---
BED REST UP, GROIN STABLE.
--- NOTE | 2019-04-29 19:11 | NUR ---
RECIEVED BEDSIDE REPORT. ALERT AND ORIENTED X4. UP AD IGNACIO. DSG TO LEFT GROIN CDI. IV TI LEFT HAND SL. TELEMETRY IN PLACE. DENIES ANY NEEDS AT THIS TIME.
[2019-04-30 04:00] VITALS: BP 103/56
[2019-04-30 04:47] LABS: BASOPHILS 0.3 % (0-2); HEMATOCRIT 38.4 % (42.0-54.0); HEMOGLOBIN 13.5 g/dL (13.5-17.5); IMMATURE GRANULOCYTES 0.7 % (0-5); LYMPHOCYTES 28.2 % (15-50); MCH 31.1 pg (26.0-34.0); MCHC 35.2 g/dL (31.0-37.0); MCV 88.5 fL (80.0-100.0); MEAN PLATELET VOLUME 8.8 fL (7.4-10.4); MONOCYTES 10.6 % (2-11); NEUTROPHILS 57.2 % (40-80); PLATELET COUNT 266 10x3/uL (130-400); RBC 4.34 10x6/uL (4.20-6.10); WBC 7.6 10x3/uL (4.8-10.8)
[2019-04-30 05:04] LABS: ANION GAP 11.5 mmol/L (8-16); CREATININE - SERUM 1.3 mg/dL (0.6-1.3); MAGNESIUM - SERUM 1.7 mg/dL (1.8-2.4); POTASSIUM - SERUM 4.5 mmol/L (3.5-5.1)
[2019-04-30 08:29] VITALS: BP 105/74
[2019-04-30 11:24] VITALS: BP 123/73
--- NOTE | 2019-04-30 13:02 | NUR ---
IV AND TELEMETRY DCD. DC PLANS GIVEN. UNDERSTANDING VOICED. ESCORTED TO CAR BY W/C.
--- NOTE | 2019-04-30 13:11 | NUR ---
ESCORTED TO CAR BY W/C.
--- NOTE | 2019-04-30 13:38 | OP ---
PATIENT NAME: ANDREY OSMAN JR MEDICAL RECORD: [id number] :67 LOCATION:D.M2 D.2114 ADMISSION DATE:04/26/19 SURGEON: BRIANA HOYOS MD DATE OF OPERATION: 04/29/2019 PROCEDURES: 1. Laser atherectomy LAD and left circumflex. 2. PTCA, LAD and circumflex. 3. Selective coronary angiography. INDICATION: Unstable angina and coronary artery disease. PROCEDURE IN DETAIL: After informed consent was obtained and after a detailed description of the risks, benefits as well as alternative therapies, the patient elected to proceed with angiogram and angioplasty. The right femoral area was prepped and draped in normal sterile fashion. Right femoral artery was cannulated via modified Seldinger technique with placement of 6-Palestinian sheath. All catheters exchanged through this sheath. FINDINGS: The left anterior descending has multiple previously placed stents as does the circumflex. There is greater than 80% in-stent restenosis throughout both areas. Multiple laser passes were made with a 0.9 catheter at 80/40. We then ballooned it with a 3.0 balloon up to 21 atmospheres. Result was 0% to 20% residual stenosis. No angiographic evidence of dissection or aneurysm with samaritan of CATARINA-3 flow. OVERALL IMPRESSION: Successful laser atherectomy, PTCA LAD and circumflex for greater than 80% in-stent restenosis to 10% to 20% residual stenosis. TRANSINT:[id number] Voice Confirmation ID: [id number] DOCUMENT ID: [id number] BRIANA HOYOS MD at 1338 CC: [id number] DICTATION DATE: 04/29/19 1541 SPARK TESTER: 04/30/19 0120 DIS IN 04/30/19 [facility] [address] [place] [id number]
--- NOTE | 2019-04-30 15:15 | MORECARE ---
CASE MANAGEMENT DISCHARGE SUMMARY PATIENT: ANDREY OSMAN UNIT: [id number] ADM DATE: 04/26/19 AGE: 53 : [birth year] SEX: M ROOM/BED: D.7591 AUTHOR: SHARDA,DOC PHYSICIAN: REFERRING PHYSICIAN: TAMEKA HERNANDEZ MD DATE OF SERVICE: 04/30/19 Discharge Plan Patient Name: ANDREY OSMAN Facility: [facility]:[place] : 1965 Planned Disposition: Home Anticipated Discharge Date: 04/30/19 Discharge Date: 04/30/2019 Expected LOS: 4 Initial Reviewer: [email or web address] Initial Review Date: 04/30/2019 Generated: 04/30/19 4:15 pm Comments DCP- Discharge Planning Updated by [email or web address]: Humberto Bailon on 04/30/19 2:[address] Patient Name: ANDREY OSMAN Admission Status: ER Accout number: [id number] Admission Date: 04-26-2019 : 1965 Admission Diagnosis:ACUTE ISCHEMIC HEART DISEASE, UNSPECIFIED Attending: MARIJA HERNANDEZ Current LOS: 4 Anticipated DC Date: 04-30-2019 Planned Disposition: Home Primary Insurance: MEDICARE A & B Discharge Planning Comments: CM MET WITH PT IN ROOM TO DISCUSS DISCHARGE PLANNING AND NEEDS. PT REPORTS LIVING AT HOME INDEPENDENTLY AND ALONE PT HAS NO MEDICAL EQUIPMENT AND NO OUTSIDE SERVICES ASSISTING IN THE HOME. CM DISCUSSED AVAILABILITY OF HOME HEALTH, REHAB SERVICES AND MEDICAL EQUIPMENT. PT DENIES DISCHARGE NEEDS, REPORTS HIS SISTER WILL PICK HIM UP FOR DISCHARGE HOME. IMPORTANT MESSAGE FROM MEDICARE PROVIDED AND EXPLAINED. HOT AIR FURNACE INSTALLER REPAIRER NURSE NOTIFIED. Heel Former: Humberto Bailon DCPIA - Discharge Planning Initial Assessment Updated by [email or web address]: Humberto Bailon on 04/30/19 3:12 pm * Is the patient Alert and Oriented? Yes * How many steps to enter\exit or inside your home? * PCP DR. GASPAR * [facility] [place] * Preadmission Environment Home Alone * ADLs Independent * Equipment None * Other Equipment NO MEDICAL EQUIPMENT PROVIDER PREFERENCE * List name and contact numbers for known caregivers / representatives who currently or will assist patient after discharge: JENNY MCCULLOUGH, SISTER, * Verbal permission to speak to the caregivers and representatives has been obtained from the patient. N/A * Community resources currently utilized None * Please name any agencies selected above. NONE * Additional services required to return to the preadmission environment? No * Can the patient safely return to the preadmission environment? Yes * Has this patient been hospitalized within the prior 30 days at any hospital? No Coverage Notice Reviewer: [email or web address] Catherine Bailon Notice Issued Date-Time: 04/30/2019 12:20 Notice Type: IM Discharge Notice Notice Delivered To: Patient Relationship to Patient: Signal Processing Engineer Name: Delivery Method: HAND - Hand Delivered Liz Days: Prior Verbal Notification: Recipient Understood Notice: Yes Recipient Signature: Yes Med Rec Note Co-signed by Attending: Coverage Notice Comment: Patient Name: ANDREY OSMAN Page [phone] at 1515 All edits/amendments must be made on the electronic document DICTATION DATE: 04/30/194 CROP GRAIN OR LIVESTOCK FARMER: GISELA 04/30/19 1514 RPT#: [id number] DC DATE:04/30/19 STATUS: DIS IN [facility] [address] [place] [address] END OF REPORT
== END 2019-04-30 13:12 | disposition home or self-care (01) | DRG 251 ==
LOC: D.ER 03:35 → D.M2 08:18
PROVIDERS: Family Medicine; Internal Medicine Cardiovascular Disease; Internal Medicine Interventional Cardiology; ADMIT Emergency Medicine; ATTEND Emergency Medicine
PROC: B2111ZZ Fluoroscopy of Multiple Coronary Arteries using Low Osmolar Contrast (ICD-10-PCS; 2019-04-26)
PROC: B2151ZZ Fluoroscopy of Left Heart using Low Osmolar Contrast (ICD-10-PCS; 2019-04-26)
PROC: 4A023N7 Measurement of Cardiac Sampling and Pressure, Left Heart, Percutaneous Approach (ICD-10-PCS; 2019-04-26)
PROC: 02C13ZZ Extirpation of Matter from Coronary Artery, Two Arteries, Percutaneous Approach (ICD-10-PCS; 2019-04-29)
PROC: 4A023N7 Measurement of Cardiac Sampling and Pressure, Left Heart, Percutaneous Approach (ICD-10-PCS; 2019-04-29)
PROC: B2111ZZ Fluoroscopy of Multiple Coronary Arteries using Low Osmolar Contrast (ICD-10-PCS; 2019-04-29)
PROC: B2151ZZ Fluoroscopy of Left Heart using Low Osmolar Contrast (ICD-10-PCS; 2019-04-29)
PROC: 02713ZZ Dilation of Coronary Artery, Two Arteries, Percutaneous Approach (ICD-10-PCS; principal; 2019-04-29 12:30)
DX: I25.110 Atherosclerotic heart disease of native coronary artery with unstable angina pectoris (principal); I24.9 Acute ischemic heart disease, unspecified; T82.855A Stenosis of coronary artery stent, initial encounter; I10 Essential (primary) hypertension; E78.5 Hyperlipidemia, unspecified; J44.9 Chronic obstructive pulmonary disease, unspecified; Y83.9 Surgical procedure, unspecified as the cause of abnormal reaction of the patient, or of later complication, without mention of misadventure at the time of the procedure; D64.9 Anemia, unspecified

== ENCOUNTER 2019-05-03 13:58 | Inpatient (IN) | payer MEDICARE ==
[~2019-05-03] VITALS: Ht 170.2 cm; Wt 87.7 kg
[2019-05-03] VITALS (7 sets, daily range): BP systolic 129–180; BP diastolic 60–82; BMI 33.6
[2019-05-03 15:25] LABS: CKMB 0.5 U/L (0.0-3.6); CREATINE KINASE 59 UL (21-232)
[2019-05-03 15:31] LABS: TROPONIN-I 0.318 ng/mL (0.000-0.060)
--- NOTE | 2019-05-03 15:32 | NUR ---
RCVD TC FROM LAB: CRITICAL TROPONIN 0.318
--- NOTE | 2019-05-03 15:35 | NUR ---
DR OROURKE NOTIFIED OF ELEVATED TROPONIN AND INSTR TO NOTIFIY DR LIU AND DR HOYOS
--- NOTE | 2019-05-03 15:41 | NUR ---
SPOKE WITH DR HOYOS, INFORMED OF TROPONIN 0.318. NO NEW ORDERS
[2019-05-03 16:16] LABS: HEMATOCRIT 42.5 % (42.0-54.0); HEMOGLOBIN 14.8 g/dL (13.5-17.5); MCH 31.8 pg (26.0-34.0); MCHC 34.8 g/dL (31.0-37.0); MCV 91.4 fL (80.0-100.0); MEAN PLATELET VOLUME 9.1 fL (7.4-10.4); RBC 4.65 10x6/uL (4.20-6.10); WBC 6.6 10x3/uL (4.8-10.8)
[2019-05-03 16:18] LABS: INR 1.02 (0.85-1.17); PROTIME 12.9 SECONDS (11.6-15.0)
[2019-05-03 16:19] LABS: APTT 42.1 SECONDS (22.8-39.4)
--- NOTE | 2019-05-03 16:25 | NUR ---
REPORT CALLED TO PARKER THOMAS BY PARKER JACOBO
--- NOTE | 2019-05-03 16:30 | NUR ---
TRANSPORTED TO ROOM #2117, CONDITION STABLE
--- NOTE | 2019-05-03 16:30 | NUR ---
RECEIVED PT FROM ER VIA W/C AAOX4 RESP UNLABORED SKIN W/D COLOR WNL TELEMETRY SINUS MOON 54 C/O CHEST PAIN 10/14 WILL CONTINUE TO MONITOR
--- NOTE | 2019-05-03 20:00 | NUR ---
INITIAL ROUNDS AND ASSESSMENT COMPLETED. PT RESTING IN BED WITH SISTER/OTHER FAMILY AT BEDSIDE. ALERT/ORIENTED. IV HEPARIN INFUSING TO LEFT A/C AT 10ML/HR. SB/52 PER TELEMETRY. PT/FAMILY TEACHING ON PLAN OF CARE IN RELATION TO HIS PLANNED CABG PROCEDURE FOR Monday. ALSO PT TEACHING ON PURPOSE OF HEPARIN DRIP AND THE REQUIRED LAB DRAWS FOR MONITOR LEVELS. PT IS NERVOUS BUT VERBALIZES UNDERSTANDING OF ALL INFORMATION PROVIDED.
[2019-05-03 20:22] LABS: CKMB 0.5 U/L (0.0-3.6); CREATINE KINASE 62 UL (21-232)
[2019-05-03 20:23] LABS: TROPONIN-I 0.377 ng/mL (0.000-0.060)
--- NOTE | 2019-05-03 22:40 | NUR ---
MEDICATED WITH MORPHINE AND ZOFRAN FOR CHEST PAIN 02/13. IV HEPARIN INFUSING. CPOC.
[2019-05-04 00:05] VITALS: BP 108/56
--- NOTE | 2019-05-04 00:17 | NUR ---
HEPARIN PROTOCOL. PTT 57.9 @ 2340 RATE INCREASED TO 11MLHR NEXT PTT AT 0600.
[2019-05-04 00:38] LABS: HEMATOCRIT 39.2 % (42.0-54.0); HEMOGLOBIN 13.4 g/dL (13.5-17.5); MCH 31.4 pg (26.0-34.0); MCHC 34.2 g/dL (31.0-37.0); MCV 91.8 fL (80.0-100.0); RBC 4.27 10x6/uL (4.20-6.10); RDW 13.1 % (11.5-14.5); WBC 7.5 10x3/uL (4.8-10.8)
[2019-05-04] MEDS ORDERED: EFFIENT10 MG PO (03:38)
--- NOTE | 2019-05-04 05:21 | NUR ---
SPECIMEN CUP AND COLLECTION CONTAINER LEFT IN ROOM WITH INSTRUCTIONS TO PATIENT ON NEED FOR SPECIMEN.
[2019-05-04 06:32] LABS: BASOPHILS 0.3 % (0-2); EOSINOPHILS 3.4 % (0-7); HEMATOCRIT 40.1 % (42.0-54.0); HEMOGLOBIN 13.6 g/dL (13.5-17.5); IMMATURE GRANULOCYTES 0.7 % (0-5); LYMPHOCYTES 32.3 % (15-50); MCH 31.2 pg (26.0-34.0); MCHC 33.9 g/dL (31.0-37.0); MEAN PLATELET VOLUME 8.7 fL (7.4-10.4); MONOCYTES 9.9 % (2-11); NEUTROPHILS 53.4 % (40-80); PLATELET COUNT 297 10x3/uL (130-400); RBC 4.36 10x6/uL (4.20-6.10)
[2019-05-04 07:16] LABS: ALBUMIN 3.4 g/dL (3.4-5.0); ALKALINE PHOSPHATASE 101 U/L (46-116); ALT (SGPT) 40 U/L (10-68); BILIRUBIN - TOTAL 0.48 mg/dL (0.2-1.3); CALC OSMOLALITY 278 mosm/kg (275-300); CALCIUM 8.7 mg/dL (8.5-10.1); CARBON DIOXIDE 28.2 mmol/L (21.0-32.0); CHLORIDE - SERUM 103 mmol/L (98-107); CHOLESTEROL, TOTAL 224 mg/dL (0-200); CKMB 0.6 U/L (0.0-3.6); CREATINE KINASE 47 UL (21-232); CREATININE - SERUM 1.2 mg/dL (0.6-1.3); GLUCOSE 102 mg/dL (74-106); MAGNESIUM - SERUM 2.1 mg/dL (1.8-2.4); PHOSPHOROUS 4.3 mg/dL (2.5-4.9); POTASSIUM - SERUM 4.4 mmol/L (3.5-5.1); PROTEIN - SERUM 6.6 g/dL (6.4-8.2); SODIUM 139 mmol/L (136-145); T4 THYROXIN - FREE 1.13 ng/dL (0.76-1.46); UREA NITROGEN 15 mg/dL (7-18); URIC ACID 5.7 mg/dL (2.6-7.2); eGFR NON AFRICAN AMERICAN 67 mL/min (90-120)
[2019-05-04 07:19] LABS: TROPONIN-I 0.233 ng/mL (0.000-0.060)
[2019-05-04 09:17] VITALS: BP 136/58
--- NOTE | 2019-05-04 11:04 | MORECARE ---
CASE MANAGEMENT DISCHARGE SUMMARY PATIENT: ANDREY OSMAN UNIT: [id number] ADM DATE: 05/03/19 AGE: 54 : 67 SEX: M ROOM/BED: D.2303 AUTHOR: RITCHIE ROBIN PHYSICIAN: REFERRING PHYSICIAN: KATHRYN LIU MD DATE OF SERVICE: 05/04/19 Discharge Plan Patient Name: ANDREY OSMAN Facility: [facility]:[place] : 1965 Planned Disposition: Anticipated Discharge Date: 05/10/19 Discharge Date: Expected LOS: 7 Initial Reviewer: [email or web address] Initial Review Date: 05/03/2019 Generated: 05/04/19 12:04 pm DCP- Discharge Planning Updated by [email or web address]: Johanny Khan on 05/04/19 10:[address] DC PLAN: Return to his sisters at mi. ANTICIPATED DC NEEDS: Unknown at this time. Depends on how he does post-op CABG. CM met with patient to complete initial dc planning assessment. CM educated patient on the CM role and verbal consent given by patient to complete assessment. CM verified patient's address, phone number, and emergency contact phone numbers. Patient lives at home with his sister. He reports he is independent in his care at home. At discharge patient plans to return home with his sister and feels this is a safe discharge if he is able post op CABG. CM discussed availability of home health, rehab services, and medical equipment. Patient denied known discharge needs at this time. Patient reports his sister will transport him home at time of discharge. CM will continue to follow and will assist as needed with dc plans/needs. Johanny Khan RN, [facility] DCPIA - Discharge Planning Initial Assessment Updated by [email or web address]: Johanny Khan on 05/04/19 11:02 am * Is the patient Alert and Oriented? Yes * How many steps to enter\exit or inside your home? none * PCP Dr. Shearer * Pharmacy [facility] in [place] * Preadmission Environment Home with Family * ADLs Independent * Equipment Cane * List name and contact numbers for known caregivers / representatives who currently or will assist patient after discharge: Priscilla - ex - [phone] Marleny Miller- sister - [phone] * Verbal permission to speak to the caregivers and representatives has been obtained from the patient. Yes * Community resources currently utilized None * Additional services required to return to the preadmission environment? No * Has this patient been hospitalized within the prior 30 days at any hospital? Yes Patient Name: ANDREY OSMAN Page [id number] at 1104 All edits/amendments must be made on the electronic document DICTATION DATE: 05/04/19 110 FRANCHISE FIELD CONSULTANT: GISELA 05/04/19 110 RPT#: [id number] DC DATE: STATUS: ADM IN [facility] [address] [place] [address] END OF REPORT
--- NOTE | 2019-05-04 11:39 | NUR ---
B/P TAKEN BOTH ARMS AND CHARTED ON FRINT OF CHART. IV RESTARTED TO RIGHT WRIST WITH 22 GAUGE CATH AND DCD IVTO LEFT ARM. RESERVE LEFT ARM SIGN PAUT IN ROOM AND OUTSIDE DOOR. WILL CONT. PLAN OF CARE.
[2019-05-04 12:29] VITALS: BP 118/53
[2019-05-04 12:49] LABS: APPEARANCE CLEAR (CLEAR); BILIRUBIN NEGATIVE (NEGATIVE); COLOR YELLOW (YELLOW); GLUCOSE NEGATIVE (NEGATIVE); KETONE NEGATIVE (NEGATIVE); NITRITE NEGATIVE (NEGATIVE); PROTEIN NEGATIVE (NEGATIVE); UROBILINOGEN NORMAL (NORMAL)
[2019-05-04 16:52] VITALS: BP 90/49
[2019-05-04 20:05] VITALS: BP 131/69
--- NOTE | 2019-05-04 23:12 | NUR ---
2119 SON CAME OUT OF ROOM SAYING HIS DAD HAD FALLEN IN THE BATHROOM. STAFF ENTERED ROOM TO FIND PATIENT IN BATHROOM, ON THE TOILET, COVERED WITH BLOOD AND THE FLOOR ALSO COVERED WITH BLOOD. RIGHT ARM HAS LACERATION ON LOWER HALF OF ARM AND BLOOD PROFUSELY COMING FROM IT. PRESSURE APPLIED. WOUND WRAPPED AND PRESSURE MAINTAINED. ASSISTED PT BACK TO BED WITH STAFF X 2. SON IN ROOM ENTIRE TIME, EXPLAINS HE WAS ASSISTING HIS FATHER TO THE BATHROOM AND HIS FOOT SLIPPED AND HE WENT DOWN TOWARDS WALL WITH HIS ARM/BODY. SON GRABBED HIM AND EASED HIM TO THE TOILET AND THEN CALLED FOR HELP. NOTIFIED DALE DIAZ PER PHONE CALL OF ABOVE AND PT WOULD REQUIRE AN INTERVENTION TO CLOSE UP THE LACERATION. ORDERS RECIEVED. NUTRITION CLUB AMBASSADOR, KELBY CANALES, INSTRUCTED TO TAKE PATIENT TO ER AND THEY WOULD TRIAGE AND DETERMINE PLAN OF CARE. PT TRANSPORTED TO ER PER WHEELCHAIR WITH RIGHT ARM PRESSURE WRAPPED. SON PRESENT. PT CHECKED INTO ER AND IS NOW BEING TAKEN CARE OF BY ER. SON AT HIS SIDE.
[2019-05-05] VITALS: BP 112/52
[2019-05-05 04:00] VITALS: BP 133/77
--- NOTE | 2019-05-05 05:38 | NUR ---
C/O CHEST PAIN THAT STARTED AFTER LAB AWAKENED HIM. SB/52 PER TELEMETRY. WILL MONITOR AND CPOC.
[2019-05-05 05:49] LABS: BASOPHILS 0.4 % (0-2); EOSINOPHILS 4.1 % (0-7); HEMATOCRIT 39.5 % (42.0-54.0); HEMOGLOBIN 13.5 g/dL (13.5-17.5); IMMATURE GRANULOCYTES 0.7 % (0-5); LYMPHOCYTES 39.8 % (15-50); MCH 30.9 pg (26.0-34.0); MCHC 34.2 g/dL (31.0-37.0); MCV 90.4 fL (80.0-100.0); MEAN PLATELET VOLUME 9.1 fL (7.4-10.4); MONOCYTES 10.9 % (2-11); NEUTROPHILS 44.1 % (40-80); PLATELET COUNT 305 10x3/uL (130-400); RBC 4.37 10x6/uL (4.20-6.10); RDW 12.8 % (11.5-14.5); WBC 7.1 10x3/uL (4.8-10.8)
[2019-05-05 06:07] LABS: ANION GAP 12.4 mmol/L (8-16); CALCIUM 9.2 mg/dL (8.5-10.1); CARBON DIOXIDE 26.6 mmol/L (21.0-32.0); CREATININE - SERUM 1.2 mg/dL (0.6-1.3)
[2019-05-05 08:37] VITALS: BP 115/54
--- NOTE | 2019-05-05 11:44 | NUR ---
ASSISTED TO SHOWE BY MATERIAL STOCKKEEPER YARD. HEPRIN GTT INFUSING. TELEMETRY SR. WILL CONT. PLAN OF CARE.
[2019-05-05 12:41] VITALS: BP 122/63
[2019-05-05 15:13] VITALS: BP 125/66
[2019-05-05 20:00] VITALS: BP 129/68
--- NOTE | 2019-05-05 20:00 | NUR ---
INITIAL ROUNDS COMPLETED. PT RESTING IN BED. IV HEPARIN DRIP INFUSING AT 14ML/HR. PLEASANT MOOD. CPOC.
--- NOTE | 2019-05-05 21:33 | NUR ---
BEDTIME MEDS GIVEN TO PATIENT. HE HAS BEEN UP AND AMBULATING IN HALLWAY. HE IS VERY UPSET OVER A FAMILY MATTER AND SAYS HE IS NOW HAVING CHEST PAIN. MEDICATED WITH MORPHINE 4MG SIVP/ZOFRAN 4MG SIVP FOR PAIN/NAUSEA. ENCOURAGED PT TO RELAX, CALM HIMSELF. PROVIDED A SNACK. SB/54 PER TELEMETRY.
[2019-05-06] VITALS: BP 121/60
[2019-05-06 04:00] VITALS: BP 117/65
--- NOTE | 2019-05-06 04:32 | NUR ---
PT RESTING. THE STRESS OF WAITING FOR HIS PLANNED OPEN HEART SURGERY HAS MADE HIM LABILE AND HE HAS BEEN HAVING FAMILY ISSUES WITH HIS CHILDREN. HE IS VERY STRESSED. IV HEPARIN INFUSING AT 14ML/HR. LAST CHECK PT WAS THERAPEUTIC, NEXT CHECK WILL BE THIS AM.
[2019-05-06 06:49] LABS: BASOPHILS 0.5 % (0-2); EOSINOPHILS 4.1 % (0-7); HEMATOCRIT 38.3 % (42.0-54.0); HEMOGLOBIN 13.2 g/dL (13.5-17.5); IMMATURE GRANULOCYTES 0.8 % (0-5); LYMPHOCYTES 38.9 % (15-50); MCH 31.1 pg (26.0-34.0); MCHC 34.5 g/dL (31.0-37.0); MCV 90.1 fL (80.0-100.0); MEAN PLATELET VOLUME 9.2 fL (7.4-10.4); MONOCYTES 10.3 % (2-11); NEUTROPHILS 45.4 % (40-80); PLATELET COUNT 309 10x3/uL (130-400); RBC 4.25 10x6/uL (4.20-6.10); WBC 6.4 10x3/uL (4.8-10.8)
[2019-05-06 07:07] LABS: ANION GAP 11.4 mmol/L (8-16); CALCIUM 8.8 mg/dL (8.5-10.1); CARBON DIOXIDE 27.6 mmol/L (21.0-32.0); CREATININE - SERUM 1.1 mg/dL (0.6-1.3)
--- NOTE | 2019-05-06 07:24 | NUR ---
APTT OF 50.6, INCREASED DOSE BY 100UNITS/HR AND RECHECK APTT IN 6HOURS PER HEPARIN PROTOCOL. RATE NOW 1500UNITS/HR.
[2019-05-06 08:02] VITALS: BP 124/69
--- NOTE | 2019-05-06 09:10 | NUR ---
AM MEDS GIVEN AT THIS TIME. PT A/O X4, RESP EVEN AND NONLABORED ON RA. PT RATES PAIN LEVEL OF 7/10 WANTS SOMETHING FOR PAIN, WILL SEE IF HE CAN HAVE ANYTHING FOR PAIN. RT WRIST INFUSING HEPARIN AT 15CC/HR. CALL LIGHT IN REACH, NAD NOTED, WILL CONTINUE TO MONITOR.
--- NOTE | 2019-05-06 09:27 | NUR ---
GAVE 4MG OF MORPHINE FOR PAIN LEVEL OF 7/10. PT DENIES ANY OTHER NEEDS AT THIS TIME. CALL LIGHT IN REACH, NAD NOTED,W ILL CONTINUE TO MONITOR.
[2019-05-06 13:09] VITALS: BP 106/61
--- NOTE | 2019-05-06 14:34 | CN ---
PATIENT NAME:ANDREY AVERY JR MEDICAL RECORD: [id number] : 67 LOCATION:D. D.2117 ADMIT DATE: 05/03/19 ACCOUNT: [id number] CONSULTING PHYSICIAN: BRIANA HOYOS MD REFERRING PHYSICIAN: KATHRYN LIU MD DATE OF CONSULTATION: 05/03/2019 CARDIOLOGY CONSULTATION DIAGNOSES: 1. Unstable angina. 2. Coronary artery disease. 3. Previous multivessel percutaneous transluminal coronary angioplasty stent. 4. Hypertension. 5. Hyperlipidemia. 6. Gastroesophageal reflux disease. 7. Smoking. 8. Chronic obstructive pulmonary disease. HISTORY OF PRESENT ILLNESS: Mr. Avery presents with continued angina. He presented last weekend with angina, found to have extensive in-stent restenosis throughout the LAD and circumflex. On Monday, he underwent laser atherectomy, PTCA of this. The result was not optimal. He continued to have anginal symptomatology. I reviewed the film with Dr. Whitfield, he does think bypass surgery is an option if the patient leans towards it at this point. PHYSICAL EXAMINATION: CONSTITUTIONAL/GENERAL APPEARANCE: Well nourished, well developed, appears stated age. EYES: Lids and conjunctivae noninjected. No discharge. No pallor. ENT: Lips within normal limit. No cyanosis. No pallor. NECK: Carotid arteries, bilateral normal upstroke. No bruits. No thrills. No jugular venous pressure or distention. CERVICAL LYMPH NODES: Nontender. Nonenlarged. THYROID: Not enlarged. No nodules. CARDIOVASCULAR: Precordial exam, nondisplaced. No heaves or pericardial thrills. Rate and rhythm, regular. Heart sounds, normal S1, normal S2. No S3, no gallop, no rub. Systolic murmur, not heard. Diastolic murmur, not heard. RESPIRATORY: Respiratory effort, unlabored. Normal curvature. No thoracic deformity. No chest wall tenderness. Percussion, resonant. Auscultation, clear. No wheezes, no rales, no rhonchi. ABDOMEN: Soft, nondistended, nontender. No abdominal pain, no vomiting and normal appetite. MUSCULOSKELETAL: No joint tenderness, normal gait, normal tone. SKIN: Warm and dry. OVERALL IMPRESSION: Continued angina, suboptimal result with transcatheter revascularization, on optimal medical management, will be continued to have progressive angina. We will proceed with evaluation for bypass surgery. TRANSINT:[id number] Voice Confirmation ID: [id number] DOCUMENT ID: [id number] CONSULT REPORT [id number] ANDREY AVERY JR, JEFFREY MD at 1434 CC: [id number] DICTATION DATE: 05/03/19 1447 BRAKE RIDER: 05/04/19 0032 ADM IN [facility] [id number] [place] [address]
[2019-05-06 16:00] VITALS: BP 114/66
--- NOTE | 2019-05-06 17:04 | NUR ---
PT ALREADY ON HEPARIN DRIP
[2019-05-06 21:08] VITALS: BP 133/79
[2019-05-07] VITALS (38 sets, daily range): BP systolic 96–131; BP diastolic 43–76; Ht 170.2 cm; Wt 87.7 kg
[2019-05-07 04:00] LABS: BASOPHILS 0.6 % (0-2); EOSINOPHILS 3.7 % (0-7); HEMATOCRIT 37.7 % (42.0-54.0); HEMOGLOBIN 12.9 g/dL (13.5-17.5); MCH 30.7 pg (26.0-34.0); MCHC 34.2 g/dL (31.0-37.0); MCV 89.8 fL (80.0-100.0); MEAN PLATELET VOLUME 8.8 fL (7.4-10.4); MONOCYTES 9.5 % (2-11); NEUTROPHILS 43.2 % (40-80); PLATELET COUNT 293 10x3/uL (130-400); RDW 12.8 % (11.5-14.5); WBC 6.7 10x3/uL (4.8-10.8)
[2019-05-07 04:12] LABS: ANION GAP 9.9 mmol/L (8-16); CALCIUM 8.7 mg/dL (8.5-10.1); CARBON DIOXIDE 29.2 mmol/L (21.0-32.0); POTASSIUM - SERUM 4.1 mmol/L (3.5-5.1)
[2019-05-07 04:14] LABS: CREATININE - SERUM 1.4 mg/dL (0.6-1.3)
--- NOTE | 2019-05-07 05:10 | NUR ---
NO D/C TIME ON PATIENTS HEPARIN DRIP. SPOKE WITH DR. LOJA. ORDERS TO STOP DRIP AT 0600.
--- NOTE | 2019-05-07 08:52 | NUR ---
PT TO OR VIA BED, NAD NOTED.
--- NOTE | 2019-05-07 17:30 | NUR ---
PT ARRIVED TO UNIT AT 1703 VIA BED. PLACED ON VENT R-14, TV 550, FIO2 60%, PEEP 5. ETT SIZE 8 22 AT THE LIP RIGHT SIDE. WRIST RESTRAINTS APPLIED UPON ARRIVAL PER ORDERS. MIDSTERNAL INCISION WITH DRESSING C/D/I. SUBTERNAL CT X 2 TO 20CM SUCTION. NO AIR LEAK NOTED. ALCIDES DRAIN NOTED. RIJ CVL DRESSING C/D/I. RIGHT FEMORAL JONE NOTED. ZORED UPON ARRIVAL. REEVES IN PLACE WITH CLEAR YELLOW URINE NOTED. LEFT ARM AND RIGHT LEG HARVEST SITES WITH COBAND DRESSING IN PLACE. TPM WIRES COILED AND SECURED UNDER DRESSING. SEE IV FLOWSHEET FOR FLUIDS. SAFETY MEASURES IN PLACE. NURSE AT BEDSIDE. WILL CONTINUE TO MONITOR.
--- NOTE | 2019-05-07 18:09 | NUR ---
DR. LOJA UPDATED ON ABG'S. ORDERED 10MEQ OF POTASSIUM TO BE GIVEN. WILL CONTINUE TO MONITOR.
--- NOTE | 2019-05-07 19:08 | NUR ---
SHIFT ASSESSMENT COMPLETE. PATIENT CALM AND COOPERATIVE. FOLLOWS COMMANDS. IN ROOM WITH PATIENT AND WILL CONTINUE TO MONITOR.
--- NOTE | 2019-05-07 19:30 | NUR ---
RT HERE DECREASED SPO2 TO 50%. PATIENT SPO2 IS 99%
--- NOTE | 2019-05-07 19:47 | NUR ---
FIO2 DECREASED TO 40% PER RT. PATIENT TOLERATING WELL.
--- NOTE | 2019-05-07 20:20 | NUR ---
RT CHANGED VENT SETTING TO SIMV AND PATIENT IS TOLERATING WELL.
--- NOTE | 2019-05-07 21:41 | NUR ---
RT DENISE IN ROOM WITH PATIENT. PATIENT EXTUBATED AND TOLERATED WELL, PLACED ON 5L/MIN VIA NC.
--- NOTE | 2019-05-07 22:39 | NUR ---
DR. LOJA CALLED AND GIVEN ABG RESULTS, VITAL COPACITY, AND NIF RESULTS. ORDER TO EXTUBATE GIVEN.
--- NOTE | 2019-05-07 22:41 | NUR ---
RT DENISE IN ROOM WITH PATIENT. PATIENT EXTUBATED AND TOLERATED WELL. SPO2 94% PATIENT IS ON 5L/MIN VIA NC.
[2019-05-08] VITALS (54 sets, daily range): BP systolic 98–143; BP diastolic 52–86
--- NOTE | 2019-05-08 05:00 | NUR ---
CHG BATH GIVEN. PATIENT TOLERATED WELL. DRESSING CHANGE TO R CVL, AND SUBSTERNAL DRESSING. CALL LIGHT WITHIN REACH, BED IN LOW POSITION.
[2019-05-08 06:19] LABS: BASOPHILS 0.1 % (0-2); EOSINOPHILS 0 % (0-7); HEMATOCRIT 34.9 % (42.0-54.0); HEMOGLOBIN 11.7 g/dL (13.5-17.5); IMMATURE GRANULOCYTES 0.4 % (0-5); LYMPHOCYTES 6.6 % (15-50); MCH 30.8 pg (26.0-34.0); MCHC 33.5 g/dL (31.0-37.0); MEAN PLATELET VOLUME 9.2 fL (7.4-10.4); MONOCYTES 9.9 % (2-11); PLATELET COUNT 350 10x3/uL (130-400); RDW 13.6 % (11.5-14.5)
[2019-05-08 06:30] LABS: MCV 91.8 fL (80.0-100.0); WBC 12.3 10x3/uL (4.8-10.8)
[2019-05-08 06:34] LABS: ALBUMIN 3.2 g/dL (3.4-5.0); ANION GAP 10.8 mmol/L (8-16); BILIRUBIN - TOTAL 0.63 mg/dL (0.2-1.3); CALCIUM 7.9 mg/dL (8.5-10.1); CARBON DIOXIDE 29.3 mmol/L (21.0-32.0); CREATININE - SERUM 1.3 mg/dL (0.6-1.3); POTASSIUM - SERUM 4.1 mmol/L (3.5-5.1); PROTEIN - SERUM 6.2 g/dL (6.4-8.2)
--- NOTE | 2019-05-08 07:10 | NUR ---
SHIFT REPORT RECEIVED. PT RESTING ON HIS BACK. RATES PAIN 5/10 AT INCISION SITE. ON 4L OF O2 VIA NC. RIJ CVL IN PLACE WITH PLASMOLYTE AT 100ML/HR, NITRO AT 18.33MCG/MIN, AND DOPAMINE AT 2MCG/KG/MIN. MIDSTERNAL DRESSING IN PLACE. SUBSTERNAL DRESSING C/D/I, CT X 2 TO 20CM SUCTION. NO AIR LEAK NOTED. LEFT ALCIDES DRAIN IN PLACE WITH SEROSANG DRAINAGE NOTED. RL ABDOMEN BRUISE NOTED. R GROIN FEMORAL A-LINE IN PLACE. NO BLEEDING OR HEMATOMA NOTED. LUE AND RLE HARVEST SITES COVERED IN COBAND DRESSING. REEVES CATH IN PLACE WITH CLEAR YELLOW URINE NOTED. CALL LIGHT IN REACH, SIDE RAILS UP X 2, BED IN LOW POSITION. WILL CONTINUE TO MONITOR.
--- NOTE | 2019-05-08 08:53 | NUR ---
RIGHT GROIN FEMORAL A-LINE DC'D PER ORDERS. FEM STOP APPLIED TO AREA. NITROGLYCERIN DC'D AT THIS TIME. CURRENT BP 100/57. WILL CONTINUE TO MONITOR.
--- NOTE | 2019-05-08 09:33 | NUR ---
Nutrition Follow-up: POD1 CABG. Nurse reports pt tolerated clear liquids this AM and plans to advance diet for lunch. Diet: Clear Liquid, advance to Regular Diet Wt: 199# Last BM: 05/06 Labs noted: Glu 143, Ca 7.9, Alb 3.2 Meds reviewed Rec ADAT to cardiac diet. RD following.
--- NOTE | 2019-05-08 09:55 | NUR ---
CALL RECEIVED FROM RELL RODRIGUEZ'S BROTHER [place]. PASSWORD VERIFIED "ARIS."BRIEF UPDATE GIVEN.
--- NOTE | 2019-05-08 10:19 | NUR ---
PRESSURE FROM FEM STOP RELEASED. NO BLEEDING OR HEMATOMA NOTED AT R GROIN SITE. WILL CONTINUE TO MONITOR.
--- NOTE | 2019-05-08 11:01 | NUR ---
FEMSTOP REMOVED AT THIS TIME. TAGEDERM DRESSING APPLIED TO AREA. NO BLEEDING OR HEMATOMA NOTED. BEST EFFORT ON I.S. 750. CALL RECEIVED FROM MARIA DOLORES OSMAN. PASSWORD VERIFIED "ARIS." BRIEF UPDATE GIVEN. WILL CONTINUE TO MONITOR.
--- NOTE | 2019-05-08 12:01 | NUR ---
RATES PAIN 8/10 INCISION ON CHEST, ACKING. PERCOCET 10MG TAB GIVEN PER ORDERS.
--- NOTE | 2019-05-08 12:15 | NUR ---
PT DANGLED ON SIDE OF BED FOR ABOUT 10 MINUTES. TOLERATED WELL. DENIED DIZZINESS. NO FURTHER NEEDS. WILL CONTINUE TO MONITOR.
--- NOTE | 2019-05-08 13:13 | NUR ---
PLASMOLYTE AND DOMAPINE DC'D AT THIS TIME PER DR. LOJA.
--- NOTE | 2019-05-08 13:50 | OP ---
PATIENT NAME: ANDREY OSMAN JR MEDICAL RECORD: [id number] :67 LOCATION:D.CVI D.CV03 ADMISSION DATE:05/03/19 SURGEON: GIO LOJA MD DATE OF OPERATION: 05/07/2019 SURGEON: Gio Loja MD BUILDING TECH: Andrés Amado PROCEDURES PERFORMED: Coronary artery bypass graft times 3 (left internal mammary artery to LAD, left radial artery from the side of the obtuse marginal, vein graft to the obtuse marginal distally and a vein graft from the aorta to the obtuse marginal). Two arterial and one venous graft. PREOPERATIVE DIAGNOSIS: Coronary artery disease with history of restenosis, status post recent percutaneous coronary intervention and laser atherectomy. POSTOPERATIVE DIAGNOSIS: Coronary artery disease with history of restenosis, status post recent percutaneous coronary intervention and laser atherectomy. ANESTHESIA: General endotracheal anesthesia. ESTIMATED BLOOD LOSS: Total cardiopulmonary bypass with Cell Saver re-transfusion and one platelet. COMPLICATIONS: None. SPECIMENS: None. CONDITION: Stable. DISPOSITION: CV ICU. OPERATIVE FINDINGS: 1. Transesophageal echocardiography with trace mitral regurgitation, good contractility. 2. Left radial artery was a 3-mm vessel. The obtuse marginal had stents all the way down to the bifurcation and the larger distal branch was the site of anastomosis, which was a 1.25 mm vessel. The proximal end was anastomosed to the side of the vein graft as the 2.8 punch hole had thick wall aorta and evidence of plaque. 3. Diagonal bypass was the first diagonal, which was a 1.25 mm vessel. The second diagonal, which had previously been stented, had stents down until the vessel was less than 1 mm and severely diseased. There was competitive flow evident in the first diagonal. 4. The LAD had stents down to the distal vessel. There was a 1.5 mm vessel with severe disease. Good Doppler signal after anastomosis and after reversal of heparin in the arterial grafts. OPERATIVE INDICATION: Recurrent stenosis and coronary artery disease. OPERATIVE SUMMARY IN DETAIL: The patient was brought to the operating suite. General anesthesia was obtained, the patient was prepped and draped. Left radial artery was harvested and side branches were clipped. Vessel was ligated proximally and distally and the arm was closed in 2 layers tucked at the OPERATIVE REPORT [id number] ANDREY OSMAN JR patient's side with appropriate padding. Bridging incision was made in the right lower extremity for harvest of the saphenous vein. Median sternotomy incision was made. Subcutaneous tissue was divided with electrocautery. Sternum was divided with a saw. Left hemisternum was elevated. Left pleural cavity was entered. Left internal mammary vein was taken as a pedicle graft. Sternal retractor was placed. Heparin was given. Aorta was cannulated. Dual stage venous cannula was inserted. The internal mammary was clipped distally ready for anastomosis. Activated clotting was probably elevated. The patient was placed on cardiopulmonary bypass. Sites for distal anastomoses were selected and antegrade cardioplegia cannula was inserted. The patient's temperature is allowed to drift downward. The crossclamp was placed. Cardioplegia given antegrade and this was repeated at 15 minute intervals including down the completed vein grafts. Distal anastomoses were performed in standard technique. Proximal anastomosis with a 3.5 mm punch for the vein graft and a 2.8 mm punch site was made, but due to ascending aortic plaque, this was closed with pledgeted sutures and the proximal end of the radial artery graft was anastomosed to the side of the vein graft. The crossclamp was removed. The patient was in a spontaneous rhythm. Proximal and distal anastomotic sites inspected for bleeding. With the patient fully rewarmed, weaned from cardiopulmonary bypass, and was stable. The patient was decannulated. The cannula sites were oversewn. Protamine was given. Thorough irrigation was undertaken. A drain was placed in the mediastinum and both pleural cavities. The Pericardial fat was loosely reapproximated in the midline. The left chest was evacuated and irrigated. The internal mammary harvest site was hemostatic. Sternum was closed with wires. Fascia was closed, subcutaneous tissue was closed. Skin was closed. Dermabond was placed. The needle and sponge counts were reported as correct. The patient was taken to the ICU in stable condition. TRANSINT:[id number] Voice Confirmation ID: [id number] DOCUMENT ID: [id number] GIO LOJA MD at 1350 CC: BRIANA HOYOS and ELIZABETH GASPAR [id number] DICTATION DATE: 05/07/19 163 SAP DATA ARCHITECT: 05/08/19 0132 ADM IN [facility] [address] [place] [address]
--- NOTE | 2019-05-08 14:05 | NUR ---
CALL RECEIVED FROM ALLY PT'S DAUGHTER. PASSWORD VERIFIED "ARIS." BRIEF UPDATE GIVEN. PT RESTING COMFORTABLY WITH EYES CLOSED. HR 70S, BP 124/76. WILL CONTINUE TO MONITOR.
--- NOTE | 2019-05-08 15:00 | NUR ---
RE-ASSESSMENT COMPLETED. NO ACUTE CHANGES FROM PREVIOUS ASSESSMENT. HR 82 AT THIS TIME. PAIN HAS EASED AFTER MORPHINE DOSE. RATES PAIN 3/10. WILL CONTINUE TO MONITOR.
--- NOTE | 2019-05-08 16:45 | NUR ---
PT TRANSFERRED TO CHAIR AT THIS TIME. TOLERATED WELL. NO DIZZINESS NOTED. HR 85, BP 118/70. MEAL TRAY DELIVERED AND SET UP. NO FURTHER NEEDS. WILL CONTINUE TO MONITOR.
--- NOTE | 2019-05-08 18:08 | NUR ---
PT REPORTED BEING HOT AT THIS TIME. REEVES CATHETER TEMP 98.3. PT DENIES CHILLS AT THIS TIME. FAN PROVIDED. ASSISTED PT BACK TO BED. TOLERATED WELL. HR 70'S. BP 114/72, BG 146. ATE ABOUT 20% OF DINNER. PULLS 750-1000 ON INSENTIVE SPIROMETER. NO FURTHER NEEDS. WILL CONTINUE TO MONITOR.
--- NOTE | 2019-05-08 19:47 | NUR ---
PT RECEIVED IN BED WITH EYES CLOSED AND CHEST RISING. CHEST TUBE TO SUCTION. CRITICORE REEVES PATENT. DRESSINGS TO MIDSTERNAL AND SUBSTERNAL C/D/I. ALCIDES DRAIN COMPRESSED. PT AWAKENS EASILY TO VERBAL STIMULI. VSS. CALL LIGHT IN REACH. WILL CONTINUE TO OBSERVE.
--- NOTE | 2019-05-08 21:17 | NUR ---
PT RECEIVED SCHEDULED MEDICATIONS PER OCT, COMPLAINS OF PAIN WITH PRN OXYCODONE GIVEN PER OCT. PT ALSO REQUEST WARM BLANKET WITH ON PROVIDED. NO OTHER NEEDS OR CONCERNS NOTED. CALL LIGHT IN REACH. WILL CONTINUE TO OBSERVE.
--- NOTE | 2019-05-08 23:43 | NUR ---
REASSESSMENT COMPLETED, SEE FLOW SHEET. REEVES AND CHEST TUBES PATENT. NO NEEDS NOTED. VSS. CALL LIGHT IN REACH. WILL CONTNUE TO OBSERVE.
[2019-05-09] VITALS (25 sets, daily range): BP systolic 94–136; BP diastolic 25–73
--- NOTE | 2019-05-09 01:32 | NUR ---
PT REQUEST TO GET UP TO CHAIR. STANDBY ASSIST GIVEN FOR BALANCE AND LINES/TUBES. PT STATES THAT HE HAD FELT BETTER WHEN HE WAS UP IN CHAIR EARLIER IN THE DAY. COMPLAINS OF PAIN WITH PRN OXYCODONE GIVEN PER OCT. PHONE, WATER, AND CALL LIGHT IN REACH. WILL CONTINUE TO OBSERVE.
--- NOTE | 2019-05-09 02:51 | NUR ---
COMPLETE LINEN CHANGE PROVIDED AFTER CHG BATH AND ASSISTED BACK TO BED. DRESSING TO SUBSTERNAL CHANGED PER PROTOCOL. PT STATED FEELING BETTER AFTER SITTING IN CHAIR. REASSESSMENT COMPLETED, SEE FLOW SHEET. WILL CONTINUE TO OBSERVE. CALL LIGHT IN REACH.
[2019-05-09 06:15] LABS: BASOPHILS 0.1 % (0-2); EOSINOPHILS 0.6 % (0-7); HEMATOCRIT 31.9 % (42.0-54.0); HEMOGLOBIN 10.5 g/dL (13.5-17.5); IMMATURE GRANULOCYTES 0.3 % (0-5); LYMPHOCYTES 13.2 % (15-50); MCH 30.8 pg (26.0-34.0); MCHC 32.9 g/dL (31.0-37.0); MCV 93.5 fL (80.0-100.0); MEAN PLATELET VOLUME 9.3 fL (7.4-10.4); MONOCYTES 11.9 % (2-11); NEUTROPHILS 73.9 % (40-80); RBC 3.41 10x6/uL (4.20-6.10); RDW 13.6 % (11.5-14.5); WBC 14.5 10x3/uL (4.8-10.8)
[2019-05-09 06:23] LABS: PLATELET COUNT 279 10x3/uL (130-400)
[2019-05-09 06:30] LABS: ALBUMIN 2.8 g/dL (3.4-5.0); ANION GAP 9.1 mmol/L (8-16); BILIRUBIN - TOTAL 0.82 mg/dL (0.2-1.3); CALCIUM 8.1 mg/dL (8.5-10.1); CARBON DIOXIDE 32.1 mmol/L (21.0-32.0); CREATININE - SERUM 1.1 mg/dL (0.6-1.3); POTASSIUM - SERUM 4.2 mmol/L (3.5-5.1)
--- NOTE | 2019-05-09 06:45 | NUR ---
PT TRANSFERRED TO CHAIR, COMPLAINTS OF PAIN AFTER TRANSFER WITH PRN PAIN MEDICATION GIVEN. WILL CONTINUE TO OBSERVE.
--- NOTE | 2019-05-09 07:10 | NUR ---
SHIFT REPORT RECEIVED. UP IN CHAIR. A&O X 4. RATES PAIN 4/10 AT INCISION SITE. ON 4L OF O2 VIA NC. RIJ IN PLACE S.L. MIDSTERNAL DRESSING IN PLACE. SUBTERNAL DRESSING IN PLACE. CT X 2 TO 20CM SUCTION. NO AIR LEAK NOTED. LEFT ALCIDES DRAIN WITH SEROUS DRAINAGE NOTED. LEFT ARM AND RIGHT LEG HARVEST SITES MARY JANE. NO SIGNS OF INFECTION NOTED. WILL CONTINUE TO MONITOR.
--- NOTE | 2019-05-09 07:40 | NUR ---
MEAL TRAY DELIVERED AND SET UP. ICE WATER PROVIDED. WILL CONTINUE TO MONITOR.
--- NOTE | 2019-05-09 09:26 | NUR ---
RATES PAIN 6/10 AT INCISION SITE. PERCOCET 10MG TAB GIVEN PER ORDERS. REEVES CATHETER DC'D PER ORDERS. PT ASSITED BACK TO BED. PULLED UP IN BED AND REPOSITONED FOR COMFORT. NO FURTHER NEEDS AT THIS TIME. WILL CONTINUE TO MONITOR.
--- NOTE | 2019-05-09 11:00 | NUR ---
ASSISTED PT BACK INTO CHAIR, PT TOLERATED WELL. MONITORS ON AND WORKING, VITALS STABLE, CALL LIGHT WITHIN REACH, SEE FLOW SHEET FOR FURTHER DETIALS. WILL CONTINUE TO OBSERVE.
--- NOTE | 2019-05-09 13:00 | NUR ---
PT SITTING UP IN CHAIR, MONITORS ON AND WORKING, VITALS STABLE, CALL LIGHT WITHIN REACH, WILL CONTINUE TO OBSERVE.
--- NOTE | 2019-05-09 15:00 | NUR ---
PT WALKED 100FT WITH PT, PT TOLERATED WELL. MONITORS ON AND WORKING VITALS STABLE. WILL CONTINUE TO OBSERVE.
--- NOTE | 2019-05-09 17:00 | NUR ---
PT SITTING UP IN CHAIR AT BEDSIDE EATING DINNER. MONITORS ON AND WORKING, VITALS STABLE. CALL LIGHT WITHIN REACH, WILL CONTINUE TO OBSERVE.
--- NOTE | 2019-05-09 19:53 | NUR ---
PT RECEIVED IN BED WITH EYES CLOSED ANMD CHEST RISING. EASILY AWOKEN TO VERBAL STIMULI. COMPLAINS OF SORNESS TO CHEST, RECEIVED PAIN MEDICATION APPROX 1830. WILL CONTINUE TO ASSESS. RIGHT IJ SALINE LOCKED. VSS. DENIES ANY NEEDS, CALL LIGHT IN REACH. WILL CONTINUE TO OBSERVE.
--- NOTE | 2019-05-09 21:49 | NUR ---
PT RECEIVED SCHEDULED MEDICATIONS PER OCT. COMPLAINS OF PAIN 03/16 WITH PRN PAIN MEDICATION GIVEN. USES URINAL WITH 225 MLS NOTED. IN BED WATCHING TV. WILL CONTINUE TO OBSERVE
--- NOTE | 2019-05-09 23:48 | NUR ---
REASSESSMENT COMPLETED, SEE FLOW SHEET. PT IN BED, NO NEEDS MADE KNOWN. CALL LIGHT IN REACH. WILL CONTINUE TO OBSERVE.
[2019-05-10] VITALS (23 sets, daily range): BP systolic 97–143; BP diastolic 44–83
--- NOTE | 2019-05-10 00:58 | NUR ---
PT SPO2 DROPPED TO LOW 80'S. PT ASSESSED AND PT LYING ON RIGHT SIDE. PT STATES THAT HE ONLY FELT STIFFNESS. UNABLE TO IMPROVE SPO2, N/C CHANGED TO HIGH FLOW AT 9LPM AND SPO2 INCREASED TO LOW 90'S. DOES COMPLAIN AFTER SPO2 STABLE WITH PRN PAIN MEDICATION GIVEN. PT RESPIRATIONS, HR AND B/P REMAINED STABLE THROUGHOUT. WILL CONTINUE TO OBSERVE.
[2019-05-10 06:37] LABS: HEMOGLOBIN 9.4 g/dL (13.5-17.5); MCH 31.3 pg (26.0-34.0); MCHC 33.6 g/dL (31.0-37.0); MCV 93.3 fL (80.0-100.0); MEAN PLATELET VOLUME 9.2 fL (7.4-10.4); RDW 13.6 % (11.5-14.5); WBC 11.7 10x3/uL (4.8-10.8)
[2019-05-10 06:45] LABS: ALBUMIN 2.5 g/dL (3.4-5.0); ANION GAP 9.4 mmol/L (8-16); BILIRUBIN - TOTAL 0.66 mg/dL (0.2-1.3); CALCIUM 8.2 mg/dL (8.5-10.1); CARBON DIOXIDE 30.6 mmol/L (21.0-32.0); CREATININE - SERUM 1.1 mg/dL (0.6-1.3)
--- NOTE | 2019-05-10 09:30 | NUR ---
Kd MOSES RN DC'D TPM WIRE AND Alicia MCGRATH DRAIN.
--- NOTE | 2019-05-10 19:00 | NUR ---
BEDSIDE REPORT RECEIVED . INITIAL ASSESSMENT COMPLETE PT UP TO CHAIR WATCHING TV. ALERT AND ORIENTED. RESP EVEN AND NONLABORED ON HIGH FLOW NC WITH O2 SAT 94% ENCOURAGED PT TO TCDB HE VERBALIZES UNDERSTANDING AND PULLS 1000 ON IS X6 TIMES. CM READING SR WITH ALARMS ON AND AUDIBLE. DENIES DISCOMFORT OR NEEDS CPOC BED LOW POSITION CL IN REACH SR UP TIMES 3 FOR BED MOBILITY AND SAFETY
--- NOTE | 2019-05-10 20:00 | NUR ---
ANSWERED PTS CALL LIGHT HE IS READY TO GET IN BED. INDEPENDENT WITH TRANSFER STEADY GAIT JUST NEEDS STAFF FOR MONITOR CORDS.
--- NOTE | 2019-05-10 20:30 | NUR ---
FAMILY AT BEDSIDE FOR VISITATION
--- NOTE | 2019-05-10 21:20 | NUR ---
ANSWERED PTS CALL LIGHT REQUESTING PAIN MED STATES PAIN 8 ALL OVER ON 1-10 SCALE MEDICATED PER PRN MED SEE EMAR
--- NOTE | 2019-05-10 23:00 | NUR ---
REASSESSMENT MADE NO CHANGES CPOC CALL LIGHT IN REACH
[2019-05-11] VITALS (24 sets, daily range): BP systolic 98–128; BP diastolic 40–82
--- NOTE | 2019-05-11 01:00 | NUR ---
PT RESTING QUIETLY WITH EYES CLOSED O2 SAT 96-97% NO DISTRESS NOTED CPOC
--- NOTE | 2019-05-11 02:05 | NUR ---
RT WAS GIVING PT TREATMENT AND PT REQUESTED PAIN MED. THIS NURSE INTO ROOM PT STATES "I WOKE UP REALLY HURTING JUST ALL OVER FROM THIS BED" PT STATES 10 ON 1-10 SCALE MEDICATED WITH PRN PAIN MED SEE EMAR
--- NOTE | 2019-05-11 03:00 | NUR ---
REASSESSMENT MADE PT DENIES PAIN MED EFFECTIVE NO CHANGES CPOC CL IN REACH
[2019-05-11 06:18] LABS: HEMATOCRIT 26.9 % (42.0-54.0); HEMOGLOBIN 8.8 g/dL (13.5-17.5); MCH 30.7 pg (26.0-34.0); MCHC 32.7 g/dL (31.0-37.0); MCV 93.7 fL (80.0-100.0); MEAN PLATELET VOLUME 9.1 fL (7.4-10.4); RBC 2.87 10x6/uL (4.20-6.10); RDW 13.8 % (11.5-14.5)
--- NOTE | 2019-05-11 06:19 | NUR ---
PT UP TO CHAIR STEADY GAIT
[2019-05-11 06:24] LABS: WBC 8.7 10x3/uL (4.8-10.8)
[2019-05-11 06:37] LABS: ALBUMIN 2.4 g/dL (3.4-5.0); ALKALINE PHOSPHATASE 97 U/L (46-116); ALT (SGPT) 30 U/L (10-68); BILIRUBIN - TOTAL 0.59 mg/dL (0.2-1.3); CALC OSMOLALITY 277 mosm/kg (275-300); CALCIUM 8.3 mg/dL (8.5-10.1); CARBON DIOXIDE 32.4 mmol/L (21.0-32.0); CHLORIDE - SERUM 101 mmol/L (98-107); CREATININE - SERUM 0.9 mg/dL (0.6-1.3); GLUCOSE 107 mg/dL (74-106); POTASSIUM - SERUM 3.4 mmol/L (3.5-5.1); PROTEIN - SERUM 6.1 g/dL (6.4-8.2); SODIUM 139 mmol/L (136-145); UREA NITROGEN 13 mg/dL (7-18); eGFR NON AFRICAN AMERICAN > 90 mL/min (90-120)
--- NOTE | 2019-05-11 19:15 | NUR ---
BEDSIDE REPORT RECEIVED. INITIAL ASSESSMENT COMPLETE. PT UP TO CHAIR WATCHING TV. ALERT AND ORIENTED C/O GENERALIZED SORENESS. RESP EVEN NONLABORED AT REST BUT SOB WITH EXERTION O2 DECREASED TO 3LPM HFNC AT THIS ITME WITH O2 SAT 95%. CM READING SR WITHOUT ECTOPY ALARMS ON AND AUDIBLE. SEE ASSESSMENT FLOWSHEET FOR COMPLETE DETAILS. CL IN REACH AND PT DENIES NEEDS AT THIS TIME
--- NOTE | 2019-05-11 19:55 | NUR ---
ANSWERED PTS CALL LIGHT REQUESTING PAIN MED AND TO GET IN BED "IM TIRED AND READY TO GO TO SLEEP". MEDICATED WITH PRN MED SEE EMAR. PAIN 8 ON 1-10 SCALE GENERALIZED SORENESS ALL OVER. HS MEDS GIVEN AT THIS TIME SO PT CAN GET REST.
--- NOTE | 2019-05-11 20:00 | NUR ---
PT BACK TO BED INDEPENDENTLY TRANSFERS JUST NEEDS STAFF ASSIST FOR MONITOR AND O2 TUBING
--- NOTE | 2019-05-11 23:00 | NUR ---
REASSESSMENT MADE NO CHANGES CPOC CL IN REACH
--- NOTE | 2019-05-11 23:45 | NUR ---
ANSWERED PTS CALL LIGHT REQUESTING PAIN MED TREATED PER PRN SEE EMAR
[2019-05-12] VITALS (24 sets, daily range): BP systolic 107–153; BP diastolic 46–77
--- NOTE | 2019-05-12 01:00 | NUR ---
MED EFFECTIVE RESTING QUIETLY EYES CLOSED VSS NO DISTRESS NOTED
--- NOTE | 2019-05-12 03:00 | NUR ---
REASSESSMENT PT C/O PAIN GENERALIZED ALL OVER ACHE MEDICATED WITH PRN MED SEE EMAR. CHANGED PTS LINEN AND GOWN DUE TO SWEATING. FAN ON CPOC CL IN REACH
--- NOTE | 2019-05-12 05:00 | NUR ---
PT RESTING QUIETLY WITH EYES CLOSED CPOC
--- NOTE | 2019-05-12 06:15 | NUR ---
BACK FROM RADIOLOGY UP TO CHAIR DENIES PAIN OR DISCOMFORT CPOC CL IN REACH
[2019-05-12 06:34] LABS: HEMATOCRIT 28.9 % (42.0-54.0); HEMOGLOBIN 9.4 g/dL (13.5-17.5); MCH 30.6 pg (26.0-34.0); MCHC 32.5 g/dL (31.0-37.0); MCV 94.1 fL (80.0-100.0); MEAN PLATELET VOLUME 8.7 fL (7.4-10.4); RBC 3.07 10x6/uL (4.20-6.10); RDW 13.8 % (11.5-14.5); WBC 9.1 10x3/uL (4.8-10.8)
[2019-05-12 06:51] LABS: ALBUMIN 2.7 g/dL (3.4-5.0); ANION GAP 11.7 mmol/L (8-16); BILIRUBIN - TOTAL 0.54 mg/dL (0.2-1.3); CALCIUM 8.5 mg/dL (8.5-10.1); CARBON DIOXIDE 29.2 mmol/L (21.0-32.0); CREATININE - SERUM 1.1 mg/dL (0.6-1.3); POTASSIUM - SERUM 3.9 mmol/L (3.5-5.1); PROTEIN - SERUM 6.7 g/dL (6.4-8.2)
--- NOTE | 2019-05-12 11:38 | NUR ---
1030: DR. LOJA HERE. NEW ORDERS REC'D. 1045: COMPLETE CHG BATH DONE AND LINEN CHANGE. 1115: Sae DEJESUS DC'Ambrocio. MANUAL PRESSURE HELD X 2 MIN. DRESSED WITH 2X2 AND TEGADERM.
--- NOTE | 2019-05-12 19:00 | NUR ---
BEDSIDE REPORT AND SHIFT ASSESSMENT COMPLETE. VSS, NO SIGNS OF ACUTE DISTRESS NOTED. O2 SAT 94 ON RA, PT DENIES DIFFICULTY BREATHING. R LEG AND L ARM INCISION WNL, DRESSING CDI. TEACHING ON IS COMPLETE. CALL LIGHT IN REACH, WILL CONTINUE TO MONITOR.
--- NOTE | 2019-05-12 21:00 | NUR ---
MEDS GIVEN PER OCT. CALL LIGHT IN REACH, WILL MONITOR.
--- NOTE | 2019-05-12 23:00 | NUR ---
REASSESSMENT COMPLETE, SEE FLOWSHEET. PT AMBULATED TO RESTROOM BY HIMSELF WITH NO DIFFUCULTY. DENIES ANY NEEDS AT THIS TIME, CALL LIGHT IN REACH.
[2019-05-13] VITALS (24 sets, daily range): BP systolic 103–143; BP diastolic 42–76
[2019-05-13 00:30] LABS: HEMATOCRIT 27.3 % (42.0-54.0); HEMOGLOBIN 8.9 g/dL (13.5-17.5); MCH 30.6 pg (26.0-34.0); MCHC 32.6 g/dL (31.0-37.0); MCV 93.8 fL (80.0-100.0); MEAN PLATELET VOLUME 8.5 fL (7.4-10.4); RBC 2.91 10x6/uL (4.20-6.10); WBC 8.1 10x3/uL (4.8-10.8)
--- NOTE | 2019-05-13 01:00 | NUR ---
PT SLEEPING. VSS, NO SIGNS OF DISTRESS NOTED. CALL LIGHT IN REACH, WILL MONITOR.
--- NOTE | 2019-05-13 03:00 | NUR ---
REASSESSMENT COMPLETE, SEE FLOWSHEET. PT SLEEPING. CALL LIGHT IN REACH, WILL CONTINUE TO MONITOR.
--- NOTE | 2019-05-13 05:30 | NUR ---
CHG BATH AND LINEN CHANGE COMPLETE WITH MINIMAL ASSIST. PT SITTING IN BEDSIDE CHAIR, VSS. STATES PAIN IS 8/10, REQUESTING PAIN MEDICATION. WILL ADMINISTER PER OCT. CALL LIGHT IN REACH, WILL MONITOR.
--- NOTE | 2019-05-13 07:00 | NUR ---
REPORT RECIEVED FROM THE OFF GOING RN. SEE ASSESSMENT IN THE PTS FLOW SHEET. PT SITTING OOB IN THE BEDSIDE CHAIR. VSS. PT DENIES PAIN AT THIS TIME. MIDSTERNAL AND SUBSTERNAL DRESSING C/D/I. LEFT FA INCISION WELL APPROXIMATED. RLE HARVEST SITE WELL APPROXIMATED AND AUDIO SPECIALIST. INSTRUCTED THE PT TO USE IS 10X'S/H. PT PULLS ABOUT 1000 ON HIS IS. BREAKFAST TRAY PROVIDED FOR THE PT. CALL LIGHT IN REACH. WILL CONT POC.
--- NOTE | 2019-05-13 09:45 | NUR ---
PT AMBULATED WITH PHSYICAL THEARPY WITH NO O2. PT C/O SLIGHTLY BEING SOB BUT O2 SAT DID NOT DROP BELOW 90%. SOB BECAME BETTER AFTER REST. WILL CONT POC.
--- NOTE | 2019-05-13 11:00 | NUR ---
REASSESSMENT COMPLETED. SEE FLOW SHEET.
--- NOTE | 2019-05-13 11:30 | NUR ---
MEAL TRAY PROVIDED FOR THE PT.
--- NOTE | 2019-05-13 14:48 | NUR ---
Nutrition Follow-up: POD 6 CABG. Pt reports tolerating PO intake. Appetite improving. Diet: Regular PO intake: 50-90% Wt: 197# Last BM: 05/13 Labs reviewed Meds reviewed Continue current diet as tolerated. RD following.
--- NOTE | 2019-05-13 17:37 | NUR ---
PT UP AD IGNACIO AND ABLE TO CONNECT AND DISCONNECT SELF FROM ICU EQUIPMENT. NORMAL STAEADY GAIT OBSERED. CALL LIGTH IN REACH. WILL CONT POC.
--- NOTE | 2019-05-13 19:00 | NUR ---
BEDSIDE REPORT AND SHIFT ASSESSMENT COMPLETE. VSS, NO SIGNS OF ACUTE DISTRESS NOTED. MIDSTERNAL AND SUBSTERNAL INCISION OPEN TO AIR, WNL. PT DENIES ANY PAIN, REQUESTING ICE CREAM. CALL LIGHT IN REACH, WILL CONTINUE TO MONITOR.
--- NOTE | 2019-05-13 21:00 | NUR ---
MEDS GIVEN PER OCT. CL IN REACH, WILL CPOC.
--- NOTE | 2019-05-13 23:00 | NUR ---
REASSESSMENT COMPLETE, SEE FLOWSHEET. VSS, NO DISTRESS NOTED. PT LAYING IN BED WATCHING TV, DENIES ANY NEEDS.
[2019-05-14] VITALS (8 sets, daily range): BP systolic 95–126; BP diastolic 47–66
--- NOTE | 2019-05-14 01:00 | NUR ---
PT SLEEPING. VSS, NO SIGNS OF ACUTE DISTRESS NOTED. WILL MONITOR.
--- NOTE | 2019-05-14 03:00 | NUR ---
REASSESSMENT COMPLETE, SEE FLOWSHEET. VSS. CALL LIGHT IN REACH.
--- NOTE | 2019-05-14 05:00 | NUR ---
PT AMBULATED TO RESTROOM AND BACK WITH NO ASSISTANCE. VSS, NO SIGNS OF ACUTE DISTRESS NOTED. WILL MONITOR.
--- NOTE | 2019-05-14 07:44 | NUR ---
0700 BEDSIDE REPORT COMPLETE INTRODUCED RN TO PATIENT C/O PAIN OUTGOING RN PROVIDED PAIN PILL ASSESSMENT COMPLETE REMAINS UP IN RECLINER CHAIR BREAKFAST TRAY SERVED
[2019-05-14] MEDS ORDERED: HEMOCYTE PLUS C1 CAP PO (09:47)
[2019-05-14] MEDS ORDERED: PROCARDIA XL30 MG PO (09:48)
[2019-05-14] MEDS ORDERED: COLACE100 MG PO (09:49)
[2019-05-14] MEDS ORDERED: HYDROCODON-ACE1 EAC7 PO (09:50)
--- NOTE | 2019-05-14 09:51 | NUR ---
0900 INSSTRUCTED PATIENT NOT TO PULL OFF MONITOR, BP CUFF, 02 SAT PROBE. EXPLAINED THAT WE DID NOT HAVE A DISCHARGE ORDER YET
--- NOTE | 2019-05-14 09:52 | NUR ---
9588 FAMILY MEMBERS AT BEDSIDE PATIENT REMOVED ALL HIS MONITORING EQUIPMENT
[2019-05-14] MEDS ORDERED: EFFIENT10 MG PO (09:53)
--- NOTE | 2019-05-14 12:02 | MORECARE ---
CASE MANAGEMENT DISCHARGE SUMMARY PATIENT: ANDREY OSMAN UNIT: [id number] ADM DATE: 05/03/19 AGE: 54 : 67 SEX: M ROOM/BED: D.03 AUTHOR: SHARDA,DOC PHYSICIAN: REFERRING PHYSICIAN: KATHRYN LIU MD DATE OF SERVICE: 05/14/19 Discharge Plan Patient Name: ANDREY OSMAN Facility: [facility]:[place] : 1965 Planned Disposition: Anticipated Discharge Date: 05/10/19 Discharge Date: 05/14/2019 Expected LOS: 7 Initial Reviewer: [email or web address] Initial Review Date: 05/03/2019 Generated: 05/14/19 1:02 pm DCP- Discharge Planning Updated by [email or web address]: Johanny Khan on 05/04/19 10:[address] DC PLAN: Return to his sisters at [place] ANTICIPATED DC NEEDS: Unknown at this time. Depends on how he does post-op CABG. CM met with patient to complete initial dc planning assessment. CM educated patient on the CM role and verbal consent given by patient to complete assessment. CM verified patient's address, phone number, and emergency contact phone numbers. Patient lives at home with his sister. He reports he is independent in his care at home. At discharge patient plans to return home with his sister and feels this is a safe discharge if he is able post op CABG. CM discussed availability of home health, rehab services, and medical equipment. Patient denied known discharge needs at this time. Patient reports his sister will transport him home at time of discharge. CM will continue to follow and will assist as needed with dc plans/needs. Johanny Khan RN, [facility] DCPIA - Discharge Planning Initial Assessment Updated by [email or web address]: Johanny Khan on 05/04/19 11:02 am * Is the patient Alert and Oriented? Yes * How many steps to enter\exit or inside your home? none * PCP Dr. Shearer * Pharmacy [facility] in [place] * Preadmission Environment Home with Family * ADLs Independent * Equipment Cane * List name and contact numbers for known caregivers / representatives who currently or will assist patient after discharge: Priscilla - ex - [phone] Marleny Miller- sister - [phone] * Verbal permission to speak to the caregivers and representatives has been obtained from the patient. Yes * Community resources currently utilized None * Additional services required to return to the preadmission environment? No * Has this patient been hospitalized within the prior 30 days at any hospital? Yes Coverage Notice Reviewer: [email or web address] Catherine Canseco Notice Issued Date-Time: 05/13/2019 16:00 Notice Type: IM Discharge Notice Notice Delivered To: Patient Relationship to Patient: Self Procurement Clerk Name: Delivery Method: HAND - Hand Delivered Liz Days: Prior Verbal Notification: Recipient Understood Notice: Yes Recipient Signature: Yes Med Rec Note Co-signed by Attending: Coverage Notice Comment: Last DP export: 05/04/19 10:04 a Patient Name: ANDREY OSMAN Page [id number] at 1202 All edits/amendments must be made on the electronic document DICTATION DATE: 05/14/19 1202 CHIEF BANK EXAMINER: GISELA 05/14/19 1202 RPT#: [id number] DC DATE:05/14/19 STATUS: DIS IN [facility] [address] [place] [address] END OF REPORT
--- NOTE | 2019-05-14 13:17 | NUR ---
[address] LOJA AT BEDSIDE PROVIDING DISCHARGE INSTRUCTIONS TO PT AND FAMILY MEMBERS
--- NOTE | 2019-05-14 13:18 | NUR ---
1032 WRITTEN AND VERBAL FOLLOW UP APPOINTMENT INSTRUCTIONS GIVEN BY CAROL DALAL VERBALIZED UNDERSTANDING
--- NOTE | 2019-05-14 13:20 | NUR ---
1046 TRANSPORTED VIA WHEELCHAIR TO [facility]. FAMILY TAKING PATIENT HOME
--- NOTE | 2019-05-16 13:30 | TEE ---
PATIENT:ANDREY OSMAN JR MEDICAL RECORD: [id number] LOCATION:[place] [address] AGE OF PATIENT: 54 ADMISSION DATE: 05/03/19 SEX: M REFERRING PHYSICIAN: INTERPRETING PHYSICIAN: BRIANA STRATTON MD TRANSESOPHAGEAL ECHOCARDIOGRAM Date: 05/07/19 EL[place]IA CHARGE Y INDICATIONS: CABG PREMEDICATIONS: PATIENT'S RESPONSE PROCEDURE DOPPLER MEASUREMENTS: LVIT LA 4.2 PA RA LVOT RVOT Asc. Ao AV Gradient Peak AV Mean AV Area MV Gradient Peak MV Mean MV Area INTERPRETATION: Doppler: 2-D: COLOR FLOW DOPPLER TRACE/MILD MR NORMAL SALINE STUDY: MISCELLANOUS: DIAGNOSIS: PLAN: Breaster:1 Dr. Stratton Voting Machine Mechanic: Aarti MEDINA COMMENTS: DATE OF SERVICE: 05/07/2019 PROCEDURE: Transesophageal echo evaluation of valvular structures during bypass surgery. FINDINGS: 1. Left ventricular chamber size is within normal limits. Left ventricular systolic function is normal. Overall ejection fraction estimated at 60%. 2. Left atrium, right atrium, and right ventricle chamber sizes are within TRANSESOPHAGEAL ECHOCARDIOGRAM REPORT [id number] QUINTIN OSMAN normal limits. 3. Valvular structures have normal structure and motion. 4. Doppler interrogation reveals [id number] mitral regurgitation, no other valvular insufficiency or stenosis. 5. No evidence of pericardial effusion or left ventricular thrombus. TRANSINT:[id number] Voice Confirmation ID: [id number] DOCUMENT ID: [id number] at 1330 CC: [id number] DICTATION DATE: 05/07/19 181 MEDICAL RESEARCH SCIENTIST: 05/08/19 0958 DIS IN 05/14/19 [place] [id number] [place] [id number]
== END 2019-05-14 10:51 | disposition home or self-care (01) | DRG 236 ==
LOC: D.ER 13:58 → D.M2 15:45 → D.CVICU 15:45
PROVIDERS: Emergency Medicine; Thoracic Surgery (Cardiothoracic Vascular Surgery); ADMIT Internal Medicine Nephrology; ATTEND Internal Medicine Nephrology
PROC: 02100AW Bypass Coronary Artery, One Artery from Aorta with Autologous Arterial Tissue, Open Approach (ICD-10-PCS; 2019-05-07)
PROC: 0210093 Bypass Coronary Artery, One Artery from Coronary Artery with Autologous Venous Tissue, Open Approach (ICD-10-PCS; 2019-05-07)
PROC: 02100A9 Bypass Coronary Artery, One Artery from Left Internal Mammary with Autologous Arterial Tissue, Open Approach (ICD-10-PCS; principal; 2019-05-07 13:00)
DX: I25.110 Atherosclerotic heart disease of native coronary artery with unstable angina pectoris (principal); T82.855A Stenosis of coronary artery stent, initial encounter; J98.11 Atelectasis; D62 Acute posthemorrhagic anemia; J90 Pleural effusion, not elsewhere classified; I10 Essential (primary) hypertension; E78.5 Hyperlipidemia, unspecified; K21.9 Gastro-esophageal reflux disease without esophagitis; J44.9 Chronic obstructive pulmonary disease, unspecified; Z87.891 Personal history of nicotine dependence; F41.9 Anxiety disorder, unspecified

== ENCOUNTER → 2019-05-31 14:55 | Outpatient (CLI) | payer MEDICARE ==
[2019-05-07 13:16] VITALS: BMI 32.7
[~2019-05-31 14:55] MED LIST changes: +COLACE100 MG PO; +HEMOCYTE PLUS C1 CAP PO; +PROCARDIA XL30 MG PO
[2019-05-31 15:35] LABS: BASOPHILS 0.5 % (0-2); EOSINOPHILS 11.9 % (0-7); HEMATOCRIT 37.9 % (42.0-54.0); HEMOGLOBIN 12.6 g/dL (13.5-17.5); IMMATURE GRANULOCYTES 0.3 % (0-5); LYMPHOCYTES 37.3 % (15-50); MCH 29.8 pg (26.0-34.0); MCHC 33.2 g/dL (31.0-37.0); MCV 89.6 fL (80.0-100.0); MEAN PLATELET VOLUME 8.6 fL (7.4-10.4); MONOCYTES 11.7 % (2-11); NEUTROPHILS 38.3 % (40-80); RBC 4.23 10x6/uL (4.20-6.10); RDW 13.4 % (11.5-14.5); WBC 7.3 10x3/uL (4.8-10.8)
[2019-05-31 15:55] LABS: ALBUMIN 3.5 g/dL (3.4-5.0); ALKALINE PHOSPHATASE 159 U/L (46-116); ALT (SGPT) 31 U/L (10-68); BILIRUBIN - TOTAL 0.24 mg/dL (0.2-1.3); CALC OSMOLALITY 282 mosm/kg (275-300); CALCIUM 9.3 mg/dL (8.5-10.1); CARBON DIOXIDE 32.2 mmol/L (21.0-32.0); CHLORIDE - SERUM 103 mmol/L (98-107); GLUCOSE 109 mg/dL (74-106); PROTEIN - SERUM 7.7 g/dL (6.4-8.2); SODIUM 141 mmol/L (136-145); UREA NITROGEN 14 mg/dL (7-18); eGFR NON AFRICAN AMERICAN 83 mL/min (90-120)
[2019-05-31 15:58] LABS: PLATELET COUNT 514 10x3/uL (130-400)
== END | disposition home or self-care (01) ==
LOC: D.LAB 14:55
PROVIDERS: ATTEND Thoracic Surgery (Cardiothoracic Vascular Surgery)
DX: Z48.89 Encounter for other specified surgical aftercare (principal)